=== PATIENT | male | born 1935 | race Caucasian/White ===

== ENCOUNTER 2024-06-28 20:40 | Inpatient (IN) | payer OTHER, SELFPAY ==
[2024-06-28 20:42] VITALS: BP 133/83; PULSE 117; RESP 20; TEMP 37.8; O2SAT 82; O2SAT 97
[2024-06-28 20:45] VITALS: BMI 28.8
[2024-06-28 22:00] VITALS: BP 111/67; PULSE 106; RESP 27; O2SAT 93
--- NOTE | 2024-06-28 22:09 | EKG12_ITS ---
Test Reason : DYSRHYTHMIA Blood Pressure : */* mmHG Vent. Rate : 106 BPM Atrial Rate : * BPM P-R Int : * ms QRS Dur : 90 ms QT Int : 316 ms P-R-T Axes : * 13 -20 degrees QTcB Int : 419 ms Atrial fibrillation with rapid ventricular response Nonspecific ST abnormality Abnormal ECG Confirmed by Wu Lacey ([id number]), video effects editor ROSALINA GUEVARA ([id number]) on 06/29/2024 9:38:02 AM Referred By: MARLA Confirmed By: Wu Lacey
--- NOTE | 2024-06-28 22:10 | ED.VIS.DYS ---
HPI History of Present Illness Chief Complaint: Shortness of Breath Informant: patient and family Narrative Narrative: Brought by EMS from home increasing chills subjective fevers increasing dyspnea. Denies any significant cough. Denies vomiting diarrhea. Denies urinary symptoms. History of A-fib on warfarin. Denies asthma or COPD. Denies any home oxygen. EMS arrival 82% on room air he was placed on 10 L and brought here. He is currently on 4 L nasal cannula states he is feeling better from this. He took Tylenol at home reporting improving his symptoms. [facility] Medical History Hypertension Home Medications ?Medication ?Instructions ?Recorded ?Last Taken ?Type amlodipine 5 mg tablet 5 mg PO DAILY 06/28/24 06/28/24 History clonidine HCl 0.2 mg tablet 0.2 mg PO BID 06/28/24 06/28/24 09:00 History digoxin 250 mcg (0.25 mg) tablet 125 mcg PO DAILY 06/28/24 06/28/24 History hydrochlorothiazide 50 mg tablet 25 mg PO DAILY 06/28/24 06/28/24 History labetalol 300 mg tablet 300 mg PO BID 06/28/24 06/28/24 09:00 History lisinopril 40 mg tablet 40 mg PO BID 06/28/24 06/28/24 09:00 History tamsulosin 0.4 mg capsule (Flomax) 0.4 mg PO QHS 06/28/24 06/27/24 History warfarin 2 mg tablet 2 mg PO .COMPLEX 06/28/24 06/28/24 History Allergy/AdvReac Type Severity Reaction Status Date / Time No Known Allergies Allergy Verified 06/28/24 20:42 Social History Smoking Status: Never smoker ROS ROS ED Constitutional Constitutional ED: Reports chills and fever(s); Denies sweats ENT ENT ED: Denies sore throat Cardiovascular Cardiovascular: Denies chest pain, leg edema, palpitations or racing heartbeat Respiratory/Chest Respiratory/Chest: Reports cough and dyspnea; Denies dyspnea on exertion Gastrointestinal Gastrointestinal: Denies abdominal pain, diarrhea, nausea or vomiting Genitourinary Genitourinary ED: Denies dysuria, hematuria or urinary frequency Musculoskeletal Musculoskeletal: Denies back pain, extremity pain or neck pain Integumentary Denies rash or wounds Neurologic Neurologic: Denies headache(s), paresthesias or weakness EXAM Physical Exam Const Vital Signs: 06/28/24 20:42 06/28/24 22:00 06/28/24 22:13 Temperature 100.1 F H Temperature Source Oral Pulse Rate 117 H 106 H Respiratory Rate 20 H 27 H Respiratory Effort Respiratory Depth Respiratory Pattern Blood Pressure 133/83 H 111/67 Blood Pressure Mean 99 80 Pulse Ox 82 93 Oxygen Delivery Method Room Air Nasal Cannula Oxygen Flow Rate (L/min) 4 06/28/24 22:17 06/28/24 23:00 06/29/24 00:00 Temperature Temperature Source Pulse Rate 94 90 Respiratory Rate 26 H 24 H Respiratory Effort Normal Non-Labored Respiratory Depth Normal Respiratory Pattern Normal Blood Pressure 103/69 106/66 Blood Pressure Mean 80 78 Pulse Ox 96 93 Oxygen Delivery Method Nasal Cannula Oxygen Flow Rate (L/min) 4 06/29/24 01:00 06/29/24 01:15 06/29/24 01:30 Temperature Temperature Source Pulse Rate 91 90 86 Respiratory Rate 23 H 22 H 22 H Respiratory Effort Respiratory Depth Respiratory Pattern Blood Pressure 111/71 111/64 108/58 L Blood Pressure Mean 84 79 74 Pulse Ox 95 95 95 Oxygen Delivery Method Oxygen Flow Rate (L/min) 06/29/24 01:45 06/29/24 02:00 06/29/24 02:00 Temperature Temperature Source Pulse Rate 92 89 92 Respiratory Rate 20 H 18 31 H Respiratory Effort Respiratory Depth Respiratory Pattern Blood Pressure 102/67 102/57 L 112/65 Blood Pressure Mean 77 72 79 Pulse Ox 94 94 95 Oxygen Delivery Method Nasal Cannula Oxygen Flow Rate (L/min) 4 06/29/24 02:15 06/29/24 02:30 06/29/24 02:45 Temperature Temperature Source Pulse Rate 87 81 86 Respiratory Rate 21 H 20 H 21 H Respiratory Effort Respiratory Depth Respiratory Pattern Blood Pressure 102/57 L 120/77 113/70 Blood Pressure Mean 71 91 82 Pulse Ox 95 95 94 Oxygen Delivery Method Oxygen Flow Rate (L/min) 06/29/24 03:00 Temperature Temperature Source Pulse Rate 102 H Respiratory Rate 23 H Respiratory Effort Respiratory Depth Respiratory Pattern Blood Pressure 131/87 H Blood Pressure Mean 103 Pulse Ox Oxygen Delivery Method Oxygen Flow Rate (L/min) Positive well nourished and well developed Constitutional Narrative: 4 L nasal cannula, no respiratory distress. General Appearance ED: well developed and NAD HEENT Reports moist mucous membranes normocephalic and atraumatic Eyes General Eye ED: Yes normal appearance of both eyes Neck full ROM Chest Wall Chest: Negative for tenderness Resp Resp Narrative: Diminished breath sounds at bases. Effort and Inspection: symmetric chest movement; Negative for respiratory distress Cardio no murmurs Rhythm: abnormal rhythm Peripheral Pulses: pulses 2+ throughout GI normal to inspection, nondistended, normoactive bowel sounds and non-tender Palpation: Negative for guarding or rebound tenderness present Extremity normal to inspection General Extremety ED: Negative for edema or tenderness General Extremity: Negative for edema Neuro oriented x3 and no sensory deficits noted Sensorium / Orientation: awake and alert Skin no rashes or lesions noted and no wounds MDM MDM MDM Narrative Medical decision making narrative: Interventions / MDM: Differential diagnosis: Hypoxia, fluid overload, febrile illness, atrial fibrillation, CHF Diagnosis considered but do not suspect: Pneumonia, pulmonary embolism however x-ray and CT negative. My EKG interpretation: A-fib rate of 106, no ST or T wave changes. Imaging independently reviewed and interpreted by myself: 1 view chest x-ray: No infiltrates vascular congestion noted. No pleural effusions. CTA chest: External documents reviewed: N/A Test considered but not ordered:N/A ED course: Low-grade temp 100.1 tachycardic in A-fib. Sepsis labs are ordered. Currently on 4 L nasal cannula no respiratory stress. With hypoxia will require admission. 0005: White count 7.8. Creatinine 1.6 GFR 41, no old for comparison. Lactic acid at 1. Urine without infection. COVID, RSV, influenza negative. Chest x-ray no infiltrates. History chills sweats more concerns for infectious etiology. Will send for respiratory panel. He is therapeutic with INR 2.6. No clear reason for his hypoxia at this time, CTA chest ordered for further evaluation. 0200: CTA chest negative for PE. Groundglass opacities with suggestion of pulm about congestion and mild pulmonary edema. No consolidation noted. Respiratory panel is pending. He denies any heart failure history. With hypoxia concerns for now fluid overload will start Lasix 40 mg IV. He does report some form of CKD however does not know his baseline numbers. I will speak with hospitalist for admission. Heart rate still A-fib in the 80s on the monitor. I spoke with Dr. Collier for admission. Re-evaluation: stable Disposition discussed with patient/family/significant other: Patient Case discussed with consulting clinician: Hospitalist This note was generated with [employer] dictation software. It may contain incorrect words, spelling, and punctuation that were not noted in checking the note before signing. Lab Data Attestation: I reviewed the patient's lab results. Labs: Laboratory Results - last 24 hr 06/28/24 06/28/24 06/28/24 20:46 22:18 22:19 WBC 7.8 RBC 4.76 Hgb 14.7 Hct 43.6 MCV 91.6 MCH 30.9 MCHC 33.7 RDW Std Deviation 48.1 H RDW Coeff of Ej 14.3 Plt Count 141 L MPV 10.4 Immature Gran % (Auto) 0.400 Neut % (Auto) 92.6 H Lymph % (Auto) 4.3 L [place] % (Auto) 1.0 Eos % (Auto) 1.2 Baso % (Auto) 0.5 Absolute Neuts (auto) 7.2 Absolute Lymphs (auto) 0.33 L Nucleated RBC % 0 Differential Comment SCANNED Toxic Granulation 2+ PT 28.4 H INR 2.6 APTT 36.8 H Sodium 137 Potassium 3.8 Chloride Direct 100 Carbon Dioxide 23.7 Anion Gap 13 BUN 35 H Creatinine 1.6 H Est GFR (MDRD) Non-Af 41 L BUN/Creatinine Ratio 21.3 H Glucose 117 H Lactic Acid 1.0 Calcium 9.4 Total Bilirubin 1.93 H AST 48 H ALT 25 Alkaline Phosphatase 89 NT pro BNP II 8040 H Total Protein 7.6 Albumin 3.9 Globulin 3.7 Albumin/Globulin Ratio 1.0 Urine Color Yellow Urine Clarity Clear Urine pH 6.0 Ur Specific [place] 1.015 Urine Protein 30 H Urine Glucose (UA) Normal Urine Ketones Negative Urine Occult Blood 150 H Urine Nitrite Negative Urine Bilirubin Negative Urine Urobilinogen 1 H Ur Leukocyte Esterase Negative Urine RBC 5-10 SEEN Urine WBC 0 SEEN Ur Squamous Epith Cells 0 SEEN Urine Bacteria 1+ Urine Mucus 0 SEEN Radiography Diagnostic Testing: Clinical Impression(s) from Imaging Studies Chest X-Ray 06/28/24 22:14 IMPRESSION: 1. Moderate cardiomegaly with associated pulmonary vascular congestion. 2. Right apical opacity which may represent atelectasis versus scarring. Mass is not entirely excluded. Reading Location: [facility] Chest CTA 06/29/24 00:04 IMPRESSION: Geographic bilateral diffuse mosaic ground-glass opacities and suggestion of lower lung septal thickening may represent pulmonary vascular congestion and mild pulmonary edema. Left base atelectasis. No focal consolidation. No evidence of filling defect to suggest pulmonary embolism. Mild enlargement of the central pulmonary arteries can be seen with pulmonary hypertension. Four-chamber cardiomegaly. Enlarged right paratracheal lymph node 1.3 cm axial 214, pretracheal 1.7 cm axial 189, shotty mediastinal nodes. May be reactive, inflammatory, infectious with neoplastic process not excluded. One or more dose reduction techniques were used (e.g., Automated exposure control, adjustment of the mA and/or kV according to patient size, use of iterative reconstruction technique). Reading Location: [id number] Discharge Plan Dx/Rx/DC Orders Clinical Impression: Hypoxia, Fluid overload, Febrile illness, acute, Chronic a-fib, CKD (chronic kidney disease), Chronic anticoagulation Disposition Disposition: Acute Care Hospital [facility] Discharge Date/Time: 06/29/24 04:06
--- NOTE | 2024-06-28 22:14 | RAD_ITS ---
PROCEDURE: CHEST 1 VIEW (PORTABLE) REASON FOR EXAM: Shortness of breath TECHNIQUE: Frontal view of the chest. COMPARISON: None. FINDINGS: Heart size is moderately enlarged. There are atherosclerotic calcifications of the thoracic aorta. Pulmonary vasculature is congested. Right apical opacity. The bones are unremarkable. RAD/Chest 1 View (Portable) IMPRESSION: 1. Moderate cardiomegaly with associated pulmonary vascular congestion. 2. Right apical opacity which may represent atelectasis versus scarring. Mass is not entirely excluded. Reading Location: [facility]
[2024-06-28 22:20] LABS: Absolute Lymphocyte Count 0.33 X10^3/uL (0.83-4.51); Absolute Neutrophil Count 7.2 X10^3/uL (2.0-7.7); Basophil# 0.04 X10^3/uL; Basophil% 0.5 % (0-1); Eosinophil# 0.09 X10^3/uL; Eosinophils% 1.2 % (0-5); Hematocrit 43.6 % (40-54); Hemoglobin 14.7 g/dL (13.0-16.5); Lymphocyte # 0.33 X10^3/ul (0.83-4.51); Lymphocyte % 4.3 % (19-41); Mean Corp Hgb Conc 33.7 g/dL (32-36); Mean Corpuscular Hgb 30.9 pg (27.0-32.0); Mean Corpuscular Volume 91.6 fL (80-94); Mean Platelet Vol. 10.4 fl (6.2-12.0); Monocyte# 0.08 X10^3/uL; NRBC Flagged by Analyzer 0 % (0-5); Neutrophil # 7.18 X10^3/uL (2.7-7.7); Neutrophil % 92.6 % (47-70); POSITIVE DIFFERENTIAL YES; POSITIVE MORPHOLOGY YES; Platelet Count 141 K/mm3 (150-450); RBC Distribution Width CV 14.3 % (11.6-14.6); RBC Distribution Width SD 48.1 fl (35.1-43.9); Red Blood Count 4.76 M/mm3 (4.6-6.2); White Blood Count 7.8 K/mm3 (4.4-11.0)
[2024-06-28] MEDS: 0.9% Normal Saline (1000mL) 1,000 ML 999 ML IV (22:31)
[2024-06-28 22:34] LABS: Mucous, Urine 0 SEEN /hpf (<or=2+); Squamous Epithelial Cells - UA 0 SEEN /hpf (0-5); White Blood Cells 0 SEEN /hpf (0-5)
[2024-06-28 22:45] LABS: AST(SGOT) 48 U/L (<=37); Alanine Aminotransfer ALT/SGPT 25 U/L (<=46); Albumin, Serum 3.9 g/dL (3.4-4.8); Alkaline Phosphatase 89 U/L (40-129); Anion Gap 13 (5-15); BUN 35 mg/dL (4-19); BUN/Creat Ratio 21.3 RATIO (10-20); Calcium 9.4 mg/dL (7.6-11.0); Carbon Dioxide 23.7 mmol/L (22.0-29.0); Chloride 100 mmol/L (96-108); Creatinine, Serum 1.6 mg/dL (0.8-1.3); EST Glomerular Filtration Rate 41 (>60); Globulin 3.7 g/dL (2.2-4.2); Glucose 117 mg/dL (70-99); Potassium 3.8 mmol/L (3.3-5.1); Protein, Total 7.6 g/dL (5.9-8.4); Sodium Level 137 mmol/L (133-145); Total Bilirubin 1.93 mg/dL (0.00-1.30)
[2024-06-28 22:51] LABS: International Normalized Ratio 2.6; Partial Thromboplast Time 36.8 Seconds (24.1-36.2); Prothrombin Time (Protime)PT. 28.4 SECONDS (11.7-14.9)
[2024-06-28 22:57] LABS: Color, Urine Yellow (Yellow); Glucose, Dipstick Normal (Normal); Ketone-Dipstick Negative (Negative); Leukocyte Esterase-Dipstick Negative /ul (Negative); Nitrite-Dipstick Negative (Negative); Occult Blood-Urine 150 /ul (Negative); Protein-Dipstick 30 mg/dl (Negative); Specific Gravity, Urine 1.015 (1.002-1.030); Urine Bilirubin Dipstick Negative (Negative); Urine Clarity Clear (Clear); Urine Urobilinogen 1 mg/dl (Normal)
[2024-06-28 23:00] VITALS: BP 103/69; PULSE 94; RESP 26; O2SAT 96
--- NOTE | 2024-06-28 23:03 | ED.RN ---
NO OLD EKG
[2024-06-28 23:15] LABS: Bacteria 1+ /hpf (None Seen); Red Blood Cells-Urine 5-10 SEEN /hpf (0-5)
[2024-06-28 23:34] LABS: Differential Indicated SCAN CRITERIA MET
[2024-06-28 23:42] LABS: Differential Comment SCANNED; Toxic Granulation 2+
[2024-06-29] VITALS (23 sets, daily range): BP systolic 102–133; BP diastolic 57–96; PULSE 52–102; RESP 16–31; TEMP 36.7–36.8; O2SAT 93–99; BMI 28.7
--- NOTE | 2024-06-29 00:04 | CT_ITS ---
PROCEDURE: CTA CHEST W/WO CONTRAST REASON FOR EXAM: Hypoxia TECHNIQUE: Chest CT with intravenous contrast. Coronal and sagittal reformatted images and MIP images CONTRAST: 100 cc [id number] COMPARISON: None. FINDINGS: The central airways are patent. Geographic bilateral diffuse mosaic ground- glass opacities and suggestion of lower lung septal thickening may represent pulmonary vascular congestion and mild pulmonary edema. Left base atelectasis. No focal consolidation. No evidence of filling defect to suggest pulmonary embolism. Mild enlargement of the central pulmonary arteries can be seen with pulmonary hypertension. Ectatic thoracic aorta with atherosclerotic changes. Aortic valve and mitral annulus calcification. Four-chamber cardiomegaly. No pericardial effusion. Trace bilateral pleural fluid. Enlarged right paratracheal lymph node 1.3 cm axial 214, pretracheal 1.7 cm axial 189, shotty mediastinal nodes. May be reactive, inflammatory, infectious with neoplastic process not excluded. No hilar or subcarinal adenopathy. Images through the upper abdomen appear unremarkable. Lower cervical spondylosis/discogenic change. Bilateral shoulder degenerative changes. T5 and T12 compression deformities without visualized acute fracture plane or malalignment. CT/CTA Chest W/WO Contrast IMPRESSION: Geographic bilateral diffuse mosaic ground-glass opacities and suggestion of lo wer lung septal thickening may represent pulmonary vascular congestion and mild pulmonary edema. Left base atelectasis. No focal c onsolidation. No evidence of filling defect to suggest pulmonary embolism. Mild enlargement of the central pulmonary arteries can be seen with pulmonary h ypertension. Four-chamber cardiomegaly. Enlarged right paratracheal lymph node 1.3 cm axial 214, pretracheal 1.7 cm axi al 189, shotty mediastinal nodes. May be reactive, inflammatory, infectious with neoplastic process not excluded. One or more dose reduction techniques were used (e.g., Automated exposure contr ol, adjustment of the mA and/or kV according to patient size, use of iterative reconstruction technique). Reading Location: [id number]
[2024-06-29 00:39] LABS: Pro- Brain NATRIURETIC PEPTIDE 8040 pg/mL (<=1800)
[2024-06-29] MEDS: Furosemide 40 MG/4 ML Vial IV ×2 (02:26→10:26)
--- NOTE | 2024-06-29 02:27 | PCM.HP.STD ---
HPI - General General Date of Admission: 06/29/24 Date of Service: 06/29/24 Chief Complaint: SOB and Fever. 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 Mr. Segal reports his symptoms began approximately one day prior to admission with gradual-onset of dyspnea on exertion the progressed to SOB at rest with cough and fever of 100.1 degrees Fahrenheit confirmed in ER with chills. He did take acetaminophen at home which he states did help to alleviate his symptoms. He denies related sweats, sore throat, runny nose, abdominal pain, dysuria, back pain, rash or headache. He also has no detailed knowledge about his type of CHF or its severity. In the ER he was noted to have CT evidence of geographic bilateral diffuse mosaic ground-glass opacities and suggestion of lower lung septal thickening which may represent vascular congestion and mild pulmonary edema with Left base atelectasis and no focal consolidation, with 4-chamber cardiomegaly with no evidence of PE and enlarged Right paratracheal lymph node ~1.3 cm with corresponding highly elevated BNP of 8,040 pg/mL consistent with AE CHF; of uncertain-type complicated by clinical evidence of suspected superimposed Viral Respiratory Infection causing Fever with both issues combining to produce Acute Respiratory Insufficiency with patent oxygen saturation of 82% noted on EMS arrival started on 10L NC and now down to 4L NC compounded by incidentally noted mild Hyperbilirubinemia of 1.93 mg/dL present on admission in addition to therapeutic INR of 2.6 present on admission with patient then admitted to the PCU for ongoing care for a stay that is expected to extend beyond 2 midnights. [facility] Medical History Hypertension Home Medications ?Medication ?Instructions ?Recorded ?Last Taken ?Type amlodipine 5 mg tablet 5 mg PO DAILY 06/28/24 06/28/24 History clonidine HCl 0.2 mg tablet 0.2 mg PO BID 06/28/24 06/28/24 09:00 History digoxin 250 mcg (0.25 mg) tablet 125 mcg PO DAILY 06/28/24 06/28/24 History hydrochlorothiazide 50 mg tablet 25 mg PO DAILY 06/28/24 06/28/24 History labetalol 300 mg tablet 300 mg PO BID 06/28/24 06/28/24 09:00 History lisinopril 40 mg tablet 40 mg PO BID 06/28/24 06/28/24 09:00 History tamsulosin 0.4 mg capsule (Flomax) 0.4 mg PO QHS 06/28/24 06/27/24 History warfarin 2 mg tablet 2 mg PO .COMPLEX 06/28/24 06/28/24 History Allergy/AdvReac Type Severity Reaction Status Date / Time No Known Allergies Allergy Verified 06/28/24 20:42 Social History Smoking Status: Never smoker ROS ROS Narrative Review of Systems: Constitutional: Patient admits to fever and chills. Eyes: Patient denies changes in vision or discharge from eyes. ENT: Patient denies runny nose, sore throat or ear pain. Resp: Patient admits to SOB and cough. CV: Patient denies chest pain, palpitations, heart racing or LE edema. GI: Patient denies abdominal pain, nausea, vomiting, diarrhea or constipation. : Patient denies dysuria, hematuria or urinary frequency. MSK: Patient denies arthralgias or myalgias. Skin: Patient denies rash, abscess, wounds or jaundice. Psych: Patient denies symptoms of uncontrolled depression or anxiety. Neuro: Patient denies headache, paresthesias or focal neurologic deficits. Allergy: Patient denies lip swelling, tongue swelling or urticaria. Hematology: Patient admits to easy bleeding and easy bruisability on warfarin. Endocrinology: Patient denies polyuria, polydipsia or polyphagia. 14 point ROS otherwise negative except for positives noted above in HPI. Vital Signs Vital Signs Vital Signs: 06/28/24 20:42 06/28/24 22:00 06/28/24 22:13 Temperature 100.1 F H Temperature Source Oral Pulse Rate 117 H 106 H Respiratory Rate 20 H 27 H Respiratory Effort Respiratory Depth Respiratory Pattern Blood Pressure 133/83 H 111/67 Blood Pressure Mean 99 80 Pulse Ox 82 93 Oxygen Delivery Method Room Air Nasal Cannula Oxygen Flow Rate (L/min) 4 06/28/24 22:17 06/28/24 23:00 06/29/24 00:00 Temperature Temperature Source Pulse Rate 94 90 Respiratory Rate 26 H 24 H Respiratory Effort Normal Non-Labored Respiratory Depth Normal Respiratory Pattern Normal Blood Pressure 103/69 106/66 Blood Pressure Mean 80 78 Pulse Ox 96 93 Oxygen Delivery Method Nasal Cannula Oxygen Flow Rate (L/min) 4 06/29/24 01:00 Temperature Temperature Source Pulse Rate 91 Respiratory Rate 23 H Respiratory Effort Respiratory Depth Respiratory Pattern Blood Pressure 111/71 Blood Pressure Mean 84 Pulse Ox 95 Oxygen Delivery Method Oxygen Flow Rate (L/min) Physical Exam Const alert, oriented x3, no apparent distress and average body habitus Constitutional Narrative: Patient appears frail and chronically ill. General Appearance: cooperative HEENT normocephalic, head/scalp atraumatic, hearing grossly normal bilaterally and moist oral mucous membranes Eyes PERRL, EOMs intact bilaterally and conjunctivae normal Neck no lymphadenopathy and supple Resp Resp Narrative: Diminished breath sounds throughout. Cardio regular rate and regular rhythm GI normal to inspection, nondistended, normoactive bowel sounds, soft to palpation, non-tender and non-distended Extremity normal to inspection, full ROM and no clubbing, cyanosis or edema Skin Skin Narrative: Patient has no evidence of rash, abscess, wound or jaundice. Neuro oriented x3, CN's II-XII intact bilaterally, moves all extremities and no focal motor deficits Sensorium / Orientation: awake, alert, oriented to person, oriented to place and oriented to time Speech: speech normal Psych affect normal Results Medical Records Data Attestation: I reviewed the patient's medical records Lab / Micro Data Attestation: I reviewed the patient's lab results. 06/28/24 20:46 06/28/24 20:46 Labs: Laboratory Results - last 24 hr 06/28/24 20:46: WBC 7.8, RBC 4.76, Hgb 14.7, Hct 43.6, MCV 91.6, MCH 30.9, MCHC 33.7, RDW Std Deviation 48.1 H, RDW Coeff of Ej 14.3, Plt Count 141 L, MPV 10.4, Immature Gran % (Auto) 0.400, Neut % (Auto) 92.6 H, Lymph % (Auto) 4.3 L, [place] % (Auto) 1.0, Eos % (Auto) 1.2, Baso % (Auto) 0.5, Absolute Neuts (auto) 7.2, Absolute Lymphs (auto) 0.33 L, Nucleated RBC % 0, Differential Comment SCANNED, Toxic Granulation 2+, PT 28.4 H, INR 2.6, APTT 36.8 H, Sodium 137, Potassium 3.8, Chloride Direct 100, Carbon Dioxide 23.7, Anion Gap 13, BUN 35 H, Creatinine 1.6 H, Est GFR (MDRD) Non-Af 41 L, BUN/Creatinine Ratio 21.3 H, Glucose 117 H, Calcium 9.4, Total Bilirubin 1.93 H, AST 48 H, ALT 25, Alkaline Phosphatase 89, NT pro BNP II 8040 H, Total Protein 7.6, Albumin 3.9, Globulin 3.7, Albumin/Globulin Ratio 1.0 06/28/24 22:18: Lactic Acid 1.0 06/28/24 22:19: Urine Color Yellow, Urine Clarity Clear, Urine pH 6.0, Ur Specific [place] 1.015, Urine Protein 30 H, Urine Glucose (UA) Normal, Urine Ketones Negative, Urine Occult Blood 150 H, Urine Nitrite Negative, Urine Bilirubin Negative, Urine Urobilinogen 1 H, Ur Leukocyte Esterase Negative, Urine RBC 5-10 SEEN, Urine WBC 0 SEEN, Ur Squamous Epith Cells 0 SEEN, Urine Bacteria 1+, Urine Mucus 0 SEEN Micro: Microbiology 06/28/24 22:32 Mucosa - Nose SARS-CoV-2, Influenza & RSV (PCR) - Final Imaging Radiology Impression Chest X-Ray 06/28/24 22:14 IMPRESSION: 1. Moderate cardiomegaly with associated pulmonary vascular congestion. 2. Right apical opacity which may represent atelectasis versus scarring. Mass is not entirely excluded. Reading Location: [facility] Chest CTA 06/29/24 00:04 IMPRESSION: Geographic bilateral diffuse mosaic ground-glass opacities and suggestion of lower lung septal thickening may represent pulmonary vascular congestion and mild pulmonary edema. Left base atelectasis. No focal consolidation. No evidence of filling defect to suggest pulmonary embolism. Mild enlargement of the central pulmonary arteries can be seen with pulmonary hypertension. Four-chamber cardiomegaly. Enlarged right paratracheal lymph node 1.3 cm axial 214, pretracheal 1.7 cm axial 189, shotty mediastinal nodes. May be reactive, inflammatory, infectious with neoplastic process not excluded. One or more dose reduction techniques were used (e.g., Automated exposure control, adjustment of the mA and/or kV according to patient size, use of iterative reconstruction technique). Reading Location: [id number] Assessment & Plan Assessment/Plan (1) CHF exacerbation: QUALIFIERS: Heart failure type: unspecified Qualified Code(s): I50.9 - Heart failure, unspecified (2) Cardiomegaly: (3) Viral lower respiratory tract infection: (4) Acute respiratory insufficiency: (5) Hyperbilirubinemia: (6) Chronic a-fib: (7) Chronic anticoagulation: (8) Essential hypertension: (9) CKD (chronic kidney disease): QUALIFIERS: Chronic kidney disease stage: unspecified stage Qualified Code(s): N18.9 - Chronic kidney disease, unspecified PLAN: Plan 1. AE CHF; of uncertain-type with corresponding highly elevated BNP of 8,040 pg/mL present on admission and CTA of chest revealing geographic bilateral diffuse mosaic ground-glass opacities and suggestion of lower lung septal thickening which may represent vascular congestion and mild pulmonary edema with Left base atelectasis and no focal consolidation, with 4-chamber cardiomegaly with no evidence of PE and enlarged Right paratracheal lymph node ~1.3 cm - Admit to PCU. Start furosemide IV BID plus supplemental KCl and magnesium. Fluid restrict to 1.5 L/day and follow strict I's & O's. Serialize troponin. Check echocardiogram to evaluate LVEF. Resume lisinopril and labetalol as previous. Finally, we will consult [facility] to see this patient on-rounds in the AM for further recommendations with help appreciated in advance. 2. Viral Respiratory Infection causing Fever complicating #1 - Viral respiratory panel pending at this time. Give acetaminophen prn for pain or fever. Give vitamin D3, vitamin C and zinc to boost immunity and speed recovery. 3. Acute Respiratory Insufficiency with patent oxygen saturation of 82% noted on EMS arrival started on 10L NC and now down to 4L NC due to #1 & #2 - Wean supplemental oxygen as tolerated. 4. Hyperbilirubinemia of 1.93 mg/dL present on admission; incidentally noted suspected to be caused by #1 - Check CT scan of abdomen and pelvis to evaluate liver and gallbladder and serialize CMP to follow trend. 5. Chronic atrial fibrillation; on digoxin and warfarin adding to the medical complexity of #1 - #4 - Check digoxin level and follow daily PT/INR with therapeutic INR of 2.6 present on admission. 6. Essential Hypertension; on lisinopril, labetalol BID, hydrochlorothiazide, amlodipine and clonidine BID - Resume home regimen except for hydrochlorothiazide as patient will be on furosemide for #1. 7. 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 8. BPH; on tamsulosin - Maintain tamsulosin as before. 9. OA - Give acetaminophen prn as noted in #2. 10. DVT prophylaxis - Patient is already on warfarin for #5 with therapeutic INR of 2.6 present on admission. Total time: Approximately (but not less than) 75 minutes. Charges/Coding Visit Charges Inpatient E&M: 27345 Init Hosp L3
--- NOTE | 2024-06-29 04:35 | ECHOD_ITS ---
Reason For Study Reason For Study: CHF Procedure This was a 2D Doppler, Color Flow transthoracic echocardiogram. Exam performed portable in patient room. Left Ventricle Normal LV size. The estimated ejection fraction is 70 %. Unable to assess diastolic dysfunction. No regional wall motion abnormalities noted. Right Ventricle Normal RV size. Normal systolic function. Atria There is severe biatrial dilatation. No doppler evidence for ASD. Mitral Valve There is severe mitral annular calcification. There is no mitral valve stenosis. No mitral valve insufficiency. Tricuspid Valve There is no tricuspid stenosis. Mild tricuspid valve insufficiency. Pulmonary artery systolic pressure is 50 mmHg. Aortic Valve Severe aortic stenosis. Trivial aortic valve insufficiency. Pulmonic Valve There is no pulmonic valvular stenosis. No pulmonic valve insufficiency. Great Vessels Normal sized aortic root. Pericardium/Pleural No pericardial effusion. MMode/2D Measurements & Calculations LVIDd: 4.3 cm IVSd: 1.4 cm LVOT diam: 2.0 cm LVIDs: 2.9 cm LVPWd: 1.8 cm LVOT area: 3.0 cm2 RVDd: 4.1 cm FS: 32.5 % LAV(MOD-bp): 107.7 ml LVAd ap4: 23.7 cm2 SV(MOD-sp4): 37.0 ml LAV(MOD-bp) Indexed: 50.5 ml/m2 LVLd ap4: 7.4 cm SI(MOD-sp4): 17.4 ml/m2 LAV(MOD-sp2): 101.6 ml EDV(MOD-sp4): 65.0 ml LAV(MOD-sp4): 114.9 ml EDV(sp4-el): 64.4 ml LVAs ap4: 13.1 cm2 LVLs ap4: 6.8 cm ESV(MOD-sp4): 28.0 ml ESV(sp4-el): 21.7 ml EF(MOD-sp4): 57.0 % EF(sp4-el): 66.3 % SV(sp4-el): 42.7 ml LA A4 area: 34.9 cm2 LA dimension(2D): 4.7 cm RA A4 area: 35.3 cm2 Doppler Measurements & Calculations MV E max enzo: 124.4 cm/sec Ao V2 max: 480.9 cm/sec PA V2 max: 117.8 cm/sec Ao max P.9 mmHg PA V2 mean: 78.8 cm/sec Ao V2 mean: 375.6 cm/sec Ao mean P.9 mmHg Ao V2 VTI: 94.2 cm TR max enzo: 315.4 cm/sec TR max P.8 mmHg ECHO/Echo Complete Interpretation Summary The estimated ejection fraction is 70 %. Unable to assess diastolic dysfunction. There is severe biatrial dilatation. No mitral valve insufficiency. Severe aortic stenosis. Trivial aortic valve insufficiency. Ordering Physician: Jose Elias Bueno Referring Physician: VIVIENNE DOVE Performed By: Sue Martínez RCS
--- NOTE | 2024-06-29 04:35 | CT_ITS ---
PROCEDURE: ABDOMEN/PELVIS WITHOUT CONT REASON FOR EXAM: Hyperbilirubinemia. TECHNIQUE: Abdomen and pelvis CT without intravenous contrast. IV CONTRAST: COMPARISON: None. FINDINGS: There are streaky changes at the lung bases. There are small bilateral pleural effusions present. There is no free air within the abdomen and pelvis. Tiny granuloma is seen along the surface of the liver. Otherwise the unenhanced liver, gallbladder, spleen, adrenals appear within normal limits. The common bile duct is not distended. The unenhanced pancreas is within normal limits. Contrast is noted within the bilateral renal collecting system from prior IV contrast administration. There is no hydronephrosis present. Bilateral renal cortical scarring these present. There are probable tiny cysts within the bilateral kidneys. There is a periphery calcified mass within the lower pole of the left kidney measuring up to 5.2 x 4.3 by 4.5 cm. This demonstrates Hounsfield units of 45. Recommend evaluation with sonogram versus multiphase MRI. The prostate is enlarged and measures up to 6.8 x 6.2 cm. Moderate amount of stool is seen within the rectum. Moderate stool seen throughout the colon. No evidence of bowel obstruction. The appendix is normal. No abnormal free fluid is seen within the abdomen and pelvis. Small hiatal hernia is present. Fat containing umbilical hernia is present. There also fat containing bilateral inguinal hernias. Extensive atheromatous calcifications seen within the aorta and its branches. Age indeterminate T12 compression fracture is present. Anterolisthesis of L5 with respect to S1. There is partial fusion of L5 on S1 CT/Abdomen/Pelvis without Cont IMPRESSION: Limited examination due to lack of IV oral contrast. No definite acute inflamm atory process is seen within the abdomen or pelvis. 5.2 cm left lower pole renal mass. Recommend renal sonogram versus multiphase MRI for further evaluation. Moderate amount of stool seen within the rectum. Correlate clinically for feca l impaction. Prostatomegaly. Trace bilateral pleural effusions. Other findings as above. One or more dose reduction techniques were used (e.g., Automated exposure contr ol, adjustment of the mA and/or kV according to patient size, use of iterative reconstruction technique). Reading Location: [id number]
[2024-06-29 05:53] LABS: Magnesium 1.8 mg/dL (1.5-2.2); Troponin T High Sensitivity 35 ng/L (<=22)
[2024-06-29] MEDS: Albumin Human 25% (50 mL) 12.5 GM/50 ML IV.SOLN IV (05:59)
[2024-06-29 07:03] LABS: Absolute Lymphocyte Count 1.03 X10^3/uL (0.83-4.51); Basophil# 0.04 X10^3/uL; Basophil% 0.4 % (0-1); Eosinophil# 0.11 X10^3/uL; Eosinophils% 1.1 % (0-5); Hemoglobin 13.9 g/dL (13.0-16.5); Lymphocyte # 1.03 X10^3/ul (0.83-4.51); Lymphocyte % 10.7 % (19-41); Mean Corp Hgb Conc 33.1 g/dL (32-36); Mean Corpuscular Hgb 30.5 pg (27.0-32.0); Mean Corpuscular Volume 92.1 fL (80-94); Mean Platelet Vol. 9.9 fl (6.2-12.0); Monocyte# 0.46 X10^3/uL; Monocyte% 4.8 % (0-10); NRBC Flagged by Analyzer 0 % (0-5); Neutrophil # 7.98 X10^3/uL (2.7-7.7); Neutrophil % 82.5 % (47-70); Platelet Count 135 K/mm3 (150-450); RBC Distribution Width CV 14.6 % (11.6-14.6); RBC Distribution Width SD 49.1 fl (35.1-43.9); Red Blood Count 4.56 M/mm3 (4.6-6.2); White Blood Count 9.7 K/mm3 (4.4-11.0)
[2024-06-29 07:16] LABS: International Normalized Ratio 2.4; Prothrombin Time (Protime)PT. 26.6 SECONDS (11.7-14.9)
[2024-06-29 07:43] LABS: ALB/GLOB Ratio 1.1 RATIO (0.9-2.4); AST(SGOT) 48 U/L (<=37); Alanine Aminotransfer ALT/SGPT 25 U/L (<=46); Albumin, Serum 3.8 g/dL (3.4-4.8); Alkaline Phosphatase 73 U/L (40-129); Anion Gap 14 (5-15); BUN 32 mg/dL (4-19); BUN/Creat Ratio 20.2 RATIO (10-20); Calcium 8.9 mg/dL (7.6-11.0); Carbon Dioxide 23.9 mmol/L (22.0-29.0); Chloride 101 mmol/L (96-108); Creatinine, Serum 1.6 mg/dL (0.8-1.3); EST Glomerular Filtration Rate 43 (>60); Estimated Creatinine Clearance 38.67 ml/min; Globulin 3.3 g/dL (2.2-4.2); Glucose 104 mg/dL (70-99); Potassium 3.5 mmol/L (3.3-5.1); Protein, Total 7.1 g/dL (5.9-8.4); Sodium Level 139 mmol/L (133-145); TROPONIN VARIANCE 2 HR 1; Troponin T High Sens 2 HR 34 ng/L (<=22)
--- NOTE | 2024-06-29 10:03 | PCM.CONS.C ---
Assessment & Plan Assessment/Plan (1) Chronic a-fib: PLAN: Patient has a history of atrial fibrillation since 2001. He is on Coumadin in his home environment his rate is controlled with a combination of Lanoxin and labetalol. He is INR was 2.6. This is managed through his primary care physician's office. The patient is never been cathed to his knowledge he does report that he had the bottom chamber of his heart was weak when he was originally diagnosed in 2001. He does report he has been very active since that point in time with only some occasional dyspnea on exertion. However, his dyspnea on exertion has become more prominent recently. (2) Chronic anticoagulation: PLAN: Patient is maintained on Coumadin with an INR of 2?3 for his atrial fibrillation. He denies any bleeding issues his hemoglobin is stable on this admission. (3) CKD (chronic kidney disease): QUALIFIERS: Chronic kidney disease stage: unspecified stage Qualified Code(s): N18.9 - Chronic kidney disease, unspecified PLAN: Patient has a GFR of 41. He is on significant medications for hypertension in his home environment including clonidine amlodipine hydrochlorothiazide labetalol lisinopril. (4) Murmur: PLAN: The patient has a significant 3/6 harsh murmur radiating widely across the precordium and up to the base of the neck. This is consistent with a aortic outflow murmur given his what appears to be significant hypertension this may be asymmetric septal hypertrophy or alternatively it is aortic stenosis. The patient has no prior history of murmur to his knowledge and has never been told he had valve disease. 2D echocardiogram results are pending at this time further recommendations be forthcoming when they are available. (5) CHF exacerbation: QUALIFIERS: Heart failure type: unspecified Qualified Code(s): I50.9 - Heart failure, unspecified PLAN: The patient appears to have multifactorial issues with his respiratory insufficiency. He does have pulmonary issues by CT scan but he also appears to be in congestive heart failure. Will are waiting the results of his echocardiogram and further recommendations for treatment will be forthcoming. PLAN: Plan 1. Will obtain results of the echocardiogram. 2. Recommend continue with diuresis. 3. Continue warfarin with a target INR of 2?3. 4. Further recommendation concerning tailoring medical therapy to the appropriate cardiovascular issues will be forthcoming after echocardiogram is available. HPI Consult Data Date of Consult: 06/29/24 HPI Narrative HPI Narrative: TAAMR SEGAL, is a 88 M who presents with acute respiratory insufficiency with an O2 saturation of 82%. CT scan was suggestive of some pulmonary issues and his BNP was elevated at 8040. The patient has had episodes of fevers and chills in his home environment. The patient carries a history of atrial fibrillation documented in 2001 by his report. He is also noted to have some LV dysfunction by his report. He was evaluated by deicer finisher in 2001 and has not seen one since then. The patient's EKG in the emergency department showed atrial fibrillation with a heart rate of 122 bpm PVCs and nonspecific [address]-T wave changes. On telemetry now the patient's heart rate is 99 bpm with occasional PVCs and atrial fibrillation. The EKG did not show any acute ischemic changes he had nonspecific ST-T wave changes. The patient has been on Coumadin long-term for his atrial fibrillation he tolerated total knee replacement in 2010 and 2011 without any cardiovascular issues. The patient denies ever having a catheterization. He has no prior history of coronary artery disease or myocardial infarction. He has never been told he had a murmur to his knowledge he was just told he had a weakness of his heart muscle back in 2001. The CT scan so bilateral diffuse mosaic groundglass opacities and suggestion of the lung lower lung septal thickening. He had some mild pulmonary edema. There was four-chamber cardiomegaly on the CT scan no evidence of PE there was an enlarged right paratracheal lymph node noted. Patient also carries a history of renal insufficiency and his INR was therapeutic at 2.6 on admission. Currently the patient denies any significant shortness of breath lying in bed. He does note that he has left lower extremity edema distal to the traumatic injury many years ago. He has no lower extremity edema on the right. The patient does report dyspnea on exertion that has been progressive recently. He denies any chest tightness or squeezing denies any exertional syncope or near syncope. He denies any lightheadedness or dizziness. [facility] Medical History (Updated 06/29/24 @ 10:[address] Wu Lacey MD) Chronic a-fib CKD (chronic kidney disease) Chronic anticoagulation Hypertension Home Medications ?Medication ?Instructions ?Recorded ?Last Taken ?Type amlodipine 5 mg tablet 5 mg PO DAILY 06/28/24 06/28/24 History clonidine HCl 0.2 mg tablet 0.2 mg PO BID 06/28/24 06/28/24 09:00 History digoxin 250 mcg (0.25 mg) tablet 125 mcg PO DAILY 06/28/24 06/28/24 History hydrochlorothiazide 50 mg tablet 25 mg PO DAILY 06/28/24 06/28/24 History labetalol 300 mg tablet 300 mg PO BID 06/28/24 06/28/24 09:00 History lisinopril 40 mg tablet 40 mg PO BID 06/28/24 06/28/24 09:00 History tamsulosin 0.4 mg capsule (Flomax) 0.4 mg PO QHS 06/28/24 06/27/24 History warfarin 2 mg tablet 2 mg PO .COMPLEX 06/28/24 06/28/24 History Allergy/AdvReac Type Severity Reaction Status Date / Time No Known Allergies Allergy Verified 06/28/24 20:42 Surgical History (Updated 06/29/24 @ 10:[address] Wu Lacey MD) H/O knee surgery Social History Smoking Status: Never smoker ROS Constitutional Constitutional: Reports as per HPI Eyes Eyes: Reports systems reviewed and no addt'l complaints, except as documented ENT HEENT: Reports systems reviewed and no addt'l complaints, except as documented Cardiovascular Cardiovascular: Reports as per HPI Respiratory/Chest Respiratory/Chest: Reports as per HPI Gastrointestinal Gastrointestinal: Reports systems reviewed and no addt'l complaints, except as documented Genitourinary Genitourinary: Reports as per HPI Musculoskeletal Musculoskeletal: Reports systems reviewed and no addt'l complaints, except as documented Integumentary Integumentary: Reports systems reviewed and no addt'l complaints, except as documented Neurologic Neurologic: Reports systems reviewed and no addt'l complaints, except as documented Psychiatric Psychiatric: Reports systems reviewed and no addt'l complaints, except as documented Endocrine Endocrinology: Reports systems reviewed and no addt'l complaints, except as documented Hematologic/Lymphatic Hematologic/Lymphatic: Reports as per HPI Allergic/Immunologic Allergic/Immunologic: Reports systems reviewed and no addt'l complaints, except as documented Physical Exam Const alert and oriented x3 HEENT normocephalic Eyes PERRL Neck no JVD and no carotid bruits Chest inspection of chest normal Resp normal respiratory effort Auscultation: crackles bilateral base Cardio Rate: regular rate Rhythm: abnormal rhythm irregularly irregular Heart Sounds: S1 normal, S2 normal and murmur systolic III/ loud holo left sternal border and sternal notch to the neck; Negative for click or gallop Bruits: Negative for carotid bruit GI normal to inspection, nondistended, normoactive bowel sounds Extremity General Extremity: edema left lower extremity (1-2+ noted distal to traumatic injury from many years ago with discoloration of his anterior aspect of the left lower extremity.) mild Neuro Neuro Narrative: Alert and oriented x 3 Psych mental status grossly normal Risk Stratification Risk Stratification Applicable: No Charges/Coding Visit Charges Inpatient E&M: 35055 Init Hosp L3 Objective Data Vital Signs: Vital Signs Temp Pulse Resp BP Pulse Ox O2 Del Method O2 Flow Rate 98.2 F 52 L 16 133/86 H 95 Nasal Cannula 2 06/29/24 05:24 06/29/24 05:24 06/29/24 05:24 06/29/24 05:24 06/29/24 05:24 06/29/24 07:45 06/29/24 07:45 Oxygen Flow Rate (L/min) 2 Oxygen Delivery Method Nasal Cannula Weight: 205 lb 11.06 oz Body Mass Index (BMI) 28.7 Intake & Output: Intake and Output for Last 24 Hours 06/27/24 06/28/24 06/29/24 23:59 23:59 23:59 Intake Total 1050 / 1050 Output Total 600 / 600 Balance 450 / 450 Lab / Micro Data 06/29/24 06:39 06/29/24 06:39 Labs: Laboratory Results - last 24 hr 06/28/24 20:46: WBC 7.8, RBC 4.76, Hgb 14.7, Hct 43.6, MCV 91.6, MCH 30.9, MCHC 33.7, RDW Std Deviation 48.1 H, RDW Coeff of Ej 14.3, Plt Count 141 L, MPV 10.4, Immature Gran % (Auto) 0.400, Neut % (Auto) 92.6 H, Lymph % (Auto) 4.3 L, [place] % (Auto) 1.0, Eos % (Auto) 1.2, Baso % (Auto) 0.5, Absolute Neuts (auto) 7.2, Absolute Lymphs (auto) 0.33 L, Nucleated RBC % 0, Differential Comment SCANNED, Toxic Granulation 2+, PT 28.4 H, INR 2.6, APTT 36.8 H, Sodium 137, Potassium 3.8, Chloride Direct 100, Carbon Dioxide 23.7, Anion Gap 13, BUN 35 H, Creatinine 1.6 H, Est GFR (MDRD) Non-Af 41 L, BUN/Creatinine Ratio 21.3 H, Glucose 117 H, Calcium 9.4, Total Bilirubin 1.93 H, AST 48 H, ALT 25, Alkaline Phosphatase 89, NT pro BNP II 8040 H, Total Protein 7.6, Albumin 3.9, Globulin 3.7, Albumin/Globulin Ratio 1.0 06/28/24 22:18: Lactic Acid 1.0 06/28/24 22:19: Urine Color Yellow, Urine Clarity Clear, Urine pH 6.0, Ur Specific [place] 1.015, Urine Protein 30 H, Urine Glucose (UA) Normal, Urine Ketones Negative, Urine Occult Blood 150 H, Urine Nitrite Negative, Urine Bilirubin Negative, Urine Urobilinogen 1 H, Ur Leukocyte Esterase Negative, Urine RBC 5-10 SEEN, Urine WBC 0 SEEN, Ur Squamous Epith Cells 0 SEEN, Urine Bacteria 1+, Urine Mucus 0 SEEN 06/29/24 04:20: Magnesium 1.8, Troponin T High Sens 35 H 06/29/24 06:39: WBC 9.7, RBC 4.56 L, Hgb 13.9, Hct 42.0, MCV 92.1, MCH 30.5, MCHC 33.1, RDW Std Deviation 49.1 H, RDW Coeff of Ej 14.6, Plt Count 135 L, MPV 9.9, Immature Gran % (Auto) 0.500, Neut % (Auto) 82.5 H, Lymph % (Auto) 10.7 L, [place] % (Auto) 4.8, Eos % (Auto) 1.1, Baso % (Auto) 0.4, Absolute Neuts (auto) 8.0 H, Absolute Lymphs (auto) 1.03, Nucleated RBC % 0, PT 26.6 H, INR 2.4, Sodium 139, Potassium 3.5, Chloride Direct 101, Carbon Dioxide 23.9, Anion Gap 14, BUN 32 H, Creatinine 1.6 H, Estim Creat Clear Calc 38.67, Est GFR (MDRD) Non-Af 43 L, BUN/Creatinine Ratio 20.2 H, Glucose 104 H, Calcium 8.9, Total Bilirubin 1.50 H, AST 48 H, ALT 25, Alkaline Phosphatase 73, Troponin T Hi Sens 2 Hr 34 H, Troponin T Hi Sens 2Hr Delta 1, Total Protein 7.1, Albumin 3.8, Globulin 3.3, Albumin/Globulin Ratio 1.1, TSH 3.940 Micro: Microbiology 06/29/24 01:10 Mucosa - Nose Respiratory Panel (PCR) - Final 06/28/24 22:32 Mucosa - Nose SARS-CoV-2, Influenza & RSV (PCR) - Final Rhythm Strip Rhythm Strip: A-fib Rate: 65 Ectopy: PVC(s) Cardiology Labs/Tests 06/28/24 20:46: WBC 7.8, RBC 4.76, Hgb 14.7, Hct 43.6, MCV 91.6, MCH 30.9, MCHC 33.7, Plt Count 141 L, MPV 10.4, Immature Gran % (Auto) 0.400, Neut % (Auto) 92.6 H, Lymph % (Auto) 4.3 L, [place] % (Auto) 1.0, Eos % (Auto) 1.2, Baso % (Auto) 0.5, Absolute Neuts (auto) 7.2, Nucleated RBC % 0, PT 28.4 H, INR 2.6, APTT 36.8 H, Sodium 137, Potassium 3.8, Carbon Dioxide 23.7, Anion Gap 13, BUN 35 H, Creatinine 1.6 H, Est GFR (MDRD) Non-Af 41 L, BUN/Creatinine Ratio 21.3 H, Glucose 117 H, Calcium 9.4, Total Bilirubin 1.93 H 06/28/24 22:18: Lactic Acid 1.0 06/28/24 22:19: Urine Color Yellow, Urine Clarity Clear, Urine pH 6.0, Ur Specific [place] 1.015, Urine Protein 30 H, Urine Glucose (UA) Normal, Urine Ketones Negative, Urine Occult Blood 150 H, Urine Nitrite Negative, Urine Bilirubin Negative, Urine Urobilinogen 1 H, Ur Leukocyte Esterase Negative, Urine RBC 5-10 SEEN, Urine WBC 0 SEEN 06/29/24 04:20: Magnesium 1.8 06/29/24 06:39: WBC 9.7, RBC 4.56 L, Hgb 13.9, Hct 42.0, MCV 92.1, MCH 30.5, MCHC 33.1, Plt Count 135 L, MPV 9.9, Immature Gran % (Auto) 0.500, Neut % (Auto) 82.5 H, Lymph % (Auto) 10.7 L, [place] % (Auto) 4.8, Eos % (Auto) 1.1, Baso % (Auto) 0.4, Absolute Neuts (auto) 8.0 H, Nucleated RBC % 0, PT 26.6 H, INR 2.4, Sodium 139, Potassium 3.5, Carbon Dioxide 23.9, Anion Gap 14, BUN 32 H, Creatinine 1.6 H, Est GFR (MDRD) Non-Af 43 L, BUN/Creatinine Ratio 20.2 H, Glucose 104 H, Calcium 8.9, Total Bilirubin 1.50 H Rhythm: EKG: ECHO: Stress Test: Cardiac Cath: PCI: CT Surgery: Holter monitor: EPS: PPM: CXR: Chest CT Scan: Radiography Diagnostic Testing: Radiology Impression Chest X-Ray 06/28/24 22:14 IMPRESSION: 1. Moderate cardiomegaly with associated pulmonary vascular congestion. 2. Right apical opacity which may represent atelectasis versus scarring. Mass is not entirely excluded. Reading [facility] Chest CTA 06/29/24 00:04 IMPRESSION: Geographic bilateral diffuse mosaic ground-glass opacities and suggestion of lower lung septal thickening may represent pulmonary vascular congestion and mild pulmonary edema. Left base atelectasis. No focal consolidation. No evidence of filling defect to suggest pulmonary embolism. Mild enlargement of the central pulmonary arteries can be seen with pulmonary hypertension. Four-chamber cardiomegaly. Enlarged right paratracheal lymph node 1.3 cm axial 214, pretracheal 1.7 cm axial 189, shotty mediastinal nodes. May be reactive, inflammatory, infectious with neoplastic process not excluded. One or more dose reduction techniques were used (e.g., Automated exposure control, adjustment of the mA and/or kV according to patient size, use of iterative reconstruction technique). Reading Location: [facility] Abdomen/Pelvis CT 06/29/24 04:35 IMPRESSION: Limited examination due to lack of IV oral contrast. No definite acute inflammatory process is seen within the abdomen or pelvis. 5.2 cm left lower pole renal mass. Recommend renal sonogram versus multiphase MRI for further evaluation. Moderate amount of stool seen within the rectum. Correlate clinically for fecal impaction. Prostatomegaly. Trace bilateral pleural effusions. Other findings as above. One or more dose reduction techniques were used (e.g., Automated exposure control, adjustment of the mA and/or kV according to patient size, use of iterative reconstruction technique). Reading Location: [facility]
[2024-06-29] MEDS: 0.9% Saline Lock 10 ML Syringe IV ×2 (10:26→21:42)
[2024-06-29] MEDS: cloNIDine HCl 0.2 MG Tablet PO ×2 (10:26→21:41)
[2024-06-29] MEDS: Potassium Chloride Oral Tablet 20 MEQ PO ×2 (10:26→16:51)
[2024-06-29] MEDS: Magnesium Chloride 64 MG Delay Rel.Tablet 128 MG PO ×2 (10:26→21:41)
[2024-06-29] MEDS: Lisinopril 20 MG Tablet PO ×2 (10:26→21:41)
[2024-06-29 10:41] LABS: Phosphorus 3.6 mg/dL (2.7-4.5)
[2024-06-29 11:13] LABS: TROPONIN VARIANCE 4 HR 4; Troponin T High Sens 4 HR 39 ng/L (<=22)
--- NOTE | 2024-06-29 14:07 | CASEMGMT ---
LONDON LEMON Assessment: Face to Face with pt for initial transition planning/care coordination assessment. LONDON LEMON introduced self and role at [facility], pt voices understanding and consents to assessment. Pt is A&O x4 and answers all questions appropriately at this time. Pt sitting up in bed in no distress with oxygen out of his nose but NC on. Pt did get this put back on. Pt and 2 dil present in room. Pt agreeable to assessment with family present. Care providers, pharmacy, and demographics verified/updated. Admitting Dx: AE CHF, viral resp infection and resp insuff Strata Score: 2 PCP:Tereza Specialists:Denies Preferred Pharmacy:[facility] Insurance: [employer] Prescription Benefit: no LNOK: Betsy Thomson, ; Tanner Thomson, son Living Arrangements: Pt lives with in a single story home with 3 steps to enter with a rail. Pt reports he is I in ADLs at home. States his prepares meals, they share in the laundry and pt gets the groceries. Transportation: Pt hires drivers for transportation and will do so upon dc home. DME:[facility] HHC/SNF:Denies hx of Pt states no concerns with going home at time of dc. Discussed CHF with pt and the benefits of HH SN, pt denies need for this at this time. Pt states he has a scale and will weigh himself daily. Wrote on pt board to ask for the RN ION should he change his mind. Pt states lastnight was scary for him and he became tearful when speaking about his sob. Discussed the possibility of oxygen at home. Pt does not have electricity but states he does have generators. Provided pt with a verbal local list of DME providers, pt did not have a preference and was agreeable to use [employer]. Pt family asks to speak to hospitalist, notified hospitalist who will speak with family. Pt states no further concerns/needs. CM to follow. Advised pt to ask CM if any further questions/concerns/needs arise, voices understanding. Pt Goal: Home Plan: Home as pt is not interested in HHC at this time, follow therapy and for oxygen needs. Irma CALLAHAN CM
--- NOTE | 2024-06-29 15:05 | US_ITS ---
PROCEDURE: KIDNEY AND BLADDER REASON FOR EXAM: Left renal mass. TECHNIQUE: Bilateral renal ultrasound. COMPARISON: Comparison is made with prior CT scan of the abdomen pelvis dated June 29, 2024. FINDINGS: Normal renal sizes, parenchymal thicknesses, and echotextures. No hydronephrosis. RIGHT Kidney Size: 9 cm x 4.6 cm x 4.9 cm Volume: 106 mL Cortical Thickness (if discernible): 1.1 cm (>6mm is normal) LEFT Kidney Size: 10.5 cm x 4.7 cm x 4.6 cm Volume: 120 mL Cortical Thickness (if discernible): 1 cm (>6mm is normal) There is evidence of a 4.6 cm x 3.8 cm x 4 cm complex solid mass with calcific borders in the lower pole. A neoplastic process should be ruled out. This corresponds with the CT findings. US/Kidney and Bladder IMPRESSION: 4.6 cm x 3.8 cm x 4 cm complex solid mass with calcification in the lower pole of the left kidney. A neoplastic process should be ruled out. Reading Location: [id number]
--- NOTE | 2024-06-29 15:20 | WOUNDNOTE ---
Dr Botello aware of positive blood culture. gram + cocci.
[2024-06-29 15:52] LABS: Digoxin Level 0.55 ng/mL (0.00-2.00)
[2024-06-29] MEDS: Jantoven 2 MG Tablet PO (16:50)
[2024-06-29] MEDS: Digoxin 125 MCG Tablet PO (16:51)
[2024-06-29] MEDS: Carvedilol 6.25 MG Tablet PO (17:19)
--- NOTE | 2024-06-29 17:42 | PN.HOSP_ITS ---
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 I also talked with cardiology concerning the patient's care. Patient has severe aortic stenosis but has a normal ejection fraction. Patient is currently on low-flow oxygen at 2 L. I have elected to place the patient on IV Lasix at 20 mg every 8 hours, after talking with cardiology, I also started the patient on Coreg for rate control, the patient's Lanoxin will be stopped and his labetalol will be stopped also. Patient will need to be set up as an outpatient for consultation regarding a TAVR. Objective Data Objective Data Vital Signs: Vital Signs Temp Pulse Resp BP Pulse Ox O2 Del Method O2 Flow Rate 98.3 F 98 18 122/79 H 96 Nasal Cannula 2 06/29/24 15:32 06/29/24 16:51 06/29/24 15:32 06/29/24 16:51 06/29/24 16:02 06/29/24 15:32 06/29/24 16:02 Oxygen Flow Rate (L/min) 2 Oxygen Delivery Method Nasal Cannula Weight: 93.3 kg Body Mass Index (BMI) 28.7 Intake & Output: Intake and Output for Last 24 Hours 06/27/24 06/28/24 06/29/24 23:59 23:59 23:59 Intake Total 1530 / 1530 Output Total 1650 / 1650 Balance -120 / -120 Lab / Micro Data 06/29/24 06:39 06/29/24 06:39 Labs: Laboratory Results - last 24 hr 06/28/24 20:46: WBC 7.8, RBC 4.76, Hgb 14.7, Hct 43.6, MCV 91.6, MCH 30.9, MCHC 33.7, RDW Std Deviation 48.1 H, RDW Coeff of Ej 14.3, Plt Count 141 L, MPV 10.4, Immature Gran % (Auto) 0.400, Neut % (Auto) 92.6 H, Lymph % (Auto) 4.3 L, [place] % (Auto) 1.0, Eos % (Auto) 1.2, Baso % (Auto) 0.5, Absolute Neuts (auto) 7.2, Absolute Lymphs (auto) 0.33 L, Nucleated RBC % 0, Differential Comment SCANNED, Toxic Granulation 2+, PT 28.4 H, INR 2.6, APTT 36.8 H, Sodium 137, Potassium 3.8, Chloride Direct 100, Carbon Dioxide 23.7, Anion Gap 13, BUN 35 H, Creatinine 1.6 H, Est GFR (MDRD) Non-Af 41 L, BUN/Creatinine Ratio 21.3 H, G lucose 117 H, Calcium 9.4, Total Bilirubin 1.93 H, AST 48 H, ALT 25, Alkaline Phosphatase 89, NT pro BNP II 8040 H, Total Protein 7.6, Albumin 3.9, Globulin 3.7, Albumin/Globulin Ratio 1.0 06/28/24 22:18: Lactic Acid 1.0 06/28/24 22:19: Urine Color Yellow, Urine Clarity Clear, Urine pH 6.0, Ur Specific [place] 1.015, Urine Protein 30 H, Urine Glucose (UA) Normal, Urine Ketones Negative, Urine Occult Blood 150 H, Urine Nitrite Negative, Urine Bilirubin Negative, Urine Urobilinogen 1 H, Ur Leukocyte Esterase Negative, Urine RBC 5-10 SEEN, Urine WBC 0 SEEN, Ur Squamous Epith Cells 0 SEEN, Urine Bacteria 1+, Urine Mucus 0 SEEN 06/29/24 04:20: Magnesium 1.8, Troponin T High Sens 35 H 06/29/24 06:39: WBC 9.7, RBC 4.56 L, Hgb 13.9, Hct 42.0, MCV 92.1, MCH 30.5, MCHC 33.1, RDW Std Deviation 49.1 H, RDW Coeff of Ej 14.6, Plt Count 135 L, MPV 9.9, Immature Gran % (Auto) 0.500, Neut % (Auto) 82.5 H, Lymph % (Auto) 10.7 L, [place] % (Auto) 4.8, Eos % (Auto) 1.1, Baso % (Auto) 0.4, Absolute Neuts (auto) 8.0 H, Absolute Lymphs (auto) 1.03, Nucleated RBC % 0, PT 26.6 H, INR 2.4, Sodium 139, Potassium 3.5, Chloride Direct 101, Carbon Dioxide 23.9, Anion Gap 14, BUN 32 H, Creatinine 1.6 H, Estim Creat Clear Calc 38.67, Est GFR (MDRD) Non-Af 43 L, BUN/Creatinine Ratio 20.2 H, Glucose 104 H, Calcium 8.9, Phosphorus 3.6, Total Bilirubin 1.50 H, AST 48 H, ALT 25, Alkaline Phosphatase 73, Troponin T Hi Sens 2 Hr 34 H, Troponin T Hi Sens 2Hr Delta 1, Total Protein 7.1, Albumin 3.8, Globulin 3.3, Albumin/Globulin Ratio 1.1, TSH 3.940, Digoxin 0.55 06/29/24 10:28: Troponin T Hi Sens 4Hr 39 H, Troponin T Hi Sens 4Hr Delta 4 Micro: Microbiology 06/28/24 22:32 Blood Culture (Wb) - Anticubital Right Blood Culture - Preliminary 06/28/24 22:19 Urine, Clean Catch 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 Moderate cardiomegaly with associated pulmonary vascular congestion. 2. Right apical opacity which may represent atelectasis versus scarring. Mass is not entirely excluded. Reading Location: [facility] Chest CTA 06/29/24 00:04 IMPRESSION: Geographic bilateral diffuse mosaic ground-glass opacities and suggestion of lower lung septal thickening may represent pulmonary vascular congestion and mild pulmonary edema. Left base atelectasis. No focal consolidation. No evidence of filling defect to suggest pulmonary embolism. Mild enlargement of the central pulmonary arteries can be seen with pulmonary hypertension. Four-chamber cardiomegaly. Enlarged right paratracheal lymph node 1.3 cm axial 214, pretracheal 1.7 cm axial 189, shotty mediastinal nodes. May be reactive, inflammatory, infectious with neoplastic process not excluded. One or more dose reduction techniques were used (e.g., Automated exposure control, adjustment of the mA and/or kV according to patient size, use of iterative reconstruction technique). Reading Location: [id number] Abdomen/Pelvis CT 06/29/24 04:35 IMPRESSION: Limited examination due to lack of IV oral contrast. No definite acute inflammatory process is seen within the abdomen or pelvis. 5.2 cm left lower pole renal mass. Recommend renal sonogram versus multiphase MRI for further evaluation. Moderate amount of stool seen within the rectum. Correlate clinically for fecal impaction. Prostatomegaly. Trace bilateral pleural effusions. Other findings as above. One or more dose reduction techniques were used (e.g., Automated exposure control, adjustment of the mA and/or kV according to patient size, use of iterative reconstruction technique). Reading Location: [facility] Echocardiogram 06/29/24 04:35 Interpretation Summary The estimated ejection fraction is 70 %. Unable to assess diastolic dysfunction. There is severe biatrial dilatation. No mitral valve insufficiency. Severe aortic stenosis. Trivial aortic valve insufficiency. Ordering Physician: Jose Elias Bueno Referring Physician: VIVIENNE DOVE Performed By: Sue Martínez RCS Renal Ultrasound 06/29/24 15:05 IMPRESSION: 4.6 cm x 3.8 cm x 4 cm complex solid mass with calcification in the lower pole of the left kidney. A neoplastic process should be ruled out. Reading Location: [id number] Rhythm Strip Rhythm Strip: A-fib Rate: 65 Ectopy: PVC(s) Physical Exam Const alert, oriented x3, no apparent distress and average body habitus General Appearance: cooperative, well kempt and well developed Orientation / Consciousness: awake, oriented to person, oriented to place and oriented to time HEENT normocephalic, head/scalp atraumatic and moist oral mucous membranes Eyes PERRL, EOMs intact bilaterally and conjunctivae normal Neck supple, no JVD, thyroid normal and no carotid bruits General: trachea midline Resp normal respiratory effort, no retractions and no use of accessory muscles Resp Narrative: Breath sounds are distant bilaterally Auscultation: Negative for rales, rhonchi or wheezes Cardio no rub and no gallops Cardio Narrative: Heart rate and rhythm is irregular GI normal to inspection, nondistended, normoactive bowel sounds, soft to palpation, non-tender and non-distended Extremity no clubbing, cyanosis or edema Skin no rashes or lesions noted General Skin Exam: no breakdown Neuro oriented x3, CN's II-XII intact bilaterally, no focal motor deficits and no sensory deficits noted Sensorium / Orientation: awake and alert Speech: speech normal Psych affect normal Assessment & Plan Assessment/Plan (1) CHF exacerbation: QUALIFIERS: Heart failure type: unspecified Qualified Code(s): I 50.9 - Heart failure, unspecified PLAN: Plan 1. Acute diastolic CHF-exacerbated by severe aortic stenosis-patient will remain on IV Lasix, his other medications will be adjusted #2 chronic atrial fibrillation-patient is on Coumadin and will be on Coreg for rate control #3 hypoxia secondary to #1-pulse ox will be monitored, oxygen will be weaned if possible #4 severe aortic stenosis-patient will need follow-up as an outpatient regarding this #5 essential hypertension-patient's medications will be adjusted prior to discharge home Total clinical time spent by myself addressing the patient's medical issues, reviewing all of his data, and collaborating with patient's care team: 35 minutes Charges/Coding Visit Charges Inpatient E&M: 53830 Subs Hosp L2
--- NOTE | 2024-06-29 18:06 | PCM.HOSP.N ---
Hospitalist Note Additional note: Patient was noted to have a mass on the left kidney on abdomen and pelvic CT, a renal ultrasound was ordered and it shows evidence of a complex solid mass with calcific borders in the lower pole of the left kidney, patient will need follow-up concerning this as an outpatient.
[2024-06-29] MEDS: Furosemide 20 MG/2 ML VIAL IV (21:41)
[2024-06-29] MEDS: Tamsulosin HCl 0.4 MG Capsule PO (21:41)
[2024-06-30 02:30] VITALS: BP 114/65; PULSE 90; RESP 16; TEMP 37.2; O2SAT 93
[2024-06-30 06:00] VITALS: BMI 27.8
[2024-06-30 06:45] VITALS: BP 127/75; PULSE 88
[2024-06-30] MEDS: 0.9% Saline Lock 10 ML Syringe IV ×3 (06:47→21:47)
[2024-06-30] MEDS: Furosemide 20 MG/2 ML VIAL IV ×3 (06:47→21:46)
[2024-06-30 07:23] VITALS: O2SAT 95
[2024-06-30 08:30] VITALS: BP 130/79; PULSE 104; RESP 12; TEMP 36.5; O2SAT 94
[2024-06-30 09:00] LABS: Absolute Lymphocyte Count 1.28 X10^3/uL (0.83-4.51); Absolute Neutrophil Count 5.5 X10^3/uL (2.0-7.7); Basophil# 0.06 X10^3/uL; Basophil% 0.7 % (0-1); Eosinophil# 0.08 X10^3/uL; Hematocrit 46.5 % (40-54); Hemoglobin 15.7 g/dL (13.0-16.5); Lymphocyte # 1.28 X10^3/ul (0.83-4.51); Lymphocyte % 15.9 % (19-41); Mean Corp Hgb Conc 33.8 g/dL (32-36); Mean Corpuscular Hgb 30.8 pg (27.0-32.0); Mean Corpuscular Volume 91.2 fL (80-94); Mean Platelet Vol. 10.4 fl (6.2-12.0); Monocyte# 1.06 X10^3/uL; Monocyte% 13.2 % (0-10); NRBC Flagged by Analyzer 0 % (0-5); Neutrophil # 5.51 X10^3/uL (2.7-7.7); Neutrophil % 68.7 % (47-70); Platelet Count 153 K/mm3 (150-450); RBC Distribution Width CV 14.4 % (11.6-14.6); RBC Distribution Width SD 48.3 fl (35.1-43.9)
[2024-06-30] MEDS: Potassium Chloride Oral Tablet 20 MEQ PO ×2 (09:13→16:48)
[2024-06-30] MEDS: cloNIDine HCl 0.2 MG Tablet PO ×2 (09:14→21:46)
[2024-06-30] MEDS: Magnesium Chloride 64 MG Delay Rel.Tablet 128 MG PO ×2 (09:14→21:46)
[2024-06-30] MEDS: Carvedilol 6.25 MG Tablet PO ×2 (09:14→16:49)
[2024-06-30] MEDS: Lisinopril 20 MG Tablet PO ×2 (09:14→21:46)
--- NOTE | 2024-06-30 09:15 | PN.CARD_ITS ---
Subjective Subjective Patient resting comfortably seated in the chair. He denies any chest pain denies any ongoing shortness of breath. The patient's echocardiogram yesterday revealed critical aortic stenosis which explains his murmur and his presentation with congestive heart failure. The patient was diagnosed with a right renal mass of approximately 5 cm by ultrasound he also has positive blood cultures and a positive urine culture. Objective Data Vital Signs: Vital Signs Temp Pulse Resp BP Pulse Ox O2 Del Method O2 Flow Rate 97.7 F L 104 H 12 130/79 H 94 Nasal Cannula 2 06/30/24 08:30 06/30/24 08:30 06/30/24 08:30 06/30/24 08:30 06/30/24 08:30 06/30/24 08:30 06/30/24 08:30 Oxygen Flow Rate (L/min) 2 Oxygen Delivery Method Nasal Cannula Weight: 199 lb Body Mass Index (BMI) 27.8 Intake & Output: Intake and Output for Last 24 Hours 06/28/24 06/29/24 06/30/24 23:59 23:59 23:59 Intake Total 1530 / 1530 Output Total 1650 / 2150 900 / 900 Balance -120 / -620 -900 / -900 Lab / Micro Data Attestation: I reviewed the patient's lab results. 06/30/24 07:51 06/29/24 06:39 Labs: Laboratory Results - last 24 hr 06/29/24 06:39: Phosphorus 3.6, Digoxin 0.55 06/29/24 10:28: Troponin T Hi Sens 4Hr 39 H, Troponin T Hi Sens 4Hr Delta 4 06/30/24 07:51: WBC 8.0, RBC 5.10, Hgb 15.7, Hct 46.5, MCV 91.2, MCH 30.8, MCHC 33.8, RDW Std Deviation 48.3 H, RDW Coeff of Ej 14.4, Plt Count 153, MPV 10.4, Immature Gran % (Auto) 0.500, Neut % (Auto) 68.7, Lymph % (Auto) 15.9 L, [place] % (Auto) 13.2 H, Eos % (Auto) 1.0, Baso % (Auto) 0.7, Absolute Neuts (auto) 5.5, Absolute Lymphs (auto) 1.28, Nucleated RBC % 0 Micro: Microbiology 06/28/24 22:32 Blood Culture (Wb) - Anticubital Right Blood Culture - Preliminary Gram negative rajeev 06/28/24 22:19 Urine, Clean Catch Urine Culture - Preliminary Escherichia coli Gram negative rajeev 06/29/24 01:10 Mucosa - Nose Respiratory Panel (PCR) - Final Rhythm Strip Rhythm Strip: A-fib Rate: 100 Ectopy: PVC(s) Cardiology Labs/Tests 06/29/24 06:39: Phosphorus 3.6, Digoxin 0.55 06/30/24 07:51: WBC 8.0, RBC 5.10, Hgb 15.7, Hct 46.5, MCV 91.2, MCH 30.8, MCHC 33.8, Plt Count 153, MPV 10.4, Immature Gran % (Auto) 0.500, Neut % (Auto) 68.7, Lymph % (Auto) 15.9 L, [place] % (Auto) 13.2 H, Eos % (Auto) 1.0, Baso % (Auto) 0.7, Absolute Neuts (auto) 5.5, Nucleated RBC % 0 Rhythm: EKG: ECHO: Stress Test: Cardiac Cath: PCI: CT Surgery: Holter monitor: EPS: PPM: CXR: Chest CT Scan: Radiography Diagnostic Testing: Radiology Impression Echocardiogram 06/29/24 04:35 Interpretation Summary The estimated ejection fraction is 70 %. Unable to assess diastolic dysfunction. There is severe biatrial dilatation. No mitral valve insufficiency. Severe aortic stenosis. Trivial aortic valve insufficiency. Ordering Physician: Jose Elias Bueno Referring Physician: VIVIENNE DOVE Performed By: Sue Martínez RCS Renal Ultrasound 06/29/24 15:05 IMPRESSION: 4.6 cm x 3.8 cm x 4 cm complex solid mass with calcification in the lower pole of the left kidney. A neoplastic process should be ruled out. Reading Location: [id number] Physical Exam Const alert and oriented x3 HEENT normocephalic Eyes PERRL Neck no JVD Chest inspection of chest normal Resp normal respiratory effort and clear to auscultation bilaterally Cardio Rate: regular rate Rhythm: abnormal rhythm irregularly irregular Heart Sounds: S1 normal, S2 normal and murmur systolic III/ harsh holo left sternal border, right sternal border, sternal notch and neck to carotid arteries; Negative for click or gallop GI soft to palpation Extremity no pedal edema Neuro Neuro Narrative: Alert and oriented x 3 Psych mental status grossly normal Assessment & Plan Assessment/Plan (1) Aortic valve stenosis: QUALIFIERS: Cardiac valve disease etiology: nonrheumatic Q ualified Code(s): I35.0 - Nonrheumatic aortic (valve) stenosis PLAN: Patient is echocardiogram yesterday showed left-ventricular ejection fraction of 70% the pulmonary artery pressure of 50 normal right ventricular function. The aortic valve was critically stenosed with a peak gradient of 93 mean gradient of 62. I did discuss these findings in detail with the patient there is a possibility he would be a candidate for TAVR he is not interested in SAVR. We do not know of his coronary status and he does have radiation to his carotids. We will obtain an ultrasound of his carotids to rule out significant carotid artery disease. Currently the patient has positive blood cultures and urine cultures. This needs to be cleared and documented sterile prior to any intervention on his aortic valve. The patient also need to have his dental status cleared. The patient also has a right renal mass that needs to be evaluated by urology. Once these issues are resolved if the patient still felt to be a potential candidate for TAVR he would be referred to [facility]'s TAVR clinic. The patient be reevaluated in the [facility] office after discharge prior to being referred for TAVR. (2) Essential hypertension: PLAN: Patient's blood pressure is coming under better control he is on significant medical therapy to control his blood pressure. (3) CHF exacerbation: QUALIFIERS: Heart failure type: unspecified Qualified Code(s): I 50.9 - Heart failure, unspecified PLAN: Patient's volume status and dyspnea on exertion and shortness of breath appear to be heart failure related to his aortic valve stenosis. He is continue with a gentle diuresis his creatinine is stable at 1.6. (4) CKD (chronic kidney disease): QUALIFIERS: Chronic kidney disease stage: unspecified stage Q ualified Code(s): N18.9 - Chronic kidney disease, unspecified PLAN: Patient has a history of many years of chronic kidney disease. Creatinine has been stable so far at 1.6 as he continues with gentle diuresis. His breathing is much improved. (5) Chronic a-fib: PLAN: Patient has longstanding chronic atrial fibrillation with a controlled ventricular response controlled by combination of Lanoxin and labetalol. Coreg has been added to his medical regiment for better rate control during this hospitalization and due to his high blood pressure. (6) Febrile illness, acute: PLAN: Patient's febrile illness is being treated with IV antibiotics due to his positive urine culture and blood culture. This grew 2 different types of gram- negative rods. (7) Right renal mass: PLAN: Patient has a 5 cm right renal mass that will be evaluated by urology. There is some calcification noted in the mass. PLAN: Plan 1. Will obtain ultrasound the carotids in anticipation of potential TAVR evaluation in the future and carotid bruits versus referred murmur. 2. Continue with treatment of the patient's infectious process. 3. The patient will need to be evaluated by urology prior to being referred for possible TAVR evaluation. 4. Patient should be followed up in the [facility] office in 3 to 4 weeks and at that time we will need to ensure that his bloodstream is sterile. Repeat blood cultures will be performed after that office visit. 5. I will follow direct for the remainder of his hospitalization. Charges/Coding Visit Charges Inpatient E&M: 08953 [facility] Hosp L3
[2024-06-30 10:25] LABS: Anion Gap 14 (5-15); BUN 39 mg/dL (4-19); BUN/Creat Ratio 26.1 RATIO (10-20); Calcium 9.4 mg/dL (7.6-11.0); Carbon Dioxide 26.8 mmol/L (22.0-29.0); Chloride 97 mmol/L (96-108); Creatinine, Serum 1.48 mg/dL (0.70-1.20); EST Glomerular Filtration Rate 46 (>60); Estimated Creatinine Clearance 38.16 ml/min; Glucose 100 mg/dL (70-99); Potassium 3.4 mmol/L (3.3-5.1); Sodium Level 137 mmol/L (133-145)
--- NOTE | 2024-06-30 10:38 | PN.HOSP_ITS ---
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/24) Essential (primary) hypertension (06/29/24) Nonrheumatic aortic (valve) stenosis (06/29/24) Chronic atrial fibrillation, unspecified (06/29/24) Heart failure, unspecified (06/29/24) Cardiomegaly (06/29/24) Unspecified acute lower respiratory infection (06/29/24) Chronic kidney disease, unspecified (06/29/24) Other specified disorders of kidney and ureter (06/29/24) Cardiac murmur, unspecified (06/29/24) Other abnormalities of breathing (06/29/24) Fever, unspecified (06/29/24) 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 I talked briefly with cardiology who saw him this morning during the rounds. Patient is on room air at this time at rest. Patient had an ultrasound of his kidneys performed yesterday due to an abnormal CT scan, it did show what appeared to be a mass on his left kidney which will have to be worked up as an outpatient. Objective Data Objective Data Vital Signs: Vital Signs Temp Pulse Resp BP Pulse Ox O2 Del Method O2 Flow Rate 97.7 F L 104 H 12 130/79 H 94 Room Air 2 06/30/24 08:30 06/30/24 08:30 06/30/24 08:30 06/30/24 08:30 06/30/24 08:30 06/30/24 09:51 06/30/24 08:30 Oxygen Flow Rate (L/min) 2 Oxygen Delivery Method Room Air Weight: 90.265 kg Body Mass Index (BMI) 27.8 Intake & Output: Intake and Output for Last 24 Hours 06/28/24 06/29/24 06/30/24 23:59 23:59 23:59 Intake Total 1530 / 1530 Output Total 1650 / 2150 900 / 900 Balance -120 / -620 -900 / -900 Lab / Micro Data 06/30/24 07:51 06/30/24 07:51 Labs: Laboratory Results - last 24 hr 06/29/24 06:39: Phosphorus 3.6, Digoxin 0.55 06/29/24 10:28: Troponin T Hi Sens 4Hr 39 H, Troponin T Hi Sens 4Hr Delta 4 06/30/24 07:51: WBC 8.0, RBC 5.10, Hgb 15.7, Hct 46.5, MCV 91.2, MCH 30.8, MCHC 33.8, RDW Std Deviation 48.3 H, RDW Coeff of Ej 14.4, Plt Count 153, MPV 10.4, Immature Gran % (Auto) 0.500, Neut % (Auto) 68.7, Lymph % (Auto) 15.9 L, [place] % (Auto) 13.2 H, Eos % (Auto) 1.0, Baso % (Auto) 0.7, Absolute Neuts (auto) 5.5, Absolute Lymphs (auto) 1.28, Nucleated RBC % 0, Sodium 137, Potassium 3.4, Chloride Direct 97, Carbon Dioxide 26.8, Anion Gap 14, BUN 39 H, Creatinine 1.48 H, Estim Creat Clear Calc 38.16, Est GFR (MDRD) Non-Af 46 L, BUN/Creatinine Ratio 26.1 H, Glucose 100 H, Calcium 9.4 Micro: Microbiology 06/28/24 22:32 Blood Culture (Wb) - Anticubital Right Blood Culture - Preliminary Gram negative rajeev 06/28/24 22:19 Urine, Clean Catch Urine Culture - Preliminary Escherichia coli Gram negative rajeev 06/29/24 01:10 Mucosa - Nose Respiratory Panel (PCR) - Final 06/28/24 22:32 Mucosa - Nose SARS-CoV-2, Influenza & RSV (PCR) - Final Radiography Diagnostic Testing: Radiology Impression Echocardiogram 06/29/24 04:35 Interpretation Summary The estimated ejection fraction is 70 %. Unable to assess diastolic dysfunction. There is severe biatrial dilatation. No mitral valve insufficiency. Severe aortic stenosis. Trivial aortic valve insufficiency. Ordering Physician: Jose Elias Bueno Referring Physician: VIVIENNE DOVE Performed By: Sue Martínez RCS Renal Ultrasound 06/29/24 15:05 IMPRESSION: 4.6 cm x 3.8 cm x 4 cm complex solid mass with calcification in the lower pole of the left kidney. A neoplastic process should be ruled out. Reading Location: [id number] Rhythm Strip Rhythm Strip: A-fib Rate: 100 Ectopy: PVC(s) Physical Exam Narrative alert, oriented x3, no apparent distress and average body habitus General Appearance: cooperative, well kempt and well developed Orientation / Consciousness: awake, oriented to person, oriented to place and oriented to time HEENT normocephalic, head/scalp atraumatic and moist oral mucous membranes Eyes PERRL, EOMs intact bilaterally and conjunctivae normal Neck supple, no JVD, thyroid normal and no carotid bruits General: trachea midline Resp normal respiratory effort, no retractions and no use of accessory muscles Resp Narrative: Breath sounds are distant bilaterally Auscultation: Negative for rales, rhonchi or wheezes Cardio no rub and no gallops Cardio Narrative: Heart rate and rhythm is irregular, there is a 2/6 systolic murmur noted at the left sternal border and apex GI normal to inspection, nondistended, normoactive bowel sounds, soft to palpation, non-tender and non-distended Extremity no clubbing, cyanosis or edema Skin no rashes or lesions noted General Skin Exam: no breakdown Neuro oriented x3, CN's II-XII intact bilaterally, no focal motor deficits and no sensory deficits noted Sensorium / Orientation: awake and alert Speech: speech normal Psych affect normal Assessment & Plan Assessment/Plan (1) CHF exacerbation: QUALIFIERS: Heart failure type: unspecified Qualified Code(s): I 50.9 - Heart failure, unspecified PLAN: Plan 1. Acute diastolic CHF-exacerbated by severe aortic stenosis-patient will remain on IV Lasix, his other medications will be adjusted #2 chronic atrial fibrillation-patient is on Coumadin and will be on Coreg for rate control #3 hypoxia secondary to #1-pulse ox will be monitored, oxygen will be weaned if possible #4 severe aortic stenosis-patient will need follow-up as an outpatient regarding this #5 essential hypertension-patient's medications will be adjusted prior to discharge home #6 left renal mass-this will need worked up as an outpatient, I discussed this with him today #7 bacteremia-probable Proteus, patient was placed on Rocephin, await final culture result Total clinical time spent by myself addressing the patient's medical issues, reviewing all of his data, and collaborating with patient's care team: 35 minutes Charges/Coding Visit Charges Inpatient E&M: 16703 Subs Hosp L2
[2024-06-30] MEDS: Ceftriaxone 1 GM/50 ML BAG IV (10:50)
--- NOTE | 2024-06-30 12:52 | CDU_ITS ---
Reason For Study Reason For Study: Carotid Bruit Rt. Velocities/BP Lt. Velocities/BP Prox CCA 72.7/17.5 cm/sec. Prox CCA 80.6/13.0 cm/sec. Mid CCA 94.1/18.5 cm/sec. Mid CCA 81.8/20.4 cm/sec. Dist CCA 61.0/13.8 cm/sec. Dist CCA 76.8/17.5 cm/sec. Prox ICA 56.3/20.4 cm/sec. Prox ICA 48.5/9.8 cm/sec. Mid ICA 73.3/25.1 cm/sec. Mid ICA 54.2/20.5 cm/sec. Dist ICA 55.5/18.8 cm/sec. Dist ICA 59.2/23.2 cm/sec. Rt. ICA/CCA = 0.8. Lt. ICA/CCA = 0.7. Prox ECA 61.1/0.0 cm/sec. Prox ECA 56.4/0.0 cm/sec. Rt. Vert. 40.4/12.7 cm/sec. Lt. Vert. 47.0/17.4 cm/sec. Right Extracranial There is heterogeneous, irregular atherosclerotic plaque noted in the right common carotid artery. There is heterogeneous, irregular atherosclerotic plaque noted in the right internal carotid artery. The right internal carotid artery is very tortuous. There is intimal thickening but no significant atherosclerotic plaque noted in the right external carotid artery. Antegrade flow is noted in the right vertebral artery. Left Extracranial There is heterogeneous, irregular atherosclerotic plaque noted in the left common carotid artery. There is heterogeneous, irregular atherosclerotic plaque noted in the left internal carotid artery. The left internal carotid artery is very tortuous. There is heterogeneous, irregular atherosclerotic plaque noted in the left external carotid artery. Antegrade flow is noted in the left vertebral artery. Procedure Carotid Duplex 12164. This is a Carotid Duplex examination using B-mode, color flow and specral Doppler. The exam was diagnostic. Exam performed portable in patient room. 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 Mild (<50%) stenosis left extracranial internal carotid. Patent and antegrade vertebrals bilaterally. Ordering Physician: Wu Lacey Referring Physician: Juan Diego Starks Performed By: Luciano Andre RVT
[2024-06-30 13:59] VITALS: BP 106/72; PULSE 89; RESP 16; TEMP 36.4; O2SAT 94
[2024-06-30] MEDS: Jantoven 2 MG Tablet PO (16:48)
[2024-06-30] MEDS: Tamsulosin HCl 0.4 MG Capsule PO (21:47)
[2024-06-30 22:30] VITALS: BP 131/100; PULSE 93; RESP 18; TEMP 37.1; O2SAT 97
[2024-07-01] VITALS (7 sets, daily range): BP systolic 97–137; BP diastolic 65–90; PULSE 83–97; RESP 18; TEMP 36.5–36.6; O2SAT 91–97
[2024-07-01] MEDS: 0.9% Saline Lock 10 ML Syringe IV ×3 (06:11→10:52)
[2024-07-01] MEDS: Furosemide 20 MG/2 ML VIAL IV (06:14)
[2024-07-01] MEDS: Carvedilol 6.25 MG Tablet PO (07:53)
[2024-07-01] MEDS: Potassium Chloride Oral Tablet 20 MEQ PO (09:28)
[2024-07-01] MEDS: Lisinopril 20 MG Tablet PO (09:29)
[2024-07-01] MEDS: cloNIDine HCl 0.2 MG Tablet PO (09:29)
[2024-07-01] MEDS: Magnesium Chloride 64 MG Delay Rel.Tablet 128 MG PO (09:29)
--- NOTE | 2024-07-01 09:56 | PN.CARD_ITS ---
Subjective Subjective Patient is resting comfortably in a seated position in the bedside chair. He is eating breakfast and denies any shortness of breath. The patient's renal mass is on the left kidney not right in the as I had previously dictated yesterday. The patient is being switched from IV to oral antibiotics. He will probably be discharged today. Objective Data Vital Signs: Vital Signs Temp Pulse Resp BP Pulse Ox O2 Del Method O2 Flow Rate 97.7 F L 97 18 122/65 H 97 Room Air 2 07/01/24 07:43 07/01/24 07:43 07/01/24 07:43 07/01/24 07:43 07/01/24 08:53 07/01/24 08:53 07/01/24 07:44 Oxygen Flow Rate (L/min) 2 Oxygen Delivery Method Room Air Weight: 199 lb Body Mass Index (BMI) 27.8 Intake & Output: Intake and Output for Last 24 Hours 06/29/24 06/30/24 07/01/24 23:59 23:59 23:59 Intake Total 1530 / 1530 450 / 800 350 / 350 Output Total 1650 / 2150 2150 / 2650 1700 / 1700 Balance -120 / -620 -1700 / -1850 -1350 / -1350 Lab / Micro Data 06/30/24 07:51 06/30/24 07:51 Labs: Laboratory Results - last 24 hr 06/30/24 07:51: Sodium 137, Potassium 3.4, Chloride Direct 97, Carbon Dioxide 26.8, Anion Gap 14, BUN 39 H, Creatinine 1.48 H, Estim Creat Clear Calc 38.16, E st GFR (MDRD) Non-Af 46 L, BUN/Creatinine Ratio 26.1 H, Glucose 100 H, Calcium 9.4 Micro: Microbiology 06/28/24 22:19 Urine, Clean Catch Urine Culture - Final Escherichia coli Gram negative rajeev 06/28/24 22:32 Blood Culture (Wb) - Anticubital Right Blood Culture - Final Proteus mirabilis Rhythm Strip Rhythm Strip: A-fib Rate: 100 Ectopy: PVC(s) Cardiology Labs/Tests 06/30/24 07:51: Sodium 137, Potassium 3.4, Carbon Dioxide 26.8, Anion Gap 14, B UN 39 H, Creatinine 1.48 H, Est GFR (MDRD) Non-Af 46 L, BUN/Creatinine Ratio 26.1 H, Glucose 100 H, Calcium 9.4 Rhythm: EKG: ECHO: Stress Test: Cardiac Cath: PCI: CT Surgery: Holter monitor: EPS: PPM: CXR: Chest CT Scan: Physical Exam Narrative Elderly white male seated comfortably in no apparent distress. Const alert and oriented x3 HEENT normocephalic Chest inspection of chest normal Resp normal respiratory effort and clear to auscultation bilaterally Cardio Rate: regular rate Rhythm: abnormal rhythm irregularly irregular Heart Sounds: S1 normal, S2 normal and murmur systolic III/ harsh holo left sternal border, right sternal border, sternal notch and neck to carotid arteries; Negative for click or gallop Extremity no pedal edema Neuro Neuro Narrative: Alert and oriented x 3 Psych mental status grossly normal Assessment & Plan Assessment/Plan (1) Aortic valve stenosis: QUALIFIERS: Cardiac valve disease etiology: nonrheumatic Q ualified Code(s): I35.0 - Nonrheumatic aortic (valve) stenosis PLAN: Patient has critical aortic valve stenosis with a peak gradient of 90 and a mean gradient of 62. He presented with heart failure consistent with his severe aortic stenosis. He also has chronic longstanding atrial fibrillation on Coumadin therapy with an INR of 2.4. His congestion cleared with diuretic therapy during this hospitalization. Once the patient's left renal mass and infectious processes are cleared he should be considered for TAVR evaluation. I discussed this in detail with the patient we need to have Dr. Rod evaluate his left renal mass and get that question cleared up and figure out what treatment is needed. The patient also needs to have sterile blood cultures and sterile urine documented prior to pursuing any type of valvular intervention. The patient was instructed to call our office for an appointment in 2 to 3 weeks and at that time would reevaluate what has been decided from a urologic standpoint and then perform blood cultures and urine culture to document sterility of the blood in urine. The patient's INR target is 2?3. Given the fact he is on antibiotics he was recommended to obtain an INR at his primary care physician's office early next week. And again 3 days after the antibiotics are completed. (2) Essential hypertension: PLAN: Patient's blood pressure has been adequately controlled on his current medical therapy. (3) CHF exacerbation: QUALIFIERS: Heart failure type: unspecified Qualified Code(s): I 50.9 - Heart failure, unspecified PLAN: Patient's CHF exacerbation was his first hospitalization he is recovered with IV diuresis and his renal function has actually improved from a creatinine of 1.6-1.4. His CHF is valvular in etiology related to his critical aortic stenosis. I did review with the patient his options for treatment of his aortic valve disease and the fact that we need to clear up his other comorbid issues prior to pursuing evaluation for his valvular heart disease. The patient is adamant he does not want surgical intervention on his valve. But he would be willing to be evaluated for possible TAVR. However, this will be deferred until we can document as noted above resolution of his renal issues and infectious process. (4) CKD (chronic kidney disease): QUALIFIERS: Chronic kidney disease stage: stage 3 (moderate) C hronic kidney disease stage 3 subtype: stage 3a (GFR 45-59) Qualified Code(s): N18.31 - Chronic kidney disease, stage 3a PLAN: Patient's original creatinine when he was admitted was 1.6 it improved with diuresis. His GFR was 46 the day of discharge. He is grade IIIA. (5) Chronic a-fib: PLAN: Patient has longstanding chronic atrial fibrillation since early . He has been managed on Coumadin to the primary service target INR of 2?3. INR here was 2.4. He is instructed to have this reevaluated early next week with his primary service due to his antibiotic therapy and change in medications. He should also have this reevaluated 3 days after he completes his antibiotic therapy. (6) Left renal mass: PLAN: The patient is to be scheduled by the primary service to follow-up with Dr. Rod the urologist for further evaluation of his left renal mass. This is a solid mass with characteristics of possible carcinoma. (7) Positive blood cultures: PLAN: Patient's blood cultures 1 of 2 blood cultures grew Proteus mirabilis his urine culture grew E. coli. The patient received a dose of Rocephin and will be discharged on oral antibiotics per the primary service. As noted above to blood cultures and a urine culture will be repeated when he is evaluated in our office in 2-3 weeks. PLAN: Plan 1. From a cardiovascular standpoint the patient can be discharged to home. 2. Patient has follow-up with INR next week with his primary care physician. 3. Patient is to follow-up in the [facility] office in 2-3 weeks. 4. At the next office visit in the [facility] repeat 2 blood cultures and urine culture. 5. Patient to follow-up with Dr. Rod for his left renal mass further recommendations on aortic valve treatment will be dependent upon what the outcome of that evaluation is and recommendations. 6. The patient is not interested in SAVR but would be interested in evaluation for potential TAVR. This will be dependent upon the evaluation from urologic standpoint and if this is a terminal issue this not amenable to treatment we would have to reevaluate the patient's options for valve interventions. Charges/Coding Visit Charges Inpatient E&M: 12786 Subs Hosp L2
[2024-07-01] MEDS: Ceftriaxone 1 GM/50 ML BAG IV (10:07)
--- NOTE | 2024-07-01 10:57 | DCINST_ITS ---
Discharge Instructions Diet Discharge Diet: No restrictions DC O2, CPAP, BIPAP needs Home O2 Discharge instructions: No Dressing / Incision Discharge Activity: Return to Normal Activity Weight Bearing Status: Full weight bearing Follow Up Care Test Results: Test results from this visit will be discussed in further detail at your follow- up appointment, if applicable. Discharge Plan Admission Admit Date/Time: 06/29/24 03:05 Primary Reason for Your Visit: Congestive heart failure, positive blood culture, left kidney mass Attending Provider: Genesis Castillo Primary Care Provider: Juan Diego Starks Consulting Providers: Jose Elias Bueno; Isai Wisdom; Isaac Heller; Cole Easley; Armaan Abbott; Surinder Lord; Danuta Hopkins; Wu Lacey; Khoa Hogan; Suman Glaser; Uriel Watkins; Jignesh Castellanos PHARMACIST INTERN; Geraldine Villagomez PA; John Weaver; Jac Botello Discharge Orders/Prescriptions Prescriptions: New carvedilol 6.25 mg Tablet 6.25 mg PO BIDCM Qty: 60 0RF lisinopril 20 mg Tablet 20 mg PO BID Qty: 60 0RF potassium chloride 20 mEq Tablet,Er Particles/Crystals 20 meq PO BIDCM Qty: 60 0RF furosemide [Lasix] 20 mg tablet 60 mg PO DAILY Qty: 90 0RF cefdinir 300 mg capsule 300 mg PO BID Qty: 14 0RF Rx Instructions: Start on 07/02/2024 Continued warfarin 2 mg tablet 2 mg PO .COMPLEX Rx Instructions: 2 mg orally daily; 4 mg on Mondays tamsulosin [Flomax] 0.4 mg capsule 0.4 mg PO QHS clonidine HCl 0.2 mg tablet 0.2 mg PO BID Discontinued digoxin 250 mcg (0.25 mg) tablet 125 mcg PO DAILY lisinopril 40 mg tablet 40 mg PO BID hydrochlorothiazide 50 mg tablet 25 mg PO DAILY amlodipine 5 mg tablet 5 mg PO DAILY labetalol 300 mg tablet 300 mg PO BID Referrals / Follow Up: Juan Diego Starks, [Primary Care Provider] - In 1 Week (You will need to be re ferred to a urologist regarding your left kidney mass) Wu Lacey MD [Med Staff - Active Staff] - See Referral Note (Call to schedule an appointment for 2 to 3 weeks from now) Disposition Disposition (needs filled in before D/C Order can be placed): Home, Self Care
--- NOTE | 2024-07-01 11:18 | PCM.DC.SUM ---
Providers Date of Admission: 06/29/24 Date of Discharge: 07/01/24 Primary Care Physician: Dr. Juan Diego Starks, Consultations 06/29/24 04:35 Consult: Cardiology Routine Consulting Provider: Raymundo Campbell Reason for Consult: AE CHF. EMERGENT Consult: No MD Notified: Yes Date Notified: 06/29/24 Time Notified: 03:09 Method of Notification: Answering Service Method of Consult:: In-Person Reason For Visit: AE CHF, VIRAL RESP INFECTION & RESPIRATORY INSUFF Diagnosis Discharge Diagnosis (1) Aortic valve stenosis: Status: Acute Code(s): I35.0 - Nonrheumatic aortic (valve) stenosis Qualifiers: Cardiac valve disease etiology: nonrheumatic Qualified Code(s): I35.0 - Nonrheumatic aortic (valve) stenosis (2) Essential hypertension: Status: Acute Code(s): I10 - Essential (primary) hypertension (3) CHF exacerbation: Status: Chronic Code(s): I50.9 - Heart failure, unspecified Qualifiers: Heart failure type: unspecified Qualified Code(s): I50.9 - Heart failure, unspecified (4) CKD (chronic kidney disease): Status: Chronic Code(s): N18.9 - Chronic kidney disease, unspecified Qualifiers: Chronic kidney disease stage: stage 3 (moderate) Chronic kidney disease stage 3 subtype: stage 3a (GFR 45-59) Qualified Code(s): N18.31 - Chronic kidney disease, stage 3a (5) Chronic a-fib: Status: Chronic Code(s): I48.20 - Chronic atrial fibrillation, unspecified (6) Left renal mass: Status: Acute Code(s): N28.89 - Other specified disorders of kidney and ureter (7) Positive blood cultures: Status: Acute Code(s): R78.81 - Bacteremia Plan 1. Acute diastolic CHF-exacerbated by severe aortic stenosis #2 chronic atrial fibrillation-patient is on Coumadin and will be on Coreg for rate control #3 hypoxia secondary to #1-pulse ox will be monitored, oxygen will be weaned if possible #4 severe aortic stenosis-patient will need follow-up as an outpatient regarding this #5 essential hypertension-patient's medications will be adjusted prior to discharge home #6 left renal mass-this will need worked up as an outpatient, I discussed this with him #7 bacteremia- Proteus, patient was placed on Rocephin, await final culture result #8 moderate pulmonary hypertension #9 acute cystitis with E. coli and Proteus Total clinical time spent by myself addressing the patient's medical issues, reviewing all of his data, and collaborating with patient's care team: 35 minutes Medications at Discharge Home Medications clonidine HCl 0.2 mg tablet 0.2 mg PO BID 06/28/24 tamsulosin 0.4 mg capsule (Flomax) 0.4 mg PO QHS 06/28/24 warfarin 2 mg tablet 2 mg PO .COMPLEX 06/28/24 carvedilol 6.25 mg tablet 6.25 mg PO BIDCM #60 tabs 07/01/24 cefdinir 300 mg capsule 300 mg PO BID #14 caps 07/01/24 furosemide 20 mg tablet (Lasix) 60 mg (3 x 20 mg) PO DAILY #90 tabs 07/01/24 lisinopril 20 mg tablet 20 mg PO BID #60 tabs 07/01/24 potassium chloride 20 mEq tablet,extended release(part/cryst) 20 meq PO BIDCM #60 tabs 07/01/24 Hospital Course Operations None Procedures 2-D Echocardiogram Summary of Care Provided Minutes Spent on Discharge: 31 Hospital Course: Is a 8-year-old white male was brought into the emergency room at [facility] for evaluation of fever and increasing dyspnea. Upon arrival of EMS at his home, his O2 sat was 82% on room air. Workup in the emergency room included an EKG which showed A-fib at a rate of 106, white blood cell count was normal, creatinine was 1.6, urinalysis was unremarkable. Chest x-ray showed no infiltrates, INR was 2.6. CT of the chest was performed, it was negative for PE but there were groundglass opacities with suggestion of pulmonary congestion and mild pulmonary edema. Patient's beta natruretic peptide was 8040. In addition, patient had a CT of the abdomen and pelvis which showed a 5.2 cm left lower pole renal mass. Patient was admitted to PCU for congestive heart failure, he was seen in consultation by cardiology and placed on IV diuresis. Echocardiogram was obtained which showed a normal ejection fraction but severe aortic stenosis. Patient had an ultrasound of the kidneys that showed a left renal mass. I talked at length with the patient and his family concerning his valvular heart disease and his renal mass, patient was unsure whether he wanted any treatment for his aortic valve as an outpatient. Patient's blood culture resulted positive for Proteus, despite this, patient's white blood cell count remained normal and he was afebrile-except for his temperature in the emergency room. Urine culture grew out E. coli and a gram-negative rajeev. Patient was able to be weaned off oxygen. On 07/01/2024, patient was seen and examined: On examination he appeared in good health and spirits. Vital signs as documented. Skin warm and dry and without overt rashes. Neck without JVD, neck was supple, trachea midline, thyroid was normal. Lungs clear bilaterally, normal air movement was noted. Heart exam notable for irregular rhythm, there were no rubs or gallops, there was a 2/6 systolic murmur noted at the apex and left sternal border. Abdomen unremarkable and without evidence of organomegaly, masses, or abdominal aortic enlargement. Bowel sounds are present, abdomen is not distended. Extremities nonedematous, no cyanosis was noted, no clubbing was noted. Neuro: Cranial nerves II through XII are grossly intact, no focal motor deficits were noted, sensation to light touch and pinprick intact, motor exam 5/5 throughout. Psych: Patient is alert and oriented x3, he does not appear anxious or depressed, he does not appear agitated. Patient was discharged in stable condition on 07/01/2024 Weight / BMI Weight Weight: 90.265 kg Body Mass Index (BMI) 27.8 ABG / Lab / Microbiology Data 06/30/24 07:51 06/30/24 07:51 Microbiology: Microbiology 06/28/24 22:19 Urine, Clean Catch Urine Culture - Final Escherichia coli Gram negative rajeev 06/28/24 22:32 Blood Culture (Wb) - Anticubital Right Blood Culture - Final Proteus mirabilis 06/29/24 01:10 Mucosa - Nose Respiratory Panel (PCR) - Final 06/28/24 22:32 Mucosa - Nose SARS-CoV-2, Influenza & RSV (PCR) - Final D/C Instructions Discharge Diet: No restrictions Weight Bearing Status: Full weight bearing DC O2, CPAP, BIPAP Needs Home O2 Discharge instructions: No Meaningful Use Info Meaningful Use Meaningful Use Diagnoses (Choose all that apply): CHF CHF ABDOULAYE/ARB ordered at discharge?: Yes Documented LVEF (%): 70 Ischemic Stroke Statin Dosing Therapy Reference: STATIN DOSE THERAPY REFERENCE: * Patients > 75 years receive moderate or high dose statin therapy. * Patients 75 years or YOUNGER should receive HIGH intensity statin dose unless contraindicated. You will be required to document reason for non-treatment if statin daily dose does not meet guidelines. HIGH DOSE STATIN THERAPY DAILY Atorvastatin > than or = to 40 mg Rosuvastatin > than or = to 20 mg Amlodipine + Atorvastatin > than or = to 2.5/40 mg Ezetimibe + Simvastatin 10/80 mg Simvastatin 80mg Discharge Plan Admission Admit Date/Time: 06/29/24 03:05 Primary Reason for Your Visit: Congestive heart failure, positive blood culture, left kidney mass Attending Provider: Genesis Castillo Primary Care Provider: Juan Diego Starks Consulting Providers: Jose Elias Bueno; Isai Wisdom; Isaac Heller; Cole Easley; Armaan Abbott; Surinder Lord; Danuta Hopkins; Wu Lacey; Khoa Hogan; Suman Glaser; Uriel Watkins; Jignesh Castellanos NP; Geraldine Villagomez PA; John Weaver; Jac Botello Discharge Orders/Prescriptions Prescriptions: New carvedilol 6.25 mg Tablet 6.25 mg PO BIDCM Qty: 60 0RF lisinopril 20 mg Tablet 20 mg PO BID Qty: 60 0RF potassium chloride 20 mEq Tablet,Er Particles/Crystals 20 meq PO BIDCM Qty: 60 0RF furosemide [Lasix] 20 mg tablet 60 mg PO DAILY Qty: 90 0RF cefdinir 300 mg capsule 300 mg PO BID Qty: 14 0RF Rx Instructions: Start on 07/02/2024 Continued warfarin 2 mg tablet 2 mg PO .COMPLEX Rx Instructions: 2 mg orally daily; 4 mg on Mondays tamsulosin [Flomax] 0.4 mg capsule 0.4 mg PO QHS clonidine HCl 0.2 mg tablet 0.2 mg PO BID Discontinued digoxin 250 mcg (0.25 mg) tablet 125 mcg PO DAILY lisinopril 40 mg tablet 40 mg PO BID hydrochlorothiazide 50 mg tablet 25 mg PO DAILY amlodipine 5 mg tablet 5 mg PO DAILY labetalol 300 mg tablet 300 mg PO BID Referrals / Follow Up: Juan Diego Starks DO [Primary Care Provider] - In 1 Week (You will need to be referred to a urologist regarding your left kidney mass) Wu Lacey MD [Med Staff - Active Staff] - See Referral Note (Call to schedule an appointment for 2 to 3 weeks from now) Disposition Disposition (needs filled in before D/C Order can be placed): Home, Self Care Charges/Coding Visit Charges Inpatient E&M: 59344 Disch Hosp >30min
== END 2024-07-01 12:29 | disposition home or self-care (01) | DRG 291 ==
LOC: ED 06-29 02:07 → MS2 06-29 03:16 → PCU 06-30 19:20
PROVIDERS: Internal Medicine; Admitting Provider Internal Medicine; Emergency Provider Emergency Medicine; PCP Family Medicine; Visit Provider Internal Medicine
DX: I13.0 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 1 through stage 4 chronic kidney disease, or unspecified chronic kidney disease (principal); I50.31 Acute diastolic (congestive) heart failure; R78.81 Bacteremia; I48.20 Chronic atrial fibrillation, unspecified; N30.00 Acute cystitis without hematuria; I27.20 Pulmonary hypertension, unspecified; Z79.01 Long term (current) use of anticoagulants; N18.31 Chronic kidney disease, stage 3a; I35.0 Nonrheumatic aortic (valve) stenosis; E80.6 Other disorders of bilirubin metabolism; M19.90 Unspecified osteoarthritis, unspecified site; J22 Unspecified acute lower respiratory infection; R09.02 Hypoxemia; R01.1 Cardiac murmur, unspecified; N28.89 Other specified disorders of kidney and ureter; B96.4 Proteus (mirabilis) (morganii) as the cause of diseases classified elsewhere; B96.20 Unspecified Escherichia coli [E. coli] as the cause of diseases classified elsewhere; Z79.899 Other long term (current) drug therapy; N40.0 Benign prostatic hyperplasia without lower urinary tract symptoms; R06.89 Other abnormalities of breathing; B34.9 Viral infection, unspecified; R50.9 Fever, unspecified
CPT/HCPCS: 36415; 71045; 71275; 74176; 76770; 80048; 80053; 80162; 81001; 83605; 83735; 83880; 84100; 84443; 84484; 85025; 85610; 85730; 87040; 87077; 87086; 87088; 87186; 87631; 87633; 93005; 93306; 93880; 94668; 97116; 97162; 99285; P9047; A4216; J1940

== ENCOUNTER → 2024-07-14 | Outpatient (CLI) | payer OTHER, SELFPAY | END | disposition home or self-care (01) | PROVIDERS: PCP Family Medicine; Referring Provider Internal Medicine Cardiovascular Disease; Visit Provider Internal Medicine Cardiovascular Disease | DX: R78.81 Bacteremia (principal); I35.0 Nonrheumatic aortic (valve) stenosis | CPT/HCPCS: 36415; 87040 ==

== ENCOUNTER → 2024-12-21 | Outpatient (CLI) | payer OTHER, SELFPAY ==
--- NOTE | 2024-12-21 13:27 | ECHOD_ITS ---
Reason For Study Reason For Study: VALVE REPLACEMNT Procedure This was a 2D Doppler, Color Flow transthoracic echocardiogram. Exam performed in department. Left Ventricle Normal LV size. Moderate concentric left ventricular hypertrophy. The left ventricular ejection fraction is 65 %. No regional wall motion abnormalities noted. Right Ventricle Normal RV size. Normal systolic function. Atria The left atrium is severely enlarged. The right atrium is moderately enlarged. Mitral Valve There is moderate mitral annular calcification. Tricuspid Valve Normal tricuspid valve. Mild to moderate (1-2+) tricuspid valve insufficiency. Pulmonary artery systolic pressure is 44 mmHg. Aortic Valve Peak aortic valve gradient 21 mmHg. Mean aortic valve gradient 10 mmHg. Bioprosthetic aortic valve. Pulmonic Valve Normal pulmonic valve. Great Vessels Normal aortic root. The pulmonary artery is normal size. Inferior vena cava collapse with respiration. Pericardium/Pleural No pericardial effusion. MMode/2D Measurements & Calculations LVIDd: 4.1 cm IVSd: 1.5 cm LVOT diam: 2.0 cm LVIDs: 2.9 cm LVPWd: 1.6 cm LVOT area: 3.1 cm2 RVDd: 3.5 cm FS: 30.5 % LAV(MOD-bp): 120.0 ml LVAd ap4: 20.9 cm2 SV(MOD-sp4): 33.6 ml LAV(MOD-bp) Indexed: 55.6 ml/m2 LVLd ap4: 6.9 cm SI(MOD-sp4): 15.6 ml/m2 LAV(MOD-sp2): 127.3 ml EDV(MOD-sp4): 53.9 ml LAV(MOD-sp4): 108.6 ml EDV(sp4-el): 53.8 ml LVAs ap4: 10.9 cm2 LVLs ap4: 5.3 cm ESV(MOD-sp4): 20.3 ml ESV(sp4-el): 18.9 ml EF(MOD-sp4): 62.4 % EF(sp4-el): 64.9 % SV(sp4-el): 34.9 ml LA A4 area: 31.0 cm2 LA dimension(2D): 5.3 cm RA A4 area: 26.7 cm2 Doppler Measurements & Calculations MV E max enzo: 130.9 cm/sec Ao V2 max: 227.1 cm/sec LV V1 max: 174.2 cm/sec Ao max P.7 mmHg LV V1 max P.2 mmHg Ao V2 mean: 146.7 cm/sec LV V1 mean P.5 mmHg Ao mean P.1 mmHg LV V1 mean: 130.4 cm/sec Ao V2 VTI: 41.2 cm LV V1 VTI: 33.7 cm AV (velocity ratio): 0.82 OVI(I,D): 2.5 cm2 OVI(V,D): 2.4 cm2 SV(LVOT): 103.3 ml PA V2 max: 101.5 cm/sec TR max enzo: 320.1 cm/sec PA V2 mean: 59.3 cm/sec TR max P.0 mmHg ECHO/Echo Complete Interpretation Summary Normal LV size. Moderate concentric left ventricular hypertrophy. The left ventricular ejection fraction is 65 %. Bioprosthetic aortic valve. Mean aortic valve gradient 10 mmHg. Pulmonary artery systolic pressure is 44 mmHg. Ordering Physician: Megan Solo Referring Physician: Megan Solo Performed By: Sue Martínez RCS
== END | disposition home or self-care (01) ==
LOC: CVS 13:23
PROVIDERS: PCP Family Medicine; Referring Provider Nurse Practitioner Gerontology; Visit Provider Nurse Practitioner Gerontology
DX: Z95.2 Presence of prosthetic heart valve (principal)
CPT/HCPCS: 93306

== ENCOUNTER 2024-12-23 10:27 | Emergency (ER) | payer OTHER, SELFPAY ==
[2024-12-23] VITALS (7 sets, daily range): BP systolic 95–104; BP diastolic 62–72; PULSE 91–102; RESP 19–28; TEMP 36.8; O2SAT 89–96; BMI 27.7
--- NOTE | 2024-12-23 10:44 | RAD_ITS ---
PROCEDURE: CHEST 1 VIEW (PORTABLE) 12/23/2024 REASON FOR EXAM: WEAKNESS TECHNIQUE: Frontal view of the chest. COMPARISON: CT chest 06/29/2024. FINDINGS: Hardware: None. Heart: Moderate cardiomegaly. Tortuosity atherosclerotic calcifications of the aorta. Lungs: Pulmonary vascular congestion. No pulmonary consolidation. No pleural effusion or pneumothorax. Bones: No acute bony abnormalities. RAD/Chest 1 View (Portable) IMPRESSION: Pulmonary vascular congestion which may represent mild pulmonary edema. Otherwise no acute abnormalities. Reading Location: [id number]
--- NOTE | 2024-12-23 10:45 | EX.ED.DYSGE1 ---
HPI History of Present Illness Chief Complaint: General Illness Narrative Narrative: 89-year-old male presents via EMS with generalized weakness and subjective fever that he had last night. He is feeling improved today. He and his family give history that he had a TAVR performed in June, approximately 4 months ago at formerly [facility]. He does take warfarin. He also has history of chronic atrial fibrillation. He and his state that yesterday he felt feverish and subjectively hot with mild diaphoresis. He felt generally weak to the point where he could not stand up and turn around. He was nauseated but did not vomit. He denies other exacerbating or alleviating factors. States he feels improved but may feel dry mouth and dehydrated. [facility] Medical History History of transcatheter aortic valve replacement (TAVR) Positive blood cultures Left renal mass Aortic valve stenosis Murmur Essential hypertension Hyperbilirubinemia Acute respiratory insufficiency Viral lower respiratory tract infection Cardiomegaly CHF exacerbation Chronic anticoagulation CKD (chronic kidney disease) Chronic a-fib Febrile illness, acute Hypertension Home Medications ?Medication ?Instructions ?Recorded ?Last Taken ?Type clonidine HCl 0.2 mg tablet 0.2 mg PO BID blood pressure 06/28/24 06/28/24 09:00 History tamsulosin 0.4 mg capsule (Flomax) 0.4 mg PO QHS prostate 06/28/24 06/27/24 History warfarin 2 mg tablet 2 mg PO SUTUWETHSA blood thinner 06/28/24 06/28/24 History carvedilol 6.25 mg tablet 6.25 mg PO BIDCM #60 tabs 07/01/24 Unknown Rx furosemide 20 mg tablet (Lasix) 60 mg (3 x 20 mg) PO DAILY #90 tabs 07/01/24 Unknown Rx lisinopril 20 mg tablet 20 mg PO BID #60 tabs 07/01/24 Unknown Rx potassium chloride 20 mEq 20 meq PO BIDCM #60 tabs 07/01/24 Unknown Rx tablet,extended release(part/cryst) warfarin 4 mg tablet 4 mg PO MOFR 12/23/24 Unknown History Allergy/AdvReac Type Severity Reaction Status Date / Time No Known Allergies Allergy Verified 12/23/24 10:35 Surgical History H/O knee surgery Social History Smoking Status: Never smoker ROS ROS ED ROS Narrative Review of systems positive for generalized weakness, nausea, no vomiting. Rare cough. No dysuria or hematuria. No diarrhea. Positive dry mouth and feelings of dehydration. Symptoms improved today. EXAM Physical Exam Narrative Exam Narrative: Afebrile. Vital signs noted. Nontoxic-appearing. Cardiovascular examination reveals irregularly irregular rhythm with extrasystoles normal rate. Lungs clear to auscultation bilaterally. Abdomen soft nontender with positive bowel sounds. Neurological examination awake, alert, interactive. Mucous membranes dry, tongue dry. No appreciable pedal edema. Inspection of the left foot does show healing left foot ulcer on the ball of his left foot without surrounding erythema, purulent drainage or crepitance/no fluctuance. No signs of infection. Const Vital Signs: 12/23/24 10:29 12/23/24 10:35 12/23/24 11:15 Temperature 98.2 F Temperature Source Oral Pulse Rate 95 92 Respiratory Rate 28 H 28 H Respiratory Effort Normal Non-Labored Respiratory Pattern Normal Blood Pressure 102/62 104/72 Blood Pressure Mean 75 82 Pulse Ox 94 89 Oxygen Delivery Method Room Air Room Air Oxygen Flow Rate (L/min) 12/23/24 11:26 12/23/24 11:51 12/23/24 13:00 Temperature Temperature Source Pulse Rate 102 H 94 91 Respiratory Rate 27 H 19 H 24 H Respiratory Effort Respiratory Pattern Blood Pressure 95/64 101/72 101/64 Blood Pressure Mean 74 81 76 Pulse Ox 93 96 93 Oxygen Delivery Method Nasal Cannula Nasal Cannula Room Air Oxygen Flow Rate (L/min) 2 2 MDM MDM MDM Narrative Medical decision making narrative: The differential diagnosis includes but not limited to dehydration versus other electrolyte imbalance versus pneumonia versus viral syndrome versus UTI. I reviewed his prior problem list. He has had previous fluid overload and hypoxia, but he states his pulse ox is usually anywhere from 89% and above. He does have a history of chronic atrial fibrillation for which he takes warfarin. Patient will be bolused IV fluids and CBC, CMP checked as well as INR, UA, and chest x-ray to help rule out pneumonia. EKG was obtained and interpreted by myself independently as atrial fibrillation with PVCs at [address] changes. No STEMI. I reviewed his laboratory work and he does have a leukocytosis of 14.4 which is nonspecific, hemoglobin 15.2 and hematocrit 44.3, no anemia, platelet count normal at 153. INR is therapeutic at 2.8. BUN elevated at 28 with creatinine 1.65. When compared to prior labs this appears to be his baseline for his creatinine. I did add a lactic acid given his leukocytosis and is normal at 1.6 so I doubt sepsis. I do not feel he needs antibiotics for the ulceration on his foot as there are no clinical signs of infection. LFTs are grossly unremarkable. Urinalysis obtained and reviewed and is negative for infection. I do not feel antibiotics are indicated. Chest x-ray in 1 view interpreted by myself independentl shows mild pulmonary edema but no consolidation. I do not feel antibiotics are indicated. No pneumothorax. I reviewed the radiology report which confirms my independent interpretation. Upon repeat examination, patient states he feels improved and he would like to discharge, he is motivated to go home. He was taken off his nasal cannula oxygen as he does not wear any at home he was able to ambulate without difficulty. His pulse ox remained 91 to 93% which he states is his baseline. At this point in time, I do not feel that he is meeting any observation or admission criteria, he feels well and would like to be discharged. I feel he can be discharged to follow-up with his primary care provider. Return instructions to the emergency department were reviewed. Disposition is discharged home in stable condition. History & Record Review Discussion w/independent historian: Patient and Family Additional record(s) reviewed:: Prior labs (Chronic kidney injury) Lab Data Attestation: I reviewed the patient's lab results. Labs: Laboratory Results - last 24 hr 12/23/24 12/23/24 12/23/24 09:54 11:20 11:40 WBC 14.4 H RBC 4.93 Hgb 15.2 Hct 44.3 MCV 89.9 MCH 30.8 MCHC 34.3 RDW Std Deviation 43.8 RDW Coeff of Ej 13.4 Plt Count 153 MPV 10.5 Immature Gran % (Auto) 0.500 Neut % (Auto) 94.2 H Lymph % (Auto) 2.9 L [place] % (Auto) 2.1 Eos % (Auto) 0.0 Baso % (Auto) 0.3 Absolute Neuts (auto) 13.5 H Absolute Lymphs (auto) 0.42 L Nucleated RBC % 0 PT 30.2 H INR 2.8 Sodium 139 Potassium 3.9 Chloride 100 Carbon Dioxide 24.0 Anion Gap 15 BUN 28 H Creatinine 1.65 H Estim Creat Clear Calc 33.59 L Est GFR (MDRD) Non-Af 40 L BUN/Creatinine Ratio 16.9 Glucose 149 H Lactic Acid 1.6 Calcium 9.2 Total Bilirubin 1.99 H AST 26 ALT 15 Alkaline Phosphatase 94 Total Protein 7.1 Albumin 3.7 Globulin 3.4 Albumin/Globulin Ratio 1.1 Urine Color Yellow Urine Clarity Clear Urine pH 6.0 Ur Specific [place] 1.015 Urine Protein 15 H Urine Glucose (UA) Normal Urine Ketones Negative Urine Occult Blood 10 H Urine Nitrite Negative Urine Bilirubin Negative Urine Urobilinogen Normal Ur Leukocyte Esterase Negative Urine RBC 0 SEEN Urine WBC 0 SEEN Ur Squamous Epith Cells 0 SEEN Urine Bacteria 0 SEEN Urine Mucus 0 SEEN Radiography Chest X-Ray - ED: 1 View, Read by ED Physician, Read by Radiologist, No Acute Disease and No Infiltrates Diagnostic Testing: Clinical Impression(s) from Imaging Studies Chest X-Ray 12/23/24 10:44 IMPRESSION: Pulmonary vascular congestion which may represent mild pulmonary edema. Otherwise no acute abnormalities. Reading [facility] Discharge Plan Triage Chief Complaint: General Illness ED Provider: Daljit Sheehan Dx/Rx/DC Orders Clinical Impression: Generalized weakness, Leukocytosis, S/P TAVR (transcatheter aortic valve replacement), Chronic a-fib Instructions: ED Weakness Uncertain Cause Prescriptions: No Action warfarin 2 mg tablet 2 mg PO SUTUWETHSA tamsulosin [Flomax] 0.4 mg capsule 0.4 mg PO QHS clonidine HCl 0.2 mg tablet 0.2 mg PO BID carvedilol 6.25 mg Tablet 6.25 mg PO BIDCM Qty: 60 0RF lisinopril 20 mg Tablet 20 mg PO BID Qty: 60 0RF potassium chloride 20 mEq Tablet,Er Particles/Crystals 20 meq PO BIDCM Qty: 60 0RF furosemide [Lasix] 20 mg tablet 60 mg PO DAILY Qty: 90 0RF warfarin 4 mg tablet 4 mg PO MOFR Primary Care Provider: Juan Diego Starks Referrals: Juan Diego Starks, DO [Primary Care Provider] - Activity Restrictions/Additional Instructions: Have your foot wound checked by your primary care provider in the next few days. Return with fever, increased weakness, new or worsening symptoms. Continue your previous medications and routines. Print Language: [place] Disposition Disposition: Home, Self Care
[2024-12-23 11:03] LABS: Hematocrit 44.3 % (40-54); Hemoglobin 15.2 g/dL (13.0-16.5); Immature Granulocytes Count 0.070 X10^3/uL (0.0-0.0); Mean Corp Hgb Conc 34.3 g/dL (32-36); Mean Corpuscular Volume 89.9 fL (80-94); Mean Platelet Vol. 10.5 fl (6.2-12.0); NRBC Flagged by Analyzer 0 % (0-5); POSITIVE DIFFERENTIAL YES; Platelet Count 153 K/mm3 (150-450); RBC Distribution Width CV 13.4 % (11.6-14.6); RBC Distribution Width SD 43.8 fl (35.1-43.9); Red Blood Count 4.93 M/mm3 (4.6-6.2); White Blood Count 14.4 K/mm3 (4.4-11.0)
[2024-12-23 11:14] LABS: AST(SGOT) 26 U/L (<=37); Alanine Aminotransfer ALT/SGPT 15 U/L (<=46); Albumin, Serum 3.7 g/dL (3.4-4.8); Alkaline Phosphatase 94 U/L (40-129); Anion Gap 15 (5-15); BUN 28 mg/dL (4-19); BUN/Creat Ratio 16.9 RATIO (10-20); Calcium,Total 9.2 mg/dL (7.6-11.0); Carbon Dioxide 24.0 mmol/L (21.0-32.0); Chloride 100 mmol/L (98-108); Estimated Creatinine Clearance 33.59 ml/min (50-250); Globulin 3.4 g/dL (2.2-4.2); Glucose 149 mg/dL (70-99); Potassium 3.9 mmol/L (3.3-5.1)
[2024-12-23 11:17] LABS: Prothrombin Time (Protime)PT. 30.2 SECONDS (11.7-14.9)
[2024-12-23] MEDS: 0.9% Normal Saline (1000mL) 1,000 ML 1000 ML IV (11:24)
--- OUTSIDE RECORDS SUMMARY | 2024-12-23 11:24 | XMS RPT_ITS | CCD ---
Author Organization [facility] CliniSyor Care Team Providers Care Sales Trainee Name Role Phone THOMAS BURGESS M.D. Unavailable Unavailable Dr. Juan Diego Starks DO Primary Care Provider Dr. Joe Jernigan DO Emergency Provider Bueno DO, Dr. Moctezuma Admit Provider Unavail able Bueno DO, Dr. Moctezuma Other Provider Unavail able Dr. Isai Wisdom MD Other Provider Unavailable Pina NATION, Dr. Gray Other Provider [phone] NATION, Dr. Galvan Other Provider Scar NATION, Dr. Crook Other Provider Risa NATION, Dr. Cadena Other Provider Kellie NATION, Dr. Tipton Other Provider Dr. Wu Lacey MD Other Provider Dr. Khoa Hogan MD Other Provider Alfredito NATION, Dr. Will Other Provider Dr. Uriel Watkins MD Other Provider Emanuel WELLNESS SPECIALIST-CJignesh Other Provider Geraldine Lujan Other Provider John Beverly Other Provider Jonathan NATION, Dr. Hurtado Attending Provider Dr. Jac Pérez DO Other Provider Dr. Khoa Hogan MD Attending Provider Dr. Wu Lacey MD Attending Provider Rosmery MENG, Dr. Nathan Attending Provider Tim NATION, Dr. Fishman Attending Provider Deepthi NATION, Dr. Washburn Referring Provider Jonathan NATION, Dr. Hurtado Other Provider Unavailab nishant Starks DO, Dr. Adamson Referring Provider Tereza, Juan Diego Primary Care Provider Levy Green MD Unavailable Tereza MENG, Dr. Adamson Primary Care Provider Tereza MENG, Dr. Adamson Referring Provider Edil WELLNESS SPECIALIST-C, Megan Attending Provider Chelsey Dumont Attending Unavailable Tereza, Juan Diego Primary Care Unavailable Wu Lacey Referring Unavailable Wu Lacey Attending Unavailable Tereza, Juan Diego Primary Care Unavailable Thomas Bueno Admitting Unavailable Thomas Bueno Consulting Unavailable Amrbenito, Ahmed Consulting Unavailable Mostafa, Isaac Consulting Unavailable Kaushal, Cole Consulting Unavailable Abbott, Armaan Consulting Unavailable Risa, Surinder Consulting Unavailable Belal, Farouk Consulting Unavailable Wu Lacey Consulting Unavailable Nagajothi, Nagapradee Consulting Unavailabl e Satti, Suman Consulting Unavailable [place], Uriel Consulting Unavailable Emanuel ZEPEDA, Jignesh Blancas Consulting Unavailable Hernando MALDONADO, Geraldine Drake Consulting Unavail able John Weaver Consulting Unavailable Jac Botello Consulting Unavailable Genesis Castillo Consulting Unavailable Jac Botello Attending Unavailable Wu Lacey Referring Unavailable Wu Lacey Attending Unavailable Tereza, Juan Diego Primary Care Unavailable Tereza, Juan Diego Primary Care Unavailable Edil WELLNESS SPECIALIST, Megan Referring Unavailable Edil WELLNESS SPECIALIST, Megan Attending Unavailable Tereza, Juan Diego Primary Care Unavailable Thomas Bueno Consulting Unavailable Thomas Bueno Admitting Unavailable Genesis Castillo Attending Unavailable Raulo, Ahmed Consulting Unavailable Mostafa, Isaac Consulting Unavailable Kaushal, Cole Consulting Unavailable Abbott, Armaan Consulting Unavailable Risa, [place] Consulting Unavailable Robertaal, Farouk Consulting Unavailable Wu Lacey Consulting Unavailable Amirahthi, Nagapradee Consulting Unavailabl e Satti, Suman Consulting Unavailable Uriel Watkins Consulting Unavailable Roof KATELYN, Jignesh Blancas Consulting Unavailable Hernando MALDONADO, Geraldine Drake Consulting Unavail able John Weaver Consulting Unavailable Jac Botello Consulting Unavailable Khoa Hogan Attending Unavailabl e Tereza, Juan Diego Primary Care Unavailable Tereza, Juan Diego Referring Unavailable Tereza, Juan Diego Primary Care Unavailable Edil ZEPEDA, Megan Attending Unavailable Tereza, Juan Diego Referring Unavailable Tereza, Juan Diego Primary Care Unavailable Edil WELLNESS SPECIALIST, Megan Attending Unavailable Wu Lacey Attending Unavailable Tereza, Juan Diego Referring Unavailable Tereza, Juan Diego Primary Care Unavailable Thomas Bueno Attending Unavailable CLARA SHERIFF Attending Unavailable CLARA SHERIFF Referring Unavailable TEREZA, JUAN DIEGO Primary Care Unavailable MAGDALENA RILEY Attending Unavailable MAGDALENA RILEY Referring Unavailable TEREZA, JUAN DIEGO Primary Care Unavailable CLARA SHERIFF Admitting Unavailable CLARA SHERIFF Attending Unavailable TEREZA, JUAN DIEGO Primary Care Unavailable CHELSEY GROSS Attending Unavailable TEREZA, JUAN DIEGO Primary Care Unavailable CLARA SHERIFF Attending Unavailable TEREZA, JUAN DIEGO Primary Care Unavailable TEREZA, JUAN DIEGO Primary Care Unavailable Medications Current Medications Medication Drug Class(es) Dates Sig (Normalized) Sig (Original) aspirin 81 mg delayed release oral tablet (11 sources) Platelet Aggregation Inhibitor, Nonsteroidal Anti-inflammatory Drug Start: 08-29-2024 End: 12-05-2024 aspirin 81 MG EC tablet Take 1 tablet (81 mg) by mouth daily. Until INR 2.0 or higher and then stop aspirin 08/29/2024 Active carvedilol 6.25 mg oral tablet (18 sources) alpha-Adrenergic Cecy, beta-Adrenergic Cecy Start: 07-01-2024 End: 08-29-2024 take 1 tablet by mouth twice daily at mealtime Carvedilol 6.25 mg Tablet Active 6.25 mg PO TWICE DAILY WITH MEALS 60 0 July 01, 2024 1:00am cloNIDine hydrochloride 0.2 mg oral tablet (18 sources) Central alpha-2 Adrenergic Agonist Start: 06-28-2024 End: 08-29-2024 take 1 tablet by mouth twice daily Clonidine Hcl 0.2 mg tablet Active 0.2 mg PO TWICE A DAY June 28, 2024 1:00am blood pressure microencapsulated potassium chloride 20 meq extended release oral tablet (16 sources) Start: 07-01-2024 take 1 tablet by mouth twice daily at mealtime Potassium Chloride 20 mEq Tablet,Er Particles/Cryst als Active 20 meq PO TWICE DAILY WITH MEALS 60 0 July 01, 2024 1:00am tamsulosin hydrochloride 0.4 mg oral capsule (18 sources) alpha-Adrenergic Cecy Start: 06-28-2024 End: 08-29-2024 take 1 capsule by mouth at bedtime Tamsulosin (Flomax) 0.4 mg capsule Active 0.4 mg PO AT BEDTIME June 28, 2024 1:00am prostate warfarin sodium 2 mg oral tablet (16 sources) Vitamin K Antagonist Start: 06-28-2024 take 1 tablet by mouth once daily Warfarin 2 mg tablet Active 2 mg PO .COMPLEX June 28, 2024 1:00am blood thinner 2 mg orally daily; 4 mg on Mondays Completed/Discontinued Medications Medication Drug Class(es) Dates Sig (Normalized) Sig (Original) acetaminophen 325 mg oral tablet (2 sources) Start: 08-28-2024 End: 08-29-2024 take 1 tablet by mouth every four hours as needed for pain 650 mg, Oral, Every 4 hours PRN, mild pain (1-3), Fever > 100.5 F (38 C), Starting on Wed08/28/24 at 1134, Recovery & On Unit, Maximum dose of acetaminophen is 4000 mg from all sources in 24 hours. amLODIPine 5 mg oral tablet (2 sources) Dihydropyridine Calcium Channel Cecy Start: 06-28-2024 End: 07-01-2024 take 1 tablet by mouth once daily Amlodipine 5 mg tablet Discontinued 5 mg PO DAILY June 28, 2024 1:00am July 01, 2024 12:02pm calcium chloride 0.0014 meq/ml / potassium chloride 0.004 meq/ml / sodium chloride 0.103 meq/ml / sodium lactate 0.028 meq/ml injectable solution (2 sources) Start: 08-28-2024 End: 08-28-2024 take 125 mL intravenously every hour 125 mL/hr, IntraVENous, Continuous, Starting on Wed08/28/24 at 1115, Recovery (only) cefdinir 300 mg oral capsule (12 sources) Cephalosporin Antibacterial Start: 07-01-2024 End: 2024 take 1 capsule by mouth twice daily Cefdinir 300 mg capsule Discontinued 300 mg PO TWICE A DAY 14 July 01, 2024 1:00am 2024 10:48am Start on 07/02/2024 digoxin 0.25 mg oral tablet (2 sources) Cardiac Glycoside Start: 06-28-2024 End: 07-01-2024 take 1 tablet by mouth once daily Digoxin 250 mcg (0.25 mg) tablet Discontinued 125 ug PO DAILY June 28, 2024 1:00am July 01, 2024 12:02pm furosemide 20 mg oral tablet (18 sources) Loop Diuretic Start: 08-29-2024 End: 08-29-2024 take 20 mg by mouth twice daily 20 mg, Oral, 2 times daily, First dose on Wed08/29/24 at 0600 Start: 07-01-2024 take 3 tablets by mo [facility] once daily Furosemide (Lasix) 20 mg tablet Active 60 mg PO DAILY 90 July 01, 2024 1:00am take 1 tablet by o[facility] three times daily furosemide (Lasix) 20 MG tablet Take 20 mg by mouth 3 times daily. Active take 3 tablets by mo uth twice daily furosemide (Lasix) 20 MG tablet Take 60 mg by mouth 2 times daily. Active hydroCHLOROthiazide 50 mg oral tablet (2 sources) Thiazide Diuretic Start: 06-28-2024 End: 07-01-2024 Hydrochlorothiazide 50 mg tablet Discontinued 25 mg PO DAILY June 28, 2024 1:00am July 01, 2024 12:07pm iopamidol (Isovue-370) 76 % injection 100 mL (2 sources) Start: 08-17-2024 End: 08-17-2024 take 100 mL intravenously once as needed 100 mL, IntraVENous, IMG once PRN, contrast, Starting on Wed08/17/24 at 1037, For 1 dose labetalol hydrochloride 300 mg oral tablet (2 sources) beta-Adrenergi c Cecy Start: 06-28-2024 End: 07-01-2024 take 1 tablet by mouth twice daily Labetalol 300 mg tablet Discontinued 300 mg PO TWICE A DAY June 28, 2024 1:00am July 01, 2024 12:08pm lisinopril 20 mg oral tablet (20 sources) Angiotensin Converting Enzyme Inhibitor Start: 08-28-2024 End: 08-29-2024 20 mg, Oral, Daily, First dose on Wed08/28/24 at 1515, 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 120 Start: 07-01-2024 take 1 tablet by oscar th twice daily Lisinopril 20 mg Tablet Active 20 mg PO TWICE A DAY 60 0 July 01, 2024 1:00am Start: 06-28-2024 End: 07-01-2024 take 1 tablet by mouth twice daily Lisinopril 40 mg tablet Discontinued 40 mg PO TWICE A DAY June 28, 2024 1:00am July 01, 2024 12:07pm mupirocin 0.02 mg/mg topical ointment (2 sources) RNA Synthetase Inhibitor Antibacterial Start: 08-28-2024 End: 08-29-2024 1 Application, Nasal, 2 times daily, First dose on Wed08/28/24 at 1145, For 5 days, Recovery & On Unit, Indications: MRSA Nasal Decolonization 1 ml naloxone hydrochloride 0.4 mg/ml injection (2 sources) Opioid Antagonist Start: 08-28-2024 End: 08-29-2024 0.4 mg, IntraVENous, Every 5 min PRN, opioid reversal, respiratory depression, Starting on Wed08/28/24 at 1113, +++ For RR 5 ml sodium chloride 9 mg/ml injection (4 sources) Start: 08-28-2024 End: 08-28-2024 10 mL, IntraVENous, Every 12 hours scheduled (2 times per day), First dose on Wed08/28/24 at 1115, Recovery (only) Start: 08-28-2024 End: 08-28-2024 take 50 mL intravenously every hour 50 mL/hr, IntraVENous, Continuous, Starting on Wed08/28/24 at 0815, Preprocedure, Upon admission to sameday - please start iv if patient does not have iv access. Problems Active Problems Problem Classification Problem Date Documented Da te Episodic/Chronic Cardiac dysrhythmias (6 sources) Chronic atrial fibrillation; Translations: [Chronic atrial fibrillation, unspecified] 07-14-2024 Chronic Chronic kidney disease (4 sources) Chronic kidney disease; Translations: [Chronic kidney disease, unspecified] Onset: 07-11-2024 07-09-2024 Chronic Chronic kidney disease (1 source) Chronic kidney disease; Translations: [Chronic kidney disease, stage 3a] Onset: 07-11-2024 Congestive heart failure; nonhypertensive (10 sources) Acute exacerbation of chronic congestive heart failure; Translations: [Heart failure, unspecified] Onset: 07-11-2024 07-09-2024 Chronic Essential hypertension (4 sources) Essential hypertension; Translations: [Essential (primary) hypertension] Onset: 07-11-2024 07-09-2024 Chronic Fluid and electrolyte disorders (2 sources) Hypervolemia; Translations: [Fluid overload, unspecified] 06-29-2024 Episodic Heart valve disorders (20 sources) Aortic valve stenosis; Translations: [Nonrheumatic aortic (valve) stenosis] Onset: 07-11-2024 07-14-2024 Chronic Comment on above: 26mm Dewayne S3 Valve -Bittenbender 08/28/2024 Hypertension with complications and secondary hypertension (1 source) 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 1 through stage 4 chronic kidney disease, or unspecified chronic kidney disease; Translations: [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 1 through stage 4 chronic kidney disease, or unspecified chronic kidney disease] Onset: 07-11-2024 Chronic Other aftercare (3 sources) Long-term current use of anticoagulant; Translations: [USP (current) use of anticoagulants] 07-09-2024 Episodic Other and ill-defined heart disease (3 sources) Cardiomegaly; Translations: [Cardiomegaly] 07-09-2024 Chronic Other and ill-defined heart disease (1 source) Cardiomegaly; Translations: [Cardiomegaly] Onset: 07-11-2024 Chronic Other diseases of kidney and ureters (4 sources) Renal mass; Translations: [Other specified disorders of kidney and ureter] 07-09-2024 Chronic Other diseases of kidney and ureters (1 source) Other specified disorders of kidney and ureter; Translations: [Other specified disorders of kidney and ureter] Onset: 07-11-2024 Chronic Other lower respiratory disease (3 sources) Viral lower respiratory infection; Translations: [Unspecified acute lower respiratory infection] 07-09-2024 Episodic Other lower respiratory disease (3 sources) Respiratory insufficiency; Translations: [Other abnormalities of breathing] 07-09-2024 Episodic Other lower respiratory disease (2 sources) Hypoxia; Translations: [Hypoxemia] 06-29-2024 Episodic Other nutritional; endocrine; and metabolic disorders (3 sources) Hyperbilirubinemia; Translations: [Other disorders of bilirubin metabolism] 07-09-2024 Chronic Other nutritional; endocrine; and metabolic disorders (1 source) Other disorders of bilirubin metabolism; Translations: [Other disorders of bilirubin metabolism] Onset: 07-11-2024 Chronic Unclassified (1 source) You will need to be referred to a urologist regarding your left kidney mass Unclassified (1 source) Call to schedule an appointment for 2 to 3 weeks from now Unclassified (2 sources) Chronic atrial fibrillation, unspecified; Translations: [Chronic atrial fibrillation, unspecified] Onset: 07-11-2024 Past or Other Problems Problem Classification Problem Date Documented Date Episodic/Chronic Bacterial infection; unspecified site (6 sources) Microbiologic culture positive; Translations: [Bacteremia] Onset: 07-11-2024 07-14-2024 Episodic Fever of unknown origin (4 sources) Fever; Translations: [Fever, unspecified] Onset: 07-11-2024 07-09-2024 Episodic Heart valve disorders (4 sources) Heart murmur; Translations: [Cardiac murmur, unspecified] Onset: 07-11-2024 07-09-2024 Episodic Other aftercare (1 source) USP (current) use of anticoagulants; Translations: [vermin exterminator (current) use of anticoagulants] Onset: 07-11-2024 Episodic Other lower respiratory disease (1 source) Unspecified acute lower respiratory infection; Translations: [Unspecified acute lower respiratory infection] Onset: 07-11-2024 Episodic Other lower respiratory disease (1 source) Other abnormalities of breathing; Translations: [Other abnormalities of breathing] Onset: 07-11-2024 Episodic Viral infection (1 source) Other viral agents as the cause of diseases classified elsewhere; Translations: [Other viral agents as the cause of diseases classified elsewhere] Onset: 07-11-2024 Episodic Results Test Name Value Interpretation Reference Range Facility 36on 12-20-2024 36 OV scanned in under Media and echo now sched for tomorrow 12/21/2024 [facility] 36 I called and spoke xena Lacey office who is faxing me OV note however no echo report. I called central scheduling at [place] to see if ever done/scheduled and had to l/m. Normal [facility] Cardiology Visit Reporton Cardiology Visit Report [facility] [address] [place] [address] OFFICE VISIT Date of Service: 12/05/24 MR#: [id number] Acct: [id number] Name: TAMAR SEGAL Rep #: [id number] : 1935 Provider: SOBEIDA mills Age/Sex: 89/M Location: [facility] [place] [facility] Status: Signed HPI HPI History of Present Illness Details: Patient is a 89-year-old [facility] white male who presents today for cardiovascular follow-up visit. In June of this year, he was hospitalized for congestive heart failure and found to have severe aortic stenosis. His echo done 06/29/2024 showed an EF of 70% there is severe biatrial dilation no mitral insufficiency and severe aortic stenosis. The patient's peak gradient was 92 mmHg and mean gradient of 62 mmHg. The patient originally presented with acute respiratory insufficiency with O2 saturation of 82% on room air. His BNP was elevated 8040 he has a history of chronic persistent atrial fibrillation on Coumadin managed through his primary care physician's office. The patient denied any significant right lower extremity edema his left lower extremity had been traumatically injured and has chronic edema. Patient has been having dyspnea on exertion that have been markedly progressive over the recent few days prior to admission. He denied any chest pain or exertional dizziness or lightheadedness. Patient did have some mild renal insufficiency BUN of 39 creatinine 1.48 and estimated GFR of 46. He grew E. coli out of his urine and his blood culture grew Proteus mirabilis. The patient's CT revealed a renal mass which has subsequent been evaluated by urology and felt not to be malignant in nature. 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 From a cardiac standpoint, the patient is doing well. He denies any palpitations, chest pain, pressure or heaviness. He denies SOB, Orthopnea, and PND. He does not have bleeding issues; no blood in urine, stool, or nosebleeds. He denies any decrease in energy level, myalgias, or claudication. He does not have edema, or sudden weight gain. He denies lightheadedness, dizziness, syncopal or near syncopal episodes, and headaches. His blood pressures at home average 120-145/70-80's. Intake Vital Signs 09/04/24 06:18 12/05/24 07:31 Height 5 ft 11 in 5 ft 11 in Weight: 201 lb 206 lb BMI 28.0 28.7 BP 142/84 H 147/90 H Blood Pressure Location Lt brachial Lt brachial Position Sitting Sitting Respiration 18 18 Pulse 52 L 63 Pulse Source Monitor Monitor Pulse Oximetry (%) 98 97 Intake Visit Reasons: 3 M Ironer Machine Required: No Is patient in pain?: No Allergies No Known Allergies Allergy (Verified 12/05/24 08:21) Medications ???Medication ???Instructions ???Recorded ???Confirmed ???Type clonidine HCl 0.2 mg tablet 0.2 mg PO BID blood pressure 06/2812/05/24 History tamsulosin 0.4 mg capsule (Flomax) 0.4 mg PO QHS prostate 06/28/24 12/05/24 History warfarin 2 mg tablet 2 mg PO .COMPLEX blood thinner 12/05/24 History carvedilol 6.25 mg tablet 6.25 mg PO BIDCM #60 tabs 07/01/24 12/05/24 Rx furosemide 20 mg tablet (Lasix) 60 mg (3 x 20 mg) PO DAILY #90 tab s 07/01/24 12/05/24 Rx lisinopril 20 mg tablet 20 mg PO BID #60 tabs 07/01/2409/24 Rx potassium chloride 20 mEq 20 meq PO BIDCM #60 tabs 07/01/24 12/05/24 Rx tablet,extended release(part/cryst) Ejection fraction %: 70 Have you fallen in the past year?: Yes [facility] Medical History Chronic a-fib Aortic valve stenosis Positive blood cultures Left renal mass Murmur Essential hypertension Hyperbilirubinemia Acute respiratory insufficiency Viral lower respiratory tract infection Cardiomegaly CHF exacerbation Febrile illness, acute CKD (chronic kidney disease) Chronic anticoagulation Hypertension Surgical History H/O knee surgery Social History Smoking Status: Never smoker ROS Const Const: Negative for fatigue, weakness, headache(s) or frequent falls Eyes Eyes: Negative for blurry vision ENT ENT: Negative for headache(s), dizziness or Nosebleed/epistaxis Cardio Chest Pain: No Palpitations: No Edema: None Muscle aches with walking: None Resp Respiratory: Negative for SOB with activity, SOB at rest or SOB orthopnea SOB lying down GI GI: Negative nausea, vomiting, heartburn, bright, red blood in stools or black,tarry stools : Negative for hematuria Neuro Neuro: Negative for dizziness, lightheadedness, near syncope, syncope, frequent falls, headache(s), weakness or blurry vision Endo Endo: Negative for fatigue Cardiology Exam Const Appearance: coop (more content not included)... [facility] 36on 10-02-2024 36 Name of Caller: Tamar Contact Reason for Appointment: Patient called in to cancel his appointment stating he will be going back to his provider in [place] as it is closer for him. Please be advised Office Name: [facility] 36on 09-27-[address] Andrews' s office at [place] [facility], plan to follow-up with echocardiogram 10/05 and OV on 12/05. Will obtain reports at that time [facility] 36on 09-11-2024 36 Called and spoke wit h patients , patient and aware of appt d/t/l [facility] Cardiology Visit Reporton Cardiology Visit Report [facility] [address] [place], [place] [address] OFFICE VISIT Date of Service: 09/04/24 MR#: [id number] Acct: [id number] Name: PHILIPPTAMAR A Rep #: [id number] : 1935 Provider: SOBEIDA Dhillon rts Age/Sex: 89/M Location: [facility] [place] [facility] Status: Signed HPI HPI History of Present Illness Details: Patient is a 89-year-old [facility] white male who presents today for cardiovascular follow-up visit. In June of this year, he was hospitalized for congestive heart failure and found to have severe aortic stenosis. His echo done 06/29/2024 showed an EF of 70% there is severe biatrial dilation no mitral insufficiency and severe aortic stenosis. The patient's peak gradient was 92 mmHg and mean gradient of 62 mmHg. The patient originally presented with acute respiratory insufficiency with O2 saturation of 82% on room air. His BNP was elevated 8040 he has a history of chronic persistent atrial fibrillation on Coumadin managed through his primary care physician's office. The patient denied any significant right lower extremity edema his left lower extremity had been traumatically injured and has chronic edema. Patient has been having dyspnea on exertion that have been markedly progressive over the recent few days prior to admission. He denied any chest pain or exertional dizziness or lightheadedness. Patient did have some mild renal insufficiency BUN of 39 creatinine 1.48 and estimated GFR of 46. He grew E. coli out of his urine and his blood culture grew Proteus mirabilis. The patient's CT revealed a renal mass which has subsequent been evaluated by urology and felt not to be malignant in nature. 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 From a cardiac standpoint, the patient is doing well. He denies any palpitations, chest pain, pressure or heaviness. He denies SOB, Orthopnea, and PND. He does not have bleeding issues; no blood in urine, stool, or nosebleeds. He denies any decrease in energy level, myalgias, or claudication. He does not have edema, or sudden weight gain. He does have occasional lightheadedness with quick positional changes. He denies dizziness, syncopal or near syncopal episodes, and headaches. Intake Vital Signs 07/14/24 16:07 09/04/24 06:18 Height 5 ft 11 in 5 ft 11 in Weight: 201 lb BMI 28.0 BP 142/84 H Blood Pressure Location Lt brachial Position Sitting Respiration 18 Pulse 52 L Pulse Source Monitor Pulse Oximetry (%) 98 Intake Visit Reasons: S/P TAVR([facility]) Ironer Machine Required: No Is patient in pain?: No Allergies No Known Allergies Allergy (Verified 09/04/24 10:46) Medications ???Medication ???Instructions ???Recorded ???Confirmed ???Type clonidine HCl 0.2 mg tablet 0.2 mg PO BID blood pressure 06/2809/04/24 History tamsulosin 0.4 mg capsule (Flomax) 0.4 mg PO QHS prostate 06/28/24 09/04/24 History warfarin 2 mg tablet 2 mg PO .COMPLEX blood thinner 09/04/24 History carvedilol 6.25 mg tablet 6.25 mg PO BIDCM #60 tabs 07/01/24 09/04/24 Rx furosemide 20 mg tablet (Lasix) 60 mg (3 x 20 mg) PO DAILY #90 tab s 07/01/24 09/04/24 Rx lisinopril 20 mg tablet 20 mg PO BID #60 tabs 07/01/2409/24 Rx potassium chloride 20 mEq 20 meq PO BIDCM #60 tabs 07/01/24 09/04/24 Rx tablet,extended release(part/cryst) aspirin 81 mg tablet,delayed 81 mg PO QDAY 09/04/24 09/04/24 Hi story release (Adult Aspirin Regimen) Ejection fraction %: 70 Have you fallen in the past year?: Yes PFSH Medical History Chronic a-fib Aortic valve stenosis Positive blood cultures Left renal mass Murmur Essential hypertension Hyperbilirubinemia Acute respiratory insufficiency Viral lower respiratory tract infection Cardiomegaly CHF exacerbation Febrile illness, acute CKD (chronic kidney disease) Chronic anticoagulation Hypertension Surgical History H/O knee surgery Social History Smoking Status: Never smoker ROS Const Const: Negative for fatigue, weakness, headache(s) or frequent falls Eyes Eyes: Negative for blurry vision ENT ENT: Negative for headache(s), dizziness or Nosebleed/epistaxis Cardio Chest Pain: No Palpitations: No Edema: None Muscle aches with walking: None Resp Respiratory: Negative for SOB with activity, SOB at rest or SOB orthopnea SOB lying down GI GI: Negative nausea, vomiting, heartburn, bright, red blood in stools or black,tarry stools : Negative for hematuria Neuro Neuro: Positive for lightheadedness; Negative for dizziness, near syncope, syncope, frequent falls, headache(s), weakness or blurry visio (more content not included)... Normal [facility] BASIC METABOLIC PANELon 04-2 Anion gap [Moles/Vol] 7 mmol/L Normal 3-13 [facility] Comment on above: Performed By: #### L [id number] ####Visual Display Manager: GUSTAVO PHILLIPS ([phone])[facility] ([facility])[address] [place] [address] Calcium [Mass/Vol] 8.6 mg/dL Low 8.8-10.0 [facility] Comment on above: Performed By: #### L AB15 ####Visual Display Manager: GUSTAVO PHILLIPS ([phone])[facility] ([facility])[address] [place] [address] Chloride [Moles/Vol] 108 mmol/L High 98-107 [facility] Comment on above: Performed By: #### L AB15 ####Visual Display Manager: GUSTAVO PHILLIPS ([phone])[facility] ([facility])[address] [place] [address] CO2 [Moles/Vol] 24 mmol/L Normal 23-31 [facility] Comment on above: Performed By: #### L AB15 ####Visual Display Manager: GUSTAVO PHILLIPS ([phone])[facility])[address] [place] [address] Creatinine [Mass/Vol] 1.18 mg/dL Normal 0.72-1.25 [facility] Comment on above: Performed By: #### L AB15 ####Visual Display Manager: GUSTAVO PHILLIPS ([phone])[facility])[address] [place] [address] GLOMERULAR FILTRATION RATE ML/MIN/1.73 SQ M.PREDICTED 60.1 mL/min/1.73m*2 Normal >60.0 [facility] Comment on above: Result Comment: Calc ulation based on the Chronic Kidney Disease Epidemiology Collaboration (CKD-EPI) equation refit without adjustment for race Performed By: #### L AB15 ####Visual Display Manager: GUSTAVO PHILLIPS ([phone])[address] Glucose [Mass/Vol] 104 mg/dL Normal 82-115 [facility] Comment on above: Performed By: #### L AB15 ####Visual Display Manager: GUSTAVO PHILLIPS ([phone])[facility])[address] [place] [address] Potassium [Moles/Vol] 4.4 mmol/L Normal 3.5-5.1 [facility] Comment on above: Result Comment: [facility] potassium values may be up to 0.5 mmol/L lower than serum values. Performed By: #### L AB15 ####Visual Display Manager: GUSTAVO PHILLIPS ([phone])[address] Sodium [Moles/Vol] 139 mmol/L Normal 136-145 [facility] Comment on above: Performed By: #### L AB15 ####Visual Display Manager: GUSTAVO PHILLIPS ([phone])[address] Urea nitrogen [Mass/Vol] 25 mg/dL High 9-23 [facility] Comment on above: Performed By: #### L AB15 ####Visual Display Manager: GUSTAVO PHILLIPS ([phone])[address] Basic metabolic 1998 panelon 08-29-2024 Anion gap [Moles/Vol] 7 mmol/L 3 - 13 mmol/L [facility] Calcium [Mass/Vol] 8.6 mg/dL Low 8.8 - 10. 0 mg/dL [facility] Chloride [Moles/Vol] 108 mmol/L High 98 - 10 7 mmol/L [facility] CO2 [Moles/Vol] 24 mmol/L 23 - 31 mmol/L [facility] Creatinine [Mass/Vol] 1.18 mg/dL 0.72 - 1.25 mg/dL [facility] GFR/1.73 sq M.predicted (S/P/Bld) [Vol rate/Area] 60.1 mL/min - PINF [facility] Comment on above: Calculation based on the Chronic Kidney Disease Epidemiology Collaboration (CKD-EPI) equation refit without adjustment for race Glucose [Mass/Vol] 104 mg/dL 82 - 115 mg/dL [facility] Interpretation and review of laboratory results Abnormal [facility] Potassium [Moles/Vol] 4.4 mmol/L 3.5 - 5.1 mmol/L [facility] Comment on above: Plasma potassium juliocesar ues may be up to 0.5 mmol/L lower than serum values. Sodium [Moles/Vol] 139 mmol/L 136 - 145 mmol/L [facility] Urea nitrogen [Mass/Vol] 25 mg/dL High 9 - 23 mg/d L [facility] CBC (HEMOGRAM)on 08-29-2024 Erythrocyte distribution width (RBC) [Ratio] 13.8 % Normal 11.5-15.0 [facility] Comment on above: Performed By: #### L [id number] ####Visual Display Manager: GUSTAVO PHILLIPS ([phone])[address] Hematocrit (Bld) [Volume fraction] 41.9 % Normal 40.0-52.0 [facility] Comment on above: Performed By: #### L [id number] ####Visual Display Manager: GUSTAVO PHILLIPS ([phone])[address] Hemoglobin (Bld) [Mass/Vol] 14.2 g/dL Normal 13.0-18.0 [facility] Comment on above: Performed By: #### L [id number] ####Visual Display Manager: GUSTAVO [id number])[address] MCH (RBC) [Entitic mass] 30.6 pg Normal 26.0-34.0 [facility] Comment on above: Performed By: #### L [id number] ####Visual Display Manager: GUSTAVO [id number])[facility] ([facility])[address] [place] [address] MCHC 33.9 % Normal 30.5-36.0 [facility] Comment on above: Performed By: #### L [id number] ####Visual Display Manager: GUSTAVO PHILLIPS ([phone])[facility] ([facility])[address] [place] [address] MCV (RBC) [Entitic vol] 90.3 fL Normal 77.0-99.0 [facility] Comment on above: Performed By: #### L [id number] ####Visual Display Manager: GUSTAVO PHILLIPS ([phone])[facility])[address] [place] [address] Platelet mean volume (Bld) [Entitic vol] 9.9 fL Normal 9.0-12.7 [facility] Comment on above: Performed By: #### L [id number] ####Visual Display Manager: GUSTAVO PHILLIPS ([phone])[facility] ([facility])[address] [place] [address] Platelets (Bld) [#/Vol] 149 10*3/uL Normal 140-440 [facility] Comment on above: Performed By: #### L [id number] ####Visual Display Manager: GUSTAVO PHILLIPS ([phone])[facility] ([facility])[address] [place] [address] RBC (Bld) [#/Vol] 4.64 10*6/uL Normal 4.40-5.90 [facility] Comment on above: Performed By: #### L [id number] ####Visual Display Manager: GUSTAVO PHILLIPS ([phone])[facility] ([facility])[address] [place] [address] WBC (Bld) [#/Vol] 8.4 10*3/uL Normal 3.6-10.7 [facility] Comment on above: Performed By: #### L [id number] ####Visual Display Manager: GUSTAVO PHILLIPS ([id number])[facility] ([facility])[address] [place] [address] CBC panel Auto (Bld)on 08-29 Erythrocyte distribution width (RBC) [Ratio] 13.8 % 11.5 - 15.0 % [facility] Hematocrit (Bld) [Volume fraction] 41.9 % 40.0 - 52.0 % [facility] Hemoglobin (Bld) [Mass/Vol] 14.2 g/dL 13.0 - 18.0 g/dL [facility] Interpretation and review of laboratory results Normal [facility] MCH (RBC) [Entitic mass] 30.6 pg 26. 0 - 34.0 pg [facility] MCHC (RBC) [Mass/Vol] 33.9 % 30.5 - 36.0 % [facility] MCV (RBC) [Entitic vol] 90.3 fL 77.0 - 99.0 fL [facility] Platelet mean volume (Bld) [Entitic vol] 9.9 fL 9.0 - 12.7 fL [facility] Platelets (Bld) [#/Vol] 149 10*3/uL 140 - 440 10*3/uL [facility] RBC (Bld) [#/Vol] 4.64 10*6/uL 4.40 - 5.9 0 10*6/uL [facility] WBC (Bld) [#/Vol] 8.4 10*3/uL 3.6 - 10.7 10*3/uL [facility] ECG 12-LEADon 08-29-2024 ECG 12-LEAD IMPRESSION: Atrial fibrillation Borderline T abnormalities, inferior leads consider LVH Electronically Signed On 08-29-2024 09:05:41 EDT by Roxi Hernandez [facility] ECG 12-LEAD IMPRESSION: Atrial fibrillation Borderline T abnormalities, inferior leads Electronically Signed On 08-29-2024 08:05:08 EDT by Roxi Hernandez [facility] No Panel InformationOrdered By: Roxi Hernandez on 08-29-2024 P [place] 0 degrees [facility] [employer] Work Phone: OR Interval 0 ms [facility] [employer] Work Phone: QRS [place] 7 degrees [facility] [employer] Work Phone: QRSD Interval 88 ms [facility] [employer] Work Phone: QT Interval 445 ms [facility] [employer] Work Phone: QTC Interval 439 ms [facility] [employer] Work Phone: T Wave [place] -25 degrees [facility] [employer] Work Phone: [facility] [employer] Work Phone: No Panel Informationon 08-29 Atrial fibrillation Borderline T abnormalities, inferior leads consider LVH Electronically Signed On 08-29-2024 09:05:41 EDT by Roxi Kuhn MD - 08/29/2024 IMPRESSION: Atrial fibrillation Borderline T abnormalities, inferior leads consider LVH Electronically Signed On 08-29-2024 09:05:41 EDT by Roxi pauline [facility] [employer] P [place] 0 degrees [facility] OR Interval 0 ms [facility] QRS [place] 6 degrees [facility] QRSD Interval 88 ms [facility] h QT Interval 372 ms [facility] QTC Interval 435 ms [facility] T Wave [place] -1 degrees [facility] Atrial fibrillation Borderline T abnormalities, inferior leads Electronically Signed On 08-29-2024 08:05:08 EDT by Roxi Kuhn MD - 08/29/2024 IMPRESSION: Atrial fibrillation Borderline T abnormalities, inferior leads Electronically Signed On 08-29-2024 08:05:08 EDT by Roxi Hernandez [facility] Interpretation and review of laboratory results Abnormal [facility] POCT ACT 253 High [facility] Performed by: [facility], [address] [place] [address] CLIA ID: [id number] [facility] Progress Noteon 08-29-2024 Progress Note Physician Response Please review the following and provide your response below. 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 Normal [facility] Vital signsOrdered By: Lamont Hernandez on 08-29-2024 Heart rate 58 /min bpm [facility] [employer] Work Phone: Vital signson 08-29-2024 Heart rate 82 /min bpm [facility] [employer] A variant subtype Ab Qlon [facility] ABO and Rh group Confirm Nom (Bld)on 08-28-2024 ABO group Nom (Bld) A [facility] D Ag Ql (RBC) Positive [facility] h [facility] ANTIBODY IDENTIFICATIONon ANTIBODY IDENTIFICATION E Normal S [facility] Comment on above: Performed By: #### L [id number], [id number], [id number], [id number] ####Visual Display Manager: GUSTAVO PHILLIPS ([phone])[facility])[address] [place] [address] BASIC METABOLIC PANELon 08-02 Anion gap [Moles/Vol] 8 mmol/L Normal 3-13 [facility] Comment on above: Performed By: #### L AB15 ####Visual Display Manager: GUSTAVO PHILLIPS ([phone])[facility] ([facility])[address] [place] [address] Calcium [Mass/Vol] 8.4 mg/dL Low 8.8-10.0 [facility] Comment on above: Performed By: #### L AB15 ####Visual Display Manager: GUSTAVO PHILLIPS ([phone])[facility] ([facility])[address] [place] [address] [place] Chloride [Moles/Vol] 108 mmol/L High 98-107 [facility] Comment on above: Performed By: #### L AB15 ####Visual Display Manager: GUSTAVO PHILLIPS ([phone])[facility] ([facility])[address] [place] [address] [place] CO2 [Moles/Vol] 23 mmol/L Normal 23-31 [facility] Comment on above: Performed By: #### L AB15 ####Visual Display Manager: GUSTAVO PHILLIPS ([id number])[facility] ([facility])[address] [place] [address] Creatinine [Mass/Vol] 1.15 mg/dL Normal 0.72-1.25 [facility] Comment on above: Performed By: #### L AB15 ####Visual Display Manager: GUSTAVO PHILLIPS ([phone])[facility])[address] [place] [address] GLOMERULAR FILTRATION RATE ML/MIN/1.73 SQ M.PREDICTED 62.0 mL/min/1.73m*2 Normal >60.0 [facility] Comment on above: Result Comment: Calc ulation based on the Chronic Kidney Disease Epidemiology Collaboration (CKD-EPI) equation refit without adjustment for race Performed By: #### L AB15 ####Visual Display Manager: GUSTAVO PHILLIPS ([phone])[facility])[address] [place] [address] Glucose [Mass/Vol] 112 mg/dL Normal 82-115 [facility] Comment on above: Performed By: #### L AB15 ####Visual Display Manager: GUSTAVO PHILLIPS ([phone])[address] Potassium [Moles/Vol] 4.6 mmol/L Normal 3.5-5.1 [facility] Comment on above: Result Comment: TC Significant interference from hemolysis. Result integrity compromised. Interpret with caution. Performed By: #### L AB15 ####Visual Display Manager: GUSTAVO PHILLIPS ([phone])[address] Sodium [Moles/Vol] 139 mmol/L Normal 136-145 [facility] Comment on above: Performed By: #### L AB15 ####Visual Display Manager: GUSTAVO PHILLIPS ([phone])[address] Urea nitrogen [Mass/Vol] 27 mg/dL High 9-23 [facility] Comment on above: Performed By: #### L AB15 ####Visual Display Manager: GUSTAVO PHILLIPS ([phone])[address] BLOOD TYPE AND SCREEN GELon 08-28-2024 ABO GROUPING A Normal [facility] Comment on above: Performed By: #### L [id number], [id number], [id number], [id number] ####Visual Display Manager: GUSTAVO PHILLIPS ([phone])[facility] ([facility])[address] [place] [address] RH TYPE IN BLOOD Positive Normal [facility] Comment on above: Performed By: #### L AB941, [id number], [id number], [id number] ####Visual Display Manager: GUSTAVO PHILLIPS ([phone])[facility] ([facility])[address] [place] [address] Basic metabolic 1998 panelon 08-28-2024 Anion gap [Moles/Vol] 8 mmol/L 3 - 13 mmol/L [facility] Calcium [Mass/Vol] 8.4 mg/dL Low 8.8 - 10. 0 mg/dL [facility] Chloride [Moles/Vol] 108 mmol/L High 98 - 10 7 mmol/L [facility] CO2 [Moles/Vol] 23 mmol/L 23 - 31 mmol/L [facility] Creatinine [Mass/Vol] 1.15 mg/dL 0.72 - 1.25 mg/dL [facility] GFR/1.73 sq M.predicted (S/P/Bld) [Vol rate/Area] 62 mL/min - PINF [facility] Comment on above: Calculation based on the Chronic Kidney Disease Epidemiology Collaboration (CKD-EPI) equation refit without adjustment for race Glucose [Mass/Vol] 112 mg/dL 82 - 115 mg/dL [facility] Interpretation and review of laboratory results Abnormal [facility] Potassium [Moles/Vol] 4.6 mmol/L 3.5 - 5.1 mmol/L [facility] Comment on above: TC Significant interference from hemolysis. Result integrity compromised. Interpret with caution. Sodium [Moles/Vol] 139 mmol/L 136 - 145 mmol/L [facility] Urea nitrogen [Mass/Vol] 27 mg/dL High 9 - 23 mg/d L [facility] Blood type and Crossmatch pa brant (Bld)on 08-28-2024 ABO group Nom (Bld) A [facility] Blood group antibody screen GEL Ql Positive [facility] [employer] D Ag Ql [facility]RBC) [facility] CBC (HEMOGRAM)on 08-28-2024 Erythrocyte distribution width (RBC) [Ratio] 13.9 % Normal 11.5-15.0 [facility] Comment on above: Performed By: #### L [id number] ####Visual Display Manager: GUSTAVO PHILLIPS ([phone])[address] Hematocrit (Bld) [Volume fraction] 41.9 % Normal 40.0-52.0 [facility] Comment on above: Performed By: #### L [id number] ####Visual Display Manager: GUSTAVO PHILLIPS ([phone])[facility])[address] [place] [address] Hemoglobin (Bld) [Mass/Vol] 14.5 g/dL Normal 13.0-18.0 [facility] Comment on above: Performed By: #### L [id number] ####Visual Display Manager: GUSTAVO PHILLIPS ([id number])[address] MCH (RBC) [Entitic mass] 30.9 pg Normal 26.0-34.0 [facility] Comment on above: Performed By: #### L [id number] ####Visual Display Manager: GUSTAVO PHILLIPS ([phone])[facility])[address] [place] [address] MCHC 34.6 % Normal 30.5-36.0 [facility] Comment on above: Performed By: #### L [id number] ####Visual Display Manager: GUSTAVO PHILLIPS ([phone])[facility])[address] [place] [address] MCV (RBC) [Entitic vol] 89.3 fL Normal 77.0-99.0 [facility] Comment on above: Performed By: #### L [id number] ####Visual Display Manager: GUSTAVO PHILLIPS ([phone])[facility])[address] [place] [address] Platelet mean volume (Bld) [Entitic vol] 10.6 fL Normal 9.0-12.7 [facility] Comment on above: Performed By: #### L [id number] ####Visual Display Manager: GUSTAVO PHILLIPS ([phone])[facility] ([facility])[address] [place] [address] Platelets (Bld) [#/Vol] 151 10*3/uL Normal 140-440 [facility] Comment on above: Performed By: #### L [id number] ####Visual Display Manager: GUSTAVO PHILLIPS ([phone])[facility] ([facility])[address] [place] [address] RBC (Bld) [#/Vol] 4.69 10*6/uL Normal 4.40-5.90 [facility] Comment on above: Performed By: #### L [id number] ####Visual Display Manager: GUSTAVO PHILLIPS ([phone])[facility])[address] [place] [address] WBC (Bld) [#/Vol] 7.3 10*3/uL Normal 3.6-10.7 [facility] Comment on above: Performed By: #### L [id number] ####Visual Display Manager: GUSTAVO PHILLIPS ([phone])[facility])[address] [place] [address] CBC panel Auto (Bld)on 08-28 Erythrocyte distribution width (RBC) [Ratio] 13.9 % 11.5 - 15.0 % [facility] Hematocrit (Bld) [Volume fraction] 41.9 % 40.0 - 52.0 % [facility] Hemoglobin (Bld) [Mass/Vol] 14.5 g/dL 13.0 - 18.0 g/dL [facility] Interpretation and review of laboratory results Normal [facility] MCH (RBC) [Entitic mass] 30.9 pg 26. 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 A 26 mm (+2) DEWAYNE S3 VALVE IMPLANTATION. 2. TRANSFEMORAL TRANSCATHETER AORTIC VALVE REPLACEMENT. Preoperative Diagnosis: Severe and symptomatic aortic stenosis. Postoperative Diagnosis: Severe aortic stenosis. Anesthesia: Conscious Sedation History of Present Illness: This is a very pleasant 88 y.o. male with a history of severe and symptomatic aortic stenosis. his case was discussed in our multidisciplinary valve conference and was felt to be of appropriate candidacy for TAVR. The pros, cons, risks, benefits, and alternatives of transcatheter aortic valve replacement were reviewed with the patient, and questions were answered, he provided informed consent and wished to proceed with the procedure. Description of Procedure: The patient was brought to the operating suite by anesthesia. The patient was placed under conscious sedation. The patient was then cleaned, prepped and draped in the normal sterile manner. Access was then gained in the right common femoral artery, right radial artery, and right femoral vein. Via the right femoral vein, a 6 Macedonian sheath was placed and temporary pacing wire was placed into the RV apex with appropriate capture, in addition sterile tubing was attached and given the anesthesia for central access. Via right radial artery, a 6-Macedonian sheath was placed and the pigtail catheter was placed into the aortic annulus with confirmation the implant angle. Via the right common femoral artery, a 6-Macedonian sheath was placed. The patient was then heparinized. Next, two Perclose devices were used using the pre-close strategy. An Amplatz Super Stiff wire was then placed through the second Perclose into the descending aorta. Then, a 14-Macedonian Dewayne E-sheath was introduced over the wire into the descending aorta. The sheath was then flushed. Next, an AL1 catheter and a straight wire were used to cross the aortic valve through the e- sheath. The straight wire was then removed and an Amplatz extra stiff wire (formed into a curve) was placed into the LV apex. Next, the AL1 catheter was removed. Next a 26 mm Dewayne S3 valve was then advanced through the sheath into the descending aorta.The valve was then mounted on the balloon, the delivery catheter was flexed and advanced around the aortic arch and across the aortic annulus. The valve was then deployed under rapid pacing. Confirmation of an appropriate implant position and appropriately functioning valve was done using TTE. Next, the delivery catheter, extra stiff wire, and large sheath were removed and the Perclose devices were used for hemostasis. A radial band was used for hemostasis of the additional arterial site. Manual pressure was used for hemostasis of the femoral venous access site. Overall, the patient tolerated the procedure well with minimal blood loss. No immediate complications. The patient will return to the Cardiac Care unit for continued monitoring. It was a pleasure taking care of your patient while hospitalized at [facility]. I will continue to follow along while hospitalized. Please do not hesitate to call with any questions. [facility] [employer] E ANTIGENon 08-28-2024 E ANTIGEN Negative Normal [facility] Comment on above: Performed By: #### L [id number], [id number], [id number] ####Visual Display Manager: GUSTAVO PHILLIPS ([phone])[facility] ([facility])[address] [place] [address] E Ag Ql (RBC)on 08-28-2024 [facility] [employer] LITTLE C ANTIGENon LITTLE C ANTIGEN Positive Normal [facility] Comment on above: Performed By: #### L [id number], [id number], [id number], [id number] ####Visual Display Manager: GUSTAVO PHILLIPS ([phone])[facility] ([facility])[address] [place] [address] Laboratory - Blood bankon little c Ag Ql (RBC) Positive [facility] [employer]) E Ag Ql (RBC) Negative [facility] A variant subtype Ab Ql E S [facility] Laboratory - Coagulationon 0 08-28-2024 PT Coag (Bld) [Time] 12.1 s High 9.0 - 12.0 s [facility] Op Noteon 08-28-2024 Op Note TAVR Procedural Repo rt Interventional Cardiologists: -Clara Sheriff MD -John Taveras MD (Fellow) Cardiothoracic Surgeon: -Chelsey Gross MD -I served as a collaborating cardiothoracic surgeon and was readily available for assistance and/or emergency surgical intervention should have been required. Procedure: 1. A 26 mm (+2) DEWAYNE S3 VALVE IMPLANTATION. 2. TRANSFEMORAL TRANSCATHETER AORTIC VALVE REPLACEMENT. Preoperative Diagnosis: Severe and symptomatic aortic stenosis. Postoperative Diagnosis: Severe aortic stenosis. Anesthesia: Conscious Sedation History of Present Illness: This is a very pleasant 88 y.o. male with a history of severe and symptomatic aortic stenosis. his case was discussed in our multidisciplinary valve conference and was felt to be of appropriate candidacy for TAVR. The pros, cons, risks, benefits, and alternatives of transcatheter aortic valve replacement were reviewed with the patient, and questions were answered, he provided informed consent and wished to proceed with the procedure. Description of Procedure: The patient was brought to the operating suite by anesthesia. The patient was placed under conscious sedation. The patient was then cleaned, prepped and draped in the normal sterile manner. Access was then gained in the right common femoral artery, right radial artery, and right femoral vein. Via the right femoral vein, a 6 Macedonian sheath was placed and temporary pacing wire was placed into the RV apex with appropriate capture, in addition sterile tubing was attached and given the anesthesia for central access. Via right radial artery, a 6-Macedonian sheath was placed and the pigtail catheter was placed into the aortic annulus with confirmation the implant angle. Via the right common femoral artery, a 6-Macedonian sheath was placed. The patient was then heparinized. Next, two Perclose devices were used using the pre-close strategy. An Amplatz Super Stiff wire was then placed through the second Perclose into the descending aorta. Then, a 14-Macedonian Dewayne E-sheath was introduced over the wire into the descending aorta. The sheath was then flushed. Next, an AL1 catheter and a straight wire were used to cross the aortic valve through the e- sheath. The straight wire was then removed and an Amplatz extra stiff wire (formed into a curve) was placed into the LV apex. Next, the AL1 catheter was removed. Next a 26 mm Dewayne S3 valve was then advanced through the sheath into the descending aorta.The valve was then mounted on the balloon, the delivery catheter was flexed and advanced around the aortic arch and across the aortic annulus. The valve was then deployed under rapid pacing. Confirmation of an appropriate implant position and appropriately functioning valve was done using TTE. Next, the delivery catheter, extra stiff wire, and large sheath were removed and the Perclose devices were used for hemostasis. A radial band was used for hemostasis of the additional arterial site. Manual pressure was used for hemostasis of the femoral venous access site. Overall, the patient tolerated the procedure well with minimal blood loss. No immediate complications. The patient will return to the Cardiac Care unit for continued monitoring. Normal [facility] PROTHROMBIN TIMEon INR Coag (PPP) [Relative time] 1.1 {INR} Normal 0.9-1.1 [facility] Comment on above: Order Comment: If pa tient on coumadin within 4 days prior. Result Comment: Irving mmended Anticoagulant Therapy: SEE BELOW ----- INR of 2.0 - 3.0 : - Prophylaxis of Venous Thrombosis (high-risk surgery) - Treatment of Venous Thrombosis - Treatment of Pulmonary Embolism (Includes tissue heart valves, Acute Myocardial Infarction to prevent systemic embolism, Valvular Heart Disease, and Atrial Fibrillation) ----- INR of 2.5 - 3.5 : - Mechanical Prosthetic Valves (high risk) - If oral anticoagulant therapy is used to prevent Myocardial Infarction Performed By: #### L [id number] ####Visual Display Manager: GUSTAVO PHILLIPS ([phone] PT Coag (PPP) [Time] 12.1 s High 9.0-12.0 [facility] Comment on above: Order Comment: If pa tient on coumadin within 4 days prior. Performed By: #### L [id number] ####Visual Display Manager: GUSTAVO PHILLIPS ([phone])[facility] ([facility])[address] [place] [address] PT Coag (Bld) [Time]on 08-28 INR Coag (PPP) [Relative time] 1.1 {INR} 0.9 - 1.1 [facility] Comment on above: Recommended Anticoag ulant Therapy: SEE BELOW ----- INR of 2.0 - 3.0 : - Prophylaxis of Venous Thrombosis (high-risk surgery) - Treatment of Venous Thrombosis - Treatment of Pulmonary Embolism (Includes tissue heart valves, Acute Myocardial Infarction to prevent systemic embolism, Valvular Heart Disease, and Atrial Fibrillation) ----- INR of 2.5 - 3.5 : - Mechanical Prosthetic Valves (high risk) - If oral anticoagulant therapy is used to prevent Myocardial Infarction Interpretation and review of laboratory results Abnormal [facility] US Heart Transthoracicon Aortic Arch 2.4 cm [facility] Aortic valve Mean systole pressure gradient by US.doppler derived full Bernoulli 9 mmHg [facility] Aortic valve Orifice area by US 3.8 cm2 [facility] Aortic valve Peak systolic flow by US.doppler 1.4 m/s [facility] Ascending Aorta 3.3 cm [facility] Ascending Aorta Index 1.58 cm/m2 [facility] AV Area by Peak Velocity 1.3 cm2 [facility] AV Area by VTI 1.3 cm2 [facility] AV AT 74.22 ms [facility] AV Peak Gradient 17 mmHg [facility] AV Peak Velocity 1.9 m/s [facility] AV Velocity Ratio 0.37 [facility] AV VTI 38.8 cm [facility] OVI/BSA Peak Velocity 0.6 cm2/m2 [facility] OVI/BSA VTI 0.6 cm2/m2 [facility] E/E' Lateral 12.11 [facility] E/E' Ratio (Averaged) 15.14 [facility] E/E' Septal 18.17 [facility] Est. RA Pressure 8 mmHg [facility] Fractional Shortening 2D 41 % 28 - 44 % [facility] Interpretation and review of laboratory results Abnormal [facility] IVC Diameter 2.7 cm [facility] IVSd 1.2 cm Abnormal 0.6 - 1.0 cm [facility] LA Diameter 5 cm [facility] LA Size Index 2.39 cm/m2 [facility] LA Volume 2C 122 mL Abnormal 18 - 58 mL [facility] LA Volume 4C 107 mL Abnormal 18 - 58 mL [facility] LA Volume A/L 125 mL [facility] LA Volume BP 116 mL Abnormal 18 - 58 mL [facility] LA Volume Index 2C 58 mL/m2 Abnormal 16 - 34 mL/m2 [facility] LA Volume Index 4C 51 mL/m2 Abnormal 16 - 34 mL/m2 [facility] LA Volume Index A/L 60 mL/m2 16 - 34 mL/m2 [facility] LA Volume Index BP 56 ml/m2 Abnormal 16 - 34 ml/m2 [facility] Left ventricular Ejection fraction by US.2D+Calculated by biplane method of disks 70 % 55 - 100 % [facility] LV E' Lateral Velocity 9 cm/s [facility] LV E' Septal Velocity 6 cm/s [facility] LV EDV A2C 54 mL [facility] LV EDV A4C 56 mL [facility] LV EDV BP 55 mL Abnormal 67 - 155 mL [facility] LV EDV Index A2C 26 mL/m2 [facility] LV EDV Index A4C 27 mL/m2 [facility] LV EDV Index BP 26 mL/m2 [facility] LV Ejection Fraction A2C 70 % [facility] LV Ejection Fraction A4C 71 % [facility] LV ESV A2C 16 mL [facility] LV ESV A4C 16 mL [facility] LV ESV BP 16 mL Abnormal 22 - 58 mL [facility] LV ESV Index A2C 8 mL/m2 [facility] LV ESV Index A4C 8 mL/m2 [facility] LV ESV Index BP 8 mL/m2 [facility] lth LV Mass 2D 192.9 g 88 - 224 g [facility] LV Mass 2D Index 92.3 g/m2 49 - 115 g/m2 [facility] LV RWT Ratio 0.48 [facility] LVIDd 4.6 cm 4.2 - 5.9 cm [facility] LVIDd Index 2.2 cm/m2 [facility] LVIDs 2.7 cm [facility] LVIDs Index 1.29 cm/m2 [facility] LVOT Cardiac Output 3.9 liter/minute [facility] LVOT Diameter 2.2 cm [facility] h LVOT Mean Gradient 1 mmHg [facility] LVOT Peak Gradient 2 mmHg [facility] LVOT Peak Velocity 0.7 m/s [facility] LVOT Stroke Volume Index 26 mL/m2 [facility] LVOT SV 54.3 ml [facility] LVOT VTI 14.3 cm [facility] LVOT:AV VTI Index 0.37 [facility] ealth LVPWd 1.1 cm Abnormal 0.6 - 1.0 cm [facility] MV A Velocity 0.2 m/s [facility] MV E Velocity 1.09 m/s [facility] MV E Wave Deceleration Time 222.7 ms [facility] MV E/A 5.45 [facility] RA Area 4C 99.2 mL [facility] RV Basal Dimension 3.7 cm [facility] RV Free Wall Peak S' 9 cm/s [facility] RV Longitudinal Dimension 5.9 cm [facility] RV Mid Dimension 2.3 cm [facility] RVSP 26 mmHg [facility] TAPSE 1.4 cm Abnormal 1.7 cm [facility] TR Max Velocity 2.14 m/s [facility] lth TR Peak Gradient 18 mmHg [facility] Technically difficul t study. Left Ventricle: Left ventricle size is normal. Mildly increased wall thickness. Normal left ventricular systolic function. EF by 2D Simpsons Biplane is 70%. Normal wall motion. Right Ventricle: Right ventricle is mildly dilated. Mildly reduced systolic function. Aortic Valve: Not well visualized. Cole Dewayne 3 Ultra bioprosthetic aortic valve with a size of 26 mm. AV mean gradient is 9 mmHg. No regurgitation. Trace paravalvular regurgitation. No stenosis. AV mean gradient is 9 mmHg. AV peak velocity is 1.9 m/s. LVOT:AV VTI Index is 0.37. Left Atrium: Left atrium is severely dilated. Left atrium size is severely increased (LA volume index >48 mL/m2).LA Vol Index is 56 ml/m2. Right Atrium: Right atrium is mildly dilated. Left Ventricle Left ventricle size is normal. Mildly increased wall thickness. Normal left ventricular systolic function. EF by 2D Simpsons Biplane is 70%. Normal wall motion. Indeterminate diastolic function. Right Ventricle Right ventricle is mildly dilated. Mildly reduced systolic function. Left Atrium Left atrium is severely dilated. Left atrium size is severely increased (LA volume index >48 mL/m2).LA Vol Index is 56 ml/m2. Right Atrium Right atrium is mildly dilated. IVC/SVC IVC diameter is dilated and decreases greater than 50% during inspiration; therefore the estimated right atrial pressure is intermediate (~8 mmHg). Mitral Valve Mildly calcified leaflets. Mild annular calcification (posterior). No regurgitation. No stenosis noted. Tricuspid Valve Valve structure is normal. Trace regurgitation. Normal RVSP. RVSP is 26 mmHg. Aortic Valve Not well visualized. Cole Dewayne 3 Ultra bioprosthetic aortic valve with a size of 26 mm. AV mean gradient is 9 mmHg. No regurgitation. Trace paravalvular regurgitation. No stenosis. AV mean gradient is 9 mmHg. AV peak velocity is 1.9 m/s. LVOT:AV VTI Index is 0.37. Pulmonic Valve Valve structure is normal. Trace regurgitation. Ascending Aorta Normal sized sinuses of Valsalva and ascending aorta. Pericardium No pericardial effusion. Septum No interatrial shunt visualized on color Doppler. Pulmonary Artery Pulmonary artery was not well visualized. Study Details Image quality: good. Heart rate: 63 bpm. Blood pressure: 141/91 mmHg. Cardiac history: prosthetic valve. Technical qualifiers: Procedure performed with the patient in a supine position. No contrast was given. Echo Additional Conclusions Technically difficult study. CV [facility] [employer] Heart TransthoracicOrdere d By: Margarito Egan on 08-28-2024 Ao Root Index 1.58 cm/m2 [facility] Work Phone: Aortic Root 3.3 cm [facility] [employer] Work Phone: Aortic Sinus Valsalva 3.2 cm [facility] [employer] Work Phone: Aortic Sinus Valsalva Index 1.53 cm/m2 [facility] [employer] Phone: Aortic valve Mean systole pressure gradient by US.doppler derived full Bernoulli 4 mmHg [facility] Work Phone: Aortic valve Orifice area by US 3.1 cm2 [facility] [employer] Phone: Aortic valve Peak systolic flow by US.doppler 0.9 m/s [facility] [employer] Phone: AV Area (Pre-TAVR) 0.5 cm2 [facility] [employer] Phone: AV Area by Peak Velocity 1.5 cm2 [facility] [employer] Phone: AV Area by VTI 1.7 cm2 [facility] Work Phone: AV Mean Gradient (Pre-TAVR) 48 mmHg [facility] Work Phone: [phone] AV Peak Gradient 7 mmHg [facility] Work Phone: [phone] AV Peak Gradient (Pre-TAVR) 67 mmHg [facility] Work Phone: [phone] AV Peak Velocity 1.4 m/s [facility] Work Phone: [phone] AV Peak Velocity (Pre-TAVR) 4.1 m/s [facility] Work Phone: [phone] AV Velocity Ratio 0.43 [facility] Work Phone: [phone] AV VTI 25.8 cm [facility] Work Phone: [phone] OVI/BSA Peak Velocity 0.7 cm2/m2 [facility] Work Phone: [phone] OVI/BSA VTI 0.8 cm2/m2 [facility] Work Phone: [phone] Fractional Shortening 2D 26 % 28 - 44 % [facility] Work Phone: [phone] Interpretation and review of laboratory results Abnormal [facility] Work [phone] IVSd 1.4 cm Abnormal 0.6 - 1.0 cm [facility] Work Phone: [phone] Left ventricular Ejection fraction by US.2D+Calculated by biplane method of disks 58 % 55 - 100 % [facility] Work [phone] LV EDV A2C 76 mL [facility] Work Phone: [phone] LV EDV A4C 67 mL [facility] Work Phone: [phone] LV EDV BP 72 mL 67 - 155 mL [facility] Work Phone: [phone] LV EDV Index A2C 36 mL/m2 [facility] Work Phone: [phone] LV EDV Index A4C 32 mL/m2 [facility] Work Phone: [phone] LV EDV Index BP 34 mL/m2 [facility] Work Phone: [phone] LV Ejection Fraction A2C 58 % [facility] Work [phone] LV Ejection Fraction A4C 58 % [facility] Work Phone: [phone] LV ESV A2C 32 mL [facility] Work Phone: LV ESV A4C 29 mL [facility] Work Phone: LV ESV BP 30 mL 22 - 58 mL [facility] Work Phone: LV ESV Index A2C 15 mL/m2 [facility] Work Phone: LV ESV Index A4C 14 mL/m2 [facility] Work Phone: LV ESV Index BP 14 mL/m2 [facility] Work Phone: LV Mass 2D 237.9 g Abnormal 88 - 224 g [facility] Work Phone: LV Mass 2D Index 113.8 g/m2 49 - 115 g/m2 [facility] Work Phone: LV RWT Ratio 0.51 [facility] Work Phone: LVIDd 4.7 cm 4.2 - 5.9 cm [facility] Work Phone: LVIDd Index 2.25 cm/m2 [facility] Work [phone] LVIDs 3.5 cm [facility] Work Phone: [phone] LVIDs Index 1.67 cm/m2 [facility] Work Phone: [phone] LVOT Cardiac Output 3.7 liter/minute [facility] Work Phone: [phone] LVOT Diameter 2 cm [facility] Work Phone: LVOT Mean Gradient 1 mmHg [facility] Work Phone: LVOT Peak Gradient 2 mmHg [facility] Work Phone: LVOT Peak Velocity 0.6 m/s [facility] Work Phone: LVOT Stroke Volume Index 20.4 mL/m2 [facility] Work Phone: LVOT SV 42.7 ml [facility] Work Phone: LVOT VTI 13.6 cm [facility] Work Phone: [phone] LVOT:AV VTI Index 0.53 [facility] e[facility] Work Phone: [phone] LVPWd 1.2 cm Abnormal 0.6 - 1.0 cm [facility] Work Phone: [phone] MV Area by VTI 1.6 cm2 [facility] Work Phone: [phone] MV Max Velocity 1.3 m/s [facility] Work Phone: [phone] MV Mean Gradient 3 mmHg [facility] Work Phone: [phone] MV Mean Velocity 0.8 m/s [facility] Work Phone: [phone] MV Peak Gradient 7 mmHg [facility] Work Phone: [phone] MV VTI 26.6 cm [facility] Work Phone: [phone] MV:LVOT VTI Index 1.96 [facility] Work Phone: [phone] TR Max Velocity 2.35 m/s [facility] Work Phone: [phone] TR Peak Gradient 22 mmHg [facility] Work Phone: [phone] [facility] Work Phone: [phone] little c Ag Ql (RBC)on 08-28 [facility] 36on 08-24-2024 36 Nestor Riley APRN notifie d for prep for proc orders. Diagnosis: Aortic stenosis Procedure being done: TAVR Date/time of procedure: 08/28/24 9:15 am Surgeon: Dr. Sheriff 2nd surgeon: Dr. Gross Admission type: To be admitted Anesthesia: MAC Completed: H&P/EKG/CXR/CBC/CMP Date completed: 08/04/24 Additional orders Will need T&S and INR morning of procedure Normal [facility] [address] Jhon Sheriff who discussed with Dr. Green. PC to patient, spoke with . She states they were already aware of the complex cyst and had seen a urologist before who said no concerns for cancer and no further testing required. 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 Normal [facility] 36 On calendars but I need a case request to add to [employer] please Normal [facility] CT ANGIOGRAM TAVRon 08-23-[address] ANGIOGRAM TAVR Patient Name: TAMAR SEGAL : 1935 Exam Date/Time: 08/17/2024 10:37 Procedure: CT ANGIOGRAM TAVR Ordering Provider: RILEY MEGGAN Reason For Exam: Aortic valve replacement (TAVR), pre-op eval --------ADDENDUM #1 -------- This is a radiology addendum for the noncardiovascular findings on the CT images of the chest, abdomen, and pelvis obtained for this examination: No focal consolidation is seen within the lungs. There is no pleural effusion or pneumothorax. No suspicious pulmonary nodules are identified. There are multiple small to borderline-enlarged mediastinal lymph nodes, probably reactive. The liver, gallbladder, spleen, pancreas, and adrenal glands appear within normal limits. Tiny right renal cysts are noted. There is an complex exophytic lesion with coarse calcification and possible internal soft tissue enhancement arising from the lower pole of the left kidney measuring 5.3 x 4.3 cm. There is no lymphadenopathy within the abdomen or pelvis. The urinary bladder appears grossly normal. The prostate is enlarged. Large and small bowel loops do not appear abnormally dilated or thickened. There is no free fluid or free air within the abdomen or pelvis. There is a small fat-containing periumbilical hernia. No lytic or blastic lesions are seen on the bone windows. There is an old appearing mild to moderate compression deformity of L1. IMPRESSION: There is an exophytic complex cystic lesion arising from the lower pole of the left kidney which demonstrates scattered coarse calcification and possible internal enhancement measuring up to 5.3 cm arising from the lower pole of the left kidney. Malignancy is not excluded. Further evaluation with contrast-enhanced MRI is recommended. Small fat-containing periumbilical hernia. Please see Dr. Vergara's original report for cardiovascular findings and measurements. Report Dictated on Electronically Signed By: Margarito Dowd MD Electronically Signed Date/Time: 08/22/2024 6:15 PM EDT --------ORIGINAL REPORT -------- [facility] Valve [facility] Cardiovascular CTA Indication: 88 year-old man with severe aortic stenosis, being evaluated for transcatheter aortic valve implantation. Also to evaluate patency of proximal coronaries. Technique: Computed tomography of the heart, thoracoabdominal aorta, and iliofemoral system was performed using a [employer] One 320 detector scanner. Images were reconstructed and analyzed on an advanced post-processing 3D workstation. Contrast: 100 mL Total DLP: 1079.6 mGy-cm Study Quality: Excellent Extracardiac Findings: For a complete description of extracardiac structures, please refer to the accompanying radiology addendum. Cardiac Chambers: The pericardium is unremarkable. The left and right ventricles are normal in size. The left atrium is moderately dilated. The left atrial appendage is normal in appearance. The right atrium is moderate to severely dilated. Coronary Arteries: This study is not optimized for assessment of coronary atherosclerosis, however the following assessments are made: Anatomy: The coronaries have normal origins. There is a pattern of right coronary dominance. Left main: Short vessel (9mm length) that bifurcates into LAD and left circumflex. There is no significant coronary atherosclerosis. Left anterior descending: The vessel runs in the interventricular groove to the apex. One diagonal is observed. In the proximal LAD there is a long segment of calcific plaque is present with minimal (<25%) luminal stenosis. Approximately 3cm from the ostium of the LAD, there is a ~1.5cm length of calcific plaque in the proximal vessel that limits interpretation; this area is probable non-obstructive. The mid-distal vessel beyond this point appears to be patent without significant plaque disease or luminal stenosis. Left circumflex: Non dominant vessel. One obtuse marginal is observed. The proximal vessel appears to be patent without significant luminal stenosis. The mid vessel has calcific plaque with probable minimal (<25%) luminal stenosis. The distal vessel appears to be patent without significant plaque disease or luminal stenosis. Right coronary: The RCA is dominant. The proximal vessel appears to have non-calcific plaque with minimal luminal stenosis. The mid vessel has calcific plaque with minimal (<25%) luminal stenosis. The distal vessel is non-diagnostic. Mitral Valve: The mitral annulus has moderate calcification, without significant extension into the LVOT. The anterior mitral leaflet is free of the LVOT during systole. Aortic Valve: The aortic valve is tricuspid. Predicted deployment angle (3-cusp view): SERBIAN 5, CAU 12 Aortic Annulus: Dimensions: 2.94 x 2.25 cm Area: 5.07 cm2 Perimeter: 81.4 mm Left coronary height: 10.4 mm Right Coronary height: 16.0 mm Aorta and Iliofemoral System: All vascular measurements are minimal luminal diameter (more content not included)... Normal [facility] Progress Noteon 08-22-2024 Progress Note [facility] CARDIOVASCULAR & THORACIC SURGERY [address] [facility] [address] Dept: [phone] Dept Loc: [phone] Patient was identified and seen today via Telehealth by agreement and consent. I used the following Telehealth technology: Audio capability only. Total length of call 16 minutes. The patient was offered and advised video for a more comprehensive evaluation, but the patient declined or was unable to use video. Patient location: VV Patient Location: Home. This patient encounter is appropriate and reasonable under the circumstances: transportation issues . The patient has been advised of the potential risks and limitations of this mode of treatment (including but not limited to the absence of in-person examination) and has agreed to be treated in a remote fashion in spite of them. Any and all of the patient's/patient's family's questions on this issue have been answered and I have made no promises or guarantees to the patient. The patient has also been advised to contact this office for worsening conditions or problems, and seek emergency medical treatment and/or call 911 if the patient deems either necessary. The patient stated that they are currently in the [facility]. If the patient is a minor, permission has been obtained by the parent or guardian for the patient to receive medical care at this visit. Visit type: New Reason for Visit: Severe aortic stenosis Assessment and plan This 88-year-old gentleman has critical/severe aortic stenosis with a mean gradient of 62 mmHg. Given his age, I believe that transcatheter aortic valve replacement is his best option for long-term durability and recovery. He is a candidate for surgical bailout, should the emergent need arise. He is already scheduled for surgery this upcoming Wednesday. I agree with that plan. History of Present Illness Tamar Segal is a 88 y.o. male referred by Dr. Sheriff for aortic stenosis. Per note, pt was referred to Valve Clinic by [facility] for aortic stenosis. Pt has had symptoms of progressive dyspnea on exertion and fatigue. He was hospitalized in June 2024 for CHF and found to have severe aortic stenosis. Echocardiogram during admission showed severe/critical aortic stneosis with normal EF, peak/mean gradients 92/62 mmHg. CTA chest revealed a renal mass which was evaluated by Urology and felt not to be malignant in nature. He was evaluated by Dr. Sheriff who recommended transcatheter aortic valve replacement. CTA TAVR was completed on 08/17/24. Pt is scheduled for TAVR procedure on 08/28/24. Pt is currently taking Warfarin for chronic persistent atrial fibrillation, managed by PCP. Pt is here now for an evaluation. Past Medical History Past Medical History: Diagnosis Date Acute respiratory insufficiency (aortic stenosis) Atrial fibrillation (HCC) Cardiomegaly CHF exacerbation (CMS/HCC) (HCC) Chronic anticoagulation CKD (chronic kidney disease) Essential hypertension Febrile illness Hyperbilirubinemia Left renal mass Murmur Positive blood cultures 07/2024 proteus mirabilis Viral lower respiratory tract infection Past Surgical History Past Surgical History: Procedure Laterality Date KNEE SURGERY Family History No family history on file. Social History Social History Tobacco Use Smoking status: Never Smokeless tobacco: Never Substance Use Topics Alcohol use: Never Drug use: Never Allergies No Known Allergies Medications Current Outpatient Medications: carvedilol (Coreg) 6.25 MG tablet, Take 6.25 mg by mouth 2 times daily (with meals)., Disp: , Rfl: cefdinir (Omnicef) 300 MG capsule, Take 300 mg by mouth 2 times daily., Disp: , Rfl: cloNIDine (Catapres) 0.2 MG tablet, Take 0.2 mg by mouth 2 times daily., Disp: , Rfl: furosemide (Lasix) 20 MG tablet, Take 60 mg by mouth 2 times daily., Disp: , Rfl: lisinopril 20 MG tablet, Take 20 mg by mouth 2 times daily., Disp: , Rfl: potassium chloride CR (Klor-Con M20) 20 MEQ ER tablet, Take 20 mEq by mouth 2 times daily. Do not crush or chew., Disp: , Rfl: tamsulosin (Flomax) 0.4 MG 24 hr capsule, Take 0.4 mg by mouth daily., Disp: , Rfl: warfarin (Coumadin) 2 MG tablet, Take 2 mg by mouth. Take as directed per After Visit Summary., Disp: , Rfl: Review of Systems Review of Systems Constitutional: Positive for fatigue. Respiratory: Positive for shortness of breath (on exertion). All other systems reviewed and are negative. Physical Exam Virtual visit Labs Auto WBC Date/Time Value Ref Range Status 08/04/2024 02:35 PM 7.6 3.6 - 10.7 10*3/uL Final Hemoglobin Date/Time Value Ref Range Status 08/04/2024 02:35 PM 15.5 13.0 - 18.0 g/dL Final Platelets Date/Time Value Ref Range Status 08/04/2024 02:35 PM 200 140 - 440 10*3/uL Final SODIUM Date/Time Value Ref Range Status (more content not included)... Normal [address] 08-17-2024 36 Faxed to [phone] and confirmed Normal [place] [address] Office note complete tristan Moon to fax note to [facility]. Normal [address] 08-15-[address] Sheriff to sign office note Normal [address] 08-14-2024 36 Scheduled CTA for 08/17/2024 at 11 am with TAVR teach. Reviewed fasting 4 hours prior and oral hydration protocol. Verbalized understanding. Agreed to below procedure date/time. Natalie Moon notified to schedule procedure and obtain insurance auth Dx: Aortic Stenosis Procedure: TAVR Date/Time: 08/28/2024 at 9:15 am Surgeon: Dr. Sheriff/ Dr. Hdz Location: [facility] Admission: TBA Anesthesia: MAC CTS office notified patient needs CTS OV. Normal [place] [address] I called and spoke t o Mrs Segal. They are OK with the OOP cost and will be here for the CT. Normal [address] 08-11-2024 36 Correspondence from [facility] requesting PB to finish the OV note from 08/04/24 so neurodiagnostic technician can review. Scanned under Media Normal [facility] 36on 08-10-2024 36 Wendie called and spoke to patient and gave them estimated OOP costs. They were going to check with their son and call her back and she has not heard anything yet. Normal [facility] 36on 08-04-2024 36 Patient is scheduled for a CTA on 08/17/24 and PB hoping to schedule a TAVR. We need to look into coding and prices to give him an idea about his OOP cost as his ins is a self funded plan. Normal [facility] CBC W Auto Differential pane l (Bld)on 08-04-2024 Basophils (Bld) [#/Vol] 0.1 10*3/uL 0.0 - 0.2 10*3/uL [employer](SPG) Basophils/100 WBC (Bld) 1 % 0.0 - 2.0 % [facility] [employer]) Eosinophils (Bld) [#/Vol] 0.5 10*3/uL 0.0 - 0.5 10*3/uL [employer]([facility]) Eosinophils/100 WBC (Bld) 5.9 % 0.0 - 6.0 % [employer]([facility]) Erythrocyte distribution width (RBC) [Ratio] 14.2 % 11.5 - 15.0 % [employer]([facility]) Hematocrit (Bld) [Volume fraction] 45.7 % 40.0 - 52.0 % [employer]([facility]) Hemoglobin (Bld) [Mass/Vol] 15.5 g/dL 13.0 - 18.0 g/dL [employer]) Immature granulocytes (Bld) [#/Vol] 0 10*3/uL NINF - 0.1 10*3/uL [employer]) Immature granulocytes/100 WBC (Bld) 0.3 % 0.0 - 2.0 % [employer]([facility]) Interpretation and review of laboratory results Normal [facility] Lymphocytes (Bld) [#/Vol] 2.2 10*3/uL 1.0 - 4.3 10*3/uL [employer]) Lymphocytes/100 WBC (Bld) 28.6 % 15.0 - 45.0 % [employer]([facility]) MCH (RBC) [Entitic mass] 30.2 pg 26. 0 - 34.0 pg [facility] [employer]) MCHC (RBC) [Mass/Vol] 33.9 % 30.5 - 36.0 % [facility] [employer]) MCV (RBC) [Entitic vol] 89.1 fL 77.0 - 99.0 fL [facility] Monocytes (Bld) [#/Vol] 0.8 10*3/uL 0.0 - 0.9 10*3/uL [facility] Monocytes/100 WBC (Bld) 10.6 % 5.0 - 13.0 % [facility] Neutrophils (Bld) [#/Vol] 4.1 10*3/uL 1.8 - 7.5 10*3/uL [facility] Neutrophils/100 WBC (Bld) 53.6 % 38.0 - 82.0 % [facility] Nucleated RBC/100 WBC (Bld) [Ratio] 0 % [facility] Platelet mean volume (Bld) [Entitic vol] 10.2 fL 9.0 - 12.7 fL [facility] Platelets (Bld) [#/Vol] 200 10*3/uL 140 - 440 10*3/uL [facility] RBC (Bld) [#/Vol] 5.13 10*6/uL 4.40 - 5.9 0 10*6/uL [facility] WBC (Bld) [#/Vol] 7.6 10*3/uL 3.6 - 10.7 10*3/uL [facility] CBC WITH AUTO DIFFERENTIALon 08-04-2024 Basophils (Bld) [#/Vol] 0.1 10*3/uL Normal 0.0-0.2 [facility] Comment on above: Performed By: #### L [id number] ####Visual Display Manager: GUSTAVO PHILLIPS ([id number])[address] Basophils/100 WBC (Bld) 1.0 % Normal 0.0-2.0 [facility] Comment on above: Performed By: #### L [id number] ####Visual Display Manager: GUSTAVO PHILLIPS ([id number])[facility] ([facility])[address] [place] [address] Eosinophils (Bld) [#/Vol] 0.5 10*3/uL Normal 0.0-0.5 [facility] Comment on above: Performed By: #### L [id number] ####Visual Display Manager: GUSTAVO PHILLIPS ([id number])[address] Eosinophils/100 WBC (Bld) 5.9 % Normal 0.0-6.0 [facility] Comment on above: Performed By: #### L [id number] ####Visual Display Manager: GUSTAVO PHILLIPS ([id number])[facility])[address] [place] [address] Erythrocyte distribution width (RBC) [Ratio] 14.2 % Normal 11.5-15.0 [facility] Comment on above: Performed By: #### L [id number] ####Visual Display Manager: GUSTAVO PHILLIPS ([id number])[address] Hematocrit (Bld) [Volume fraction] 45.7 % Normal 40.0-52.0 [facility] Comment on above: Performed By: #### L [id number] ####Visual Display Manager: GUSTAVO PHILLIPS ([id number])[address] Hemoglobin (Bld) [Mass/Vol] 15.5 g/dL Normal 13.0-18.0 [facility] Comment on above: Performed By: #### L [id number] ####Visual Display Manager: GUSTAVO PHILLIPS ([id number])[address] IMMATURE GRANS % 0.3 % Normal 0.0-2.0 [facility] Comment on above: Performed By: #### L [id number] ####Visual Display Manager: GUSTAVO PHILLIPS ([phone])[address] IMMATURE GRANS ABSOLUTE 0.0 10*3/uL Normal <0.1 [facility] Comment on above: Performed By: #### L [id number] ####Visual Display Manager: GUSTAVO PHILLIPS ([id number])[facility])[address] [place] [address] Lymphocytes (Bld) [#/Vol] 2.2 10*3/uL Normal 1.0-4.3 [facility] Comment on above: Performed By: #### L [id number] ####Visual Display Manager: GUSTAVO PHILLIPS ([id number])[facility])[address] [place] [address] Lymphocytes/100 WBC (Bld) 28.6 % Normal 15.0-45.0 [facility] Comment on above: Performed By: #### L [id number] ####Visual Display Manager: GUSTAVO PHILLIPS ([id number])[address] MCH (RBC) [Entitic mass] 30.2 pg Normal 26.0-34.0 [facility] Comment on above: Performed By: #### L [id number] ####Visual Display Manager: GUSTAVO PHILLIPS ([id number])[facility])[address] [place] [address] MCHC 33.9 % Normal 30.5-36.0 [facility] Comment on above: Performed By: #### L [id number] ####Visual Display Manager: GUSTAVO PHILLIPS ([id number])[facility])[address] [place] [address] MCV (RBC) [Entitic vol] 89.1 fL Normal 77.0-99.0 [facility] Comment on above: Performed By: #### L [id number] ####Visual Display Manager: GUSTAVO PHILLIPS ([id number])[facility])[address] [place] [address] Monocytes (Bld) [#/Vol] 0.8 10*3/uL Normal 0.0-0.9 [facility] Comment on above: Performed By: #### L [id number] ####Visual Display Manager: GUSTAVO PHILLIPS ([id number])[facility])[address] [place] [address] Monocytes/100 WBC (Bld) 10.6 % Normal 5.0-13.0 [facility] Comment on above: Performed By: #### L [id number] ####Visual Display Manager: GUSTAVO PHILLIPS ([id number])[facility])[address] [place] [address] NEUTROPHILS ABSOLUTE 4.1 10*3/uL Normal 1.8-7.5 [facility] Comment on above: Performed By: #### L [id number] ####Visual Display Manager: GUSTAVO PHILLIPS ([id number])[facility] ([facility])[address] [place] [address] Neutrophils/100 WBC (Bld) 53.6 % Normal 38.0-82.0 [facility] Comment on above: Performed By: #### L [id number] ####Visual Display Manager: GUSTAVO PHILLIPS ([id number])[facility] ([facility])[address] [place] [address] NRBC 0.0 /100 WBCs Normal 0.0-2.0 [facility] Comment on above: Performed By: #### L [id number] ####Visual Display Manager: GUSTAVO PHILLIPS ([id number])[facility] ([facility])[address] [place] [address] Platelet mean volume (Bld) [Entitic vol] 10.2 fL Normal 9.0-12.7 [facility] Comment on above: Performed By: #### L [id number] ####Visual Display Manager: GUSTAVO PHILLIPS ([id number])[facility] ([facility])[address] [place] [address] Platelets (Bld) [#/Vol] 200 10*3/uL Normal 140-440 [facility] Comment on above: Performed By: #### L [id number] ####Visual Display Manager: GUSTAVO PHILLIPS ([id number])[facility] ([facility])[address] [place] [address] RBC (Bld) [#/Vol] 5.13 10*6/uL Normal 4.40-5.90 [facility] Comment on above: Performed By: #### L [id number] ####Visual Display Manager: GUSTAVO PHILLIPS ([id number])[facility])[address] [place] [address] WBC (Bld) [#/Vol] 7.6 10*3/uL Normal 3.6-10.7 [facility] Comment on above: Performed By: #### L [id number] ####Visual Display Manager: GUSTAVO PHILLIPS ([id number])[facility] ([facility])[address] [place] [address] COMPREHENSIVE METABOLIC PANE Rodney 08-04-2024 Albumin [Mass/Vol] 3.7 g/dL Normal 3.4-4.8 [facility] Comment on above: Performed By: #### L [id number] #### Visual Display Manager: GUSTAVO PHILLIPS ([id number]) [facility]) [address] [place] [address] ALP [Catalytic activity/Vol] 85 U/L Normal 40-150 [facility] Comment on above: Performed By: #### L [id number] #### Visual Display Manager: GUSTAVO PHILLIPS ([id number]) [facility]) [address] [place] [address] ALT [Catalytic activity/Vol] 11 U/L Normal <40 [facility] Comment on above: Performed By: #### L [id number] #### Visual Display Manager: GUSTAVO PHILLIPS ([id number]) [facility]) [address] [place] [address] Anion gap [Moles/Vol] 11 mmol/L Normal 3-13 [facility] Comment on above: Performed By: #### L [id number] #### Visual Display Manager: GUSTAVO PHILLIPS ([id number]) [facility]) [address] [place] [address] AST [Catalytic activity/Vol] 28 U/L Normal <34 [facility] Comment on above: Performed By: #### L [id number] #### Visual Display Manager: GUSTAVO PHILLIPS ([id number]) [facility] [address] [place] [address] Bilirubin [Mass/Vol] 0.8 mg/dL Normal <1.2 [facility] Comment on above: Performed By: #### L [id number] #### Visual Display Manager: GUSTAVO PHILLIPS ([id number]) [facility] ([facility]) [address] [place] [address] Calcium [Mass/Vol] 9.3 mg/dL Normal 8.8-10.0 [facility] Comment on above: Performed By: #### L [id number] #### Visual Display Manager: GUSTAVO PHILLIPS ([id number]) [facility] [address] [place] [address] Chloride [Moles/Vol] 103 mmol/L Normal 98-107 [facility] Comment on above: Performed By: #### L [id number] #### Visual Display Manager: GUSTAVO PHILLIPS ([id number]) [facility] [address] [place] [address] CO2 [Moles/Vol] 28 mmol/L Normal 23-31 [facility] Comment on above: Performed By: #### L [id number] #### Visual Display Manager: GUSTAVO PHILLIPS ([id number]) [facility] [address] [place] [address] Creatinine [Mass/Vol] 1.69 mg/dL High 0.72-1.25 [facility] Comment on above: Performed By: #### L [id number] #### Visual Display Manager: GUSTAVO PHILLIPS ([phone]) [facility]) [address] [place] [address] [place] GLOMERULAR FILTRATION RATE ML/MIN/1.73 SQ M.PREDICTED 39.1 mL/min/1.73m*2 Low >60.0 [facility] Comment on above: Result Comment: Calc ulation based on the Chronic Kidney Disease Epidemiology Collaboration (CKD-EPI) equation refit without adjustment for race Performed By: #### L [id number] #### Visual Display Manager: GUSTAVO PHILLIPS ([id number]) [facility] [address] [place] [address] Glucose [Mass/Vol] 91 mg/dL Normal 82-115 [facility] Comment on above: Performed By: #### L [id number] #### Visual Display Manager: GUSTAVO PHILLIPS ([id number]) [facility] ([facility]) [address] [place] [address] Potassium [Moles/Vol] 4.0 mmol/L Normal 3.5-5.1 [facility] Comment on above: Result Comment: [facility] potassium values may be up to 0.5 mmol/L lower than serum values. Performed By: #### L [id number] #### Visual Display Manager: GUSTAVO PHILLIPS ([id number]) [facility] ([facility]) [address] [place] [address] Protein [Mass/Vol] 7.5 g/dL Normal 6.4-8.3 [facility] Comment on above: Performed By: #### L [id number] #### Visual Display Manager: GUSTAVO PHILLIPS ([id number]) [facility] ([facility]) [address] [place] [address] Sodium [Moles/Vol] 142 mmol/L Normal 136-145 [facility] Comment on above: Performed By: #### L [id number] #### Visual Display Manager: GUSTAVO PHILLIPS ([phone]) [facility]) [address] [place] [address] Urea nitrogen [Mass/Vol] 25 mg/dL High 9-23 [facility] Comment on above: Performed By: #### L [id number] #### Visual Display Manager: GUSTAVO PHILLIPS ([id number]) [facility] ([facility]) [address] [place] [address] Comprehensive metabolic 1998 panelon 08-04-2024 Albumin [Mass/Vol] 3.7 g/dL 3.4 - 4.8 g/dL [facility] ALP [Catalytic activity/Vol] 85 U/L 40 - 150 U/L [facility] ALT [Catalytic activity/Vol] 11 U/L NINF - 40 U/L [facility] Anion gap [Moles/Vol] 11 mmol/L 3 - 13 mmol/L [facility] AST [Catalytic activity/Vol] 28 U/L NINF - 34 U/L [facility] Bilirubin [Mass/Vol] 0.8 mg/dL NINF - 1.2 mg/dL [facility] Calcium [Mass/Vol] 9.3 mg/dL 8.8 - 10. 0 mg/dL [facility] Chloride [Moles/Vol] 103 mmol/L 98 - 10 7 mmol/L [facility] CO2 [Moles/Vol] 28 mmol/L 23 - 31 mmol/L [facility] Creatinine [Mass/Vol] 1.69 mg/dL High 0.72 - 1.25 mg/dL [facility] GFR/1.73 sq M.predicted (S/P/Bld) [Vol rate/Area] 39.1 mL/min Low - PINF [facility] Comment on above: Calculation based on the Chronic Kidney Disease Epidemiology Collaboration (CKD-EPI) equation refit without adjustment for race Glucose [Mass/Vol] 91 mg/dL 82 - 115 mg/dL [facility] Interpretation and review of laboratory results Abnormal [facility] Potassium [Moles/Vol] 4 mmol/L 3.5 - 5.1 mmol/L [facility] Comment on above: Plasma potassium juliocesar ues may be up to 0.5 mmol/L lower than serum values. Protein [Mass/Vol] 7.5 g/dL 6.4 - 8.3 g/dL [facility] Sodium [Moles/Vol] 142 mmol/L 136 - 145 mmol/L [facility] Urea nitrogen [Mass/Vol] 25 mg/dL High 9 - 23 mg/d L [facility] Office Visiton 08-04-2024 Follow-up visit [id number] Tamar Segal 1935 Date Provider Department Center 08/04/2024 [id number] [facility]ER[facility] [address] No family history on file Level of Service:33180 OR OFFICE/OUTPATIENT NEW HIGH MDM 60 MINUTES Reason for Visit and Comments: New Patient [542] - Heart valve clinic Normal [facility] Progress Noteon 08-04-[address] [facility] [place] [address] [place] [address] Dept: [phone] Dept Visit type: New : 1935 Reason for Visit: New Patient (Heart valve clinic) Assessment and Plan 1. Aortic valve stenosis, etiology of cardiac valve disease unspecified - ECG 12 lead - CLINIC PERFORMED - CBC auto differential - Comprehensive metabolic panel This is a very pleasant 88y/o male with severe/critical aortic stenosis, symptomatic. Medically, he is clearly in need of an aortic valve replacement. We discussed the fact that his life expectancy is possibly less than a year, if left for conservative therapy. At 88 years old, he is not a great surgical candidate. His third option would be to proceed with a transcatheter aortic valve replacement. Medically, this would be the clear indication. We have set him up with our financial consultants, to try to understand the financial implications of his decision. If we decided to proceed with intervention, there are a couple of things we could do to try to minimize cost. First, we could proceed with CTA first, assess candidacy for transfermoral TAVR, and ask our imagers to look at his proximal coronaries. If we can confidently say that he has minimal coronary disease, we could forego a cath relatively safely. Secondly, if he meets criteria for a same day discharge, we could consider him for this pathway. Will assess for candidacy for this after his CTA. He and his family will discuss with our financial team, and will let us know if he is interested in proceeding. Addendum: Family has discussed with our team, and are interested in proceeding. Will order a CTA as a start, as per plan above. It was a pleasure seeing your patient in the office today. Please do not hesitate to call me with any questions. Follow up for Recheck after CTA. Subjective HPI Tamar Segal is a very pleasant 88 y.o. male who is here for evaluation of his aortic valve disease. his symptoms include progressive dyspnea on exertion and fatigue. his most recent echo shows severe/critical aortic stneosis with normal EF, mean gradient 62mmHg. He does live in a self pay community, and patient and family is interested in learning about the financial considerations of the different pathway options. Review of Systems Constitutional: Negative for activity change, chills, diaphoresis, fatigue and fever. HENT: Negative for nosebleeds and trouble swallowing. Eyes: Negative for discharge and visual disturbance. Respiratory: Positive for shortness of breath (on exertion). Negative for apnea, cough, chest tightness, wheezing and stridor. Cardiovascular: Negative for chest pain, palpitations and leg swelling. Gastrointestinal: Negative for abdominal distention, abdominal pain, blood in stool, diarrhea, nausea and vomiting. Endocrine: Negative for cold intolerance and heat intolerance. Genitourinary: Negative for hematuria. Musculoskeletal: Negative for gait problem and myalgias. Skin: Negative for color change and rash. Neurological: Positive for light-headedness (with postion changes). Negative for dizziness, seizures, syncope, facial asymmetry, speech difficulty, weakness, numbness and headaches. Hematological: Does not bruise/bleed easily. Psychiatric/Behavioral : Negative for dysphoric mood. No Known Allergies Current Outpatient Medications: carvedilol (Coreg) 6.25 MG tablet, Take 6.25 mg by mouth 2 times daily (with meals)., Disp: , Rfl: cefdinir (Omnicef) 300 MG capsule, Take 300 mg by mouth 2 times daily., Disp: , Rfl: cloNIDine (Catapres) 0.2 MG tablet, Take 0.2 mg by mouth 2 times daily., Disp: , Rfl: furosemide (Lasix) 20 MG tablet, Take 60 mg by mouth 2 times daily., Disp: , Rfl: lisinopril 20 MG tablet, Take 20 mg by mouth 2 times daily., Disp: , Rfl: potassium chloride CR (Klor-Con M20) 20 MEQ ER tablet, Take 20 mEq by mouth 2 times daily. Do not crush or chew., Disp: , Rfl: tamsulosin (Flomax) 0.4 MG 24 hr capsule, Take 0.4 mg by mouth daily., Disp: , Rfl: warfarin (Coumadin) 2 MG tablet, Take 2 mg by mouth. Take as directed per After Visit Summary., Disp: , Rfl: Past Medical History: Diagnosis Date Acute respiratory insufficiency (aortic stenosis) Atrial fibrillation (HCC) Cardiomegaly CHF exacerbation (CMS/HCC) (HCC) Chronic anticoagulation CKD (chronic kidney disease) Essential hypertension Febrile illness Hyperbilirubinemia Left renal mass Murmur Positive blood cultures 07/2024 proteus mirabilis Viral lower respiratory tract infection Social History Tobacco Use Smoking status: Never Smokeless tobacco: Never Substance Use Topics Alcohol use: Never Past Surgical History: Procedure Laterality Date KNEE SURGERY No family history on file. Objective Vitals: 08/04/24 1248 08/04/24 1348 BP: (!) 142/82 122/82 BP Location: Left arm Patient Position: Sitting BP Cuff Size: (more content not included)... Normal [facility] 36on 07-24-2024 36 Chart made and keenan florez NP packet [facility] 36 Records scanned sally Madrid [facility] 36 Chart reviewed. Patient is being referred from [facility] for aortic stenosis. He has a history of CHF admission this month, as well as severe aortic stenosis. Natalie Moon to schedule valve clinic appointment. Normal [facility] Culture, Blood (WB)on 2024 CUB No growth in 5 days. Normal [facility] Comment on above: Performed By: #### L 501.5200, L501.4021 #### [facility] [address] [place], [address] Blood cultureOrdered By: Doris Lacey on 07-14-2024 Bacteria identified Cx Nom (Bld) No growth in 5 days. [facility] Cardiology Visit Reporton Cardiology Visit Report [facility] [address] [place], [place] [address] OFFICE VISIT Date of Service: 07/14/24 MR#: [id number] Acct: [id number] Name: TAMAR SEGAL Rep #: [id number] : 1935 Provider: Dr. Wu chu MD Age/Sex: 88/M Location: [facility] Status: Signed HPI HPI History of Present Illness Details: Patient is a 88-year-old [facility] white male that comes in today for hospital follow-up following hospitalization for heart failure. The patient was hospitalized in congestive heart failure and found to have severe aortic stenosis. His echo done 06/29/2024 showed an EF of 70% there is severe biatrial dilation no mitral insufficiency and severe aortic stenosis. The patient's peak gradient was 92 mmHg and mean gradient of 62 mmHg. The patient originally presented with acute respiratory insufficiency with O2 saturation of 82% on room air. His BNP was elevated 8040 he has a history of chronic persistent atrial fibrillation on Coumadin managed through his primary care physician's office. The patient denied any significant right lower extremity edema his left lower extremity had been traumatically injured and has chronic edema. Patient has been having dyspnea on exertion that have been markedly progressive over the recent few days prior to admission. He denied any chest pain or exertional dizziness or lightheadedness. Patient did have some mild renal insufficiency BUN of 39 creatinine 1.48 and estimated GFR of 46. He grew E. coli out of his urine and his blood culture grew Proteus mirabilis. The patient's CT revealed a renal mass which has subsequent been evaluated by urology and felt not to be malignant in nature. The patient is now being seen in the office. He completed his antibiotics a week ago. He remains afebrile and denies any chills. He was having fevers and chills prior to his admission. The patient reports he is pretty much back to baseline in his home environment. Denies any significant dyspnea on exertion he is on Lasix 60 mg daily lisinopril clonidine and carvedilol for his blood pressure remains on his warfarin. 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 Required: No Accompanied by: and son Is patient in pain?: No Allergies No Known Allergies Allergy (Verified 07/14/24 16:08) Medications ???Medication ???Instructions ???Recorded ???Confirmed ???Type clonidine HCl 0.2 mg tablet 0.2 mg PO BID blood pressure 06/2807/01/24 History tamsulosin 0.4 mg capsule (Flomax) 0.4 mg PO QHS prostate 06/28/24 07/01/24 History warfarin 2 mg tablet 2 mg PO .COMPLEX blood thinner 07/01/24 History carvedilol 6.25 mg tablet 6.25 mg PO BIDCM #60 tabs 07/01/24 Rx cefdinir 300 mg capsule 300 mg PO BID #14 caps 07/01/24 R x furosemide 20 mg tablet (Lasix) 60 mg (3 x 20 mg) PO DAILY #90 tab s 07/01/24 Rx lisinopril 20 mg tablet 20 mg PO BID #60 tabs 07/01/24 Rx potassium chloride 20 mEq 20 meq PO BIDCM #60 tabs 07/01/24 Rx tablet,extended release(part/cryst) Ejection fraction %: 70 Have you fallen in the past year?: Yes PFSH Medical History (Updated 07/14/24 @ 16:[address] Wu Lacey MD) Chronic a-fib Aortic valve stenosis Positive blood cultures Left renal mass Murmur Essential hypertension Hyperbilirubinemia Acute respiratory insufficiency Viral lower respiratory tract infection Cardiomegaly CHF exacerbation Febrile illness, acute CKD (chronic kidney disease) Chronic anticoagulation Hypertension Surgical History H/O knee surgery Social History Smoking Status: Never smoker ROS Const Const: Positive for fatigue; Negative for weakness ENT ENT: Negative for dizziness or balance problems Cardio Chest Pain: No Palpitations: No Edema: None Muscle aches with walking: None Resp Respiratory: Positive for SOB with activity; Negative for SOB at rest or SOB orthopnea SOB lying down GI GI: Negative nausea, vomiting or heartburn Musc Musc: Negative for muscle weakness or balance problems Neuro Neuro: Positive for lightheadedness (when standing up quickly); Negative for dizziness, near syncope, syncope or weakness Endo Endo: Positive for fatigue Cardiology Exam Const Appearance: cooperative, comfortable, no acute distress and well developed Appears younger than his stated age of 88. Head Head: no (more content not included)... Normal [facility] Culture, Blood (WB)on 2024 CUB Blood cultures x2, from two different sites No growth in 5 days. Normal [facility] Comment on above: Performed By: #### L 501.9520, L499.0042, L500.4050 #### [facility] [address] [place], [address] Culture, Blood (WB)on 2024 CUB Blood cultures x2, from two different sites AMENDED GRAM STAIN REPORT= GRAM NEGATIVE RODS Culture, Blood (WB) RESULTS CALLED TO OPHELIA 06/30/24 0892 Hetal Andrew. RESULTS CALLED TO DIEGO 06/29/24 6804 Jenny Wynn. REPORT READ BACK BY SAME. Culture, Blood (WB) Copy of report sent to Infection Control Printer [id number] 07/01/24 0723 CHARLEE. Proteus mirabilis Amount Growth Growth Proteus mirabilis: REACTION Ampicillin Islt DORIS <=2 Ampicillin+Sulbac Islt DORIS <=2 S Cefepime Islt DORIS <=0.12 S cefTRIAXone Islt DORIS <=0.25 S Ciprofloxacin Islt DORIS <=0.06 S Gentamicin Islt DORIS <=1 S levoFLOXacin Islt DORIS <=0.12 S Meropenem Islt DORIS <=0.25 S Pip+Tazo Islt DORIS <=4 S TMP SMX Islt DORIS <=20 S Normal [facility] Comment on above: Performed By: #### M 200.1000 #### [facility] [address] [place], [address] Discharge Instructionon Discharge Instruction [facility] Medical Records Department [address] [place] [address] Instructions for Home/Discharge Instructions 07/01/24 1057 MR#: [id number] Acct: [id number] Name: TAMAR SEGAL Rep #: [id number] : 1935 88 From: Jac Botello DO PCP: Dr. Juan Diego Starks MD Status:ADM IN Discharge Instructions Diet Discharge Diet: No restrictions DC O2, CPAP, BIPAP needs Home O2 Discharge instructions: No Dressing / Incision Discharge Activity: Return to Normal Activity Weight Bearing Status: Full weight bearing Follow Up Care Test Results: Test results from this visit will be discussed in further detail at your follow-up appointment, if applicable. Discharge Plan Admission Admit Date/Time: 06/29/24 03:05 Primary Reason for Your Visit: Congestive heart failure, positive blood culture, left kidney mass Attending Provider: Genesis Castillo Primary Care Provider: Juan Diego Starks Consulting Providers: Thomas Bueno; Isai Wisdom; Isaac Heller; Cole Easley; Armaan Abbott; Surinder Lord; Danuta Hopkins; Wu Lacey; Khoa Hogan; Suman Glaser; Uriel Watkins; Jignesh Castellanos NP; Geraldine Villagomez; John Weaver; Jac Botello Discharge Orders/Prescriptions Prescriptions: New carvedilol 6.25 mg Tablet 6.25 mg PO BIDCM Qty: 60 0RF lisinopril 20 mg Tablet 20 mg PO BID Qty: 60 0RF potassium chloride 20 mEq Tablet,Er Particles/Crystals 20 meq PO BIDCM Qty: 60 0RF furosemide [Lasix] 20 mg tablet 60 mg PO DAILY Qty: 90 0RF cefdinir 300 mg capsule 300 mg PO BID Qty: 14 0RF Rx Instructions: Start on 07/02/2024 Continued warfarin 2 mg tablet 2 mg PO .COMPLEX Rx Instructions: 2 mg orally daily; 4 mg on Mondays tamsulosin [Flomax] 0.4 mg capsule 0.4 mg PO QHS clonidine HCl 0.2 mg tablet 0.2 mg PO BID Discontinued digoxin 250 mcg (0.25 mg) tablet 125 mcg PO DAILY lisinopril 40 mg tablet 40 mg PO BID hydrochlorothiazide 50 mg tablet 25 mg PO DAILY amlodipine 5 mg tablet 5 mg PO DAILY labetalol 300 mg tablet 300 mg PO BID Referrals / Follow Up: Juan Diego Starks DO [Primary Care Provider] - In 1 Week (You will need to be referred to a urologist regarding your left kidney mass) Wu Lacey MD [Med Staff - Active Staff] - See Referral Note (Call to schedule an appointment for 2 to 3 weeks from now) Disposition Disposition (needs filled in before D/C Order can be placed): Home, Self Care 07/01/24 1118 Jac Botello DO CC: [facility] Jignesh Castellanos; Dr. Isai Wisdom MD; Dr. Cole Easley MD; Dr. Isaac Heller MD; Dr. Armaan Abbott MD; Dr. Juan Diego Starks MD; Dr. Surinder Lord MD; Dr. Thomas Bueno DO; Dr. Danuta Hopkins MD; Dr. Jac Botello DO; Dr. Wu Lacey MD; Dr. Khoa Hogan MD; Dr. Uriel Watkins MD; Dr. Suman Glaser MD; JOEL Jean; JOEL Casas Signed Normal [facility] Urine Cultureon 07-01-2024 URC #2 Probable Proteus species. Below infection level. Urine Culture Escherichia coli [place] Count 11,000-25,000 Gram negative rajeev Gram negative rajeev Escherichia coli: REACTION Ampicillin Islt DORIS <=2 S Ampicillin+Sulbac Islt DORIS <=2 Cefepime Islt DORIS <=0.12 S cefTRIAXone Islt DORIS <=0.25 S Ciprofloxacin Islt DORIS <=0.06 S B-Lactamase Extended Susc Islt NEG Gentamicin Islt DORIS <=1 S levoFLOXacin Islt DORIS <=0.12 S Meropenem Islt DORIS <=0.25 S Nitrofurantoin Islt DORIS <=16 S Pip+Tazo Islt DORIS <=4 S TMP SMX Islt DORIS <=20 S Normal [facility] Comment on above: Performed By: #### L 501.9520, L499.0042, L500.4050 #### [facility] [address] [place], [place], [id number] Absolute neutrophil countOrd ered By: Jac Botello on 06-30-2024 Neutrophils (Bld) [#/Vol] 5.5 10*3/uL 2.0-7.7 [facility] Automated blood erythrocyte countOrdered By: Jac Botello on 06-30-2024 RBC (Bld) [#/Vol] 5.10 10*6/uL Normal 4.6-6.2 [facility] Comment on above: Performed By: #### L 501.9520, L499.0042, L500.4050 #### [facility] [address] [facility] [place], [place], [id number] Automated blood hematocrit ( percentage)Ordered By: Jac Botello on 06-30-2024 Hematocrit (Bld) [Volume fraction] 46.5 % Normal 40-54 [facility] Comment on above: Performed By: #### L 501.9520, L499.0042, L500.4050 #### [facility] [address] [place], [address] Automated lymphocyte count a s percentage of total leukocytesOrdered By: Jac Botello on 06-30-2024 Lymphocytes/100 WBC (Bld) 15.9 % Low 19-41 [facility] Comment on above: Performed By: #### L 501.9520, L499.0042, L500.4050 #### [facility] [address] [place], [address] BUN/creatinine ratioOrdered By: Jac Botello on 06-30-2024 Urea nitrogen/Creatinine [Mass ratio] 26.1 mg/mg High 10-20 [facility] Basic Metabolic Profile (BMP )on 06-30-2024 Anion gap [Moles/Vol] 14 mmol/L Normal 5-15 [facility] Comment on above: Performed By: #### L 501.9520, L499.0042, L500.4050 #### [facility] [address] [place], [address] BUN/CRE 26.1 RATIO High 10-20 [facility] Comment on above: Performed By: #### L 501.9520, L499.0042, L500.4050 #### [facility] [address] [place], [address] Calcium [Mass/Vol] 9.4 mg/dL Normal 7.6-11.0 [facility] Comment on above: Performed By: #### L 501.9520, L499.0042, L500.4050 #### [facility] [address] [place], [address] Chloride [Moles/Vol] 97 mmol/L Normal 96-108 [facility] Comment on above: Performed By: #### L 501.9520, L499.0042, L500.4050 #### [facility] [address] [place], [address] CO2 [Moles/Vol] 26.8 mmol/L Normal 22.0-29.0 [facility] Comment on above: Performed By: #### L 501.9520, L499.0042, L500.4050 #### [facility] [address] [place], [address] Creatinine [Mass/Vol] 1.48 mg/dL High 0.70-1.20 [facility] Comment on above: Performed By: #### L 501.9520, L499.0042, L500.4050 #### [facility] [address] [place], [address] ECRCL 38.16 ml/min Normal [facility] Comment on above: Performed By: #### L 501.9520, L499.0042, L500.4050 #### [facility] [address] [place], [address] GFR/1.73 sq M.predicted among non-blacks MDRD (S/P/Bld) [Vol rate/Area] 46 mL/min/{1.73_m2} Low >60 [facility] Comment on above: Result Comment: mL/m in/1.73m2 CKD-EPI Creatinine Equation (2020) Performed By: #### L 501.9520, L499.0042, L500.4050 #### [facility] [address] [place], [address] Glucose [Mass/Vol] 100 mg/dL High 70-99 [facility] Comment on above: Performed By: #### L 501.9520, L499.0042, L500.4050 #### [facility] [address] [place], [address] Potassium [Moles/Vol] 3.4 mmol/L Normal 3.3-5.1 [facility] Comment on above: Performed By: #### L 501.9520, L499.0042, L500.4050 #### [facility] [address] [place], [address] Sodium [Moles/Vol] 137 mmol/L Normal 133-145 [facility] Comment on above: Performed By: #### L 501.9520, L499.0042, L500.4050 #### [facility] [address] [place], [address] Urea nitrogen [Mass/Vol] 39 mg/dL High 4-19 [facility] Comment on above: Performed By: #### L 501.9520, L499.0042, L500.4050 #### [facility] [address] [place], [address] Basophil percentageOrdered B y: Jac Rosmery on 06-30-2024 Basophils/100 WBC (Bld) 0.7 % Normal 0-1 [facility] Comment on above: Performed By: #### L 501.9520, L499.0042, L500.4050 #### [facility] [address] [place], [address] CBC W/Diff, Automatedon 02-2 Absolute Lymph 1.28 X10 3/uL Normal 0.83-4.51 [facility] Comment on above: Performed By: #### L 501.9520, L499.0042, L500.4050 #### [facility] [address] [place], [address] Absolute Neut 5.5 X10 3/uL Normal 2.0-7.7 [facility] Comment on above: Performed By: #### L 501.9520, L499.0042, L500.4050 #### [facility] [address] [place], [address] IG% 0.500 Normal 0.0-0.9 [facility] Comment on above: Result Comment: IG% - Immature Granulocytes (promyelocytes, myelocytes and metamyelocytes) > 1% indicates that a LEFT SHIFT is Present. Performed By: #### L 501.9520, L499.0042, L500.4050 #### [facility] [address] [place], [address] Nucleated RBC (Bld) [#/Vol] 0 10*3/uL Normal 0-5 [facility] Comment on above: Performed By: #### L 501.9520, L499.0042, L500.4050 #### [facility] [address] [place], [address] RDW SD 48.3 fl High 35.1-43.9 [facility] Comment on above: Performed By: #### L 501.9520, L499.0042, L500.4050 #### [facility] [address] [place], [address] Absolute Neut Normal 2.0-7.7 [facility] Comment on above: Result Comment: Canc elled via OM: MD Ordered Performed By: #### L 100.0100 #### [facility] [address] [place], [address] HCT Normal 40-54 [facility] Comment on above: Result Comment: Canc elled via OM: MD Ordered Performed By: #### L 100.0100 #### [facility] [address] [place], [address] HGB Normal 13.0-16.5 [facility] Comment on above: Result Comment: Canc elled via OM: MD Ordered Performed By: #### L 100.0100 #### [facility] [address] [place], [address] MCH Normal 27.0-32.0 [facility] Comment on above: Result Comment: Canc elled via OM: MD Ordered Performed By: #### L 100.0100 #### [facility] [address] [place], [address] MCHC Normal 32-36 [facility] Comment on above: Result Comment: Canc elled via OM: MD Ordered Performed By: #### L 100.0100 #### [facility] [address] [place], [address] MCV Normal 80-94 [facility] Comment on above: Result Comment: Canc elled via OM: MD Ordered Performed By: #### L 100.0100 #### [facility] [address] [place], [address] NEUT% Normal 47-70 [facility] Comment on above: Result Comment: Canc elled via OM: MD Ordered Performed By: #### L 100.0100 #### [facility] [address] [place], [address] PLT Normal 150-450 [facility] Comment on above: Result Comment: Canc elled via OM: MD Ordered Performed By: #### L 100.0100 #### [facility] [address] [place], [address] RBC Normal 4.6-6.2 [facility] Comment on above: Result Comment: Canc elled via OM: MD Ordered Performed By: #### L 100.0100 #### [facility] [address] [place], [address] RDW CV Normal 11.6-14.6 [facility] Comment on above: Result Comment: Canc elled via OM: MD Ordered Performed By: #### L 100.0100 #### [facility] [address] [place], [address] RDW SD Normal 35.1-43.9 [facility] Comment on above: Result Comment: Canc elled via OM: MD Ordered Performed By: #### L 100.0100 #### [facility] [address] [place], [place], [address] WBC Normal 4.4-11.0 [facility] Comment on above: Result Comment: Canc elled via OM: MD Ordered Performed By: #### L 100.0100 #### [facility] [address] [place], [address] Carbon dioxide measurementOr dered By: Jac Botello on 06-30-2024 CO2 [Moles/Vol] 26.8 mmol/L 22.0-29.0 [facility] Carotid Duplex Ultrasoundon 06-30-2024 Carotid Duplex Ultrasound [facility] [address] [place] [address] Carotid Duplex Ultrasound 06/30/24 1334 MR#: [id number] Acct: [id number] Name: TAMAR SEGAL Rep #: [id number] : 1935 88 From: Chelsey Dumont MD Attending Dr: Dr. Genesis Castillo MD Status: DI S IN Ordering Dr: Wu Lacey MD Date: 06/30/24 Location: [facility] Sex: M C Admitted: 06/29/24 Reason For Study Reason For Study: Carotid Bruit Rt. Velocities/BP Lt. Velocities/BP Prox CCA 72.7/17.5 cm/sec. Prox CCA 80.6/13.0 cm/sec. Mid CCA 94.1/18.5 cm/sec. Mid CCA 81.8/20.4 cm/sec. Dist CCA 61.0/13.8 cm/sec. Dist CCA 76.8/17.5 cm/sec. Prox ICA 56.3/20.4 cm/sec. Prox ICA 48.5/9.8 cm/sec. Mid ICA 73.3/25.1 cm/sec. Mid ICA 54.2/20.5 cm/sec. Dist ICA 55.5/18.8 cm/sec. Dist ICA 59.2/23.2 cm/sec. Rt. ICA/CCA = 0.8. Lt. ICA/CCA = 0.7. Prox ECA 61.1/0.0 cm/sec. Prox ECA 56.4/0.0 cm/sec. Rt. Vert. 40.4/12.7 cm/sec. Lt. Vert. 47.0/17.4 cm/sec. Right Extracranial There is heterogeneous, irregular atherosclerotic plaque noted in the right common carotid artery. There is heterogeneous, irregular atherosclerotic plaque noted in the right internal carotid artery. The right internal carotid artery is very tortuous. There is intimal thickening but no significant atherosclerotic plaque noted in the right external carotid artery. Antegrade flow is noted in the right vertebral artery. Left Extracranial There is heterogeneous, irregular atherosclerotic plaque noted in the left common carotid artery. There is heterogeneous, irregular atherosclerotic plaque noted in the left internal carotid artery. The left internal carotid artery is very tortuous. There is heterogeneous, irregular atherosclerotic plaque noted in the left external carotid artery. Antegrade flow is noted in the left vertebral artery. Procedure Carotid Duplex 01108. This is a Carotid Duplex examination using B-mode, color flow and specral Doppler. The exam was diagnostic. Exam performed portable in patient room. 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 Mild (<50%) stenosis left extracranial internal carotid. Patent and antegrade vertebrals bilaterally. Ordering Physician: Wu Lacey Referring Physician: Juan Diego Starks Performed By: Luciano Andre, T 07/02/24 1341 Date Chelsey Dumont MD CC: Dr. Genesis Castillo MD; Dr. Juan Diego Starks MD; Dr. Wu Lacey MD Date Dictated: 06/30/24 1334 Date Transcribed: 07/02/24 1341 Yard Stocker: Signed Normal [facility] Chloride measurementOrdered By: Jac Botello on 06-30-2024 Chloride [Moles/Vol] 97 mmol/L 96-108 [facility] Eosinophil percentageOrdered By: Jac Botello on 06-30-2024 Eosinophils/100 WBC (Bld) 1.0 % Normal 0-5 [facility] Comment on above: Performed By: #### L 501.9520, L499.0042, L500.4050 #### [facility] [address] [place], [place], [id number] Erythrocyte distribution wid th ratioOrdered By: Jac Botello on 06-30-2024 Erythrocyte distribution width (RBC) [Ratio] 14.4 % Normal 11.6-14.6 [facility] Comment on above: Performed By: #### L 501.9520, L499.0042, L500.4050 #### [facility] [address] [place], [place], [address] Erythrocyte distribution wid th standard deviationOrdered By: Jac Botello on 06-30-2024 Erythrocyte distribution width (RBC) [Entitic vol] 48.3 fL High 35.1-43.9 [facility] Estimation of creatinine jacinto aranceOrdered By: Jac Botello on 06-30-2024 Estimated Creatinine Clearance Calc 38.16 ml/min [facility] GFR/1.73 sq M.predicted leslie g non-blacks MDRD (S/P/Bld) [Vol rate/Area]Ordered By: Jac Botello on 06-30-2024 Estimated GFR (MDRD) Non-Af Amer 46 Low >60 [facility] Comment on above: mL/min/1.73m2 CKD-EP I Creatinine Equation (2020) Hemoglobin measurementOrdere d By: Jac Botello on 06-30-2024 Hemoglobin (Bld) [Mass/Vol] 15.7 g/dL Normal 13.0-16.5 [facility] Comment on above: Performed By: #### L 501.9520, L499.0042, L500.4050 #### [facility] [address] [place], [address] Immature granulocytes/100 WB C Auto (Bld)Ordered By: Jac Botello on 06-30-2024 Immature granulocytes/100 WBC (Bld) 0.500 % 0.0-0.9 [facility] Comment on above: IG% - Immature Granu locytes (promyelocytes, myelocytes and metamyelocytes) > 1% indicates that a LEFT SHIFT is Present. Lymphocytes Auto (Unsp spec) [#/Vol]Ordered By: Jac Botello on 06-30-2024 Lymphocytes (Bld) [#/Vol] 1.28 10*3/uL 0.83-4.51 [facility] MCV (mean corpuscular volume ) determinationOrdered By: Jac Botello on 06-30-2024 MCV (RBC) [Entitic vol] 91.2 fL Normal 80-94 [facility] Comment on above: Performed By: #### L 501.9520, L499.0042, L500.4050 #### [facility] [address] [place], [address] Mean corpuscular hemoglobin (MCH) determinationOrdered By: Jac Botello on 06-30-2024 MCH (RBC) [Entitic mass] 30.8 pg Normal 27.0-32.0 [facility] Comment on above: Performed By: #### L 501.9520, L499.0042, L500.4050 #### [facility] [address] [place], [address] Mean corpuscular hemoglobin concentration (MCHC) determinationOrdered By: Jac Botello on 06-30-2024 MCHC (RBC) [Mass/Vol] 33.8 g/dL Normal 32-36 [facility] Comment on above: Performed By: #### L 501.9520, L499.0042, L500.4050 #### [facility] [address] [place], [address] Mean platelet volume determi nationOrdered By: Jac Botello on 06-30-2024 Platelet mean volume (Bld) [Entitic vol] 10.4 fL Normal 6.2-12.0 [facility] Comment on above: Performed By: #### L 501.9520, L499.0042, L500.4050 #### [facility] [address] [place], [address] Monocyte percentageOrdered B y: Jac Botello on 06-30-2024 Monocytes/100 WBC (Bld) 13.2 % High 0-10 [facility] Comment on above: Performed By: #### L 501.9520, L499.0042, L500.4050 #### [facility] [address] [place], [address] Neutrophil percentageOrdered By: Jac Botello on 06-30-2024 Neutrophils/100 WBC (Bld) 68.7 % Normal 47-70 [facility] Comment on above: Performed By: #### L 501.9520, L499.0042, L500.4050 #### [facility] [address] [place], [address] Nucleated red blood cell per centageOrdered By: Jac Botello on 06-30-2024 Nucleated RBC/100 WBC (Bld) [Ratio] 0 % 0-5 [facility] Platelet countOrdered By: Shine Botello on 06-30-2024 Platelets (Bld) [#/Vol] 153 10*3/uL Normal 150-450 [facility] Comment on above: Performed By: #### L 501.9520, L499.0042, L500.4050 #### [facility] [address] [place], [address] Serum creatinine measurement (mass/volume)Ordered By: Jac Botello on 06-30-2024 Creatinine [Mass/Vol] 1.48 mg/dL High 0.70-1.20 [facility] Serum glucose measurement (m ass/volume)Ordered By: Jac Botello on 06-30-2024 Glucose [Mass/Vol] 100 mg/dL High 70-99 [facility] Serum or plasma anion gap de termination (moles/volume)Ordered By: Jac Botello on 06-30-2024 Anion gap [Moles/Vol] 14 mmol/L 5-15 [facility] Serum or plasma calcium mireya urement (mass/volume)Ordered By: Jac Botello on 06-30-2024 Calcium [Mass/Vol] 9.4 mg/dL 7.6-11.0 [facility] Serum or plasma potassium me asurementOrdered By: Jac Botello on 06-30-2024 Potassium [Moles/Vol] 3.4 mmol/L 3.3-5.1 [facility] Serum or plasma sodium measu rement (moles/volume)Ordered By: Jac Botello on 06-30-2024 Sodium [Moles/Vol] 137 mmol/L 133-145 [facility] Serum or plasma urea nitroge n measurement (mass/volume)Ordered By: Jac Botello on 06-30-2024 Urea nitrogen [Mass/Vol] 39 mg/dL High 4-19 [facility] White blood cell (WBC) count Ordered By: Jac Botello on 06-30-2024 WBC (Bld) [#/Vol] 8.0 10*3/uL Normal 4.4-11.0 [facility] Comment on above: Performed By: #### L 501.9520, L499.0042, L500.4050 #### [facility] [address] [place], [place], [id number] Abdomen/Pelvis without Conto n 06-29-2024 Abdomen/Pelvis without Cont [facility] Imaging Services [address] [place], [place] [address] Abdomen/Pelvis without Cont MR#: [id number] Acct: [id number] Name: TAMAR SEGAL Rep #: [id number] : 1935 M 88 From: Wu Panda i, MD PCP: Dr. Juan Diego Starks MD Status: ADM IN Study: Abdomen/Pelvis without Cont Date of Exam: 06/04 11/24 Exam# [id number] Ordering Dr: Thomas Bueno DO PROCEDURE: ABDOMEN/PELVIS WITHOUT CONT REASON FOR EXAM: Hyperbilirubinemia. TECHNIQUE: Abdomen and pelvis CT without intravenous contrast. IV CONTRAST: COMPARISON: None. FINDINGS: There are streaky changes at the lung bases. There are small bilateral pleural effusions present. There is no free air within the abdomen and pelvis. Tiny granuloma is seen along the surface of the liver. Otherwise the unenhanced liver, gallbladder, spleen, adrenals appear within normal limits. The common bile duct is not distended. The unenhanced pancreas is within normal limits. Contrast is noted within the bilateral renal collecting system from prior IV contrast administration. There is no hydronephrosis present. Bilateral renal cortical scarring these present. There are probable tiny cysts within the bilateral kidneys. There is a periphery calcified mass within the lower pole of the left kidney measuring up to 5.2 x 4.3 by 4.5 cm. This demonstrates Hounsfield units of 45. Recommend evaluation with sonogram versus multiphase MRI. The prostate is enlarged and measures up to 6.8 x 6.2 cm. Moderate amount of stool is seen within the rectum. Moderate stool seen throughout the colon. No evidence of bowel obstruction. The appendix is normal. No abnormal free fluid is seen within the abdomen and pelvis. Small hiatal hernia is present. Fat containing umbilical hernia is present. There also fat containing bilateral inguinal hernias. Extensive atheromatous calcifications seen within the aorta and its branches. Age indeterminate T12 compression fracture is present. Anterolisthesis of L5 with respect to S1. There is partial fusion of L5 on S1 CT/Abdomen/Pelvis without Cont IMPRESSION: Limited examination due to lack of IV oral contrast. No definite acute inflammatory process is seen within the abdomen or pelvis. 5.2 cm left lower pole renal mass. Recommend renal sonogram versus multiphase MRI for further evaluation. Moderate amount of stool seen within the rectum. Correlate clinically for fecal impaction. Prostatomegaly. Trace bilateral pleural effusions. Other findings as above. One or more dose reduction techniques were used (e.g., Automated exposure control, adjustment of the mA and/or kV according to patient size, use of iterative reconstruction technique). Reading Location: [facility] CC: Dr. Juan Diego Starks MD; Dr. Thomas Bueno, Yard Stocker: Signed Normal [facility] Bilirubin, totalOrdered By: Thomas Bautista on 06-29-2024 Bilirubin [Mass/Vol] 1.50 mg/dL High 0.00-1.30 [facility] CBC W/Diff, Automatedon 06-04 Absolute Lymph 1.03 X10 3/uL Normal 0.83-4.51 [facility] Comment on above: Performed By: #### L 100.0100, L501.2300, L300.3900 #### [facility] [address] [place], [address] Absolute Neut 8.0 X10 3/uL High 2.0-7.7 [facility] Comment on above: Performed By: #### L 100.0100, L501.2300, L300.3900 #### [facility] [address] [place], [address] Basophils/100 WBC (Bld) 0.4 % Normal 0-1 [facility] Comment on above: Performed By: #### L 100.0100, L501.2300, L300.3900 #### [facility] [address] [place], [address] Eosinophils/100 WBC (Bld) 1.1 % Normal 0-5 [facility] Comment on above: Performed By: #### L 100.0100, L501.2300, L300.3900 #### [facility] [address] [place], [address] Erythrocyte distribution width (RBC) [Ratio] 14.6 % Normal 11.6-14.6 [facility] Comment on above: Performed By: #### L 100.0100, L501.2300, L300.3900 #### [facility] [address] [place], [address] Hematocrit (Bld) [Volume fraction] 42.0 % Normal 40-54 [facility] Comment on above: Performed By: #### L 100.0100, L501.2300, L300.3900 #### [facility] [address] [place], [address] Hemoglobin (Bld) [Mass/Vol] 13.9 g/dL Normal 13.0-16.5 [facility] Comment on above: Performed By: #### L 100.0100, L501.2300, L300.3900 #### [facility] [address] [place], [address] IG% 0.500 Normal 0.0-0.9 [facility] Comment on above: Result Comment: IG% - Immature Granulocytes (promyelocytes, myelocytes and metamyelocytes) > 1% indicates that a LEFT SHIFT is Present. Performed By: #### L 100.0100, L501.2300, L300.3900 #### [facility] [address] [place], [address] Lymphocytes/100 WBC (Bld) 10.7 % Low 19-41 [facility] Comment on above: Performed By: #### L 100.0100, L501.2300, L300.3900 #### [facility] [address] [place], [address] MCH (RBC) [Entitic mass] 30.5 pg Normal 27.0-32.0 [facility] Comment on above: Performed By: #### L 100.0100, L501.2300, L300.3900 #### [facility] [address] [place], [address] MCHC (RBC) [Mass/Vol] 33.1 g/dL Normal 32-36 [facility] Comment on above: Performed By: #### L 100.0100, L501.2300, L300.3900 #### [facility] [address] [place], [address] MCV (RBC) [Entitic vol] 92.1 fL Normal 80-94 [facility] Comment on above: Performed By: #### L 100.0100, L501.2300, L300.3900 #### [facility] [address] [place], [address] Monocytes/100 WBC (Bld) 4.8 % Normal 0-10 [facility] Comment on above: Performed By: #### L 100.0100, L501.2300, L300.3900 #### [facility] [address] [place], [address] Neutrophils/100 WBC (Bld) 82.5 % High 47-70 [facility] Comment on above: Performed By: #### L 100.0100, L501.2300, L300.3900 #### [facility] [address] [place], [address] Nucleated RBC (Bld) [#/Vol] 0 10*3/uL Normal 0-5 [facility] Comment on above: Performed By: #### L 100.0100, L501.2300, L300.3900 #### [facility] [address] [place], [address] Platelet mean volume (Bld) [Entitic vol] 9.9 fL Normal 6.2-12.0 [facility] Comment on above: Performed By: #### L 100.0100, L501.2300, L300.3900 #### [facility] [address] [place], [address] Platelets (Bld) [#/Vol] 135 10*3/uL Low 150-450 [facility] Comment on above: Performed By: #### L 100.0100, L501.2300, L300.3900 #### [facility] [address] [place], [address] RBC (Bld) [#/Vol] 4.56 10*6/uL Low 4.6-6.2 [facility] Comment on above: Performed By: #### L 100.0100, L501.2300, L300.3900 #### [facility] [address] [place], [address] RDW SD 49.1 fl High 35.1-43.9 [facility] Comment on above: Performed By: #### L 100.0100, L501.2300, L300.3900 #### [facility] [address] [place], [address] WBC (Bld) [#/Vol] 9.7 10*3/uL Normal 4.4-11.0 [facility] Comment on above: Performed By: #### L 100.0100, L501.2300, L300.3900 #### [facility] [address] [place], [address] CTA Chest W/WO Contraston CTA Chest W/WO Contrast [facility] Imaging Services [address] [place] [address] CTA Chest W/WO Contrast MR#: [id number] Acct: [id number] Name: TAMAR SEGAL Db Rep #: [id number] : 1935 M 88 From: Sanford Mccoy MD PCP: Dr. Juan Diego Starks MD Status: [facility] Study: CTA Chest W/WO Contrast Date of Exam: 06/29/24 Exam# [id number] Ordering Dr: Joe Jernigan DO PROCEDURE: CTA CHEST W/WO CONTRAST REASON FOR EXAM: Hypoxia TECHNIQUE: Chest CT with intravenous contrast. Coronal and sagittal reformatted images and MIP images CONTRAST: 100 cc Isovue-300 COMPARISON: None. FINDINGS: The central airways are patent. Geographic bilateral diffuse mosaic ground-glass opacities and suggestion of lower lung septal thickening may represent pulmonary vascular congestion and mild pulmonary edema. Left base atelectasis. No focal consolidation. No evidence of filling defect to suggest pulmonary embolism. Mild enlargement of the central pulmonary arteries can be seen with pulmonary hypertension. Ectatic thoracic aorta with atherosclerotic changes. Aortic valve and mitral annulus calcification. Four-chamber cardiomegaly. No pericardial effusion. Trace bilateral pleural fluid. Enlarged right paratracheal lymph node 1.3 cm axial 214, pretracheal 1.7 cm axial 189, shotty mediastinal nodes. May be reactive, inflammatory, infectious with neoplastic process not excluded. No hilar or subcarinal adenopathy. Images through the upper abdomen appear unremarkable. Lower cervical spondylosis/discogenic change. Bilateral shoulder degenerative changes. T5 and T12 compression deformities without visualized acute fracture plane or malalignment. CT/CTA Chest W/WO Contrast IMPRESSION: Geographic bilateral diffuse mosaic ground-glass opacities and suggestion of lower lung septal thickening may represent pulmonary vascular congestion and mild pulmonary edema. Left base atelectasis. No focal consolidation. No evidence of filling defect to suggest pulmonary embolism. Mild enlargement of the central pulmonary arteries can be seen with pulmonary hypertension. Four-chamber cardiomegaly. Enlarged right paratracheal lymph node 1.3 cm axial 214, pretracheal 1.7 cm axial 189, shotty mediastinal nodes. May be reactive, inflammatory, infectious with neoplastic process not excluded. One or more dose reduction techniques were used (e.g., Automated exposure control, adjustment of the mA and/or kV according to patient size, use of iterative reconstruction technique). Reading Location: [id number] CC: Dr. Juan Diego Starks MD; Dr. Joe Jernigan DO Yard Stocker: Signed Normal [facility] Comprehensive Metabolic Prof ilon 06-29-2024 Albumin [Mass/Vol] 3.8 g/dL Normal 3.4-4.8 [facility] Comment on above: Performed By: #### L 501.9520, L499.0042, L500.4050 #### [facility] [address] [place], [address] Albumin/Globulin [Mass ratio] 1.1 {ratio} Normal 0.9-2.4 [facility] Comment on above: Performed By: #### L 501.9520, L499.0042, L500.4050 #### [facility] [address] [place], [address] ALK PHOS 73 U/L Normal 40-129 [facility] Comment on above: Performed By: #### L 501.9520, L499.0042, L500.4050 #### [facility] [address] [place], [address] ALT [Catalytic activity/Vol] 25 U/L Normal <=46 [facility] Comment on above: Performed By: #### L 501.9520, L499.0042, L500.4050 #### [facility] [address] [place], [address] Anion gap [Moles/Vol] 14 mmol/L Normal 5-15 [facility] Comment on above: Performed By: #### L 501.9520, L499.0042, L500.4050 #### [facility] [address] [place], [address] AST [Catalytic activity/Vol] 48 U/L High <=37 [facility] Comment on above: Performed By: #### L 501.9520, L499.0042, L500.4050 #### [facility] [address] [place], [address] Bilirubin [Mass/Vol] 1.50 mg/dL High 0.00-1.30 [facility] Comment on above: Performed By: #### L 501.9520, L499.0042, L500.4050 #### [facility] [address] [place], [address] BUN/CRE 20.2 RATIO High 10-20 [facility] Comment on above: Performed By: #### L 501.9520, L499.0042, L500.4050 #### [facility] [address] [place], [address] Calcium [Mass/Vol] 8.9 mg/dL Normal 7.6-11.0 [facility] Comment on above: Performed By: #### L 501.9520, L499.0042, L500.4050 #### [facility] [address] [place], [address] Chloride [Moles/Vol] 101 mmol/L Normal 96-108 [facility] Comment on above: Performed By: #### L 501.9520, L499.0042, L500.4050 #### [facility] [address] [place], [address] CO2 [Moles/Vol] 23.9 mmol/L Normal 22.0-29.0 [facility] Comment on above: Performed By: #### L 501.9520, L499.0042, L500.4050 #### [facility] [address] [place], [address] Creatinine [Mass/Vol] 1.6 mg/dL High 0.8-1.3 [facility] Comment on above: Performed By: #### L 501.9520, L499.0042, L500.4050 #### [facility] [address] [place], [address] ECRCL 38.67 ml/min Normal [facility] Comment on above: Performed By: #### L 501.9520, L499.0042, L500.4050 #### [facility] [address] [place], [address] GFR/1.73 sq M.predicted among non-blacks MDRD (S/P/Bld) [Vol rate/Area] 43 mL/min/{1.73_m2} Low >60 [facility] Comment on above: Result Comment: mL/m in/1.73m2 CKD-EPI Creatinine Equation (2020) Performed By: #### L 501.9520, L499.0042, L500.4050 #### [facility] [address] [place], [address] Globulin (S) [Mass/Vol] 3.3 g/dL Normal 2.2-4.2 [facility] Comment on above: Performed By: #### L 501.9520, L499.0042, L500.4050 #### [facility] [address] [place], [address] Glucose [Mass/Vol] 104 mg/dL High 70-99 [facility] Comment on above: Performed By: #### L 501.9520, L499.0042, L500.4050 #### [facility] [address] [place], [address] Potassium [Moles/Vol] 3.5 mmol/L Normal 3.3-5.1 [facility] Comment on above: Performed By: #### L 501.9520, L499.0042, L500.4050 #### [facility] [address] [place], [address] Sodium [Moles/Vol] 139 mmol/L Normal 133-145 [facility] Comment on above: Performed By: #### L 501.9520, L499.0042, L500.4050 #### [facility] [address] [place], [address] T PROT 7.1 g/dL Normal 5.9-8.4 [facility] Comment on above: Performed By: #### L 501.9520, L499.0042, L500.4050 #### [facility] [address] [place], [address] Urea nitrogen [Mass/Vol] 32 mg/dL High 4-19 [facility] Comment on above: Performed By: #### L 501.9520, L499.0042, L500.4050 #### [facility] [address] [place], [address] Consultation - Cardiologyon 06-29-2024 Consultation - Cardiology [facility] Medical Records Department [address] [place] [address] Consultation - Cardiology 06/29/24 1003 MR#: [id number] Acct: [id number] Name: TAMAR SEGAL Rep #: [id number] : 1935 88 From: Wu Lacey MD PCP: Dr. Juan Diego Starks MD Status:ADM IN Location: [address] Assessment Plan Assessment/Plan (1) Chronic a-fib: PLAN: Patient has a history of atrial fibrillation since 2001. He is on Coumadin in his home environment his rate is controlled with a combination of Lanoxin and labetalol. He is INR was 2.6. This is managed through his primary care physician's office. The patient is never been cathed to his knowledge he does report that he had the bottom chamber of his heart was weak when he was originally diagnosed in 2001. He does report he has been very active since that point in time with only some occasional dyspnea on exertion. However, his dyspnea on exertion has become more prominent recently. (2) Chronic anticoagulation: PLAN: Patient is maintained on Coumadin with an INR of 2???3 for his atrial fibrillation. He denies any bleeding issues his hemoglobin is stable on this admission. (3) CKD (chronic kidney disease): QUALIFIERS: Chronic kidney disease stage: unspecified stage Qualified Code(s): N18.9 - Chronic kidney disease, unspecified PLAN: Patient has a GFR of 41. He is on significant medications for hypertension in his home environment including clonidine amlodipine hydrochlorothiazide labetalol lisinopril. (4) Murmur: PLAN: The patient has a significant 3/6 harsh murmur radiating widely across the precordium and up to the base of the neck. This is consistent with a aortic outflow murmur given his what appears to be significant hypertension this may be asymmetric septal hypertrophy or alternatively it is aortic stenosis. The patient has no prior history of murmur to his knowledge and has never been told he had valve disease. 2D echocardiogram results are pending at this time further recommendations be forthcoming when they are available. (5) CHF exacerbation: QUALIFIERS: Heart failure type: unspecified Qualified Code(s): I50.9 - Heart failure, unspecified PLAN: The patient appears to have multifactorial issues with his respiratory insufficiency. He does have pulmonary issues by CT scan but he also appears to be in congestive heart failure. Will are waiting the results of his echocardiogram and further recommendations for treatment will be forthcoming. PLAN: Plan 1. Will obtain results of the echocardiogram. 2. Recommend continue with diuresis. 3. Continue warfarin with a target INR of 2???3. 4. Further recommendation concerning tailoring medical therapy to the appropriate cardiovascular issues will be forthcoming after echocardiogram is available. HPI Consult Data Date of Consult: 06/29/24 HPI Narrative HPI Narrative: TAMAR SEGAL, is a 88 M who presents with acute respiratory insufficiency with an O2 saturation of 82%. CT scan was suggestive of some pulmonary issues and his BNP was elevated at 8040. The patient has had episodes of fevers and chills in his home environment. The patient carries a history of atrial fibrillation documented in 2001 by his report. He is also noted to have some LV dysfunction by his report. He was evaluated by neurodiagnostic technician in 2001 and has not seen one since then. The patient's EKG in the emergency department showed atrial fibrillation with a heart rate of 122 bpm PVCs and nonspecific ST-T wave changes. On telemetry now the patient's heart rate is 99 bpm with occasional PVCs and atrial fibrillation. The EKG did not show any acute ischemic changes he had nonspecific ST-T wave changes. The patient has been on Coumadin long-term for his atrial fibrillation he tolerated total knee replacement in 2010 and 2011 without any cardiovascular issues. The patient denies ever having a catheterization. He has no prior history of coronary artery disease or myocardial infarction. He has never been told he had a murmur to his knowledge he was just told he had a weakness of his heart muscle back in 2001. The CT scan so bilateral diffuse mosaic groundglass opacities and suggestion of the lung lower lung septal thickening. He had some mild pulmonary edema. There was four-chamber cardiomegaly on the CT scan no evidence of PE there was an enlarged right paratracheal lymph node noted. Patient also carries a history of renal insufficiency and his INR was therapeutic at 2.6 on admission. Currently the patient denies any significant shortness of breath lying in bed. He does note that he has left lower extremity edema distal to the traumatic injury many years ago. He has no lower extremity edema on the right. The patient does report dyspnea on exertion that has been progressive recently. He denies any chest tightness or squeezing denies any exertional syncope or near syn (more content not included)... Normal [facility] Digoxin Levelon 06-29-2024 DIG 0.55 ng/mL Normal 0.00-2.00 [facility] Comment on above: Performed By: #### L 501.9520, L499.0042, L500.4050 #### [facility] [address] [place], [address] Digoxin [Mass/Vol]Ordered By : Thomas Bautista on 06-29-2024 Digoxin Level 0.55 ng/mL 0.00-2.00 [facility] Echo Completeon 06-29-2024 Echo Complete [facility] Services [address] [place] [address] Echo Complete 06/29/24 0857 MR#: [id number] Acct: [id number] Name: TAMAR SEGAL Rep #: [id number] : 1935 88 From: Khoa Hogan MD Attending Dr: Dr. Jac Botello DO Status: A DM IN Ordering Dr: Thomas Bueno DO Date: 06/29/24 Location: [facility] Sex: M C Admitted: 06/29/24 Reason For Study Reason For Study: CHF Procedure This was a 2D Doppler, Color Flow transthoracic echocardiogram. Exam performed portable in patient room. Left Ventricle Normal LV size. The estimated ejection fraction is 70 %. Unable to assess diastolic dysfunction. No regional wall motion abnormalities noted. Right Ventricle Normal RV size. Normal systolic function. Atria There is severe biatrial dilatation. No doppler evidence for ASD. Mitral Valve There is severe mitral annular calcification. There is no mitral valve stenosis. No mitral valve insufficiency. Tricuspid Valve There is no tricuspid stenosis. Mild tricuspid valve insufficiency. Pulmonary artery systolic pressure is 50 mmHg. Aortic Valve Severe aortic stenosis. Trivial aortic valve insufficiency. Pulmonic Valve There is no pulmonic valvular stenosis. No pulmonic valve insufficiency. Great Vessels Normal sized aortic root. Pericardium/Pleural No pericardial effusion. MMode/2D Measurements Calculations LVIDd: 4.3 cm IVSd: 1.4 cm LVOT diam: 2.0 cm LVIDs: 2.9 cm LVPWd: 1.8 cm LVOT area: 3.0 cm2 RVDd: 4.1 cm FS: 32.5 % LAV(MOD-bp): 107.7 ml LVAd ap4: 23.7 cm2 SV(MOD-sp4): 37.0 ml LAV(MOD-bp) Indexed: 50.5 ml/m2 LVLd ap4: 7.4 cm SI(MOD-sp4): 17.4 ml/m2 LAV(MOD-sp2): 101.6 ml EDV(MOD-sp4): 65.0 ml LAV(MOD-sp4): 114.9 ml EDV(sp4-el): 64.4 ml LVAs ap4: 13.1 cm2 LVLs ap4: 6.8 cm ESV(MOD-sp4): 28.0 ml ESV(sp4-el): 21.7 ml EF(MOD-sp4): 57.0 % EF(sp4-el): 66.3 % SV(sp4-el): 42.7 ml LA A4 area: 34.9 cm2 LA dimension(2D): 4.7 cm RA A4 area: 35.3 cm2 Doppler Measurements Calculations MV E max enzo: 124.4 cm/sec Ao V2 max: 480.9 cm/sec PA V2 max: 117.8 cm/sec Ao max P.9 mmHg PA V2 mean: 78.8 cm/sec Ao V2 mean: 375.6 cm/sec Ao mean P.9 mmHg Ao V2 VTI: 94.2 cm TR max enzo: 315.4 cm/sec TR max P.8 mmHg ECHO/Echo Complete Interpretation Summary The estimated ejection fraction is 70 %. Unable to assess diastolic dysfunction. There is severe biatrial dilatation. No mitral valve insufficiency. Severe aortic stenosis. Trivial aortic valve insufficiency. Ordering Physician: Thomas Bueno Referring Physician: JUAN DIEGO STARKS Performed By: Sue Martínez RCS 06/29/24 1335 Date Khoa Hogan MD CC: Dr. Juan Diego Starks MD; Dr. Thomas Bueno DO; Dr. Jac Botello DO Date Dictated: 06/29/2457 Date Transcribed: 06/29/241334 Yard Stocker: Signed Normal [facility] H AND P Exam - Hospitaliston 06-29-2024 H&P Exam - Hospitalist [facility] Medical Records Department [address] [place] [address] H P Exam - Hospitalist 06/29/24226 MR#: [id number] Acct: [id number] Name: TAMAR SEGAL Rep #: [id number] : 1935 88 From: Thomas Bueno DO PCP: Dr. Juan Diego Starks MD Status:ADM IN Location: [facility] [id number] HPI - General General Date of Admission: 06/29/24 Date of Service: 06/29/24 Chief Complaint: SOB and Fever. 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 Mr. Segal reports his symptoms began approximately one day prior to admission with gradual-onset of dyspnea on exertion the progressed to SOB at rest with cough and fever of 100.1 degrees Fahrenheit confirmed in ER with chills. He did take acetaminophen at home which he states did help to alleviate his symptoms. He denies related sweats, sore throat, runny nose, abdominal pain, dysuria, back pain, rash or headache. He also has no detailed knowledge about his type of CHF or its severity. In the ER he was noted to have CT evidence of geographic bilateral diffuse mosaic ground-glass opacities and suggestion of lower lung septal thickening which may represent vascular congestion and mild pulmonary edema with Left base atelectasis and no focal consolidation, with 4-chamber cardiomegaly with no evidence of PE and enlarged Right paratracheal lymph node 1.3 cm with corresponding highly elevated BNP of 8,040 pg/mL consistent with AE CHF; of uncertain-type complicated by clinical evidence of suspected superimposed Viral Respiratory Infection causing Fever with both issues combining to produce Acute Respiratory Insufficiency with patent oxygen saturation of 82% noted on EMS arrival started on 10L NC and now down to 4L NC compounded by incidentally noted mild Hyperbilirubinemia of 1.93 mg/dL present on admission in addition to therapeutic INR of 2.6 present on admission with patient then admitted to the PCU for ongoing care for a stay that is expected to extend beyond 2 midnights. [facility] Medical History Hypertension Home Medications ???Medication ???Instructions ???Recorded ???Last Taken ???Type amlodipine 5 mg tablet 5 mg PO DAILY 06/28/24 06/28/24 Hi story clonidine HCl 0.2 mg tablet 0.2 mg PO BID 06/28/24 06/28/24 09 :00 History digoxin 250 mcg (0.25 mg) tablet 125 mcg PO DAILY 06/28/24 06/28/24 History hydrochlorothiazide 50 mg tablet 25 mg PO DAILY 06/28/24 06/28/24 H istory labetalol 300 mg tablet 300 mg PO BID 06/28/24 06/28/24 09 :00 History lisinopril 40 mg tablet 40 mg PO BID 06/28/24 06/28/24 09: 00 History tamsulosin 0.4 mg capsule (Flomax) 0.4 mg PO QHS 06/28/24 06/27/24 History warfarin 2 mg tablet 2 mg PO .COMPLEX 06/28/24 06/28/24 History Allergy/AdvReac Type Severity Reaction Status Date / Time No Known Allergies Allergy Verified 06/28/24 20:42 Social History Smoking Status: Never smoker ROS ROS Narrative Review of Systems: Constitutional: Patient admits to fever and chills. Eyes: Patient denies changes in vision or discharge from eyes. ENT: Patient denies runny nose, sore throat or ear pain. Resp: Patient admits to SOB and cough. CV: Patient denies chest pain, palpitations, heart racing or LE edema. GI: Patient denies abdominal pain, nausea, vomiting, diarrhea or constipation. : Patient denies dysuria, hematuria or urinary frequency. MSK: Patient denies arthralgias or myalgias. Skin: Patient denies rash, abscess, wounds or jaundice. Psych: Patient denies symptoms of uncontrolled depression or anxiety. Neuro: Patient denies headache, paresthesias or focal neurologic deficits. Allergy: Patient denies lip swelling, tongue swelling or urticaria. Hematology: Patient admits to easy bleeding and easy bruisability on warfarin. Endocrinology: Patient denies polyuria, polydipsia or polyphagia. 14 point ROS otherwise negative except for positives noted above in HPI. Vital Signs Vital Signs Vital Signs: 06/28/24 20:42 06/28/24 22:00 06/28/24 22:13 Temperature 100.1 F H Temperature Source Oral Pulse Rate 117 H 106 H Respiratory Rate 20 H 27 H Respiratory Effort Respiratory Depth Respiratory Pattern Blood Pressure 133/83 H 111/67 Blood Pressure Mean 99 80 Pulse Ox 82 93 Oxygen Delivery Method Room Air Nasal Cannula Oxygen Flow Rate (L/min) 4 06/28/24 22:17 02/ (more content not included)... Normal [facility] International normalized rat io (INR) calculationOrdered By: Thomas Bautista on 06-29-2024 INR Coag (Bld) [Relative time] 2.4 {INR} [facility] Kidney and Bladderon 025 Kidney and Bladder [facility] Imaging Services [address], [place] [address] Kidney and Bladder MR#: [id number] Acct: [id number] Name: TAMAR SEGAL Rep #: [id number] : 1935 M 88 From: Jamshid sin MD PCP: Dr. Juan Diego Starks MD Status: ADM IN Study: Kidney and Bladder Date of Exam: 06/29/24 Exam# [id number] Ordering Dr: Jac Botello DO PROCEDURE: KIDNEY AND BLADDER REASON FOR EXAM: Left renal mass. TECHNIQUE: Bilateral renal ultrasound. COMPARISON: Comparison is made with prior CT scan of the abdomen pelvis dated June 29, 2024. FINDINGS: Normal renal sizes, parenchymal thicknesses, and echotextures. No hydronephrosis. RIGHT Kidney Size: 9 cm x 4.6 cm x 4.9 cm Volume: 106 mL Cortical Thickness (if discernible): 1.1 cm (>6mm is normal) LEFT Kidney Size: 10.5 cm x 4.7 cm x 4.6 cm Volume: 120 mL Cortical Thickness (if discernible): 1 cm (>6mm is normal) There is evidence of a 4.6 cm x 3.8 cm x 4 cm complex solid mass with calcific borders in the lower pole. A neoplastic process should be ruled out. This corresponds with the CT findings. US/Kidney and Bladder IMPRESSION: 4.6 cm x 3.8 cm x 4 cm complex solid mass with calcification in the lower pole of the left kidney. A neoplastic process should be ruled out. Reading Location: [id number] CC: Dr. Juan Diego Starks MD; Dr. Jac Botello DO Yard Stocker: Signed Normal [facility] L499.0042on 06-29-2024 Trop T Delta 1 Normal [facility] Comment on above: Result Comment: If c linical suspicion for ACS is high, suggest getting a third troponin. Otherwise, stress test or CTCA. Performed By: #### L 501.9520, L499.0042, L500.4050 #### [facility] [address] [place], [place], [id number] Trop T High Sen 34 ng/L High <=22 [facility] Comment on above: Performed By: #### L 501.9520, L499.0042, L500.4050 #### [facility] [address] [place], [address] L499.0043on 06-29-2024 Trop T Delta 4 Normal [facility] Comment on above: Result Comment: Down stream testing and, if negative, consider other etiologies for elevated troponin. Performed By: #### L 499.0043 #### [facility] [address] [place], [address] Trop T High Sen 39 ng/L High <=22 [facility] Comment on above: Performed By: #### L 499.0043 #### [facility] [address] [place], [address] L501.4021on 06-29-2024 Trop T High Sen 35 ng/L High <=22 [facility] Comment on above: Performed By: #### L 501.5200, L501.4021 #### [facility] [address] [place], [address] L503.7505on 06-29-2024 Natriuretic peptide B (Bld) [Mass/Vol] 8040 pg/mL High <=1800 [facility] Comment on above: Result Comment: Hear t Failure Unlikely: < 300 pg/mL Heart Failure Likely < 50 Years: > 450 pg/mL 50-75 Years: > 900 pg/mL >75 Years: > 1800 pg/mL HF Unlikely: <300 pg/mL HF Likely: <50 years: >450 pg/mL 50 - 75 years: >900 pg/mL >75 years: >1800 pg/mL Performed By: #### L 501.9520, L499.0042, L500.4050 #### [facility] [address] [place], [place], [id number] Laboratory - Chemistry and C hemistry - challengeOrdered By: Thomas Bautista on 06-29-2024 AST [Catalytic activity/Vol] 48 U/L High <38 [facility] Magnesiumon 06-29-2024 Magnesium [Mass/Vol] 1.8 mg/dL Normal 1.5-2.2 [facility] Comment on above: Performed By: #### L 501.5200, L501.4021 #### [facility] [address] [place], [address] Magnesium (Unsp spec) [Mass/ Vol]Ordered By: Thomas Bautista on 06-29-2024 Magnesium [Mass/Vol] 1.8 mg/dL 1.5-2.2 [facility] No Panel InformationOrdered By: Thomas Bautista on 06-29-2024 Troponin T Hi Sensitivity 4Hr Delta 4 [facility] Comment on above: Downstream testing a nd, if negative, consider other etiologies for elevated troponin. Troponin T Hi Sensitivity 2Hr Delta 1 [facility] Comment on above: If clinical suspicio n for ACS is high, suggest getting a third troponin. Otherwise, stress test or CTCA. Troponin T High Sensitivity 35 ng/L High <22 [facility] Phosphoruson 06-29-2024 Phosphate [Mass/Vol] 3.6 mg/dL Normal 2.7-4.5 [facility] Comment on above: Performed By: #### L 501.9520, L499.0042, L500.4050 #### [facility] [address] [place], [address] Prothrombin Time w/INRon INR Coag (PPP) [Relative time] 2.4 {INR} Normal [facility] Comment on above: Performed By: #### L 100.0100, L501.2300, L300.3900 #### [facility] [address] [place], [address] PT Coag (PPP) [Time] 26.6 s High 11.7-14.9 [facility] Comment on above: Performed By: #### L 100.0100, L501.2300, L300.3900 #### [facility] [address] [place], [address] Prothrombin timeOrdered By: Thomas Bautista on 06-29-2024 PT Coag (PPP) [Time] 26.6 s High 11.7-14.9 [facility] RESPIRATORY PANEL MOLECULARo n 06-29-2024 RP PANEL Normal Reference Ran ge = Not Detected Nucleic acid amplification test method ADENOVIRUS Not Detected INFLUENZA A Not Detected INFLUENZA A (SUBTYPE H1) Not Detected INFLUENZA A (SUBTYPE H3) Not Detected INFLUENZA B Not Detected HUMAN METAPHNEUMO Not Detected PARAINFLUENZA 1 Not Detected PARAINFLUENZA 2 Not Detected PARAINFLUENZA 3 Not Detected PARAINFLUENZA 4 Not Detected RHINOVIRUS Not Detected RSV A Not Detected RSV B Not Detected Normal [facility] Comment on above: Performed By: #### L 501.9520, L499.0042, L500.4050 #### [facility] [address] [place], [address] Respiratory pathogens DNA an d RNA panel SINGH+probe (Resp)Ordered By: Joe Jernigan on 06-29-2024 Respiratory Panel (PCR) [facility] Serum globulin measurementOr dered By: Thomas Bautista on 06-29-2024 Globulin (S) [Mass/Vol] 3.3 g/dL 2.2-4.2 [facility] Serum or plasma alanine mcclain otransferase (ALT) measurementOrdered By: Thomas Bautista on 06-29-2024 ALT [Catalytic activity/Vol] 25 U/L <47 [facility] Serum or plasma albumin mireya urement (mass/volume)Ordered By: Thomas Bautista on 06-29-2024 Albumin [Mass/Vol] 3.8 g/dL 3.4-4.8 [facility] Serum or plasma albumin/glob ulin mass ratioOrdered By: Thomas Bautista on 06-29-2024 Albumin/Globulin [Mass ratio] 1.1 {ratio} 0.9-2.4 [facility] Serum or plasma alkaline pilar sphatase measurementOrdered By: Thomas Bautista on 06-29-2024 ALP [Catalytic activity/Vol] 73 U/L 40-129 [facility] Serum phosphorus measurement Ordered By: Thomas Bautista on 06-29-2024 Phosphorus Level 3.6 mg/dL 2.7-4.5 [facility] TSH DL <= 0.005 mIU/L QnOrde red By: Thomas Bautista on 06-29-2024 Thyroid Stimulating Hormone (TSH) 3.940 uIU/mL 0.300-4.200 [facility] Thyroid Stim Hormone (TSH)on 06-29-2024 TSH 3.940 uIU/mL Normal 0.300-4.200 [facility] Comment on above: Performed By: #### L 501.9520, L499.0042, L500.4050 #### [facility] [address] [place], [address] Total proteinOrdered By: Kirby Bautista on 06-29-2024 Protein [Mass/Vol] 7.1 g/dL 5.9-8.4 [facility] Troponin T.cardiac High sens itivity method [Mass/Vol]Ordered By: Thomas Bautista on 06-29-2024 Troponin T High Sensitivity 4 Hour 39 ng/L High <22 [facility] Troponin T High Sensitivity 2 Hour 34 ng/L High <22 [facility] 12 Lead EKGon 06-28-2024 12 Lead EKG [facility] Cardiovascular Services [address] [place] [address] 12 Lead EKG 06/28/242048 MR#: [id number] Acct: [id number] Name: TAMAR SEGAL Rep #: [id number] : 1935 88 From: Wu Lacey MD Attending Dr: Dr. Jac Botello DO Status: A DM IN Ordering Dr: Joe Jernigan DO Date: 06/28/24 Location: [facility] Sex: M C Admitted: 06/29/24 Test Reason : DYSRHYTHMIA Blood Pressure : */* mmHG Vent. Rate : 106 BPM Atrial Rate : * BPM P-R Int : * ms QRS Dur : 90 ms QT Int : 316 ms P-R-T Axes : * 13 -20 degrees QTcB Int : 419 ms Atrial fibrillation with rapid ventricular response Nonspecific ST abnormality Abnormal ECG Confirmed by Wu Lacey ([id number]), visual effects editor ROSALINA GUEVARA ([id number]) on 06/29/2024 9:38:02 AM Referred By: MARLA Confirmed By: Wu Lacey 06/29/24 0938 Date Wu Lacey MD CC: Dr. Juan Diego Starsk MD; Dr. Jac Botello DO; Dr. Joe Jernigan, DO Signed Normal [facility] Bilirubin Test strip Ql (U)O rdered By: Joe Jernigan on 06-28-2024 Bilirubin Ql (U) Negative Negative [facility] Blood cultureOrdered By: Simone Jernigan on 06-28-2024 Bacteria identified Cx Nom (Bld) Proteus mirabilis Abnormal [facility] Bacteria identified Cx Nom (Bld) No growth in 5 days. [facility] CBC W/Diff, Automatedon 06-04 SMEAR COMMENT SCANNED Normal [facility] Comment on above: Result Comment: LYMP HOPENIA PRESENT LEFT SHIFT: BANDS PRESENT 2+ Performed By: #### L 501.9520, L499.0042, L500.4050 #### [facility] [address] [place], [address] TOXIC GRAN 2+ Normal [facility] Comment on above: Performed By: #### L 501.9520, L499.0042, L500.4050 #### [facility] [address] [place], [address] Chest 1 View (Portable)on Chest 1 View (Portable) [facility] Imaging Services [address] [place] [address] Chest 1 View (Portable) MR#: [id number] Acct: [id number] Name: TAMAR SEGAL Rep #: [id number] : 1935 M 88 From: Basilio Cr MD PCP: Dr. Juan Diego Starks MD Status: REG ER Study: Chest 1 View (Portable) Date of Exam: 06/28/24 Exam# [id number] Ordering Dr: Joe Jernigan DO PROCEDURE: CHEST 1 VIEW (PORTABLE) REASON FOR EXAM: Shortness of breath TECHNIQUE: Frontal view of the chest. COMPARISON: None. FINDINGS: Heart size is moderately enlarged. There are atherosclerotic calcifications of the thoracic aorta. Pulmonary vasculature is congested. Right apical opacity. The bones are unremarkable. RAD/Chest 1 View (Portable) IMPRESSION: 1. Moderate cardiomegaly with associated pulmonary vascular congestion. 2. Right apical opacity which may represent atelectasis versus scarring. Mass is not entirely excluded. Reading Location: [facility] CC: Dr. Juan Diego Starks MD; Dr. Joe Jernigan DO Yard Stocker: Signed Normal [facility] Comprehensive Metabolic Prof ilon 06-28-2024 Albumin [Mass/Vol] 3.9 g/dL Normal 3.4-4.8 [facility] Comment on above: Performed By: #### L 501.9520, L499.0042, L500.4050 #### [facility] [address] [place], [address] Albumin/Globulin [Mass ratio] 1.0 {ratio} Normal 0.9-2.4 [facility] Comment on above: Performed By: #### L 501.9520, L499.0042, L500.4050 #### [facility] [address] [place], [address] ALK PHOS 89 U/L Normal 40-129 [facility] Comment on above: Performed By: #### L 501.9520, L499.0042, L500.4050 #### [facility] [address] [place], [address] ALT [Catalytic activity/Vol] 25 U/L Normal <=46 [facility] Comment on above: Performed By: #### L 501.9520, L499.0042, L500.4050 #### [facility] [address] [place], [address] Anion gap [Moles/Vol] 13 mmol/L Normal 5-15 [facility] Comment on above: Performed By: #### L 501.9520, L499.0042, L500.4050 #### [facility] [address] [place], [address] AST [Catalytic activity/Vol] 48 U/L High <=37 [facility] Comment on above: Performed By: #### L 501.9520, L499.0042, L500.4050 #### [facility] [address] [place], [address] Bilirubin [Mass/Vol] 1.93 mg/dL High 0.00-1.30 [facility] Comment on above: Performed By: #### L 501.9520, L499.0042, L500.4050 #### [facility] [address] [place], [address] BUN/CRE 21.3 RATIO High 10-20 [facility] Comment on above: Performed By: #### L 501.9520, L499.0042, L500.4050 #### [facility] [address] [place], [address] Calcium [Mass/Vol] 9.4 mg/dL Normal 7.6-11.0 [facility] Comment on above: Performed By: #### L 501.9520, L499.0042, L500.4050 #### [facility] [address] [place], [address] Chloride [Moles/Vol] 100 mmol/L Normal 96-108 [facility] Comment on above: Performed By: #### L 501.9520, L499.0042, L500.4050 #### [facility] [address] [place], [address] CO2 [Moles/Vol] 23.7 mmol/L Normal 22.0-29.0 [facility] Comment on above: Performed By: #### L 501.9520, L499.0042, L500.4050 #### [facility] [address] [place], [address] Creatinine [Mass/Vol] 1.6 mg/dL High 0.8-1.3 [facility] Comment on above: Performed By: #### L 501.9520, L499.0042, L500.4050 #### [facility] [address] [place], [address] GFR/1.73 sq M.predicted among non-blacks MDRD (S/P/Bld) [Vol rate/Area] 41 mL/min/{1.73_m2} Low >60 [facility] Comment on above: Result Comment: mL/m in/1.73m2 CKD-EPI Creatinine Equation (2020) Performed By: #### L 501.9520, L499.0042, L500.4050 #### [facility] [address] [place], [address] Globulin (S) [Mass/Vol] 3.7 g/dL Normal 2.2-4.2 [facility] Comment on above: Performed By: #### L 501.9520, L499.0042, L500.4050 #### [facility] [address] [place], [address] Glucose [Mass/Vol] 117 mg/dL High 70-99 [facility] Comment on above: Performed By: #### L 501.9520, L499.0042, L500.4050 #### [facility] [address] [place], [address] Potassium [Moles/Vol] 3.8 mmol/L Normal 3.3-5.1 [facility] Comment on above: Performed By: #### L 501.9520, L499.0042, L500.4050 #### [facility] [address] [place], [address] Sodium [Moles/Vol] 137 mmol/L Normal 133-145 [facility] Comment on above: Performed By: #### L 501.9520, L499.0042, L500.4050 #### [facility] [address] [place], [address] T PROT 7.6 g/dL Normal 5.9-8.4 [facility] Comment on above: Performed By: #### L [id number], L499.0042, L500.4050 #### [facility] [address] [place], [address] Urea nitrogen [Mass/Vol] 35 mg/dL High 4-19 [facility] Comment on above: Performed By: #### L [id number], L499.0042, L500.4050 #### [facility] [address] [place], [address] Emergency Department Summary on 06-28-2024 Emergency Department Summary [facility] Medical Records Department [address] [place] [address] Emergency Department Summary 06/28/24 MR#: [id number] Acct: [id number] Name: TAMAR SEGAL Rep #: [id number] : 1935 88 From: Joe Jorgensen PCP: Dr. Juan Diego Starks MD Status:ADM IN Location: [place] [address]-1 HPI History of Present Illness Chief Complaint: Shortness of Breath Informant: patient and family Narrative Narrative: Brought by EMS from home increasing chills subjective fevers increasing dyspnea. Denies any significant cough. Denies vomiting diarrhea. Denies urinary symptoms. History of A-fib on warfarin. Denies asthma or COPD. Denies any home oxygen. EMS arrival 82% on room air he was placed on 10 L and brought here. He is currently on 4 L nasal cannula states he is feeling better from this. He took Tylenol at home reporting improving his symptoms. [facility] Medical History Hypertension Home Medications ???Medication ???Instructions ???Recorded ???Last Taken ???Type amlodipine 5 mg tablet 5 mg PO DAILY 06/28/24 06/28/24 Hi story clonidine HCl 0.2 mg tablet 0.2 mg PO BID 06/28/24 06/28/24 09 :00 History digoxin 250 mcg (0.25 mg) tablet 125 mcg PO DAILY 06/28/24 06/28/24 History hydrochlorothiazide 50 mg tablet 25 mg PO DAILY 06/28/24 06/28/24 H istory labetalol 300 mg tablet 300 mg PO BID 06/28/24 06/28/24 09 :00 History lisinopril 40 mg tablet 40 mg PO BID 06/28/24 06/28/24 09: 00 History tamsulosin 0.4 mg capsule (Flomax) 0.4 mg PO QHS 06/28/24 06/27/24 History warfarin 2 mg tablet 2 mg PO .COMPLEX 06/28/24 06/28/24 History Allergy/AdvReac Type Severity Reaction Status Date / Time No Known Allergies Allergy Verified 06/28/24 20:42 Social History Smoking Status: Never smoker ROS ROS ED Constitutional Constitutional ED: Reports chills and fever(s); Denies sweats ENT ENT ED: Denies sore throat Cardiovascular Cardiovascular: Denies chest pain, leg edema, palpitations or racing heartbeat Respiratory/Chest Respiratory/Chest: Reports cough and dyspnea; Denies dyspnea on exertion Gastrointestinal Gastrointestinal: Denies abdominal pain, diarrhea, nausea or vomiting Genitourinary Genitourinary ED: Denies dysuria, hematuria or urinary frequency Musculoskeletal Musculoskeletal: Denies back pain, extremity pain or neck pain Integumentary Denies rash or wounds Neurologic Neurologic: Denies headache(s), paresthesias or weakness EXAM Physical Exam Const Vital Signs: 06/28/24 20:42 06/28/24 22:00 06/28/24 22:13 Temperature 100.1 F H Temperature Source Oral Pulse Rate 117 H 106 H Respiratory Rate 20 H 27 H Respiratory Effort Respiratory Depth Respiratory Pattern Blood Pressure 133/83 H 111/67 Blood Pressure Mean 99 80 Pulse Ox 82 93 Oxygen Delivery Method Room Air Nasal Cannula Oxygen Flow Rate (L/min) 4 06/28/24 22:17 06/28/24 23:00 06/29/24 00:00 Temperature Temperature Source Pulse Rate 94 90 Respiratory Rate 26 H 24 H Respiratory Effort Normal Non-Labored Respiratory Depth Normal Respiratory Pattern Normal Blood Pressure 103/69 106/66 Blood Pressure Mean 80 78 Pulse Ox 96 93 Oxygen Delivery Method Nasal Cannula Oxygen Flow Rate (L/min) 4 06/29/24 01:00 06/29/24 01:15 06/29/24 01:30 Temperature Temperature Source Pulse Rate 91 90 86 Respiratory Rate 23 H 22 H 22 H Respiratory Effort Respiratory Depth Respiratory Pattern Blood Pressure 111/71 111/64 108/58 L Blood Pressure Mean 84 79 74 Pulse Ox 95 95 95 Oxygen Delivery Method Oxygen Flow Rate (L/min) 06/29/24 01:45 06/29/24 02:00 06/29/24 02:00 Temperature Temperature Source Pulse Rate 92 89 92 Respiratory Rate 20 H 18 31 H Respiratory Effort Respiratory Depth Respiratory Pattern Blood Pressure 102/67 102/57 L 112/65 Blood Pressure Mean 77 72 79 Pulse Ox 94 94 95 Oxygen Delivery Method Nasal Cannula Oxygen Flow Rate (L/min) 4 06/29/24 02:15 06/29/24 02:30 06/29/24 02:45 Temperature Temperature Source Pulse Rate 87 81 86 Respiratory Rate 21 H 20 H 21 H Respiratory Effort Respiratory Depth Respiratory Pattern Blood Pressure 102/57 L 120/77 113/70 Blood Pressure Mean 71 91 82 Pulse Ox 95 95 94 Oxygen Delivery Method Oxygen Flow Rate (L/min) 06/29/24 03:00 Temperature Temperature Source Pulse Rate 102 H Respiratory Rate 23 H Respiratory Effort Respiratory Depth Respiratory Pattern Blood Pressure 131/87 H Blood Pressure Mean 103 Pulse Ox Oxygen Delivery Method Oxygen Flow (more content not included)... Normal [facility] Epithelial cells.squamous LM Ql (Urine sed)Ordered By: Joe Jernigan on 06-28-2024 Epithelial cells.squamous LM.HPF (Urine sed) [#/Area] 0 /[HPF] 0-5 [facility] Glucose Ql (U)Ordered By: Carlitos Jernigan on 06-28-2024 Urine Glucose (UA) Normal mg/dl Normal [facility] Influenza virus A and B and SARS-CoV-2 (COVID-19) and Respiratory syncytial virus RNAOrdered By: Joe Jernigan on 06-28-2024 SARS-CoV-2 (COVID-19) RNA SINGH+probe Ql (Unsp spec) [facility] Ketones Test strip Ql (U)Ord ered By: oJe Jernigan on 06-28-2024 Ketones Ql (U) Negative Negative [facility] - Chemistry and C hemistry - challengeOrdered By: Joe Jernigan on 06-28-2024 Natriuretic peptide B (Bld) [Mass/Vol] 8040 pg/mL High <1800 [facility] Comment on above: Heart Failure Unlike ly: < 300 pg/mLHeart Failure Likely< 50 Years: > 450 pg/mL50-75 Years: > 900 pg/mL>75 Years: > 1800 pg/mL HF Unlikely: <300 pg/mL HF Likely: <50 years: >450 pg/mL 50 - 75 years: >900 pg/mL >75 years: >1800 pg/mL Lactic Acidon 06-28-2024 Lactate [Moles/Vol] 1.0 mmol/L Normal 0.0-2.0 [facility] Comment on above: Order Comment: Y Performed By: #### L [id number], L499.0042, L500.4050 #### [facility] [address] [place], [place], [id number] Lactic acid measurementOrder ed By: Joe Jernigan on 06-28-2024 Lactate [Moles/Vol] 1.0 mmol/L 0.0-2.0 [facility] M100.678on 06-28-2024 M100.678 SARS-CoV-2 (COVID 19 ) Negative INFLUENZA A Negative INFLUENZA B Negative RSV PCR Negative Normal [facility] Comment on above: Performed By: #### L [id number], L499.0042, L500.4050 #### [facility] [address] [place], [place], [address] Manual differential comment Mitch (Bld) [Interp]Ordered By: Joe Jernigan on 06-28-2024 Differential Comment SCANNED [facility] Comment on above: LYMPHOPENIA PRESENTL EFT SHIFT: BANDS PRESENT 2+ Microscopic analysis of urin e for red blood cells (RBC)Ordered By: Joe Jernigan on 06-28-2024 Urine RBC 5-10 SEEN /hpf 0-5 [facility] Mucus LM Ql (Urine sed)Order ed By: Joe Jernigan on 06-28-2024 Mucus Ql (Urine sed) 0 SEEN /hpf [facility] Nitrite Test strip Ql (U)Ord ered By: Joe Jernigan on 06-28-2024 Nitrite Ql (U) Negative Negative [facility] Partial Thromboplast Timeon 06-28-2024 aPTT Coag (Bld) [Time] 36.8 s High 24.1-36.[address] [facility] Comment on above: Performed By: #### L [id number], L499.0042, L500.4050 #### [facility] [address] [place], [address] Protein Test strip Ql (U)Ord ered By: Joe Jernigan on 06-28-2024 Protein Ql (U) 30 mg/dl High Negative [facility] Prothrombin Time w/INRon INR Coag (PPP) [Relative time] 2.6 {INR} Normal [facility] Comment on above: Performed By: #### L [id number], L499.0042, L500.4050 #### [facility] [address] [place], [address] PT Coag (PPP) [Time] 28.4 s High 11.7-14.9 [facility] Comment on above: Performed By: #### L [id number], L499.0042, L500.4050 #### [facility] [address] [place], [address] Toxic granules LM Ql (Bld)Or dered By: Joe Jernigan on 06-28-2024 Toxic Granulation 2+ [facility] Urinalysis, Completeon 06-28 BACTERIA 1+ /hpf Normal None Seen [facility] Comment on above: Order Comment: CLEAN CATCH Performed By: #### L [id number], L499.0042, L500.4050 #### [facility] [address] [place], [address] RBC 5-10 SEEN Normal 0-5 [facility] Comment on above: Order Comment: CLEAN CATCH Performed By: #### L [id number], L499.0042, L500.4050 #### [facility] [address] [place], [address] EPI,SQUAMOUS 0 SEEN Normal 0-5 [facility] Comment on above: Order Comment: CLEAN CATCH Performed By: #### L [id number], L499.0042, L500.4050 #### [facility] [address] [place], [address] Mucus Ql (Urine sed) 0 SEEN Normal [facility] Comment on above: Order Comment: CLEAN CATCH Performed By: #### L [id number], L499.0042, L500.4050 #### [facility] [address] [place], [address] WBC 0 SEEN Normal 0-5 [facility] Comment on above: Order Comment: CLEAN CATCH Performed By: #### L [id number], L499.0042, L500.4050 #### [facility] [address] [place], [address] Urine blood detectionOrdered By: Joe Jernigan on 06-28-2024 Urine Occult Blood 150 /ul High Negative [facility] Urine clarityOrdered By: Simone Jernigan on 06-28-2024 Clarity (U) Clear Clear [facility] Urine color determinationOrd ered By: Joe Jernigan on 06-28-2024 Color (U) Yellow Yellow [facility] Urine cultureOrdered By: Simone Jernigan on 06-28-2024 Bacteria identified Cx Nom (U) Escherichia coli Abnormal [facility] Bacteria identified Cx Nom (U) Negative Abnormal [facility] Urine leukocyte esterase det ection by dipstickOrdered By: Joe Jernigan on 06-28-2024 Leukocyte esterase Test strip Ql (U) Negative Negative [facility] Urine pHOrdered By: Joe Jernigan on 06-28-2024 pH (U) 6.0 [pH] 5.0 - 8.0 [facility] Urine sediment bacteria coun t by microscopy (number/high power field)Ordered By: Joe Jernigan on 06-28-2024 Bacteria LM.HPF (Urine sed) [#/Area] 1 /[HPF] None Seen [facility] Urine specific gravity measu rementOrdered By: Joe Jernigan on 06-28-2024 Specific gravity (U) [Rel density] 1.015 1.002-1.030 [facility] Urobilinogen Ql (U)Ordered B y: Joe Jernigan on 06-28-2024 Urobilinogen (U) [Mass/Vol] 1 mg/dL High Normal [facility] White blood cell countOrdere d By: Joe Jernigan on 06-28-2024 Urine WBC 0 SEEN /hpf 0-5 [facility] aPTT Coag (PPP) [Time]Ordere d By: Joe Jernigan on 06-28-2024 aPTT Coag (Bld) [Time] 36.8 s High 24.1-36.[address] [facility] SURGICALon 05-01-2017 SURGICAL OTHER - RIGHT NASAL BRIDGE SUTURE RIGHTGROSS DESCRIPTION: Specimen is received in an appropriately labeled container and is designated as right nasalbridge suture right. Specimen consists of an ellipse of morris skin that measures 2.5 x 1.0 x0.5 cm. Centrally located is a keratinaceous nodule 1.0 cm in diameter. Suture is presentdesignated as right. The right half of the specimen is inked with blue ink, and theopposite left half is inked with black ink. (8,ns). Mert MICROSCOPIC DESCRIPTION: Slides reviewed. 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 Dictated by: THOMAS HORNER D.O LCLINICAL DATA: PROCEDURE: Exc. bx. R. 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 Juan Diego Starks DO Work Phone: [facility] 12-05-2024 07:31-0400 Body weight 93.[address] Juan Diego Starks DO Work Phone: [facility] 12-05-2024 07:31-0400 Diastolic blood pressure 90 mm[Hg] Dr. Juan Diego Starks DO Work Phone: [facility] 12-05-2024 07:31-0400 Heart rate 63 /min Dr. Juan Diego Starks DO Work Phone: [facility] 12-05-2024 07:31-0400 Respiratory rate 18 /min Dr. Juan Diego Starks DO Work Phone: [facility] 12-05-2024 07:31-0400 SaO2% (BldA) [Mass fraction] 97 % Dr. Juan Diego Starks DO Work Phone: [facility] 12-05-2024 07:31-0400 Systolic blood pressure 147 mm[Hg] Dr. Juan Diego Starks DO Work Phone: [facility] 2024 06:18-0400 Body height 180.[address] Juan Diego Starks DO Work Phone: 3([phone])433-115429 [address] 2024 06:18-0400 Body mass index (BMI) [Ratio] 28 kg/m2 Dr. Juan Diego Starks DO Work Phone: 4(538)766-616029 [address] 2024 06:18-0400 Body weight 91.[address] Juan Diego Starks DO Work Phone: [phone])297-903100 [place] [address] 2024 06:18-0400 Diastolic blood pressure 84 mm[Hg] Dr. Juan Diego Starks DO Work Phone: 0(187)857-157629 [address] 2024 06:18-0400 Heart rate 52 /min Dr. Juan Diego Starks DO Work Phone: [phone])[phone] [address] 2024 06:18-0400 Respiratory rate 18 /min Dr. Juan Diego Starks DO Work Phone: [phone])[phone] [address] 2024 06:18-0400 SaO2% (BldA) [Mass fraction] 98 % Dr. Juan Diego Starks DO Work Phone: [facility] 2024 06:18-0400 Systolic blood pressure 142 mm[Hg] Dr. Juan Diego Starks DO Work Phone: [facility] 08-29-2024 12:30-0400 Body temperature 98.6 [degF] Clara Florez Work Phone: [facility] 08-29-2024 12:30-0400 Diastolic blood pressure 74 mm[Hg] Clara Sheriff MD Work Phone: [facility] 08-29-2024 12:30-0400 Heart rate 61 /min Clara Florez Work Phone: [facility] 08-29-2024 12:30-0400 Respiratory rate 24 /min Clara Drake D Work Phone: [facility] 08-29-2024 12:30-0400 SaO2% (BldA) [Mass fraction] 93 % Clara Sheriff MD Work Phone: [facility] 08-29-2024 12:30-0400 Systolic blood pressure 111 mm[Hg] Clara Sheriff MD Work Phone: [facility] 08-29-2024 06:00-0400 Body mass index (BMI) [Ratio] 28.35 kg/m2 Clara Sheriff MD Work Phone: [facility] 08-29-2024 06:00-0400 Body weight 89.63 kg Clara Florez Work Phone: [facility] 08-28-2024 14:47-0400 Body height 177.8 cm Clara Florez Work Phone: [facility] 08-04-2024 13:48-0400 Diastolic blood pressure 82 mm[Hg] Clara Sheriff MD Work Phone: [facility] 08-04-2024 13:48-0400 Systolic blood pressure 122 mm[Hg] Clara Sheriff MD Work Phone: [facility] 08-04-2024 12:48-0400 Body height 180.3 cm Clara Florez Work Phone: [facility] 08-04-2024 12:48-0400 Body mass index (BMI) [Ratio] 28.06 kg/m2 Clara Sheriff MD Work Phone: [facility] 08-04-2024 12:48-0400 Body weight 91.26 kg Clara Florez Work Phone: [facility] 08-04-2024 12:48-0400 Heart rate 84 /min Clara Florez Work Phone: [facility] 08-04-2024 12:48-0400 SaO2% (BldA) [Mass fraction] 97 % Clara Sheriff MD Work Phone: [facility] 07-14-2024 16:07-0400 Body height 180.[address] Juan Diego Starks DO Work Phone: [facility] 07-14-2024 16:07-0400 Body mass index (BMI) [Ratio] 28.3 kg/m2 Dr. Juan Diego Starks DO Work Phone: [facility] 07-14-2024 16:07-0400 Body weight 92.[address] Juan Diego Starks DO Work Phone: [facility] 07-14-2024 16:07-0400 Diastolic blood pressure 84 mm[Hg] Dr. Juan Diego Starks DO Work Phone: [facility] 07-14-2024 16:07-0400 Heart rate 77 /min Dr. Juan Diego Starks DO Work Phone: [facility] 07-14-2024 16:07-0400 Respiratory rate 18 /min Dr. Juan Diego Starks DO Work Phone: [facility] 07-14-2024 16:07-0400 SaO2% (BldA) [Mass fraction] 93 % Dr. Juan Diego Starks DO Work Phone: [facility] 07-14-2024 16:07-0400 Systolic blood pressure 136 mm[Hg] Dr. Juan Diego Starks DO Work Phone: [facility] 07-01-2024 11:43-0500 Body temperature 97.7 [degF] Dr. Juan Diego Starks DO Work Phone: [facility] 07-01-2024 11:43-0500 Diastolic blood pressure 70 mm[Hg] Dr. Juan Diego Starks DO Work Phone: [facility] 07-01-2024 11:43-0500 Heart rate 96 /min Dr. Juan Diego Starks DO Work Phone: [facility] 07-01-2024 11:43-0500 Respiratory rate 18 /min Dr. Juan Diego Starks DO Work Phone: [facility] 07-01-2024 11:43-0500 SaO2% (BldA) [Mass fraction] 93 % Dr. Juan Diego Starks DO Work Phone: [facility] 07-01-2024 11:43-0500 Systolic blood pressure 97 mm[Hg] Dr. JuanD iego Starks DO Work Phone: [facility] 07-01-2024 07:44-0500 Inhaled oxygen flow rate 2 L/min Dr. Juan Diego Starks DO Work Phone: [phone] [address] 06-30-2024 06:00-0500 Body mass index (BMI) [Ratio] 27.8 kg/m2 Dr. Juan Diego Starks DO Work Phone: [facility] 06-30-2024 06:00-0500 Body weight 90.[address] Juan Diego Starks DO Work Phone: [facility] Encounters Encounter Date Encounter Type Care Provider Facility Start: 12-05-2024 End: 12-05-2024 Patient encounter procedure Megan VIDALES -[facility] Work Phone: Start: 12-05-2024 End: 12-05-[address] Juan Diego Starks DO Work Phone: -[facility] Start: 10-02-2024 End: 10-03-2024 Telephone encounter Levy Green MD Work Phone: [facility] Comment on above: Cancelled Appointmen t Start: 09-27-2024 End: 09-27-2024 Telephone encounter Clara Sheriff MD Work Phone: [facility] Comment on above: Appointment Request Start: 2024 End: 2024 Patient encounter procedure Megan VIDALES -[facility] Work Phone: Start: 2024 End: 2024 ambulatory [facility] Facility:[facility] Start: 08-28-2024 End: 08-29-2024 Evaluation and management of inpatient Clara Sheriff MD Work Phone: [facility] Cardiac Thoracic Vascular Intensive Care Unit CTV ICU T1 Comment on above: Severe aortic stenos is (Primary Dx); Nonrheumatic aortic valve stenosis Start: 08-25-2024 End: 08-25-2024 ambulatory Magdalena Riley APRN - [employer] Work Phone: [facility] Comment on above: Severe aortic stenos is (Primary Dx) Start: 08-24-2024 End: 08-24-2024 Telephone encounter Magdalena Riley APRN - [employer] [facility] Start: 08-22-2024 End: 08-22-2024 Telemedicine consultation with patient Chelsey Gross MD Work Phone: [facility] Cardiovascular Thoracic Surgery [facility] Comment on above: Nonrheumatic aortic valve stenosis (Primary Dx) Start: 08-22-2024 End: 08-22-2024 ambulatory CHELSEY GROSS [facility] Start: 08-17-2024 End: 08-17-2024 Subsequent hospital visit by physician Magdalena Riley BATH MIX OPERATOR - [employer] Work Phone: [facility] [address] Comment on above: Aortic valve stenosi s, etiology of cardiac valve disease unspecified Start: 08-17-2024 End: 08-17-2024 ambulatory [facility] Start: 08-04-2024 End: 08-04-2024 Office outpatient new 60 minutes Clara Sheriff MD Work Phone: [facility] Comment on above: Aortic valve stenosi s, etiology of cardiac valve disease unspecified Start: 08-04-2024 End: 08-04-2024 Orders Only Magdalena Riley BATH MIX OPERATOR - [employer] Work Phone: [facility] Comment on above: Aortic valve stenosi s, etiology of cardiac valve disease unspecified (Primary Dx) Start: 07-14-2024 End: 07-14-[address] Wu Lacey MD -[facility] Work Phone: Start: 07-14-2024 End: 07-14-[address] Juan Diego Starks DO Work Phone: [facility] Work Phone: Start: 07-14-2024 End: 07-14-2024 ambulatory Wu Lacey Facility:[facility] Start: 07-01-2024 Non-patient / Non-visit Dr. Jac Botello DO [facility] Work Phone: Start: 07-01-2024 Non-patient / Non-visit Dr. Wu Lacey MD -[facility] Start: 06-30-2024 ambulatory Chelsey Dumont Facility:[facility] Start: 06-30-2024 Non-patient / Non-visit Dr. Chelsey Dumont MD -[facility] Start: 06-30-2024 Non-patient / Non-visit Dr. Jac Botello [facility] Work Phone: Start: 06-30-2024 Non-patient / Non-visit Dr. Wu Lacey MD [facility] Start: 06-29-2024 Non-patient / Non-visit Dr. Wu Lacey MD [facility] Start: 06-29-2024 ambulatory Khoa Hogan Fa cility:[facility] Start: 06-29-2024 Non-patient / Non-visit Dr. Khoa Hogan MD [facility] Start: 06-29-2024 ambulatory Wu Lacey Facility :[facility] Start: 06-29-2024 End: 07-01-2024 Evaluation and management of inpatient Dr. Genesis Castillo MD -Progressive Care Unit Work Phone: Start: 05-01-2017 Ambulatory THOMAS Carrasco lity:OUTREACH Procedures Date Procedure Procedure Detail Performing Clinician Start: 08-29-2024 Ecg routine ecg w/le ast 12 lds trcg only w/o i&r Geraldine Latham BATH MIX OPERATOR - [employer] Work Phone: Start: 08-29-2024 Basic metabolic pane l calcium total Geraldine Latham BATH MIX OPERATOR - [employer] Work Phone: Start: 08-28-2024 Echo tthrc r-t 2d w/wom-mode compl spec&colr d Geraldine Latham BATH MIX OPERATOR - [employer] Work Phone: Start: 08-28-2024 Ecg routine ecg w/le ast 12 lds trcg only w/o i&r Geraldine Latham BATH MIX OPERATOR - [employer] Work Phone: Start: 08-28-2024 Basic metabolic pane l calcium total Geraldine Latham BATH MIX OPERATOR - [employer] Work Phone: Start: 08-28-2024 End: 08-28-2024 OXYGEN THERAPY Michael HUTTON RN - [employer] Work Phone: Start: 08-28-2024 Cardiac catheterizat ion study Clara Sheriff MD Work Phone: Start: 08-28-2024 Echo transthorc r-t 2d w/wo m-mode rec f-up/lmtd John Taveras MD Work Phone: Start: 08-28-2024 POCT ACT Clara griffith MD Work Phone: Start: 08-28-2024 End: 08-28-2024 TRANSCATHETER AORTIC VALVE REPLACEMENT (TAVR) - OR Chelsey Gross MD Work Phone: Start: 08-28-2024 Antibody screen CLARA PATTERSON Comment on above: Performed By: #### L [id number], [id number] ####Visual Display Manager: GUSTAVO PHILLIPS ([phone])[facility] BLOOD [facility] ([address] Start: 08-28-2024 ABO and Rh group [Ty pe] in Blood by Confirmatory method Magdalena Riley Marvin Work Phone: Start: 08-28-2024 Blood typing serologic abo Magdalena Riley Marvin Work Phone: Start: 08-28-2024 E Ag [Presence] on R ed Blood Cells Magdalena Riley Marvin Work Phone: Start: 08-28-2024 little c Ag [Presenc e] on Red Blood Cells Magdalena Riley Marvin Work Phone: Start: 08-28-2024 Prothrombin time Alexan dra Db Linares Marvin Work Phone: Start: 08-04-2024 Ecg routine ecg w/le ast 12 lds trcg only w/o i&r Clara Sheriff MD Work Phone: Start: 07-14-[address] Juan Diego Starks DO Work Phone: Start: 06-29-2024 Complete ultrasound of kidneys and bladder Dr. Juan Diego Starks DO Work Phone: Start: 06-29-[address] Juan Diego Starks DO Work Phone: Start: 06-29-2024 CT of abdomen and pe lvis without contrast Dr. Juan Diego Starks DO Work Phone: Start: 06-29-2024 CT angiography of ch est with contrast Dr. Juan Diego Starks DO Work Phone: Start: 06-28-2024 Plain chest X-ray Dr. Naysia Starks DO Work Phone: Start: 06-28-[address] Juan Diego Starks DO Work Phone: Start: 06-28-2024 SARS-CoV-2, Influenz a & RSV (PCR) Dr. Juan Diego Starks DO Work Phone: Start: 06-28-[address] Juan Diego Starks DO Work Phone: Plan of Treatment Date Care Activity Detail Author Start: 08-29-2025 Creatinine measurement Creatinine Level [facility] Start: 08-29-2025 Potassium measurement Potassium Level [facility] Start: 08-28-2025 Echocardiography Echocardiogram [facility] Start: 08-04-2025 Creatinine measurement Creatinine Level [facility] Start: 08-04-2025 Potassium measurement Potassium Level [facility] Start: 01-01-2025 Influenza vaccination [facility] Start: 12-21-2024 ambulatory Ambulatory Facility:[facility] Start: 08-28-2024 End: 08-28-2024 Admission to same day surgery center 08/28/2024 9:15 AM EDT - 08/28/2024 11:00 AM EDT Surgery [facility] MA[facility] OR [address] [place] [phone] Clara Sheriff MD [address] [place] [address] [address] [place] [address] TRANSCATHETER AORTIC VALVE REPLACEMENT, TRANSTHORACIC ECHOCARDIOGRAM [facility] OR Comment on above: TRANSCATHETER AORTIC VALVE REPLACEMENT, TRANSTHORACIC ECHOCARDIOGRAM Start: 08-28-2024 End: 08-28-2024 Anesthesia consultation 08/28/2024 9:15 AM EDT Anesthesia Event [facility] OR [address] [place] [phone] Debbie Linares APRN - [facility] [address] [place] [id number] [facility] Start: 08-28-2024 Subsequent hospital visit by physician [facility] Comment on above: Nonrheumatic aortic valve stenosis Start: 08-28-2024 End: 08-28-2024 TRANSCATHETER AORTIC VALVE REPLACEMENT (TAVR) - OR TRANSCATHETER AORTIC VALVE REPLACEMENT (TAVR) - OR Nonrheumatic aortic valve stenosis 08/28/2024 9:15 AM EDT [facility] Start: 08-22-2024 End: 08-22-2024 Telemedicine consultation with patient 08/22/2024 12:00 PM EDT Telemedicine [facility] [place] [address] [place] [phone] Chelsey Gross MD [address] [place] [address] [facility] [place] Start: 08-17-2024 End: 08-17-2024 Patient encounter procedure 08/17/2024 11:00 AM EDT Appointment [facility] [address] [place] [phone] Magdalena Riley APRN - [facility] [address] [place] [address] [facility] [address] Start: 08-04-2024 End: 08-04-2025 CT Chest WO and CT angiogram Coronary arteries W contrast IV CTA Angiogram TAVR Imaging Routine Aortic valve stenosis, etiology of cardiac valve disease unspecified Expected: 08/04/2024, Expires: 08/04/2025 [facility] Work Phone: Comment on above: Expected: 08/04/2024, Expires: Start: 07-01-2024 Patient discharge [facility] Start: 06-30-2024 Following clinical pathway protocol [facility] Start: 06-29-2024 Oxygen therapy [facility] Start: 06-29-2024 Following clinical pathway protocol [facility] Start: 06-29-2024 Assessment of risk of venous thromboembolism [facility] Start: 06-29-2024 Catheterization of vein [facility] Start: 06-29-2024 Fluid restriction [facility] Start: 06-29-2024 Insertion of catheter into peripheral vein [facility] Start: 06-29-2024 Measuring intake and output [facility] Start: 06-29-2024 Providing care according to standard [facility] Start: 06-29-2024 Provision of activity privileges [facility] Start: 06-29-2024 Referral to neurodiagnostic technician [facility] Start: 06-29-2024 Referral to occupational therapist [facility] Start: 06-29-2024 Referral to service [facility] Start: 06-29-2024 [facility] Start: 06-29-2024 Admission procedure [facility] Start: 01-02-2024 COVID-19 Vaccine ( season) COVID-19 Vaccine ( season) [facility] Start: 2012 RSV Immunization for Adults (1 - 1-dose 75+ series) RSV Immunization for Adults (1 - 1-dose 75+ series) [facility] Start: 09-05-1987 Zoster Vaccines (1 of 2) Zoster Vaccines (1 of 2) [facility] Start: 1956 DTaP/Tdap/Td Vaccines (1 - Tdap) DTaP/Tdap/Td Vaccines (1 - Tdap) [facility] Start: 1956 Pneumococcal Vaccine: 50+ Years (1 of 2 - PCV) Pneumococcal Vaccine: 50+ Years (1 of 2 - PCV) [facility] Start: 1949 Depression Screening Depression Screening [facility] Start: 1935 Echocardiography Echocardiogram [facility] Start: 1935 Lipid panel Lipid Panel [facility] End: 08-17-2024 CT Chest WO and CT angiogram Coronary arteries W contrast IV [facility] Work Phone: Comment on above: Once for 1 Occurrences starting 08/18/19 until 08/17/2024 ECG 12 lead - CLINIC PERFORMED ECG 12 lead - CLINIC PERFORMED CV ECG Routine Aortic valve stenosis, etiology of cardiac valve disease unspecified 08/04/2024 12:45 PM EDT [facility] Work Phone: Patient referral [facility] Work Phone: TRANSCATHETER AORTIC VALVE REPLACEMENT (TAVR) TRANSCATHETER AORTIC VALVE REPLACEMENT (TAVR) Nonrheumatic aortic valve stenosis [facility] TRANSCATHETER AORTIC VALVE REPLACEMENT (TAVR) - OR TRANSCATHETER AORTIC VALVE REPLACEMENT (TAVR) - OR Nonrheumatic aortic valve stenosis [facility] Payers Date Payer Category Payer Self-pay 2024 Unknown [id number] 2024 Commercial Managed C are - O [facility] [address] [address] [id number] 2024 Unknown [id number] Self-pay [id number] Unknown Unknown [id number] [id number] Unknown [id number]. 2.462 Unknown [id number] [id number]. 2.462 Unknown [id number] [id number]. 2.462 Unknown [id number] [id number]. 2.462 Unknown [id number] [id number]. 2.462 Unknown [id number] [id number]. 2.462 Unknown [id number] [id number]. 2.462 Unknown [id number] [id number]. 2.462 Unknown [id number] [id number]. 2.462 Unknown [id number] [id number]. 2.462 Unknown [id number] [id number]. 2.462 Unknown [id number] [id number]. 2.462 Unknown [id number]. 2.462 Social History Date Type Detail Facility Start: 06-29-2024 End: 08-01-2024 Tobacco smoking status NHIS Never smoked tobacco (finding) [facility] Start: 07-21-2024 End: 07-23-2024 Sex Male (finding) [facility] Start: 1935 Sex Assigned At Male [facility] Start: 08-01-2024 Tobacco use and exposure Smokeless tobacco non-user [facility] Start: 08-01-2024 End: 09-06-2024 Alcoholic beverage intake Lifetime non-drinker (finding) [facility] Start: 08-01-2024 End: 08-28-2024 History of Social function [facility] Start: 08-01-2024 End: 08-28-2024 Tobacco use panel [facility] Start: 07-21-2024 Gender identity Identifies as male gender (finding) [facility] Start: 07-21-2024 Sexual orientation Heterosexual (fin ding) [facility] Medical Equipment Procedure Code Equipment Code Equipment Origin al Text Equipment Identifier Dates Valve Aor Dewayne 3 Ultra 26mm - [id number] - [id number] Start: 08-28-2024 Goals Date Patient Goal Desired Activity /State Functional Status Date Assessment Result Facility 07-01-2024 Functional status Ambulates [facility] Work Phone: Mental Status Date Assessment Result Facility 07-01-2024 Cognitive function Voice/Name [facility] Work Phone: Clinical Notes 06-29-2024 to 12-20-2024 Telephone Encounter - Fifi Moon - 12/20/2024 10:59 AM EDTTelephone Encounter - Fifi Moon - 12/20/2024 10:59 AM EDTTelephone Encounter - Fifi Moon - 12/20/2024 10:29 AM EDT Note Date & Type Note Facility 12-20-2024 Telephone encounter Note Form atting of this note might be different from the original. OV scanned in under Media and echo now sched for tomorrow 12/21/2024 [facility] 12-20-2024 Miscellaneous Notes Formattin g of this note might be different from the original. OV scanned in under Media and echo now sched for tomorrow 12/21/2024 I called and spoke to Deepthi office who is faxing ia OV note however no echo report. I called central scheduling at [place] to see if ever done/scheduled and had to l/m. Spoke with Dr. Andrews's office at [facility], plan to follow-up with echocardiogram 10/05 and OV on 12/05. Will obtain reports at that time documented in this encounter [facility] 12-20-2024 Telephone encounter Note Form atting of this note might be different from the original. I called and spoke to Deepthi office who is faxing ia OV note however no echo report. I called central scheduling at [place] to see if ever done/scheduled and had to l/m. [facility] 10-02-2024 Telephone encounter Note Form atting of this note might be different from the original. Name of Caller: aTmar Contact Reason for Appointment: Patient called in to cancel his appointment stating he will be going back to his provider in [place] as it is closer for him. Please be advised Office Name: [facility] 10-02-2024 Miscellaneous Notes Formattin g of this note might be different from the original. Name of Caller: Tamar Contact Reason for Appointment: Patient called in to cancel his appointment stating he will be going back to his provider in [place] as it is closer for him. Please be advised Office Name: [facility] documented in this encounter [facility] 09-27-2024 Telephone encounter Note Form atting of this note might be different from the original. Spoke with Dr. Andrews's office at [facility], plan to follow-up with echocardiogram 10/05 and OV on 12/05. Will obtain reports at that time [facility] 09-27-2024 Miscellaneous Notes Formattin g of this note might be different from the original. Spoke with Dr. Andrews's office at [facility], plan to follow-up with echocardiogram 10/05 and OV on 12/05. Will obtain reports at that time documented in this encounter [facility] 2024 Evaluation note Diagnosis Onset Date Resolution Heart failure with preserved ejection fraction acute 2024 10 :36am S/P TAVR (transcatheter aortic valve replacement) acute 2024 10:36am Chronic a-fib chronic September 04 10:36am Heart failure with preserved ejection fraction acute December 05, 2024 8:05am S/P TAVR (transcatheter aortic valve replacement) acute December 05, 025 8:05am Chronic a-fib chronic December 05, 2024 8:05am [facility] Work Phone: [phone] 882-370904-29-2025 Consult note* Rosa Isela Dean - 08/29/2024 9:19 AM EDTAssociated Order(s): IP CONSULT TO CARDIAC REHAB Received referral and reviewed chart. Phase II Cardiopulmonary Rehab Referral discussed with Tamar Benjamin. Patient prefers cardiopulmonary rehab at [facility]. Given information on program at [facility]. [id number] NoteReceived referral and reviewed chart. Phase II Cardiopulmonary Rehab Referral discussed with Tamar Segal. Patient prefers cardiopulmonary rehab at [facility]. Given information on program at preferred location. 04-29-2025 Consult note* Rosa Isela Dean - 08/29/2024 9:19 AM EDTAssociated Order(s): IP CONSULT TO CARDIAC REHAB Received referral and reviewed chart. Phase II Cardiopulmonary Rehab Referral discussed with Tamar Benjamin. Patient prefers cardiopulmonary rehab at [facility]. Given information on program at preferred location. documented in this [facility]04-29-2025 Note Attestation signed by Clara Sheriff MD at 08/29/2024 8:12 PM I, Dr. Sheriff, saw and evaluated the patient on 08/29/2024. I personally obtained the saxena and critical portions of the history and physical exam. I reviewed the chart and discussed the patient with the Nurse Practitioner. I agree with the Nurse Practitioner's medical decision making. Hospital Summary: Patient was admitted for elective transcatheter aortic valve replacement. he did well with this procedure. he is now POD1 s/p TF TAVR. he is back to his baseline activity with no symptoms. he will be discharged today on his current medication list. he will follow up in valve clinic in 1-2 weeks. Name: Tamar Segal Date of : 1935 Date of Admission: 08/28/2024 Date of Discharge: 08/29/2024 Admitting physician: Clara Sheriff MD Discharge Attending: RADAMES Sneed CNP Primary Care Physician: Juan Diego Starks Reason for Admission: Severe Symptomatic Aortic Stenosis Consultants: Cardiac Rehab HOSPITAL ADMISSION PROBLEM LIST: Patient Active Problem List Diagnosis Nonrheumatic aortic valve stenosis Severe aortic stenosis Review of Systems Review of Systems Constitutional: Negative for chills and fever. Respiratory: Negative for cough and shortness of breath. Cardiovascular: Negative for chest pain, palpitations and leg swelling. Gastrointestinal: Negative for abdominal pain, blood in stool and vomiting. Genitourinary: Negative for difficulty urinating and hematuria. Neurological: Negative for dizziness and syncope. Psychiatric/Behavioral: Negative for confusion. Physical Exam Physical Exam Constitutional: Appearance: Normal appearance. HENT: Head: Normocephalic. Eyes: General: No scleral icterus. Right eye: No discharge. Left eye: No discharge. Cardiovascular: Rate and Rhythm: Normal rate. Rhythm irregularly irregular. Pulses: Radial pulses are 2+ on the right side. Dorsalis pedis pulses are 1+ on the right side and 1+ on the left side. Posterior tibial pulses are 1+ on the right side and 1+ on the left side. Heart sounds: Normal heart sounds. No murmur heard. Comments: R radial cath site without hematoma, ecchymosis or oozing. R hand with brisk capillary refill R femoral cath site without hematoma, ecchymosis, oozing or bruit Pulmonary: Effort: Pulmonary effort is normal. Breath sounds: Normal breath sounds. Abdominal: General: Abdomen is flat. Palpations: Abdomen is soft. Musculoskeletal: General: Normal range of motion. Cervical back: Normal range of motion. Right lower leg: No edema. Left lower leg: No edema. Skin: General: Skin is warm and dry. Capillary Refill: Capillary refill takes less than 2 seconds. Neurological: Mental Status: He is alert and oriented to person, place, and time. Psychiatric: Mood and Affect: Mood normal. Procedures: Transfemoral transcatheter AVR with 26 mm Dewayne S3 valve under moderate sedation Transthoracic echocardiogram HOSPITAL COURSE : The patient was admitted to the hospital for elective TAVR on 08/28/24 . A 08/28/24 Dewayne S3 valve was implanted. The patient returned to [facility] for recovery. Vital signs and labs were stable. There were no groin complications. The patient was ambulatory the evening of the procedure. On day of discharge, he denied angina, SOB, edema or dizziness. He was ambulating in the ortega with no limitations. No groin complaints. Complete post procedure echocardiogram demonstrated : 08/28/24 Technically difficult study. Left Ventricle: Left ventricle size is normal. Mildly increased wall thickness. Normal left ventricular systolic function. EF by 2D Simpsons Biplane is 70%. Normal wall motion. Right Ventricle: Right ventricle is mildly dilated. Mildly reduced systolic function. Aortic Valve: Not well visualized. Cole Dewayne 3 Ultra bioprosthetic aortic valve with a size of 26 mm. AV mean gradient is 9 mmHg. No regurgitation. Trace paravalvular regurgitation. No stenosis. AV mean gradient is 9 mmHg. AV peak velocity is 1.9 m/s. LVOT:AV VTI Index is 0.37. Left Atrium: Left atrium is severely dilated. Left atrium size is severely increased (LA volume index >48 mL/m2).LA Vol Index is 56 ml/m2. Right Atrium: Right atrium is mildly dilated. Patient education including SBE prophylaxis, activity, access site care, follow up appointments, and medications was provided. The patient verbalized understanding, questions were answered. The patient was discharged home in good condition. Referral to cardiac rehabilitation has been recommended and discussed with the patient prior to discharge. Referral has been made to the [facility]. Last Labs: Lab (more content not included)...[facility] [id number] Hospital course Narrative* Magdalena Riley APRN - [facility]AL [facility]ER - 08/29/2024 7:54 AM EDT Name: Tamar Segal Date of : 1935 Date of Admission: 08/28/2024 Date of Discharge: 08/29/2024 Admitting physician: Clara Sheriff MD Discharge Attending: RADAMES Sneed CNP Primary Care Physician: Juan Diego Starks Reason for Admission: Severe Symptomatic Aortic Stenosis Consultants: Cardiac Rehab HOSPITAL ADMISSION PROBLEM LIST: Patient Active Problem List Diagnosis Nonrheumatic aortic valve stenosis Severe aortic stenosis Review of Systems Review of Systems Constitutional: Negative for chills and fever. Respiratory: Negative for cough and shortness of breath. Cardiovascular: Negative for chest pain, palpitations and leg swelling. Gastrointestinal: Negative for abdominal pain, blood in stool and vomiting. Genitourinary: Negative for difficulty urinating and hematuria. Neurological: Negative for dizziness and syncope. Psychiatric/Behavioral: Negative for confusion. Physical Exam Physical Exam Constitutional: Appearance: Normal appearance. HENT: Head: Normocephalic. Eyes: General: No scleral icterus. Right eye: No discharge. Left eye: No discharge. Cardiovascular: Rate and Rhythm: Normal rate. Rhythm irregularly irregular. Pulses: Radial pulses are 2+ on the right side. Dorsalis pedis pulses are 1+ on the right side and 1+ on the left side. Posterior tibial pulses are 1+ on the right side and 1+ on the left side. Heart sounds: Normal heart sounds. No murmur heard. Comments: R radial cath site without hematoma, ecchymosis or oozing. R hand with brisk capillary refill R femoral cath site without hematoma, ecchymosis, oozing or bruit Pulmonary: Effort: Pulmonary effort is normal. Breath sounds: Normal breath sounds. Abdominal: General: Abdomen is flat. Palpations: Abdomen is soft. Musculoskeletal: General: Normal range of motion. Cervical back: Normal range of motion. Right lower leg: No edema. Left lower leg: No edema. Skin: General: Skin is warm and dry. Capillary Refill: Capillary refill takes less than 2 seconds. Neurological: Mental Status: He is alert and oriented to person, place, and time. Psychiatric: Mood and Affect: Mood normal. Procedures: Transfemoral transcatheter AVR with 26 mm Dewayne S3 valve under moderate sedation Transthoracic echocardiogram HOSPITAL COURSE : The patient was admitted to the hospital for elective TAVR on 08/28/24 . A 08/28/24 Dewayne S3 valve was implanted. The [facility] returned to [facility] for [facility]. Vital signs and labs were stable. There wereno groin complications. The patient was ambulatory the evening of the procedure. On day of discharge, he denied angina, SOB, edema or dizziness. He was ambulating in the ortega with no limitations. No groin complaints. Complete post procedure echocardiogram demonstrated : 08/28/24 Technically difficult study. Left Ventricle: Left ventricle size is normal. Mildly increased wall thickness. Normal left ventricular systolic function. EF by 2D Simpsons Biplane is 70%. Normal wall motion. Right Ventricle: Right ventricle is mildly dilated. Mildly reduced systolic function. Aortic Valve: Not well visualized. Cole Dewayne 3 Ultra bioprosthetic aortic valve with a size of26 mm. AV mean gradient is 9 mmHg. No regurgitation. Trace paravalvular regurgitation. No stenosis.AV mean gradient is 9 mmHg. AV peak velocity is 1.9 m/s. LVOT:AV VTI Index is 0.37. Left Atrium: Left atrium is severely dilated. Left atrium size is severely increased (LA volume index >48 mL/m2).LA Vol Index is 56 ml/m2. Right Atrium: Right atrium is mildly dilated. Patient education including SBE prophylaxis, activity, access site care, follow up appointments, and medications was provided. The patient verbalized understanding, questions were answered. The patient was discharged home in good condition. Referral to cardiac rehabilitation has been recommended and discussed with the patient prior to discharge. Referral has been made to the [facility]. Last Labs: Lab Results Component Value Date WBC 8.4 08/29/2024 HGB 14.2 08/29/2024 HCT 41.9 08/29/2024 MCV 90.3 08/29/2024 PLT 149 08/29/2024 Lab Results Component Value Date NA 139 08/29/2024 K 4.4 08/29/2024 CL 108 (H) 08/29/2024 CO2 24 08/29/2024 BUN 25 (H) 08/29/2024 CREATININE 1.18 08/29/2024 GLUCOSE 104 08/29/2024 CALCIUM 8.6 (L) 08/29/2024 No results found for: CHLPL, CHOL No results found for: TRIG No results found for: HDL No results found for: LDLCALC Discharge Medications: Medication List CHANGE how you take these medications aspirin 81 MG EC tablet Take 1 tablet (81 mg) by mouth daily. Until INR 2.0 or higher and then stop aspirin What changed: additional instructions CONTINUE taking these medications carvedilol 6.25 MG tablet Commonly known as: Coreg cloNIDine 0.2 MG tablet Commonly known as: Catapres furosemide 20 MG tablet Commonly known as: Lasix lisinopril 20 MG tablet potassium chloride CR 20 MEQ ER tablet Commonly known as: Klor-Con M20 tamsulosin 0.4 MG 24 hr capsule Commonly known as: Flomax warfarin 2 MG tablet Commonly known as: Coumadin STOP taking these medications cefdinir 300 MG capsule Commonly known as: Omnicef Where to Get Your Medications Information about where to get these medications is not yet available Ask your nurse or doctor about these medications aspirin 81 MG EC tablet DIET: A low fat, low cholesterol, 2 gramsodium diet was discussed with the patient. Discharge to home Condition at Discharge: Stable, improved Final Primary Dx: Severe Symptomatic Aortic Stenosis Transfemoral TAVR Secondary Dx: Persistent AFib on Coumadin Chronic HFpEF HTN BMI Classification: Overweight (BMI 25.0-29.9) Follow up with [facility] one week, appt arranged [facility] [phone] Greater than 30 minutes spent on patient discharge including assessment/plan, education, and coordination of care Electronically signed by RADAMES Sneed CNP Date: 08/29/2024 Cosigned by Clara Sheriff MD at 08/29/2024 8:12 PM EDT Associated attestation - Clara Sheriff MD - 08/29/2024 8:12 PM EDT I, Dr. Sheriff, saw and evaluated the patient on 08/29/2024. I personally obtained the saxena and critical portions of the history and physical exam. I reviewed the chart and discussed the patient with the Nurse Practitioner. I agree with the Nurse Practitioner's medical decision making. Hospital Summary: Patient was admitted for elective transcatheter aortic valve replacement. he did well with this procedure. he is now POD1 s/p TF TAVR. he is back to his baseline activity with no symptoms. he will bedischarged today on his current medication list. he will follow up in valve clinic in 1-2 weeks. documented in this [facility]04-28-2025 NoteStructural Heart Pre Procedure: Severe aortic valve stenosis. AV Area (Pre-TAVR) is 0.5 cm2. AV Peak Velocity (Pre-TAVR) is 4.1 m/s. AV Mean Gradient (Pre-TAVR) is 48 mmHg. Left Ventricle: Left ventricle size is normal. Severely increased wall thickness. Normal left ventricular systolic function. EF by 2D Simpsons Biplane is 58%. Normal wall motion. Indeterminate diastolic function. Right Ventricle: Right ventricle size is normal. Pacemaker lead present in the right ventricle. Normal systolic function. Aortic Valve: Cole Dewayne 3 Ultra bioprosthetic aortic valve that is well-seated with a size of 26 mm. AV mean gradient is 4 mmHg. No regurgitation. Trace paravalvular regurgitation. No stenosis. AV mean gradient is 4 mmHg. AV peak velocity is 1.4 m/s. LVOT:AV VTI Index is 0.53. Left Ventricle Left ventricle size is normal. Severely increased wall thickness. Normal left ventricular systolic function. EF by 2D Simpsons Biplane is 58%. Normal wall motion. Indeterminate diastolic function. Right Ventricle Right ventricle size is normal. Pacemaker lead present in the right ventricle.Normal systolic function. Left Atrium Not well visualized. Left atrium is dilated. Right Atrium Not well visualized. Pacemaker lead present in the right atrium. Mitral Valve Valve structure is normal. Severe annular calcification (posterior). Trace regurgitation. No stenosis noted. Tricuspid Valve Valve structure is normal. Trace regurgitation. Aortic Valve Cole Dewayne 3 Ultra bioprosthetic aortic valve that is well-seated with a size of 26 mm. AV meangradient is 4 mmHg. No regurgitation. Trace paravalvular regurgitation. No stenosis. AV mean gradient is 4 mmHg. AV peak velocity is 1.4 m/s. LVOT:AV VTI Index is 0.53. Pulmonic Valve The pulmonic valve visualization is suboptimal but appears to be functioning normally. Trace regurgitation. Ascending Aorta Normal sized sinuses of Valsalva and ascending aorta. Pericardium No pericardial effusion. Septum Interatrial septum was not assessed. Pulmonary Artery Pulmonary artery was not well visualized. Study Details Image quality: technically difficult. Heart rate: 98 bpm. Blood pressure: 156/100 mmHg. Echo performed in conjunction with TAVR procedure. Technical qualifiers: Technically difficult study, technically difficult study with poor endocardial visualization and procedure performed with the patient in asupine position. No contrast was given. Structural Heart Pre Procedure Findings Severe aortic valve stenosis. AV Area (Pre-TAVR) is 0.5 cm2. AV Peak Velocity (Pre-TAVR) is 4.1 m/s. AV Mean Gradient (Pre-TAVR) is 48 mmHg.CV [id number] Hospital Discharge instructions* Discharge Instructions* Magdalena Riley APRN - [facility] - 08/28/2024 11:20 AM EDT Please resume your warfarin today with your regular dose. Please continue taking aspirin 81 mg daily until your INR is 2.0 or higher and then stop the aspirin. Please check your INR on 09/04/24 - Please call the [facility] with any questions: [phone] -You will have have the following follow up appointments in the Heart Valve Clinic: one week post procedure, one month post procedure with echocardiogram, one year post procedure with echocardiogram. -Wash groin/wrist incision with soap and water, pat dry. Apply bandage for 5 days. If you have a chest incision, you will receive specific instructions from your surgeon regarding care of the incision. -Check incision every day. If you see any changes in the way it looks, call the Heart [facility]ve Clinic at . Look for any of these problems: redness and warmth that does not go away, yellow or green drainage from the wound, fever and chills, numbness in your legs, pain that is getting worse. -It is normal to have a bruise or soft lump in the groin. This will get smaller and go away with time -Do not drive until after your first Heart Valve Clinic Appointment. -Do not lift, push, or pull anything weighing more than 5 lbs or more for one week if you had the procedure through your groin and 4 weeks if you had the procedure through the chest -We strongly encourage a regular exercise program such as cardiac rehabilitation once you have beencleared to resume normal activity. -Eating well is important for your recovery. Eat nutritious foods every day. Please follow a cardiac, 2 gram sodium diet. Please continue to follow any other dietary recommendations provided by your health care provider prior to your valve surgery. -From now on, tell your doctors and health care providers about your heart valve implantation (prosthetic heart valve ). -If you go to the emergency room or are admitted to the hospital during the first year after your procedure, please call the [facility] Valve Clinic at -If you have major dental work or other invasive medical procedures (like surgery) you may need to take antibiotics before the dental work or the procedure. Please discuss with your health care provider. - You will need to take blood thinning medications (antiplatelet) after your valve procedure. Generally, this includes aspirin alone, unless you take blood thinning medications for another indication(warfarin, apixaban, rivaroxaban). If you take blood thinning medications, these are generally sufficient and aspirin will not be required unless otherwise specified. documented in [facility]04-28-2025 NotePatient: Tamar Segal Procedure Summary Date: 08/28/24 Room / Location: [facility] Operating Room Anesthesia Start: 920 Anesthesia Stop: 1105 Procedures: TRANSCATHETER AORTIC VALVE REPLACEMENT, TRANSTHORACIC ECHOCARDIOGRAM TRANSCATHETER AORTIC VALVE REPLACEMENT, TRANSTHORACIC ECHOCARDIOGRAM (Chest) Diagnosis: Nonrheumatic aortic valve stenosis Surgeons: Clara Sheriff MD; Chelsey Gross MD Responsible Provider: Giovanni Nathan MD Anesthesia Type: MAC ASA Status: 4 Anesthesia Type: MAC Vitals Value Taken Time BP 150/82 08/28/24 1110 Temp 36.4 08/28/24 1110 Pulse 64 08/28/24 1108 Resp 21 08/28/24 1108 SpO2 92 % 08/28/24 1108 Vitals shown include unfiled device data. Anesthesia Post Evaluation Patient location during evaluation: ICU Patient participation: complete - patient participated Level of consciousness: awake and alert Pain management: satisfactory to patient Airway patency: patent Dental Injury: no Cardiovascular status: acceptable, blood pressure returned to baseline and hemodynamically stable Respiratory status: acceptable, spontaneous ventilation and face mask Hydration status: euvolemic Nausea/Vomiting: controlled No notable events documented. Patient can be discharged once all PACU criteria has been met.[facility] [id number] NotePatient: Tamar Segal Procedure Summary Date: 08/28/24 Room / Location: [facility] Operating Room Anesthesia Start: 920 Anesthesia Stop: 1105 Procedures: TRANSCATHETER AORTIC VALVE REPLACEMENT, TRANSTHORACIC ECHOCARDIOGRAM TRANSCATHETER AORTIC VALVE REPLACEMENT, TRANSTHORACIC ECHOCARDIOGRAM (Chest) Diagnosis: Nonrheumatic aortic valve stenosis Surgeons: Clara Sheriff MD; Chelsey Gross MD Responsible Provider: Giovanni Nathan MD Anesthesia Type: MAC ASA Status: 4 Anesthesia Type: MAC Vitals Value Taken Time BP 150/82 08/28/24 1109 Temp 36.4 08/28/24 1109 Pulse 71 08/28/24 1109 Resp 14 08/28/24 1109 SpO2 100 08/28/24 1109 Anesthesia Post Evaluation Patient location during evaluation: ICU Patient participation: complete - patient participated Level of consciousness: awake and alert Pain management: satisfactory to patient Multimodal analgesia pain management approach Airway patency: patent Two or more strategies used to mitigate risk of obstructive sleep apnea Cardiovascular status: acceptable and hemodynamically stable Respiratory status: acceptable, spontaneous ventilation and face mask Hydration status: acceptable No notable events documented. MIPS #430 PONV Patient did not receive an inhalational anesthetic (XX430) MIPS # 424 Perioperative Temperature Management Anesthesia time was 60 minutes or longer (4255F) Anesthesai administered was General (inhalational or TIVA) or Neuraxial block (X0424) At least one body temperature greater than 95.8F/35.5C achieved within the 30 mins immediately prior to or the 15 minutes immediately following anesthesia end time (G9771) MIPS #477 Multimodal Pain Management Not emergent case Patient was administered multimodal pain management (two or more drugs and/or interventions excluding systemic opioids) in the periopeartive period occurring at some time between 6 hours prior to anesthesia start time until discharged from PACU (G2148) MIPS #404 Anesthesiology Smoking Abstinence The patient is not a current smoker (e.g. cigarette, cigar, pipe, e-cigarette/vaping/marijuana) If no stop here (XX404) I completed my handoff to the receiving clinician during which we: 1. Identified the patient 2. Identified the responsible provider 3. Reviewed the pertinent medical history 4. Discussed the surgical course 5. Reviewed intra-op anesthesia management and issues during anesthesia 6. Set expectations for post-procedure period 7. Allowed opportunity for questions and acknowledgement of understanding.[place] [address]06-28-2025 NoteArterial Line: Date/Time: 08/28/2024 10:06 AM An arterial line was placed in the Procedural for the following indication(s): continuous blood pressure monitoring and blood sampling needed. A (size) (length) (type) catheter was placed, into the Right radial artery, secured by Tegaderm. Events: patient tolerated procedure well with no complications. Staffing Performed: Other Other staff: Clara Sheriff, [place] [id number] Attending History and physical note* Clara Sheriff MD - 08/28/2024 9:21 AM EDT H&P reviewed. The patient was examined and there are no changes to the H&P. Source Note - Magdalena Riley APRN - [facility] - 08/25/2024 9:17 AM EDT Images from the original note were not included. Clara Sheriff MD Cardiology Aortic valve stenosis, etiology of cardiac valve disease unspecified Dx New Patient Reason for Visit Progress Notes Clara Sheriff MD (Physician) Cardiology Expand All Collapse All [facility] [place] [address] [facility] [address] Dept: [phone] Dept Visit type: New : 1935 Reason for Visit: New Patient (Heart valve clinic) Assessment and Plan 1. Aortic valve stenosis, etiology of cardiac valve disease unspecified - ECG 12 lead - CLINIC PERFORMED - CBC auto differential - Comprehensive metabolic panel This is a very pleasant 88y/o male with severe/critical aortic stenosis, symptomatic. Medically, heis clearly in need of an aortic valve replacement. We discussed the fact that his life expectancy is possibly less than a year, if left for conservative therapy. At 88 years old, he is not a great surgical candidate. His third option would be to proceed with a transcatheter aortic valve replacement. Medically, this would be the clear indication. We have set him up with our financial consultants, to try to understand the financial implications of his decision. If we decided to proceed with intervention, there are a couple of things we could do to try to minimize cost. First, we could proceed with CTA first, assess candidacy for transfermoral TAVR, and ask our imagers to look at his proximal coronaries. If we can confidently say that he has minimal coronary disease, we could forego a cath relatively safely. Secondly, if he meets criteria for a same day discharge, we could consider him for this pathway. Will assess for candidacy for this after his CTA. He and his family will discuss with our financial team, and will let us know if he is interested inproceeding. Addendum: Family has discussed with our team, and are interested in proceeding. Will order a CTA asa start, as per plan above. It was a pleasure seeing your patient in the office today. Please do not hesitate to call me with any questions. Follow up for Recheck after CTA. Subjective HPI Tamar Segal is a very pleasant 88 y.o. male who is here for evaluation of his aortic valve disease. his symptoms include progressive dyspnea on exertion and fatigue. his most recent echo shows severe/critical aortic stneosis with normal EF, mean gradient 62mmHg. He does live in a self pay community, and patient and family is interested in learning about the financial considerations of the different pathway options. Review of Systems Constitutional: Negative for activity change, chills, diaphoresis, fatigue and fever. HENT: Negative for nosebleeds and trouble swallowing. Eyes: Negative for discharge and visual disturbance. Respiratory: Positive for shortness of breath (on exertion). Negative for apnea, cough, chest tightness, wheezing and stridor. Cardiovascular: Negative for chest pain, palpitations and leg swelling. Gastrointestinal: Negative for abdominal distention, abdominal pain, blood in stool, diarrhea, nausea and vomiting. Endocrine: Negative for cold intolerance and heat intolerance. Genitourinary: Negative for hematuria. Musculoskeletal: Negative for gait problem and myalgias. Skin: Negative for color change and rash. Neurological: Positive for light-headedness (with postion changes). Negative for dizziness, seizures, syncope, facial asymmetry, speech difficulty, weakness, numbness and headaches. Hematological: Does not bruise/bleed easily. Psychiatric/Behavioral: Negative for dysphoric mood. Allergies No Known Allergies Current Medications Current Outpatient Medications: carvedilol (Coreg) 6.25 MG tablet, Take 6.25 mg by mouth 2 times daily (with meals)., Disp: , Rfl: cefdinir (Omnicef) 300 MG capsule, Take 300 mg by mouth 2 times daily., Disp: , Rfl: cloNIDine (Catapres) 0.2 MG tablet, Take 0.2 mg by mouth 2 times daily., Disp: , Rfl: furosemide (Lasix) 20 MG tablet, Take 60 mg by mouth 2 times daily., Disp: , Rfl: lisinopril 20 MG tablet, Take 20 mg by mouth 2 times daily., Disp: , Rfl: potassium chloride CR (Klor-Con M20) 20 MEQ ER tablet, Take 20 mEq by mouth 2 times daily. Do not crush or chew., Disp: , Rfl: tamsulosin (Flomax) 0.4 MG 24 hr capsule, Take 0.4 mg by mouth daily., Disp: , Rfl: warfarin (Coumadin) 2 MG tablet, Take 2 mg by mouth. Take as directed per After Visit Summary., Disp: , Rfl: Medical History Past Medical History: Diagnosis Date Acute respiratory insufficiency (aortic stenosis) Atrial fibrillation (HCC) Cardiomegaly CHF exacerbation (CMS/HCC) (HCC) Chronic anticoagulation CKD (chronic kidney disease) Essential hypertension Febrile illness Hyperbilirubinemia Left renal mass Murmur Positive blood cultures 07/2024 proteus mirabilis Viral lower respiratory tract infection Social History Tobacco Use Smoking status: Never Smokeless tobacco: Never Substance Use Topics Alcohol use: Never Surgical History Past Surgical History: Procedure Laterality Date KNEE SURGERY Family History No family history on file. Objective Vitals Vitals: 08/04/24 1248 08/04/24 1348 BP: (!) 142/82 122/82 BP Location: Left arm Patient Position: Sitting BP Cuff Size: Adult Pulse: 84 SpO2: 97% Weight: 201 lb 3.2 oz (91.3 kg) Height: 5' 11 (1.803 m) Physical Exam Constitutional: General: He is not in acute distress. Appearance: He is not diaphoretic. HENT: Head: Normocephalic. Nose: Nose normal. Mouth/Throat: Mouth: Mucous membranes are moist. Pharynx: No oropharyngeal exudate. Eyes: General: No scleral icterus. Right eye: No discharge. Left eye: No discharge. Neck: Thyroid: No thyromegaly. Vascular: No carotid bruit or JVD. Cardiovascular: Rate and Rhythm: Normal rate and regular rhythm. Pulses: Normal pulses. Heart sounds: Murmur heard. Systolic murmur is present with a grade of 3/6. Pulmonary: Effort: Pulmonary effort is normal. Breath sounds: Normal breath sounds. Abdominal: General: Bowel sounds are normal. There is no distension. Palpations: There is no hepatomegaly. Tenderness: There is no abdominal tenderness. Musculoskeletal: General: Normal range of motion. Cervical back: Normal range of motion. Right lower leg: No edema. Left lower leg: No edema. Skin: General: Skin is warm and dry. Neurological: Mental Status: He is oriented to person, place, and time. Psychiatric: Mood and Affect: Mood normal. Behavior: Behavior normal. Data Reviewed and Summarized No results found for: EFBP, PLVEF, LVEFPHYS, LVEF2D, EF Review of tests/labs done/ordered within my specialty: EKG in office: Review of tests/labs done/ordered outside my specialty: Independent interpretation of tests: I personally reviewed the images from Tamar Segal's most recent TTE in the office today, to help with medical decision making. My interpretation is noted in the HPI section of this note. NYHA Class (1-4): 2 STS score: 3.57% 5 meter gait speed in seconds: 7, 7, 7 Ao valve disease etiology (degenerative, rheumatic, endocarditis, other): degenerative Clara Sheriff MD Cosigned by Clara Sheriff MD at 08/29/2024 7:49 PM EDT [employer] Work Phone: [phone] 393-167004-28-2025 NoteH&P reviewed. The patient was examined and there are no changes to the H&P.[facility] [id number] Procedure note* Op Note - Chelsey Gross MD - 08/28/2024 9:21 AM EDT TAVR Procedural Report Interventional Cardiologists: -Clara Sheriff MD -John Taveras MD (Fellow) Cardiothoracic Surgeon: -Chelsey Gross MD -I served as a collaborating cardiothoracic surgeon and was readily available forassistance and/or emergency surgical intervention should have been required. Procedure: 1. A 26 mm (+2) DEWAYNE S3 VALVE IMPLANTATION. 2. TRANSFEMORAL TRANSCATHETER AORTIC VALVE REPLACEMENT. Preoperative Diagnosis: Severe and symptomatic aortic stenosis. Postoperative Diagnosis: Severe aortic stenosis. Anesthesia: Conscious Sedation History of Present Illness: This is a very pleasant 88 y.o. male with a history of severe and symptomatic aortic stenosis. his case was discussed in our multidisciplinary valve conference and was felt to be of appropriate candidacy for TAVR. The pros, cons, risks, benefits, and alternatives of transcatheter aortic valve replacement were reviewed with the patient, and questions were answered, he provided informed consent and wished to proceed with the procedure. Description of Procedure: The patient was brought to the operating suite by anesthesia. The patientwas placed under conscious sedation. The patient was then cleaned, prepped and draped in the normalsterile manner. Access was then gained in the right common femoral artery, right radial artery, andright femoral vein. Via the right femoral vein, a 6 Macedonian sheath was placed and temporary pacing wire was placed into the RV apex with appropriate capture, in addition sterile tubing was attached and given the anesthesia for central access. Via right radial artery, a 6-Macedonian sheath was placed andthe pigtail catheter was placed into the aortic annulus with confirmation the implant angle. Via the right common femoral artery, a 6-Macedonian sheath was placed. The patient was then heparinized. Next,two Perclose devices were used using the pre-close strategy. An Amplatz Super Stiff wire was then placed through the second Perclose into the descending aorta. Then, a 14-Macedonian Dewayne E-sheath was introduced over the wire into the descending aorta. The sheath was then flushed. Next, an AL1 catheter and a straight wire were used to cross the aortic valve through the e- sheath. The straight wire was then removed and an Amplatz extra stiff wire (formed into a curve) was placed into the LV apex. Next, the AL1 catheter was removed. Next a 26 mm Dewayne S3 valve was then advanced through the sheath into the descending aorta.The valve was then mounted on the balloon, the delivery catheter was flexed and advanced around the aortic arch and across the aortic annulus. The valve was then deployed under rapid pacing. Confirmation of an appropriate implant position and appropriately functioning valve was done using TTE. Next, the delivery catheter, extra stiff wire, and large sheath were removedand the Perclose devices were used for hemostasis. A radial band was used for hemostasis of the additional arterial site. Manual pressure was used for hemostasis of the femoral venous access site. Overall, the patient tolerated the procedure well with minimal blood loss. No immediate complications.The patient will return to the Cardiac Care unit for continued monitoring. [facility] Work Phone: [phone]) 753-242004-28-2025 History and physical note* Clara Sheriff MD - 08/28/2024 9:21 AM EDT H&P reviewed. The patient was examined and there are no changes to the H&P. Source Note - Magdalena Riley APRN - [facility] - 08/25/2024 9:17 AM EDT Images from the original note were not included. Clara Sheriff MD Cardiology Aortic valve stenosis, etiology of cardiac valve disease unspecified Dx New Patient Reason for Visit Progress Notes Clara Sheriff MD (Physician) Cardiology Expand All [facility] [address] [facility] [address] Dept: [phone] Dept Visit type: New : 1935 Reason for Visit: New Patient (Heart valve clinic) Assessment and Plan 1. Aortic valve stenosis, etiology of cardiac valve disease unspecified - ECG 12 lead - CLINIC PERFORMED - CBC auto differential - Comprehensive metabolic panel This is a very pleasant 88y/o male with severe/critical aortic stenosis, symptomatic. Medically, heis clearly in need of an aortic valve replacement. We discussed the fact that his life expectancy is possibly less than a year, if left for conservative therapy. At 88 years old, he is not a great surgical candidate. His third option would be to proceed with a transcatheter aortic valve replacement. Medically, this would be the clear indication. We have set him up with our financial consultants, to try to understand the financial implications of his decision. If we decided to proceed with intervention, there are a couple of things we could do to try to minimize cost. First, we could proceed with CTA first, assess candidacy for transfermoral TAVR, and ask our imagers to look at his proximal coronaries. If we can confidently say that he has minimal coronary disease, we could forego a cath relatively safely. Secondly, if he meets criteria for a same day discharge, we could consider him for this pathway. Will assess for candidacy for this after his CTA. He and his family will discuss with our financial team, and will let us know if he is interested inproceeding. Addendum: Family has discussed with our team, and are interested in proceeding. Will order a CTA asa start, as per plan above. It was a pleasure seeing your patient in the office today. Please do not hesitate to call me with any questions. Follow up for Recheck after CTA. Subjective HPI Tamar Segal is a very pleasant 88 y.o. male who is here for evaluation of his aortic valve disease. his symptoms include progressive dyspnea on exertion and fatigue. his most recent echo shows severe/critical aortic stneosis with normal EF, mean gradient 62mmHg. He does live in a self pay community, and patient and family is interested in learning about the financial considerations of the different pathway options. Review of Systems Constitutional: Negative for activity change, chills, diaphoresis, fatigue and fever. HENT: Negative for nosebleeds and trouble swallowing. Eyes: Negative for discharge and visual disturbance. Respiratory: Positive for shortness of breath (on exertion). Negative for apnea, cough, chest tightness, wheezing and stridor. Cardiovascular: Negative for chest pain, palpitations and leg swelling. Gastrointestinal: Negative for abdominal distention, abdominal pain, blood in stool, diarrhea, nausea and vomiting. Endocrine: Negative for cold intolerance and heat intolerance. Genitourinary: Negative for hematuria. Musculoskeletal: Negative for gait problem and myalgias. Skin: Negative for color change and rash. Neurological: Positive for light-headedness (with postion changes). Negative for dizziness, seizures, syncope, facial asymmetry, speech difficulty, weakness, numbness and headaches. Hematological: Does not bruise/bleed easily. Psychiatric/Behavioral: Negative for dysphoric mood. Allergies No Known Allergies Current Medications Current Outpatient Medications: carvedilol (Coreg) 6.25 MG tablet, Take 6.25 mg by mouth 2 times daily (with meals)., Disp: , Rfl: cefdinir (Omnicef) 300 MG capsule, Take 300 mg by mouth 2 times daily., Disp: , Rfl: cloNIDine (Catapres) 0.2 MG tablet, Take 0.2 mg by mouth 2 times daily., Disp: , Rfl: furosemide (Lasix) 20 MG tablet, Take 60 mg by mouth 2 times daily., Disp: , Rfl: lisinopril 20 MG tablet, Take 20 mg by mouth 2 times daily., Disp: , Rfl: potassium chloride CR (Klor-Con M20) 20 MEQ ER tablet, Take 20 mEq by mouth 2 times daily. Do not crush or chew., Disp: , Rfl: tamsulosin (Flomax) 0.4 MG 24 hr capsule, Take 0.4 mg by mouth daily., Disp: , Rfl: warfarin (Coumadin) 2 MG tablet, Take 2 mg by mouth. Take as directed per After Visit Summary., Disp: , Rfl: Medical History Past Medical History: Diagnosis Date Acute respiratory insufficiency (aortic stenosis) Atrial fibrillation (HCC) Cardiomegaly CHF exacerbation (CMS/HCC) (HCC) Chronic anticoagulation CKD (chronic kidney disease) Essential hypertension Febrile illness Hyperbilirubinemia Left renal mass Murmur Positive blood cultures 07/2024 proteus mirabilis Viral lower respiratory tract infection Social History Tobacco Use Smoking status: Never Smokeless tobacco: Never Substance Use Topics Alcohol use: Never Surgical History Past Surgical History: Procedure Laterality Date KNEE SURGERY Family History No family history on file. Objective Vitals Vitals: 08/04/24 1248 08/04/24 1348 BP: (!) 142/82 122/82 BP Location: Left arm Patient Position: Sitting BP Cuff Size: Adult Pulse: 84 SpO2: 97% Weight: 201 lb 3.2 oz (91.3 kg) Height: 5' 11 (1.803 m) Physical Exam Constitutional: General: He is not in acute distress. Appearance: He is not diaphoretic. HENT: Head: Normocephalic. Nose: Nose normal. Mouth/Throat: Mouth: Mucous membranes are moist. Pharynx: No oropharyngeal exudate. Eyes: General: No scleral icterus. Right eye: No discharge. Left eye: No discharge. Neck: Thyroid: No thyromegaly. Vascular: No carotid bruit or JVD. Cardiovascular: Rate and Rhythm: Normal rate and regular rhythm. Pulses: Normal pulses. Heart sounds: Murmur heard. Systolic murmur is present with a grade of 3/6. Pulmonary: Effort: Pulmonary effort is normal. Breath sounds: Normal breath sounds. Abdominal: General: Bowel sounds are normal. There is no distension. Palpations: There is no hepatomegaly. Tenderness: There is no abdominal tenderness. Musculoskeletal: General: Normal range of motion. Cervical back: Normal range of motion. Right lower leg: No edema. Left lower leg: No edema. Skin: General: Skin is warm and dry. Neurological: Mental Status: He is oriented to person, place, and time. Psychiatric: Mood and Affect: Mood normal. Behavior: Behavior normal. Data Reviewed and Summarized No results found for: EFBP, PLVEF, LVEFPHYS, LVEF2D, EF Review of tests/labs done/ordered within my specialty: EKG in office: Review of tests/labs done/ordered outside my specialty: Independent interpretation of tests: I personally reviewed the images from Tamar Segal's most recent TTE in the office today, to help with medical decision making. My interpretation is noted in the HPI section of this note. NYHA Class (1-4): 2 STS score: 3.57% 5 meter gait speed in seconds: 7, 7, 7 Ao valve disease etiology (degenerative, rheumatic, endocarditis, other): degenerative Clara Sheriff MD Cosigned by Clara Sheriff MD at 08/29/2024 7:49 PM EDT documented in this [facility]04-28-2025 Miscellaneous Notes* Op Note - Chelsey Gross MD - 08/28/2024 9:21 AM EDT TAVR Procedural Report Interventional Cardiologists: -Clara Sheriff MD -John Taveras MD (Fellow) Cardiothoracic Surgeon: -Chelsey Gross MD -I served as a collaborating cardiothoracic surgeon and was readily available forassistance and/or emergency surgical intervention should have been required. Procedure: 1. A 26 mm (+2) DEWAYNE S3 VALVE IMPLANTATION. 2. TRANSFEMORAL TRANSCATHETER AORTIC VALVE REPLACEMENT. Preoperative Diagnosis: Severe and symptomatic aortic stenosis. Postoperative Diagnosis: Severe aortic stenosis. Anesthesia: Conscious Sedation History of Present Illness: This is a very pleasant 88 y.o. male with a history of severe and symptomatic aortic stenosis. his case was discussed in our multidisciplinary valve conference and was felt to be of appropriate candidacy for TAVR. The pros, cons, risks, benefits, and alternatives of transcatheter aortic valve replacement were reviewed with the patient, and questions were answered, he provided informed consent and wished to proceed with the procedure. Description of Procedure: The patient was brought to the operating suite by anesthesia. The patientwas placed under conscious sedation. The patient was then cleaned, prepped and draped in the normalsterile manner. Access was then gained in the right common femoral artery, right radial artery, andright femoral vein. Via the right femoral vein, a 6 Macedonian sheath was placed and temporary pacing wire was placed into the RV apex with appropriate capture, in addition sterile tubing was attached and given the anesthesia for central access. Via right radial artery, a 6-Macedonian sheath was placed andthe pigtail catheter was placed into the aortic annulus with confirmation the implant angle. Via the right common femoral artery, a 6-Macedonian sheath was placed. The patient was then heparinized. Next,two Perclose devices were used using the pre-close strategy. An Amplatz Super Stiff wire was then placed through the second Perclose into the descending aorta. Then, a 14-Macedonian Dewayne E-sheath was introduced over the wire into the descending aorta. The sheath was then flushed. Next, an AL1 catheter and a straight wire were used to cross the aortic valve through the e- sheath. The straight wire was then removed and an Amplatz extra stiff wire (formed into a curve) was placed into the LV apex. Next, the AL1 catheter was removed. Next a 26 mm Dewayne S3 valve was then advanced through the sheath into the descending aorta.The valve was then mounted on the balloon, the delivery catheter was flexed and advanced around the aortic arch and across the aortic annulus. The valve was then deployed under rapid pacing. Confirmation of an appropriate implant position and appropriately functioning valve was done using TTE. Next, the delivery catheter, extra stiff wire, and large sheath were removedand the Perclose devices were used for hemostasis. A radial band was used for hemostasis of the additional arterial site. Manual pressure was used for hemostasis of the femoral venous access site. Overall, the patient tolerated the procedure well with minimal blood loss. No immediate complications.The patient will return to the Cardiac Care unit for continued monitoring. documented in this [facility]04-25-2025 Note Attestation signed by Clara Sheriff MD at 08/29/2024 7:49 PM I, Dr. Sheriff, saw and evaluated the patient. I personally obtained the saxena and critical portions of the history and physical exam. I reviewed the chart and discussed the patient with the Nurse Practitioner. I agree with the Nurse Practitioner's medical decision making. I spoke with Tamar Segal this morning. he tells me that nothing has changed clinically since our last office visit. We will proceed with the planned procedure. Clara Sheriff MD Cardiology Aortic valve stenosis, etiology of cardiac valve disease unspecified Dx New Patient Reason for Visit Progress Notes Clara Sheriff MD (Physician) Cardiology Expand All Collapse All [facility] [place] [address] [facility] [address] Dept: [phone] Dept Visit type: New : 1935 Reason for Visit: New Patient (Heart valve clinic) Assessment and Plan 1. Aortic valve stenosis, etiology of cardiac valve disease unspecified - ECG 12 lead - CLINIC PERFORMED - CBC auto differential - Comprehensive metabolic panel This is a very pleasant 88y/o male with severe/critical aortic stenosis, symptomatic. Medically, he is clearly in need of an aortic valve replacement. We discussed the fact that his life expectancy is possibly less than a year, if left for conservative therapy. At 88 years old, he is not a great surgical candidate. His third option would be to proceed with a transcatheter aortic valve replacement. Medically, this would be the clear indication. We have set him up with our financial consultants, to try to understand the financial implications of his decision. If we decided to proceed with intervention, there are a couple of things we could do to try to minimize cost. First, we could proceed with CTA first, assess candidacy for transfermoral TAVR, and ask our imagers to look at his proximal coronaries. If we can confidently say that he has minimal coronary disease, we could forego a cath relatively safely. Secondly, if he meets criteria for a same day discharge, we could consider him for this pathway. Will assess for candidacy for this after his CTA. He and his family will discuss with our financial team, and will let us know if he is interested in proceeding. Addendum: Family has discussed with our team, and are interested in proceeding. Will order a CTA as a start, as per plan above. It was a pleasure seeing your patient in the office today. Please do not hesitate to call me with any questions. Follow up for Recheck after CTA. Subjective HPI Tamar Segal is a very pleasant 88 y.o. male who is here for evaluation of his aortic valve disease. his symptoms include progressive dyspnea on exertion and fatigue. his most recent echo shows severe/critical aortic stneosis with normal EF, mean gradient 62mmHg. He does live in a self pay community, and patient and family is interested in learning about the financial considerations of the different pathway options. Review of Systems Constitutional: Negative for activity change, chills, diaphoresis, fatigue and fever. HENT: Negative for nosebleeds and trouble swallowing. Eyes: Negative for discharge and visual disturbance. Respiratory: Positive for shortness of breath (on exertion). Negative for apnea, cough, chest tightness, wheezing and stridor. Cardiovascular: Negative for chest pain, palpitations and leg swelling. Gastrointestinal: Negative for abdominal distention, abdominal pain, blood in stool, diarrhea, nausea and vomiting. Endocrine: Negative for cold intolerance and heat intolerance. Genitourinary: Negative for hematuria. Musculoskeletal: Negative for gait problem and myalgias. Skin: Negative for color change and rash. Neurological: Positive for light-headedness (with postion changes). Negative for dizziness, seizures, syncope, facial asymmetry, speech difficulty, weakness, numbness and headaches. Hematological: Does not bruise/bleed easily. Psychiatric/Behavioral: Negative for dysphoric mood. Allergies No Known Allergies Current Medications Current Outpatient Medications: carvedilol (Coreg) 6.25 MG tablet, Take 6.25 mg by mouth 2 times daily (with meals)., Disp: , Rfl: cefdinir (Omnicef) 300 MG capsule, Take 300 mg by mouth 2 times daily., Disp: , Rfl: cloNIDine (Catapres) 0.2 MG tablet, Take 0.2 mg by mouth 2 times daily., Disp: , Rfl: furosemide (Lasix) 20 MG tablet, Take 60 mg by mouth 2 times daily., Disp: , Rfl: lisinopril 20 MG tablet, Take 20 mg by mouth 2 times daily., Disp: , Rfl: potassium chloride CR (Klor-Con M20) 20 MEQ ER tablet, Take 20 mEq by mouth 2 times daily. Do not crush or chew., Disp: , Rfl: tamsulosin (Flomax) 0.4 MG 24 h (more content not included)...[facility]04-25-2025 Note Attestation signed by Clara Sheriff MD at 08/29/2024 7:49 PM I, Dr. Sheriff, saw and evaluated the patient. I personally obtained the saxena and critical portions of the history and physical exam. I reviewed the chart and discussed the patient with the Nurse Practitioner. I agree with the Nurse Practitioner's medical decision making. I spoke with Tamar Segal this morning. he tells me that nothing has changed clinically since our last office visit. We will proceed with the planned procedure. Clara Sheriff MD Cardiology Aortic valve stenosis, etiology of cardiac valve disease unspecified Dx New Patient Reason for Visit Progress Notes Clara Sheriff MD (Physician) Cardiology [facility] CARDIOLOGY [address] [address] Dept: [phone] Dept Visit type: New : 1935 Reason for Visit: New Patient (Heart valve clinic) Assessment and Plan 1. Aortic valve stenosis, etiology of cardiac valve disease unspecified - ECG 12 lead - CLINIC PERFORMED - CBC auto differential - Comprehensive metabolic panel This is a very pleasant 88y/o male with severe/critical aortic stenosis, symptomatic. Medically, he is clearly in need of an aortic valve replacement. We discussed the fact that his life expectancy is possibly less than a year, if left for conservative therapy. At 88 years old, he is not a great surgical candidate. His third option would be to proceed with a transcatheter aortic valve replacement. Medically, this would be the clear indication. We have set him up with our financial consultants, to try to understand the financial implications of his decision. If we decided to proceed with intervention, there are a couple of things we could do to try to minimize cost. First, we could proceed with CTA first, assess candidacy for transfermoral TAVR, and ask our imagers to look at his proximal coronaries. If we can confidently say that he has minimal coronary disease, we could forego a cath relatively safely. Secondly, if he meets criteria for a same day discharge, we could consider him for this pathway. Will assess for candidacy for this after his CTA. He and his family will discuss with our financial team, and will let us know if he is interested in proceeding. Addendum: Family has discussed with our team, and are interested in proceeding. Will order a CTA as a start, as per plan above. It was a pleasure seeing your patient in the office today. Please do not hesitate to call me with any questions. Follow up for Recheck after CTA. Subjective HPI Tamar Segal is a very pleasant 88 y.o. male who is here for evaluation of his aortic valve disease. his symptoms include progressive dyspnea on exertion and fatigue. his most recent echo shows severe/critical aortic stneosis with normal EF, mean gradient 62mmHg. He does live in a self pay community, and patient and family is interested in learning about the financial considerations of the different pathway options. Review of Systems Constitutional: Negative for activity change, chills, diaphoresis, fatigue and fever. HENT: Negative for nosebleeds and trouble swallowing. Eyes: Negative for discharge and visual disturbance. Respiratory: Positive for shortness of breath (on exertion). Negative for apnea, cough, chest tightness, wheezing and stridor. Cardiovascular: Negative for chest pain, palpitations and leg swelling. Gastrointestinal: Negative for abdominal distention, abdominal pain, blood in stool, diarrhea, nausea and vomiting. Endocrine: Negative for cold intolerance and heat intolerance. Genitourinary: Negative for hematuria. Musculoskeletal: Negative for gait problem and myalgias. Skin: Negative for color change and rash. Neurological: Positive for light-headedness (with postion changes). Negative for dizziness, seizures, syncope, facial asymmetry, speech difficulty, weakness, numbness and headaches. Hematological: Does not bruise/bleed easily. Psychiatric/Behavioral: Negative for dysphoric mood. Allergies No Known Allergies Current Medications Current Outpatient Medications: carvedilol (Coreg) 6.25 MG tablet, Take 6.25 mg by mouth 2 times daily (with meals)., Disp: , Rfl: cefdinir (Omnicef) 300 MG capsule, Take 300 mg by mouth 2 times daily., Disp: , Rfl: cloNIDine (Catapres) 0.2 MG tablet, Take 0.2 mg by mouth 2 times daily., Disp: , Rfl: furosemide (Lasix) 20 MG tablet, Take 60 mg by mouth 2 times daily., Disp: , Rfl: lisinopril 20 MG tablet, Take 20 mg by mouth 2 times daily., Disp: , Rfl: potassium chloride CR (Klor-Con M20) 20 MEQ ER tablet, Take 20 mEq by mouth 2 times daily. Do not crush or chew., Disp: , Rfl: tamsulosin (Flomax) 0.4 MG 24 h (more content not included)...[facility]04-24-2025 Telephone encounter Note* Telephone Encounter - RADAMES Newman CNP - 08/24/2024 10:03 AM EDT Reviewed CTA with Dr. Sheriff who discussed with Dr. Green. PC to patient, spoke with . She states they were already aware of the complex cyst and had seen a urologist before who said no concerns for cancer and no further testing required. [id number] Miscellaneous Notes* Telephone Encounter - RADAMES Newman CNP - 08/24/2024 10:03 AM EDT Reviewed CTA with Dr. Sheriff who discussed with Dr. Green. PC to patient, spoke with . She states they were already aware of the complex cyst and had seen a urologist before who said no concerns for cancer and no further testing required. documented in this [facility]04-23-2025 NotePatient: Tamar Segal Procedure Information Date/Time: 08/28/24 0915 Procedures: TRANSCATHETER AORTIC VALVE REPLACEMENT, TRANSTHORACIC ECHOCARDIOGRAM TRANSCATHETER AORTIC VALVE REPLACEMENT, TRANSTHORACIC ECHOCARDIOGRAM (Chest) Location: [facility] Operating Room Surgeons: Clara Sheriff MD; Chelsey Gross MD Relevant Problems Cardio (+) Nonrheumatic aortic valve stenosis (+) Severe aortic stenosis Past Medical History: Past Medical History: No date: Acute respiratory insufficiency No date: (aortic stenosis) No date: Atrial fibrillation (HCC) No date: Cardiomegaly No date: CHF exacerbation (CMS/HCC) (HCC) No date: Chronic anticoagulation No date: CKD (chronic kidney disease) No date: Essential hypertension No date: Febrile illness No date: Hyperbilirubinemia No date: Left renal mass No date: Murmur 07/2024: Positive blood cultures Comment: proteus mirabilis No date: Viral lower respiratory tract infection Past Surgical History: Past Surgical History: No date: KNEE SURGERY Social History: TOBACCO: reports that he has never smoked. He has never used smokeless tobacco. ETOH: reports no history of alcohol use. Social History Substance and Sexual Activity Drug Use Never Family History: No family history on file. Screening: unknown Clinical information reviewed: Physical Exam Airway Mallampati: II TM distance: >3 FB Neck ROM: full Mouth Open: normal Cardiovascular Dental (+) edentulous Pulmonary Abdominal Anesthesia Plan patient is NPO appropriate Any family history or previous problems with anesthesia no ASA 4 MAC Any family history or previous problems with anesthesia no The patient is not a current smoker. Anesthetic plan and risks discussed with patient. Use of blood products discussed with who consented to blood products. MARY Screening Labs: Lab Results Component Value Date WBC 7.6 08/04/2024 HGB 15.5 08/04/2024 HCT 45.7 08/04/2024 MCV 89.1 08/04/2024 PLT 200 08/04/2024 Lab Results Component Value Date NA 142 08/04/2024 K 4.0 08/04/2024 CL 103 08/04/2024 CO2 28 08/04/2024 BUN 25 (H) 08/04/2024 CREATININE 1.69 (H) 08/04/2024 GLUCOSE 91 08/04/2024 CALCIUM 9.3 08/04/2024 PROT 7.5 08/04/2024 ALKPHOS 85 08/04/2024 AST 28 08/04/2024 ALT 11 08/04/2024 EGFR 39.1 (L) 08/04/2024 No echocardiogram results found for the past 14 days 08/04/24 ECG 12-LEAD 08/23/2024 11:43 AM (Final) Narrative Possible atrial fibrillation -Frequent pvcs -ventricular trigeminy Signed by: Clara Sheriff MD on 08/23/2024 11:43 AM Equipment Requests: [facility] [id number] History of Present illness Narrative* Chelsey Gross MD - 08/22/2024 12:00 PM EDT Images from the original note were not included. [facility] CARDIOVASC[facility] THORACIC SURGERY [address] [facility] [address] Dept: [phone] Dept Loc: [phone] Patient was identified and seen today via Telehealth by agreement and consent. I used the followingTelehealth technology: Audio capability only. Total length of call 16 minutes. The patient was offered and advised video for a more comprehensive evaluation, but the patient declined or was unable touse video. Patient location: Patient Location: Home. This patient encounter is appropriate and reasonable under the circumstances: transportation issues . The patient has been advised of the potential risks and limitations of this mode of treatment (including but not limited to the absence of in-person examination) and has agreed to be treated in a remote fashion in spite of them. Any and all o f the patient's/patient's family's questions on this issue have been answered and I have made no promises or guarantees to the patient. The patient has also been advised to contact this office for worsening conditions or problems, and seek emergency medical treatment and/or call 911 if the patient deems either necessary. The patient stated that they are currently in the [facility]. If the patient is a minor, permission has been obtained by the parent or guardian for the patient to receive medical care at this visit. Visit type: New Reason for Visit: Severe aortic stenosis Assessment and plan This 88-year-old gentleman has critical/severe aortic stenosis with a mean gradient of 62 mmHg. Given his age, I believe that transcatheter aortic valve replacement is his best option for long-term durability and recovery. He is a candidate for surgical bailout, should the emergent need arise. He is already scheduled for surgery this upcoming Wednesday. I agree with that plan. History of Present Illness Tamar Segal is a 88 y.o. male referred by Dr. Sheriff for aortic stenosis. Per note, pt was referred to Valve Clinic by [facility] for aortic stenosis. Pt has had symptoms of progressive dyspnea on exertion and fatigue. He was hospitalized in June 2024 for CHF and found to have severe aortic stenosis. Echocardiogram during admission showed severe/critical aortic stneosis with normal EF, peak/mean gradients 92/62 mmHg. CTA chest revealed a renal mass which was evaluated by Urology and felt not to be malignant in nature. He was evaluated by Dr. Sheriffwhbenito recommended transcatheter aortic valve replacement. CTA TAVR was completed on 08/17/24. Pt is scheduled for TAVR procedure on 08/28/24. Pt is currently taking Warfarin for chronic persistent atrial fibrillation, managed by PCP. Pt is here now for an evaluation. Past Medical History Past Medical History: Diagnosis Date Acute respiratory insufficiency (aortic stenosis) Atrial fibrillation (HCC) Cardiomegaly CHF exacerbation (CMS/HCC) (HCC) Chronic anticoagulation CKD (chronic kidney disease) Essential hypertension Febrile illness Hyperbilirubinemia Left renal mass Murmur Positive blood cultures 07/2024 proteus mirabilis Viral lower respiratory tract infection Past Surgical History Past Surgical History: Procedure Laterality Date KNEE SURGERY Family History No family history on file. Social History Social History Tobacco Use Smoking status: Never Smokeless tobacco: Never Substance Use Topics Alcohol use: Never Drug use: Never Allergies No Known Allergies Medications Current Outpatient Medications: carvedilol (Coreg) 6.25 MG tablet, Take 6.25 mg by mouth 2 times daily (with meals)., Disp: , Rfl: cefdinir (Omnicef) 300 MG capsule, Take 300 mg by mouth 2 times daily., Disp: , Rfl: cloNIDine (Catapres) 0.2 MG tablet, Take 0.2 mg by mouth 2 times daily., Disp: , Rfl: furosemide (Lasix) 20 MG tablet, Take 60 mg by mouth 2 times daily., Disp: , Rfl: lisinopril 20 MG tablet, Take 20 mg by mouth 2 times daily., Disp: , Rfl: potassium chloride CR (Klor-Con M20) 20 MEQ ER tablet, Take 20 mEq by mouth 2 times daily. Do not crush or chew., Disp: , Rfl: tamsulosin (Flomax) 0.4 MG 24 hr capsule, Take 0.4 mg by mouth daily., Disp: , Rfl: warfarin (Coumadin) 2 MG tablet, Take 2 mg by mouth. Take as directed per After Visit Summary., Disp: , Rfl: Review of Systems Review of Systems Constitutional: Positive for fatigue. Respiratory: Positive for shortness of breath (on exertion). All other systems reviewed and are negative. Physical Exam Virtual visit Labs Auto WBC Date/Time Value Ref Range Status 08/04/2024 02:35 PM 7.6 3.6 - 10.7 10*3/uL Final Hemoglobin Date/Time Value Ref Range Status 08/04/2024 02:35 PM 15.5 13.0 - 18.0 g/dL Final Platelets Date/Time Value Ref Range Status 08/04/2024 02:35 PM 200 140 - 440 10*3/uL Final SODIUM Date/Time Value Ref Range Status 08/04/2024 02:35 PM 142 136 - 145 mmol/L Final POTASSIUM Date/Time Value Ref Range Status 08/04/2024 02:35 PM 4.0 3.5 - 5.1 mmol/L Final Comment: Plasma potassium values may be up to 0.5 mmol/L lower than serum values. CREATININE Date/Time Value Ref Range Status 08/04/2024 02:35 PM 1.69 (H) 0.72 - 1.25 mg/dL Final Imaging CTA TAVR 08/17/24 Extracardiac Findings: For a complete description of extracardiac structures, please refer to the accompanying radiology addendum. Cardiac Chambers: The pericardium is unremarkable. The left and right ventricles are normal in size. The left atrium is moderately dilated. The left atrial appendage is normal in appearance. The right atrium is moderate to severely dilated. Coronary Arteries: This study is not optimized for assessment of coronary atherosclerosis, however the following assessments are made: Anatomy: The coronaries have normal origins. There is a pattern of right coronary dominance. Left main: Short vessel (9mm length) that bifurcates into LAD and left circumflex. There is no significant coronary atherosclerosis. Left anterior descending: The vessel runs in the interventricular groove to the apex. One diagonal is observed. In the proximal LAD there is a long segment of calcific plaque is present with minimal (<25%) luminal stenosis. Approximately 3cm from the ostium of the LAD, there is a ~1.5cm length of calcific plaque in the proximal vessel that limits interpretation; this area is probable non-obstru ctive. The mid-distal vessel beyond this point appears to be patent without significant plaque disease or luminal stenosis. Left circumflex: Non dominant vessel. One obtuse marginal is observed. The proximal vessel appears to be patent without significant luminal stenosis. The mid vessel has calcific plaque with probable minimal (<25%) luminal stenosis. The distal vessel appears to be patent without significant plaque disease or luminal stenosis. Right coronary: The RCA is dominant. The proximal vessel appears to have non- calcific plaque with minimal luminal stenosis. The mid vessel has calcific plaque with minimal (<25%) luminal stenosis.The distal vessel is non-diagnostic. Mitral Valve: The mitral annulus has moderate calcification, without significant extension into theLVOT. The anterior mitral leaflet is free of the LVOT during systole. Aortic Valve: The aortic valve is tricuspid. Predicted deployment angle (3-cusp view): SERBIAN 5, CAU 12 Aortic Annulus: Dimensions: 2.94 x 2.25 cm Area: 5.07 cm2 Perimeter: 81.4 mm Left coronary height: 10.4 mm Right Coronary height: 16.0 mm Aorta and Iliofemoral System: All vascular measurements are minimal luminal diameters using a centerline technique. Aortic Root and Thoracic Aorta: Sinuses of Valsalva: 31 mm Sinotubular junction: 32 mm Mid ascending Aorta: 36 mm Abdominal Aorta: Infrarenal: 22 mm Bifurcation: 15 mm Right Iliac System: Calcification: moderate. Tortuosity: moderate. RCIA: 18 mm REIA: 12 mm RCFA: 10 mm. Note is made of an focal anterior calcification of the RCFA just at the level of the mid-femoral head. Superiorly/inferiorly there is no calcification on the anterior aspect of the vessel. Left Iliac System: Calcification: moderate. Tortuosity: moderate. LCIA: 13 mm CATA: 10 mm LCFA: 8 mm CONCLUSIONS: 1. Calcific aortic stenosis, with descriptive anatomy and annular / aortic root measurements as detailed above. 2. Patent bilateral iliofemoral system as detailed above. 3. Within study limitations, no obstructive left main, proximal right coronary or proximal left circumflex stenosis. The proximal LAD has a segment of dense calcific plaque with probable non-obstructive stenosis. TTE 06/29/24 CTA Chest 06/29/24 Patient Care Team: PCP: Juan Diego Starks MD Cardiology: Wu Lacey MD Disclaimer INFORMED CONSENT:The nature and purpose of the proposed treatment or procedure have been discussed.The risks and benefits of the proposed treatment or procedures have been reviewed. Alternatives have been reviewed in addition to the risks and benefits of not receiving treatments or undergoing procedures. Pursuant to this discussion, the patient agrees to undergo the proposed treatment or procedure. Captured images seen in this note from are not a substitute for a comprehensive interpretation of the entire data set as reflected by the interpreting physician with regard to radiology, echocardiography, and other diagnostic images. This note may have been dictated using [employer] Practice Edition 2.6 and/or Ph.Creative Voice Recognition Feature. The document was proofread, however unrecognized voice recognition commercial credit head errors may be present. documented in this [facility]04-17-2025 NoteTAVR procedure, instructions reviewed with patient, , and son. Patient scheduled for TAVR on 08/28/2024 at 9:15 am Will report to [facility] by 7:15 am Can park in the [facility] Parking Deck or use [employer] parking at the [facility] entrance Plan on overnight stay in the hospital Will not be able to drive for 1 week after procedure Will receive moderate sedation through the IV, will be relaxed but awake during the procedure Nothing to eat or drink after midnight Instructed to take morning medications including ASA/Plavix as prescribed with small sip of water EXCEPT to HOLD clonidine, tamsulosin, furosemide, lisinopril, potassium, vitamins/supplements morning of surgery Hold Warfarin for 4 days prior to surgery. Last dose 08/23. On 08/24, start 81 mg ASA and take daily, including morning of procedure. Will call with any questions/concerns Pre-op testing done 08/17/24 Patient/family verbalized understanding.[facility]04-04-2025 History of Present illness Narrative* Clara Sheriff MD - 08/04/2024 1:00 PM EDT Images from the original note were not included. [facility] [place] [address] [facility] [address] Dept: [phone] Dept Visit type: New : 1935 Reason for Visit: New Patient (Heart valve clinic) Assessment and Plan 1. Aortic valve stenosis, etiology of cardiac valve disease unspecified - ECG 12 lead - CLINIC PERFORMED - CBC auto differential - Comprehensive metabolic panel This is a very pleasant 88y/o male with severe/critical aortic stenosis, symptomatic. Medically, heis clearly in need of an aortic valve replacement. We discussed the fact that his life expectancy is possibly less than a year, if left for conservative therapy. At 88 years old, he is not a great surgical candidate. His third option would be to proceed with a transcatheter aortic valve replacement. Medically, this would be the clear indication. We have set him up with our financial consultants, to try to understand the financial implications of his decision. If we decided to proceed with intervention, there are a couple of things we could do to try to minimize cost. First, we could proceed with CTA first, assess candidacy for transfermoral TAVR, and ask our imagers to look at his proximal coronaries. If we can confidently say that he has minimal coronary disease, we could forego a cath relatively safely. Secondly, if he meets criteria for a same day discharge, we could consider him for this pathway. Will assess for candidacy for this after his CTA. He and his family will discuss with our financial team, and will let us know if he is interested inproceeding. Addendum: Family has discussed with our team, and are interested in proceeding. Will order a CTA asa start, as per plan above. It was a pleasure seeing your patient in the office today. Please do not hesitate to call me with any questions. Follow up for Recheck after CTA. Subjective HPI Tamar Segal is a very pleasant 88 y.o. male who is here for evaluation of his aortic valve disease. his symptoms include progressive dyspnea on exertion and fatigue. his most recent echo shows severe/critical aortic stneosis with normal EF, mean gradient 62mmHg. He does live in a self pay community, and patient and family is interested in learning about the financial considerations of the different pathway options. Review of Systems Constitutional: Negative for activity change, chills, diaphoresis, fatigue and fever. HENT: Negative for nosebleeds and trouble swallowing. Eyes: Negative for discharge and visual disturbance. Respiratory: Positive for shortness of breath (on exertion). Negative for apnea, cough, chest tightness, wheezing and stridor. Cardiovascular: Negative for chest pain, palpitations and leg swelling. Gastrointestinal: Negative for abdominal distention, abdominal pain, blood in stool, diarrhea, nausea and vomiting. Endocrine: Negative for cold intolerance and heat intolerance. Genitourinary: Negative for hematuria. Musculoskeletal: Negative for gait problem and myalgias. Skin: Negative for color change and rash. Neurological: Positive for light-headedness (with postion changes). Negative for dizziness, seizures, syncope, facial asymmetry, speech difficulty, weakness, numbness and headaches. Hematological: Does not bruise/bleed easily. Psychiatric/Behavioral: Negative for dysphoric mood. No Known Allergies Current Outpatient Medications: carvedilol (Coreg) 6.25 MG tablet, Take 6.25 mg by mouth 2 times daily (with meals)., Disp: , Rfl: cefdinir (Omnicef) 300 MG capsule, Take 300 mg by mouth 2 times daily., Disp: , Rfl: cloNIDine (Catapres) 0.2 MG tablet, Take 0.2 mg by mouth 2 times daily., Disp: , Rfl: furosemide (Lasix) 20 MG tablet, Take 60 mg by mouth 2 times daily., Disp: , Rfl: lisinopril 20 MG tablet, Take 20 mg by mouth 2 times daily., Disp: , Rfl: potassium chloride CR (Klor-Con M20) 20 MEQ ER tablet, Take 20 mEq by mouth 2 times daily. Do not crush or chew., Disp: , Rfl: tamsulosin (Flomax) 0.4 MG 24 hr capsule, Take 0.4 mg by mouth daily., Disp: , Rfl: warfarin (Coumadin) 2 MG tablet, Take 2 mg by mouth. Take as directed per After Visit Summary., Disp: , Rfl: Past Medical History: Diagnosis Date Acute respiratory insufficiency (aortic stenosis) Atrial fibrillation (HCC) Cardiomegaly CHF exacerbation (CMS/HCC) (HCC) Chronic anticoagulation CKD (chronic kidney disease) Essential hypertension Febrile illness Hyperbilirubinemia Left renal mass Murmur Positive blood cultures 07/2024 proteus mirabilis Viral lower respiratory tract infection Social History Tobacco Use Smoking status: Never Smokeless tobacco: Never Substance Use Topics Alcohol use: Never Past Surgical History: Procedure Laterality Date KNEE SURGERY No family history on file. Objective Vitals: 08/04/24 1248 08/04/24 1348 BP: (!) 142/82 122/82 BP Location: Left arm Patient Position: Sitting BP Cuff Size: Adult Pulse: 84 SpO2: 97% Weight: 201 lb 3.2 oz (91.3 kg) Height: 5' 11 (1.803 m) Physical Exam Constitutional: General: He is not in acute distress. Appearance: He is not diaphoretic. HENT: Head: Normocephalic. Nose: Nose normal. Mouth/Throat: Mouth: Mucous membranes are moist. Pharynx: No oropharyngeal exudate. Eyes: General: No scleral icterus. Right eye: No discharge. Left eye: No discharge. Neck: Thyroid: No thyromegaly. Vascular: No carotid bruit or JVD. Cardiovascular: Rate and Rhythm: Normal rate and regular rhythm. Pulses: Normal pulses. Heart sounds: Murmur heard. Systolic murmur is present with a grade of 3/6. Pulmonary: Effort: Pulmonary effort is normal. Breath sounds: Normal breath sounds. Abdominal: General: Bowel sounds are normal. There is no distension. Palpations: There is no hepatomegaly. Tenderness: There is no abdominal tenderness. Musculoskeletal: General: Normal range of motion. Cervical back: Normal range of motion. Right lower leg: No edema. Left lower leg: No edema. Skin: General: Skin is warm and dry. Neurological: Mental Status: He is oriented to person, place, and time. Psychiatric: Mood and Affect: Mood normal. Behavior: Behavior normal. Data Reviewed and Summarized No results found for: EFBP, PLVEF, LVEFPHYS, LVEF2D, EF Review of tests/labs done/ordered within my specialty: EKG in office: Review of tests/labs done/ordered outside my specialty: Independent interpretation of tests: I personally reviewed the images from Tamar Segal's most recent TTE in the office today, to help with medical decision making. My interpretation is noted in the HPI section of this note. NYHA Class (1-4): 2 STS score: 3.57% 5 meter gait speed in seconds: 7, 7, 7 Ao valve disease etiology (degenerative, rheumatic, endocarditis, other): degenerative Clara Sheriff MD documented in this [facility]03-21-2025 NoteWmukesh received a referral from Dr Lacey. I printed and put on [employer] desk. Will you please review for accurate scheduling?[facility]03-01-2025 Note [facility] Medical Records Department [facility] [place] [address] Discharge Summary 07/01/24 1118 MR#: [id number] Acct: [id number] Name: TAMAR SEGAL Rep #: [id number] : 1935 88 From: Jac Botello DO PCP: Dr. Juan Diego Starks MD Status:ADM IN [id number] Prov[facility] Date of Admission: 06/29/24 Date of Discharge: 07/01/24 Primary Care Physician: Dr. Juan Diego Starks DO Consultations 06/29/24 04:35 Consult: Cardiology Routine Consulting Provider: [facility] Reason for Consult: AE CHF. EMERGENT Consult: No MD Notified: Yes Date Notified: 06/29/24 Time Notified: 03:09 Method of Notification: Answering Service Method of Consult:: In-Person Reason For Visit: AE CHF, VIRAL RESP INFECTION RESPIRATORY INSUFF Diagnosis Discharge Diagnosis (1) Aortic valve stenosis: Status: Acute Code(s): I35.0 - Nonrheumatic aortic (valve) stenosis Qualifiers: Cardiac valve disease etiology: nonrheumatic Qualified Code(s): I35.0 - Nonrheumatic aortic (valve) stenosis (2) Essential hypertension: Status: Acute Code(s): I10 - Essential (primary) hypertension (3) CHF exacerbation: Status: Chronic Code(s): I50.9 - Heart failure, unspecified Qualifiers: Heart failure type: unspecified Qualified Code(s): I50.9 - Heart failure, unspecified (4) CKD (chronic kidney disease): Status: Chronic Code(s): N18.9 - Chronic kidney disease, unspecified Qualifiers: Chronic kidney disease stage: stage 3 (moderate) Chronic kidney disease stage 3 subtype: arcenio nath 3a (GFR 45-59) Qualified Code(s): N18.31 - Chronic kidney disease, stage 3a (5) Chronic a-fib: Status: Chronic Code(s): I48.20 - Chronic atrial fibrillation, unspecified (6) Left renal mass: Status: Acute Code(s): N28.89 - Other specified disorders of kidney and ureter (7) Positive blood cultures: Status: Acute Code(s): R78.81 - Bacteremia Plan 1. Acute diastolic CHF-exacerbated by severe aortic stenosis #2 chronic atrial fibrillation-patient is on Coumadin and will be on Coreg for rate control #3 hypoxia secondary to #1-pulse ox will be monitored, oxygen will be weaned if possible #4 severe aortic stenosis-patient will need follow-up as an outpatient regarding this #5 essential hypertension-patient's medications will be adjusted prior to discharge home #6 left renal mass-this will need worked up as an outpatient, I discussed this with him #7 bacteremia- Proteus, patient was placed on Rocephin, await final culture result #8 moderate pulmonary hypertension #9 acute cystitis with E. coli and Proteus Total clinical time spent by myself addressing the patient's medical issues, reviewing all of his data, and collaborating with patient's care team: 35 minutes Medications at Discharge Home Medications clonidine HCl 0.2 mg tablet 0.2 mg PO BID 06/28/24 tamsulosin 0.4 mg capsule (Flomax) 0.4 mg PO QHS 06/28/24 warfarin 2 mg tablet 2 mg PO .COMPLEX 06/28/24 carvedilol 6.25 mg tablet 6.25 mg PO BIDCM #60 tabs 07/01/24 cefdinir 300 mg capsule 300 mg PO BID #14 caps 07/01/24 furosemide 20 mg tablet (Lasix) 60 mg (3 x 20 mg) PO DAILY #90 tabs 07/01/24 lisinopril 20 mg tablet 20 mg PO BID #60 tabs 07/01/24 potassium chloride 20 mEq tablet,extended release(part/cryst) 20 meq PO BIDCM #60 tabs 07/01/24 Hospital Course Operations None Procedures 2-D Echocardiogram Summary of Care Provided Minutes Spent on Discharge: 31 Hospital Course: Is a 8-year-old white male was brought into the emergency room at [facility] for evaluation of fever and increasing dyspnea. Upon arrival of EMS at his home, his O2 sat was 82% on room air. Workup in the emergency room included an EKG which showed A-fib at a rate of 106, white blood cell count was normal, creatinine was 1.6, urinalysis was unremarkable. Chest x-ray showed no infiltrates, INR was 2.6. CT of the chest was performed, it was negative for PE but there were groundglass opacities with suggestion of pulmonary congestion and mild pulmonary edema. Patient's beta natruretic peptide was 8040. In addition, patient had a CT of the abdomen and pelvis which showed a 5.2 cm left lower pole renal mass. Patient was admitted to PCU for congestive heart failure, he was seen in consultation by cardiology and placed on IV diuresis. Echocardiogram was obtained which showed a normal ejection fraction but severe aortic stenosis. Patient had an ultrasound of the kidneys that showed a left renal mass. I talked at length with the patient and his family concerning his valvular heart disease and his renal mass, patient was unsure whether he wanted any treatment for his aortic valve as an outpatient. Patient's blood culture resulted positive for Proteus, despite this, patient's white blood cell count remained normal and he was afebrile-except for his t (more content not included)...[facility]02-27-2025 Evaluation note* Diagnosis Onset Date Resolution Status Admit Date Aortic valve stenosis acute Feb ru2024 3:05am Positive blood cultures acute [facility] 2024 3:05am Chronic a-fib chronic June 292024 3:05am Acute respiratory insufficiency inac tive June 29, 2024 3:05am Cardiomegaly inactive June 3:05am CHF exacerbation inactive June 29, 2024 3:05am Chronic anticoagulation inactive [facility] 2024 3:05am CKD (chronic kidney disease) inactiv e June 29, 2024 3:05am Essential hypertension inactive [facility] 2024 3:05am Febrile illness, acute inactive [facility] 2024 3:05am Hyperbilirubinemia inactive Februa 2024 3:05am Left renal mass inactive June 29, 2024 3:05am Murmur inactive June 29, 2024 3:05am Viral lower respiratory trac t infection inactive June 29, 2 025 3:05am Right renal mass deleted June 29, 2024 3:05am Aortic valve stenosis acute Mar ch 2024 4:04pm Heart failure with preserved ejection fraction acute July 14 4:04pm Positive blood cultures acute [facility] 2024 4:04pm Chronic a-fib chronic July 14, 2024 4:04pm [facility] Work Phone: Evaluation note* Diagnosis Aortic valve stenosis, etiology of cardiac valve disease unspecified- Primary documented in this encounter [facility] [employer])Evaluation note* Diagnosis Aortic valve stenosis, etiology of cardiac valve disease unspecified documented in this encounter [facility] [employer])Evaluation note* Diagnosis Aortic valve stenosis, etiology of cardiac valve disease unspecified documented in this encounter [facility] [employer] note* Diagnosis Nonrheumatic aortic valve stenosis- Primary Nonrheumatic aortic valve stenosis- Primary documented in this encounter [facility] [employer] note* Diagnosis Nonrheumatic aortic valve stenosis- Primary Severe aortic stenosis- Primary Aortic valve disorders Nonrheumatic aortic valve stenosis documented in this encounter [facility] [employer] note* Diagnosis Nonrheumatic aortic valve stenosis- Primary Severe aortic stenosis Aortic valve disorders Severe aortic stenosis Aortic valve disorders Nonrheumatic aortic valve stenosis documented in this encounter [facility] [employer] for referral (narrative)No reason for referral information [facility] Work Phone: Reason for visit Narrative* Imaging (Routine) - Closed Specialty Diagnoses / Procedures Referred By Kelly mccallum Referred To Contact Radiology Diagnoses Aortic valve stenosis, etiology of cardiac valve disease unspecified Procedures CTA Angiogram TAVR Magdalena Riley, [facility] [address] [place] [address] Phone: tel: fax: Referral ID Status Reason Start Date Expiration Date Visits Re quested Visits Authorized [id number] Closed 08/04/2024 08/04/2025 1 1 [facility] [employer] for visit Narrative* Auth/Cert (Routine) Specialty Diagnoses / Procedures Referred By Kelly t Referred To Contact Diagnoses Nonrheumatic aortic valve stenosis Procedures OR REPLACE AORTIC VALVE PERQ FEMORAL ARTRY APPROACH TRANSCATHETER AORTIC VALVE REPLACEMENT, TRANSTHORACIC ECHOCARDIOGRAM TRANSCATHETER AORTIC VALVE REPLACEMENT, TRANSTHORACIC ECHOCARDIOGRAM Clara Sheriff MD [address] [place], [place] [id number] Phone: tel: fax: Referral ID Status Reason Start Date Expiration Date Visits Re quested Visits Authorized [id number] 08/22/2024 1 1 [facility] Summary Purpose Family History No Family History Records FoundNo Family History Records FoundNo Family History Records Found Advance Directives No Advanced Directives Records Found Advance Directive Response Recorded Date/ Time Living Will No June 29 5:36am Do you have a Healthcare Power of Financial Representative? No June 29, 2024 5:36am Date Activated Date Inactivated Comments 08/28/2024 8:01 AM 08/29/2024 3:30 PM Healthcare Agents on File Name Relationship Healthcare Agent Relationshi p Communication Betsy Segal Spouse Health Care Agent Date Activated Date Inactivated Comments 08/28/2024 8:01 AM 08/29/2024 3:30 PM Healthcare Agents on File Name Relationship Healthcare Agent Relationshi p Communication Betsy Segal Spouse Health Care Agent Healthcare Agents on File Name Relationship Healthcare Agent Relationshi p Communication Betsy Segal Spouse Health Care Agent Chief Complaint and Reason for Visit Chief Complaint Admit Date AE CHF, VIRAL RESP INFECTION & RESPIRATO RY INSUFF June 29, 2024 3:05am AE CHF, VIRAL RESP INFECTION & RESPIRATO RY INSUFF June 29, 2024 10:03am AE CHF, VIRAL RESP INFECTION & RESPIRATO RY INSUFF June 30, 2024 9:15am AE CHF, VIRAL RESP INFECTION & RESPIRATO RY INSUFF June 30, 2024 10:38am AE CHF, VIRAL RESP INFECTION & RESPIRATO RY INSUFF July 01, 2024 9:56am AE CHF, VIRAL RESP INFECTION & RESPIRATO RY INSUFF July 01, 2024 11:18am S/P [facility] 07/01 Acute Respiratory Insufficin cy July 14, 2024 4:04pm [facility] July 14, 2024 4:4 9pm Reason for Visit Admit Date Aortic valve stenosis June 29 3:05am Positive blood cultures June 29, 2 025 3:05am Chronic a-fib June 29, 2024 3:05am Acute respiratory insufficiency June 29, 2024 3:05am Cardiomegaly June 29, 2024 3:05am CHF exacerbation June 29, 2024 3:05am Chronic anticoagulation June 29, 025 3:05am CKD (chronic kidney disease) June 292024 3:05am Essential hypertension June 29 3:05am Febrile illness, acute June 29 3:05am Hyperbilirubinemia June 29, 2024 3:05am Left renal mass June 29, 2024 3:05am Murmur June 29, 2024 3:05am Viral lower respiratory tract infection June 29, 2024 3:05am Right renal mass June 29, 2024 3:05am Aortic valve stenosis July 14, 2024 4 :04pm Heart failure with preserved ejection fr action July 14, 2024 4:04pm Positive blood cultures July 14, 2024 4:04pm Chronic a-fib July 14, 2024 4:0 4pm Chief Complaint Admit Date S/P TAVR([facility]) 2024 10:36 am 3 M FU December 05, 2024 8:0 5am Reason for Visit Admit Date Heart failure with preserved ejection fr action 2024 10:36am S/P TAVR (transcatheter aortic valve rep lacement) 2024 10:36am Chronic a-fib 2024 10:36a m Heart failure with preserved ejection fr action December 05, 2024 8:05am S/P TAVR (transcatheter aortic valve rep lacement) December 05, 2024 8:05am Chronic a-fib December 05, 2024 8:0 5am Additional Source Comments (unrecognized sect ion and content) No Status Records FoundNo Status Records FoundNo Status Records Found INFORMATION SOURCE (unrecogn ized section and content) DATE CREATED AUTHOR 10/22/2017 [facility] DATE CREATED AUTHOR AUTHOR'S ORGANIZ ATION 12/07/2024 [facility] DATE CREATED AUTHOR AUTHOR'S ORGANIZ ATION 12/22/2024 [facility] Care Teams (unrecognized sec tion and content) Team Status: Active Member Role Status Dates Dr. Juan Diego Starks DO Primary Care Provider Active Team Status: Inactive Member Role Status Dates Dr. Juan Diego Starks DO Primary Care Provider Active Start: June 29, 2024 End: July 01, 2024 Dr. Joe Jernigan DO Emergency Provider Active Start : June 29, 2024 End: July 01, 2024 Dr. Thomas Bueno DO Admit Provider Active Start: June 29, 2024 End: July 01, 2024 Dr. Thomas Bueno DO Other Provider Active Start: June 29, 2024 End: July 01, 2024 Dr. Isai Wisdom MD Other Provider Active Start: June 29, 2024 End: July 01, 2024 Dr. Isaac Heller MD Other Provider Active St art: June 29, 2024 End: July 01, 2024 Dr. Cole Easley MD Other Provider Active Star t: June 29, 2024 End: July 01, 2024 Dr. Armaan Abbott MD Other Provider Active Sta rt: June 29, 2024 End: July 01, 2024 Dr. Surinder Lord MD Other Provider Active Start : June 29, 2024 End: July 01, 2024 Dr. Danuta Hopkins MD Other Provider Active Star t: June 29, 2024 End: July 01, 2024 Dr. Wu Lacey MD Other Provider Active St art: June 29, 2024 End: July 01, 2024 Dr. Khoa Hogan MD Other Provider Active Start: June 29, 2024 End: July 01, 2024 Dr. uSman Glaser MD Other Provider Active S tart: June 29, 2024 End: July 01, 2024 Dr. Uriel Watkins MD Other Provider Active Start: June 29, 2024 End: July 01, 2024 Jignesh Castellanos WELLNESS SPECIALIST, WELLNESS SPECIALIST-C Other Provider Active Start : June 29, 2024 End: July 01, 2024 Geraldine Villagomez PA, PA Other Provider Active Start: June 29, 2024 End: July 01, 2024 JOEL Casas Other Provider Active Start: June 29, 2024 End: July 01, 2024 Dr. Genesis Castillo MD Attending Provider Active Start: June 29, 2024 End: July 01, 2024 Dr. Jac Botello , Other Provider Active S tart: June 29, 2024 End: July 01, 2024 Team Status: Active Member Role Status Dates Dr. Juan Diego Starks DO Primary Care Provider Active Start: June 29, 2024 Dr. Khoa Hogan MD Attending Provider Activ e Start: June 29, 2024 Team Status: Active Member Role Status Dates Dr. Juan Diego Starks DO Primary Care Provider Active Start: June 29, 2024 Dr. Joe Jernigan DO Emergency Provider Active Start : June 29, 2024 Dr. Thomas Bueno , Admit Provider Active Start: June 29, 2024 Dr. Thomas Bueno , Other Provider Active Start: June 29, 2024 Dr. Jac Botello , Other Provider Active S tart: June 29, 2024 Dr. Isai Wisdom MD Other Provider Active Start: June 29, 2024 Dr. Isaac Heller MD Other Provider Active St art: June 29, 2024 Dr. Cole Easley MD Other Provider Active Star t: June 29, 2024 Dr. Armaan Abbott MD Other Provider Active Sta rt: June 29, 2024 Dr. Surinder Lord MD Other Provider Active Start : June 29, 2024 Dr. Danuta Hopkins MD Other Provider Active Star t: June 29, 2024 Dr. Wu Lacey MD Attending Provider Active Start: June 29, 2024 Dr. Wu Lacey MD Other Provider Active St art: June 29, 2024 Dr. Khoa Hogan MD Other Provider Active Start: June 29, 2024 Dr. Suman Glaser MD Other Provider Active S tart: June 29, 2024 Dr. Uriel Watkins MD Other Provider Active Start: June 29, 2024 Jignesh Castellanos WELLNESS SPECIALIST, WELLNESS SPECIALIST-C Other Provider Active Start : June 29, 2024 Geraldine Villagomez PA, PA Other Provider Active Start: June 29, 2024 JOEL Casas Other Provider Active Start: June 29, 2024 Team Status: Active Member Role Status Dates Dr. Juan Diego Starks , Primary Care Provider Active Start: June 30, 2024 Dr. Joe Jernigan , DO Emergency Provider Active Start : June 30, 2024 Dr. Thomas Bueno , DO Admit Provider Active Start: June 30, 2024 Dr. Thomas Bueno , DO Other Provider Active Start: June 30, 2024 Dr. Jac Botello , DO Other Provider Active S tart: June 30, 2024 Dr. Isai Wisdom MD Other Provider Active Start: June 30, 2024 Dr. Isaac Heller MD Other Provider Active St art: June 30, 2024 Dr. Cole Easley MD Other Provider Active Star t: June 30, 2024 Dr. Armaan Abbott MD Other Provider Active Sta rt: June 30, 2024 Dr. Surinder Lord MD Other Provider Active Start : June 30, 2024 Dr. Danuta Hopkins MD Other Provider Active Star t: June 30, 2024 Dr. Wu Lacey MD Attending Provider Active Start: June 30, 2024 Dr. Wu Lacey MD Other Provider Active St art: June 30, 2024 Dr. Khoa Hogan MD Other Provider Active Start: June 30, 2024 Dr. Suman Glaser MD Other Provider Active S tart: June 30, 2024 Dr. Uriel Watkins MD Other Provider Active Start: June 30, 2024 Jignesh Castellanos WELLNESS SPECIALIST, WELLNESS SPECIALIST-C Other Provider Active Start : June 30, 2024 Geraldine Villagomez PA, PA Other Provider Active Start: June 30, 2024 JOEL Casas Other Provider Active Start: June 30, 2024 Team Status: Active Member Role Status Dates Dr. Juan Diego Starks DO Primary Care Provider Active Start: June 30, 2024 Dr. Joe Jernigan DO Emergency Provider Active Start : June 30, 2024 Dr. Thomas Bueno , Admit Provider Active Start: June 30, 2024 Dr. Thomas Bueno , Other Provider Active Start: June 30, 2024 Dr. Jac Botello DO Attending Provider Active Start: June 30, 2024 Dr. Jac Botello DO Other Provider Active S tart: June 30, 2024 Dr. Isai Wisdom MD Other Provider Active Start: June 30, 2024 Dr. Isaac Heller MD Other Provider Active St art: June 30, 2024 Dr. Cole Easley MD Other Provider Active Star t: June 30, 2024 Dr. Armaan Abbott MD Other Provider Active Sta rt: June 30, 2024 Dr. Surinder Lodr MD Other Provider Active Start : June 30, 2024 Dr. Danuta Hopkins MD Other Provider Active Star t: June 30, 2024 Dr. Wu Lacey MD Other Provider Active St art: June 30, 2024 Dr. Khoa Hogan MD Other Provider Active Start: June 30, 2024 Dr. Suman Glaser MD Other Provider Active S tart: June 30, 2024 Dr. Uriel Watkins MD Other Provider Active Start: June 30, 2024 Jignesh Castellanos WELLNESS SPECIALIST, WELLNESS SPECIALIST-C Other Provider Active Start : June 30, 2024 Geraldine Villagomez PA, PA Other Provider Active Start: June 30, 2024 JOEL Casas Other Provider Active Start: June 30, 2024 Team Status: Active Member Role Status Dates Dr. Juan Diego Starks DO Primary Care Provider Active Start: June 30, 2024 Dr. Chelsey Dumont MD Attending Provider Active S tart: June 30, 2024 Dr. Wu Lacey MD Referring Provider Active Start: June 30, 2024 Team Status: Active Member Role Status Dates Dr. Juan Diego Starks DO Primary Care Provider Active Start: July 01, 2024 Dr. Joe Jernigan DO Emergency Provider Active Start : July 01, 2024 Dr. Thomas Bueno DO Admit Provider Active Start: July 01, 2024 Dr. Thomas Bueno DO Other Provider Active Start: July 01, 2024 Dr. Isai Wisdom MD Other Provider Active Start: July 01, 2024 Dr. Isaac Heller MD Other Provider Active St art: July 01, 2024 Dr. Cole Easley MD Other Provider Active Star t: July 01, 2024 Dr. Armaan Abbott MD Other Provider Active Sta rt: July 01, 2024 Dr. Surinder Lord MD Other Provider Active Start : July 01, 2024 Dr. Danuta Hopkins MD Other Provider Active Star t: July 01, 2024 Dr. Wu Lacey MD Attending Provider Active Start: July 01, 2024 Dr. Wu Lacey MD Other Provider Active St art: July 01, 2024 Dr. Khoa Hogan MD Other Provider Active Start: July 01, 2024 Dr. Suman Glaser MD Other Provider Active S tart: July 01, 2024 Dr. Uriel Watkins MD Other Provider Active Start: July 01, 2024 Jignesh Castellanos WELLNESS SPECIALIST, WELLNESS SPECIALIST-C Other Provider Active Start : July 01, 2024 Geraldine Villagomez PA, PA Other Provider Active Start: July 01, 2024 JOEL Casas Other Provider Active Start: July 01, 2024 Dr. Genesis Castillo MD Other Provider Active St art: July 01, 2024 Dr. Jac Botello DO Other Provider Active S tart: July 01, 2024 Team Status: Active Member Role Status Dates Dr. Juan Diego Starks , DO Primary Care Provider Active Start: July 01, 2024 Dr. Joe Jernigan DO Emergency Provider Active Start : July 01, 2024 Dr. Thomas Bueno DO Admit Provider Active Start: July 01, 2024 Dr. hTomas Bueno DO Other Provider Active Start: July 01, 2024 Dr. Isai Wisdom MD Other Provider Active Start: July 01, 2024 Dr. Isaac Heller MD Other Provider Active St art: July 01, 2024 Dr. Cole Easley MD Other Provider Active Star t: July 01, 2024 Dr. Armaan Abbott MD Other Provider Active Sta rt: July 01, 2024 Dr. Surinder Lord MD Other Provider Active Start : July 01, 2024 Dr. Danuta Hopkins MD Other Provider Active Star t: July 01, 2024 Dr. Wu Lacey MD Other Provider Active St art: July 01, 2024 Dr. Khoa Hogan MD Other Provider Active Start: July 01, 2024 Dr. Suman Glaser MD Other Provider Active S tart: July 01, 2024 Dr. Uriel Watkins MD Other Provider Active Start: July 01, 2024 Jignesh Castellanos WELLNESS SPECIALIST, WELLNESS SPECIALIST-C Other Provider Active Start : July 01, 2024 Geraldine Villagomez PA, PA Other Provider Active Start: July 01, 2024 JOEL Casas Other Provider Active Start: July 01, 2024 Dr. Genesis Castillo MD Other Provider Active St art: July 01, 2024 Dr. Jac Botello DO Attending Provider Active Start: July 01, 2024 Dr. Jac Botello DO Other Provider Active S tart: July 01, 2024 Team Status: Inactive Member Role Status Dates Dr. Juan Diego Starks DO Primary Care Provider Active Start: July 14, 2024 End: July 14, 2024 Dr. Juan Diego Starks DO Referring Provider Active Start: July 14, 2024 End: July 14, 2024 Dr. Wu Lacey MD Attending Provider Active Start: July 14, 2024 End: July 14, 2024 Team Status: Inactive Member Role Status Dates Dr. Juan Diego Starks DO Primary Care Provider Active Start: July 14, 2024 End: July 14, 2024 Dr. Wu Lacey MD Attending Provider Active Start: July 14, 2024 End: July 14, 2024 Dr. Wu Lacey MD Referring Provider Active Start: July 14, 2024 End: July 14, 2024 Sales Trainee Relationship Specialty Start Date End Date Juan Diego Starks [address] [place] [address] PCP - General Internal Medicine 08/04/24 Sales Trainee Relationship Specialty Start Date End Date TerezaJuan Diego acosta [address] [place], [place] [address] PCP - General Internal Medicine 08/04/24 Sales Trainee Relationship Specialty Start Date End Date Juan Diego Starks [address] [place], [place] [address] PCP - General Internal Medicine 08/04/24 Sales Trainee Relationship Specialty Start Date End Date Juan Diego Starks [address] [place] [address] PCP - General Internal Medicine 08/04/24 Sales Trainee Relationship Specialty Start Date End Date Juan Diego Starks [address] [place] [address] PCP - General Internal Medicine 08/04/24 Levy Green MD [address] [place] [address] Surgeon Urology 08/23/24 Sales Trainee Relationship Specialty Start Date End Date Juan Diego Starks [address] [place] [address] PCP - General Internal Medicine 08/04/24 Levy Green MD [address] [place] [id number] Surgeon Urology 08/23/24 Team Status: Active Member Role/Relationship Status Dates Dr. Juan Diego Starks DO Primary Care Provider Active Team Status: Inactive Member Role/Relationship Status Dates Dr. Juan Diego Starks DO Primary Care Provider Active Start: 2024 End: 2024 Dr. Juan Diego Starks DO Referring Provider Active Start: 2024 End: 2024 Megan Solo WELLNESS SPECIALIST, WELLNESS SPECIALIST-C Attending Provider Active Start: 2024 End: 2024 Team Status: Inactive Member Role/Relationship Status Dates Dr. Juan Diego Starks DO Primary Care Provider Active Start: December 05, 2024 End: December 05, 2024 Dr. Juan Diego Starks DO Referring Provider Active Start: December 05, 2024 End: December 05, 2024 Megan Solo WELLNESS SPECIALIST, WELLNESS SPECIALIST-C Attending Provider Active Start: December 05, 2024 End: December 05, 2024 Sales Trainee Relationship Specialty Start Date End Date Juan Diego Starks [address] [place] [address] PCP - General Internal Medicine 08/04/24 Levy Green MD [address] [facility] [address] [place] [address] Surgeon Urology 08/23/24 Reason for Visit (unrecogniz ed section and content) Reason Comments New Patient Heart valve clinic Reason Comments New Patient Reason Onset Date Comments Cancelled Appointment 10/02/2024 Reason Onset Date Comments Appointment Request 09/27/2024 Scheduled Active and Recently Administ ered Medications (unrecognized section and content) Medication Order 08/27/2024 08/28/2024 08/29/2024 aspirin EC tablet 81 mg 81 mg, Oral, Daily, First dose on Wed08/29/24 at 0900, Do not crush, chew, or split. 0855 (Given - Provid er: Gm Sanchez RN) carvedilol (Coreg) tablet 6.25 mg 6.25 mg, Oral, 2 times daily with meals, First dose on Wed08/28/24 at 1700 1817 (Given - Provider: Gm Sanchez RN) 0855 (Given - Provider: Gm Sanchez RN) ceFAZolin (Ancef) 2,000 mg in sodium chloride 0.9 % 100 mL IVPB (COMPLETED) 2,000 mg, IntraVENous, at 200 mL/hr, Administer over 30 Minutes, Once, On Wed08/28/24 at 0815, For 1 dose, Preprocedure, Administer within 1 hour prior to incision. Recommend to repeat in 3-4 hours after initial dose if still intra-op. 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 2012 (Given - Provider: Manfred Landrum RN) 0855 (Given - Provider: Gm Sanchez RN) furosemide (Lasix) tablet 20 mg 20 mg, Oral, 2 times daily, First dose on Wed08/29/24 at 0600 0655 (Given - Provid er: Manfred Landrum RN)1500 (Canceled Entry - Provider: Automatic Discharge Provider - Comment: Automatically canceled at discontinue of medication order) lisinopril tablet 20 mg 20 mg, Oral, Daily, First dose on Wed08/28/24 at 1515, 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 120 1543 (Given - Provider: Gm Sanchez RN) 0855 (Given - Provider: Gm Sanchez RN) mupirocin (Bactroban) 2 % ointment 1 Application 1 Application, Nasal, 2 times daily, First dose on Wed08/28/24 at 1145, For 5 days, Recovery & On Unit, Indications: MRSA Nasal Decolonization 1154 (Given - Provider: Gm Sanchez RN)2012 (Given - Provider: Manfred Landrum RN) 0855 (Given - Provider: Gm Sanchez RN) sodium chloride 0.9% (NS) flush 10 mL (CANCELED) 10 mL, IntraVENous, Every 12 hours scheduled (2 times per day), First dose on Wed08/28/24 at 1115, Recovery (only) 1115 (Given - Provider: Gm Sanchez RN) tamsulosin (Flomax) 24 hr capsule 0.4 mg 0.4 mg, Oral, Daily, First dose on Wed08/29/24 at 0900, Do not crush, chew, or split. 0855 (Given - Provid er: Gm Sanchez RN) Continuous Medication Order 08/27/2024 08/28/2024 08/29/2024 lactated ringers infusion (CANCELED) 125 mL/hr, IntraVENous, Continuous, Starting on Wed08/28/24 at 1115, Recovery (only) 1150 (New Bag - Provider: Jd Sanchez RN)1200 (Stopped - Provider: Rossana Kohler RN) sodium chloride 0.9 % infusion (CANCELED) 50 mL/hr, IntraVENous, Continuous, Starting on Wed08/28/24 at 0815, Preprocedure, Upon admission to sameday - please start iv if patient does not have iv access. 0827 (New Bag - Provider: Yamileth Osborn RN)0920 (Paused - Provider: RADAMES Barnes CRNA - Comment: Switch to gravity)0921 (Restarted - Provider: RADAMES Barnes CRNA)1047 (Stopped - Provider: RADAMES Barnes CRNA) PRN Medication Order 08/27/2024 08/28/2024 08/29/2024 acetaminophen (Tylenol) tablet 650 mg 650 mg, Oral, Every 4 hours PRN, mild pain (1-3), Fever > 100.5 F (38 C), Starting on Wed08/28/24 at 1134, Recovery & On Unit, Maximum dose of acetaminophen is 4000 mg from all sources in 24 hours. 2013 (Given - Provider: Manfred Landrum RN) heparin 3,000 Units in sodium chloride 0.9 % 1,500 mL OR irrigation (CANCELED) As needed, Starting on Wed08/28/24 at 0821, Intraprocedure 0821 (Given - Provider: Melvin Sheriff MD) iodixanol (VISIPaque) 320 MG/ML injection (COMPLETED) Continuous PRN, Starting on Wed08/28/24 at 1032, Intraprocedure 1032 (New Bag - Provider: Clara Sheriff MD)1100 (Stopped - Provider: Rossana Kohler, [place]) lidocaine (Xylocaine) 1 % injection (CANCELED) As needed, Starting on Wed08/28/24 at 1040, Intraprocedure 1040 (Given - Provider: Melvin Sheriff MD) naloxone (Narcan) injection 0.4 mg 0.4 mg, IntraVENous, Every 5 min PRN, opioid reversal, respiratory depression, Starting on Wed08/28/24 at 1113, +++ For RR <10, pinpoint pupils, over sedation for opioid reversal - MUST notify information coordinator provider immediately after first dose, may give IM or SQ if no IV access +++ Goals (unrecognized section and content) Goals may be documented in a n alternate section FOR RECORDS PERTAINING TO PATIENTS WHO ARE OR HAVE BEEN ENROLLED IN A CHEMICAL DEPENDENCY/SUBSTANCEABUSE PROGRAM, SOME INFORMATION MAY BE OMITTED. This clinical summary was aggregated from multiple sources. Caution should be exercised in using it in the provision of clinical care. This summary normalizes information from multiple sources, and as a consequence, information in this document may materially change the coding, format and clinical context of patient data. In addition, data may be omitted in some cases. CLINICAL DECISIONS SHOULD BE BASED ON THE PRIMARY CLINICAL RECORDS. [employer] [facility]. provides no warranty or guarantee of the accuracy or completeness of information in this document.
[2024-12-23 11:31] LABS: Mucous, Urine 0 SEEN /hpf (<or=2+); Red Blood Cells-Urine 0 SEEN /hpf (0-5); Squamous Epithelial Cells - UA 0 SEEN /hpf (0-5)
[2024-12-23 11:34] LABS: Color, Urine Yellow (Yellow); Glucose, Dipstick Normal (Normal); Ketone-Dipstick Negative (Negative); Leukocyte Esterase-Dipstick Negative /ul (Negative); Nitrite-Dipstick Negative (Negative); Occult Blood-Urine 10 /ul (Negative); Protein-Dipstick 15 mg/dl (Negative); Specific Gravity, Urine 1.015 (1.002-1.030); Urine Bilirubin Dipstick Negative (Negative)
== END 2024-12-23 13:55 | disposition home or self-care (01) ==
PROVIDERS: Emergency Provider Emergency Medicine; PCP Family Medicine; Visit Provider Emergency Medicine
DX: I48.20 Chronic atrial fibrillation, unspecified (principal); L97.529 Non-pressure chronic ulcer of other part of left foot with unspecified severity; I13.0 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 1 through stage 4 chronic kidney disease, or unspecified chronic kidney disease; I50.9 Heart failure, unspecified; N18.9 Chronic kidney disease, unspecified; D72.829 Elevated white blood cell count, unspecified; E86.0 Dehydration; I49.3 Ventricular premature depolarization; Z79.01 Long term (current) use of anticoagulants; Z79.899 Other long term (current) drug therapy; Z95.2 Presence of prosthetic heart valve
CPT/HCPCS: 71045; 80053; 81001; 83605; 85025; 85610; 93005; 96360; 96361; 99285; A4216